=== PATIENT | male | born 1960 | race Caucasian/White ===

== ENCOUNTER 2021-10-14 09:49 | Outpatient (CLI) | payer OTHER, SELFPAY ==
[2021-10-14 09:55] LABS: Bacteria 0 SEEN /hpf (None Seen); Mucous, Urine 0 SEEN /hpf (<or=2+); Red Blood Cells-Urine 0 SEEN /hpf (0-5); Squamous Epithelial Cells - UA 0 SEEN /hpf (0-5); White Blood Cells 0 SEEN /hpf (0-5)
[2021-10-14 12:09] LABS: Color, Urine Yellow (Yellow); Glucose, Dipstick Normal (Normal); Ketone-Dipstick Negative (Negative); Leukocyte Esterase-Dipstick Negative /ul (Negative); Nitrite-Dipstick Negative (Negative); Occult Blood-Urine Negative /ul (Negative); Protein-Dipstick 15 mg/dl (Negative); Urine Bilirubin Dipstick Negative (Negative); Urine Clarity Clear (Clear); Urine Urobilinogen Normal (Normal)
[2021-10-14 12:17] LABS: Absolute Lymphocyte Count 1.81 X10^3/uL (0.83-4.51); Absolute Neutrophil Count 2.6 X10^3/uL (2.0-7.7); Basophil# 0.03 X10^3/uL; Basophil% 0.6 % (0-1); Eosinophil# 0.14 X10^3/uL; Eosinophils% 2.8 % (0-5); Hematocrit 42.3 % (40-54); Hemoglobin 14.6 g/dL (13.0-16.5); Lymphocyte # 1.81 X10^3/ul (0.83-4.51); Lymphocyte % 36.6 % (19-41); Mean Corp Hgb Conc 34.5 g/dL (32-36); Mean Corpuscular Hgb 30.7 pg (27.0-32.0); Mean Corpuscular Volume 89.1 fL (80-94); Mean Platelet Vol. 9.9 fl (6.2-12.0); Monocyte% 8.1 % (0-10); NRBC Flagged by Analyzer 0 % (0-5); Neutrophil # 2.55 X10^3/uL (2.7-7.7); Neutrophil % 51.7 % (47-70); Platelet Count 233 K/mm3 (150-450); RBC Distribution Width CV 12.5 % (11.6-14.6); Red Blood Count 4.75 M/mm3 (4.6-6.2); White Blood Count 4.9 K/mm3 (4.4-11.0)
[2021-10-14 13:02] LABS: ALB/GLOB Ratio 1.3 RATIO (0.9-2.4); AST(SGOT) 13 U/L (15-37); Alanine Aminotransfer ALT/SGPT 27 U/L (16-61); Albumin, Serum 3.9 g/dL (3.2-5.0); Alkaline Phosphatase 64 U/L (45-117); Anion Gap 6 (5-15); BUN 21 mg/dL (7-18); BUN/Creat Ratio 22.5 RATIO (10-20); Calcium,Total 8.5 mg/dL (8.5-10.1); Chloride 108 mmol/L (98-107); Cholesterol 199 mg/dL (200); Creatinine, Serum 0.94 mg/dL (0.70-1.30); EST Glomerular Filtration Rate 88 mL/min (>60); Est Glom Filt Rate - Afr Amer 106 mL/min (>60); Glucose 161 mg/dL (74-106); High Density Lipoprotein 44 mg/dL; Potassium 4.4 mmol/L (3.5-5.1); Protein, Total 6.9 g/dL (6.4-8.2); Sodium Level 139 mmol/L (136-145); Thyroid Stim Hormone (TSH) 1.68 uIU/mL (0.358-3.74); Triglycerides 141 mg/dL; Very Low Density Lipoprotein 28 mg/dL (5-40)
[2021-10-14 16:21] LABS: Hemoglobin A1c 7.1 % (3.8-5.6)
== END 2021-10-14 23:59 | disposition home or self-care (01) ==
LOC: MFPLAB 09:52
PROVIDERS: PCP Family Medicine; Referring Provider Family Medicine; Visit Provider Family Medicine
DX: R73.09 Other abnormal glucose (principal); I10 Essential (primary) hypertension
CPT/HCPCS: 36415; 80053; 80061; 81001; 83036; 84443; 85025

== ENCOUNTER 2022-02-01 09:32 | Outpatient (CLI) | payer OTHER, SELFPAY ==
[2022-02-01 12:05] LABS: Absolute Lymphocyte Count 1.55 X10^3/uL (0.83-4.51); Absolute Neutrophil Count 3.3 X10^3/uL (2.0-7.7); Basophil# 0.03 X10^3/uL; Basophil% 0.6 % (0-1); Eosinophil# 0.17 X10^3/uL; Eosinophils% 3.1 % (0-5); Hematocrit 40.1 % (40-54); Hemoglobin 13.4 g/dL (13.0-16.5); Lymphocyte # 1.55 X10^3/ul (0.83-4.51); Lymphocyte % 28.7 % (19-41); Mean Corp Hgb Conc 33.4 g/dL (32-36); Mean Corpuscular Hgb 30.9 pg (27.0-32.0); Mean Corpuscular Volume 92.4 fL (80-94); Monocyte# 0.37 X10^3/uL; Monocyte% 6.9 % (0-10); NRBC Flagged by Analyzer 0 % (0-5); Neutrophil # 3.28 X10^3/uL (2.7-7.7); Neutrophil % 60.7 % (47-70); Platelet Count 219 K/mm3 (150-450); RBC Distribution Width CV 13.4 % (11.6-14.6); RBC Distribution Width SD 45.9 fl (35.1-43.9); Red Blood Count 4.34 M/mm3 (4.6-6.2); White Blood Count 5.4 K/mm3 (4.4-11.0)
[2022-02-01 12:30] LABS: ALB/GLOB Ratio 1.2 RATIO (0.9-2.4); AST(SGOT) 14 U/L (15-37); Alanine Aminotransfer ALT/SGPT 22 U/L (16-61); Albumin, Serum 3.7 g/dL (3.2-5.0); Alkaline Phosphatase 53 U/L (45-117); Anion Gap 8 (5-15); BUN 20 mg/dL (7-18); BUN/Creat Ratio 23.2 RATIO (10-20); Chloride 107 mmol/L (98-107); Cholesterol 105 mg/dL (200); Creatinine, Serum 0.86 mg/dL (0.70-1.30); EST Glomerular Filtration Rate 96 mL/min (>60); Est Glom Filt Rate - Afr Amer 117 mL/min (>60); Globulin 3.1 g/dL (2.2-4.2); Glucose 101 mg/dL (74-106); High Density Lipoprotein 53 mg/dL; Microalbumin,Random Urine 26.6 mg/L (NO RANGE EST.); Microalbumin:Creatinine Ratio 14.1 mg/g CRE (<30 mg/g CRE); Potassium 4.5 mmol/L (3.5-5.1); Protein, Total 6.8 g/dL (6.4-8.2); Sodium Level 140 mmol/L (136-145); Triglycerides 55 mg/dL; Very Low Density Lipoprotein 11 mg/dL (5-40)
[2022-02-01 12:38] LABS: Hemoglobin A1c 5.9 % (3.8-5.6)
== END 2022-02-01 23:59 | disposition home or self-care (01) ==
LOC: MFPLAB 09:33
PROVIDERS: PCP Family Medicine; Referring Provider Family Medicine; Visit Provider Family Medicine
DX: Z00.00 Encounter for general adult medical examination without abnormal findings (principal)
CPT/HCPCS: 36415; 80053; 80061; 82043; 82570; 83036; 85025

== ENCOUNTER → 2022-05-31 | Outpatient (CLI) | payer OTHER, SELFPAY ==
[2022-05-31 12:33] LABS: Absolute Lymphocyte Count 1.55 X10^3/uL (0.83-4.51); Absolute Neutrophil Count 2.5 X10^3/uL (2.0-7.7); Basophil# 0.03 X10^3/uL; Basophil% 0.6 % (0-1); Eosinophil# 0.18 X10^3/uL; Eosinophils% 3.9 % (0-5); Hematocrit 40.2 % (40-54); Hemoglobin 13.8 g/dL (13.0-16.5); Lymphocyte # 1.55 X10^3/ul (0.83-4.51); Lymphocyte % 33.5 % (19-41); Mean Corp Hgb Conc 34.3 g/dL (32-36); Mean Corpuscular Hgb 31.3 pg (27.0-32.0); Mean Corpuscular Volume 91.2 fL (80-94); Mean Platelet Vol. 10.3 fl (6.2-12.0); Monocyte# 0.33 X10^3/uL; Monocyte% 7.1 % (0-10); NRBC Flagged by Analyzer 0 % (0-5); Neutrophil # 2.54 X10^3/uL (2.7-7.7); Neutrophil % 54.9 % (47-70); Platelet Count 204 K/mm3 (150-450); RBC Distribution Width CV 13.7 % (11.6-14.6); RBC Distribution Width SD 46.6 fl (35.1-43.9); Red Blood Count 4.41 M/mm3 (4.6-6.2); White Blood Count 4.6 K/mm3 (4.4-11.0)
[2022-05-31 13:14] LABS: ALB/GLOB Ratio 1.4 RATIO (0.9-2.4); AST(SGOT) 19 U/L (15-37); Alanine Aminotransfer ALT/SGPT 25 U/L (16-61); Albumin, Serum 4.2 g/dL (3.2-5.0); Alkaline Phosphatase 60 U/L (45-117); Anion Gap 5 (5-15); BUN 23 mg/dL (7-18); BUN/Creat Ratio 32.2 RATIO (10-20); Calcium,Total 9.6 mg/dL (8.5-10.1); Chloride 106 mmol/L (98-107); Cholesterol 133 mg/dL (200); Creatinine, Serum 0.71 mg/dL (0.70-1.30); EST Glomerular Filtration Rate 120 mL/min (>60); Est Glom Filt Rate - Afr Amer 145 mL/min (>60); Globulin 2.9 g/dL (2.2-4.2); Glucose 92 mg/dL (74-106); High Density Lipoprotein 73 mg/dL; Potassium 4.4 mmol/L (3.5-5.1); Protein, Total 7.1 g/dL (6.4-8.2); Sodium Level 141 mmol/L (136-145); Triglycerides 49 mg/dL; Very Low Density Lipoprotein 10 mg/dL (5-40)
[2022-05-31 13:34] LABS: Hemoglobin A1c 5.4 % (3.8-5.6)
== END | disposition home or self-care (01) ==
LOC: MFPLAB 10:13
PROVIDERS: PCP Family Medicine; Visit Provider Family Medicine
DX: E11.9 Type 2 diabetes mellitus without complications (principal)
CPT/HCPCS: 36415; 80053; 80061; 83036; 85025

== ENCOUNTER → 2022-09-08 | Outpatient (CLI) | payer OTHER, SELFPAY ==
[2022-09-08 10:43] LABS: Microalbumin,Random Urine 53.1 mg/L (NO RANGE EST.); Microalbumin:Creatinine Ratio 18.7 mg/g CRE (<30 mg/g CRE)
[2022-09-08 10:52] LABS: ALB/GLOB Ratio 0.8 RATIO (0.9-2.4); AST(SGOT) 17 U/L (15-37); Alanine Aminotransfer ALT/SGPT 25 U/L (16-61); Albumin, Serum 3.1 g/dL (3.2-5.0); Alkaline Phosphatase 54 U/L (45-117); Anion Gap 7 (5-15); BUN 28 mg/dL (7-18); BUN/Creat Ratio 42.1 RATIO (10-20); Calcium,Total 9.2 mg/dL (8.5-10.1); Chloride 103 mmol/L (98-107); Cholesterol 113 mg/dL (200); Creatinine, Serum 0.66 mg/dL (0.70-1.30); EST Glomerular Filtration Rate 130 mL/min (>60); Est Glom Filt Rate - Afr Amer 157 mL/min (>60); Globulin 3.8 g/dL (2.2-4.2); Glucose 87 mg/dL (74-106); High Density Lipoprotein 51 mg/dL; Potassium 4.2 mmol/L (3.5-5.1); Protein, Total 6.9 g/dL (6.4-8.2); Sodium Level 140 mmol/L (136-145); Triglycerides 41 mg/dL; Very Low Density Lipoprotein 8 mg/dL (5-40)
[2022-09-08 11:00] LABS: Hemoglobin A1c 5.4 % (3.8-5.6)
== END | disposition home or self-care (01) ==
LOC: MFPLAB 08:25
PROVIDERS: PCP Family Medicine; Visit Provider Family Medicine
DX: E11.9 Type 2 diabetes mellitus without complications (principal)
CPT/HCPCS: 36415; 80053; 80061; 82043; 82570; 83036

== ENCOUNTER → 2022-12-13 | Outpatient (CLI) | payer OTHER, SELFPAY ==
[2022-12-13 10:14] LABS: Absolute Lymphocyte Count 1.47 X10^3/uL (0.83-4.51); Absolute Neutrophil Count 4.2 X10^3/uL (2.0-7.7); Basophil# 0.02 X10^3/uL; Basophil% 0.3 % (0-1); Eosinophil# 0.11 X10^3/uL; Eosinophils% 1.8 % (0-5); Hematocrit 39.3 % (40-54); Hemoglobin 13.7 g/dL (13.0-16.5); Lymphocyte # 1.47 X10^3/ul (0.83-4.51); Lymphocyte % 24.1 % (19-41); Mean Corp Hgb Conc 34.9 g/dL (32-36); Mean Corpuscular Hgb 32.6 pg (27.0-32.0); Mean Corpuscular Volume 93.6 fL (80-94); Mean Platelet Vol. 9.7 fl (6.2-12.0); Monocyte% 4.9 % (0-10); NRBC Flagged by Analyzer 0 % (0-5); Neutrophil % 68.7 % (47-70); Platelet Count 229 K/mm3 (150-450); RBC Distribution Width CV 14.2 % (11.6-14.6); RBC Distribution Width SD 48.7 fl (35.1-43.9); White Blood Count 6.1 K/mm3 (4.4-11.0)
[2022-12-13 10:38] LABS: ALB/GLOB Ratio 1.2 RATIO (0.9-2.4); AST(SGOT) 14 U/L (15-37); Alanine Aminotransfer ALT/SGPT 27 U/L (16-61); Albumin, Serum 3.6 g/dL (3.2-5.0); Alkaline Phosphatase 60 U/L (45-117); Anion Gap 5 (5-15); BUN 24 mg/dL (7-18); BUN/Creat Ratio 33.7 RATIO (10-20); Chloride 107 mmol/L (98-107); Cholesterol 121 mg/dL (200); Creatinine, Serum 0.71 mg/dL (0.70-1.30); EST Glomerular Filtration Rate 120 mL/min (>60); Est Glom Filt Rate - Afr Amer 145 mL/min (>60); Globulin 3.1 g/dL (2.2-4.2); Glucose 99 mg/dL (74-106); High Density Lipoprotein 78 mg/dL; Potassium 4.5 mmol/L (3.5-5.1); Protein, Total 6.7 g/dL (6.4-8.2); Sodium Level 140 mmol/L (136-145); Triglycerides 25 mg/dL; Very Low Density Lipoprotein 5 mg/dL (5-40)
[2022-12-13 11:31] LABS: Hemoglobin A1c 5.7 % (3.8-5.6)
== END | disposition home or self-care (01) ==
LOC: MFPLAB 08:25
PROVIDERS: PCP Family Medicine; Visit Provider Family Medicine
DX: E11.9 Type 2 diabetes mellitus without complications (principal)
CPT/HCPCS: 36415; 80053; 80061; 83036; 85025

== ENCOUNTER → 2023-04-17 | Outpatient (CLI) | payer OTHER, SELFPAY ==
[2023-04-17 17:26] LABS: Absolute Lymphocyte Count 1.88 X10^3/uL (0.83-4.51); Absolute Neutrophil Count 2.9 X10^3/uL (2.0-7.7); Basophil# 0.03 X10^3/uL; Basophil% 0.6 % (0-1); Eosinophils% 1.9 % (0-5); Hematocrit 39.3 % (40-54); Hemoglobin 12.4 g/dL (13.0-16.5); Lymphocyte # 1.88 X10^3/ul (0.83-4.51); Lymphocyte % 35.6 % (19-41); Mean Corp Hgb Conc 31.6 g/dL (32-36); Mean Corpuscular Hgb 29.8 pg (27.0-32.0); Mean Corpuscular Volume 94.5 fL (80-94); Mean Platelet Vol. 9.7 fl (6.2-12.0); Monocyte# 0.34 X10^3/uL; Monocyte% 6.4 % (0-10); NRBC Flagged by Analyzer 0 % (0-5); Neutrophil # 2.92 X10^3/uL (2.7-7.7); Neutrophil % 55.3 % (47-70); Platelet Count 200 K/mm3 (150-450); RBC Distribution Width CV 13.2 % (11.6-14.6); Red Blood Count 4.16 M/mm3 (4.6-6.2); White Blood Count 5.3 K/mm3 (4.4-11.0)
[2023-04-17 17:50] LABS: ALB/GLOB Ratio 1.2 RATIO (0.9-2.4); AST(SGOT) 17 U/L (15-37); Alanine Aminotransfer ALT/SGPT 30 U/L (16-61); Albumin, Serum 3.7 g/dL (3.2-5.0); Alkaline Phosphatase 57 U/L (45-117); Anion Gap 3 (5-15); BUN 18 mg/dL (7-18); BUN/Creat Ratio 24.8 RATIO (10-20); Calcium,Total 8.9 mg/dL (8.5-10.1); Chloride 107 mmol/L (98-107); Cholesterol 134 mg/dL (200); Creatinine, Serum 0.73 mg/dL (0.70-1.30); EST Glomerular Filtration Rate 117 mL/min (>60); Est Glom Filt Rate - Afr Amer 141 mL/min (>60); Glucose 91 mg/dL (74-106); High Density Lipoprotein 81 mg/dL; Protein, Total 6.7 g/dL (6.4-8.2); Sodium Level 138 mmol/L (136-145); Triglycerides 42 mg/dL; Very Low Density Lipoprotein 8 mg/dL (5-40)
[2023-04-17 17:57] LABS: Hemoglobin A1c 5.5 % (3.8-5.6)
[2023-04-18 15:47] LABS: Ferritin 138 ng/mL (26-388); Iron 81 ug/dL (65-175); Iron Binding Capacity,Total 339 ug/dL (250-450); PERCENT IRON SATURATION 23.9 % (15.0-55.0)
[2023-04-18 16:40] LABS: Vitamin B12 502 pg/mL (211-911)
== END | disposition home or self-care (01) ==
LOC: MFPLAB 16:11
PROVIDERS: PCP Family Medicine; Visit Provider Family Medicine
DX: D64.9 Anemia, unspecified (principal); E11.9 Type 2 diabetes mellitus without complications
CPT/HCPCS: 36415; 80053; 80061; 82607; 82728; 83036; 83540; 83550; 85025

== ENCOUNTER → 2023-05-09 | Outpatient (CLI) | payer OTHER, SELFPAY | END | disposition home or self-care (01) | LOC: MFPLAB 16:36 | PROVIDERS: PCP Family Medicine; Visit Provider Family Medicine | DX: Z12.5 Encounter for screening for malignant neoplasm of prostate (principal) | CPT/HCPCS: 36415; 84153; G0103 ==

== ENCOUNTER → 2023-05-22 | Outpatient (CLI) | payer OTHER, SELFPAY | END | disposition home or self-care (01) | PROVIDERS: PCP Family Medicine; Visit Provider Urology | DX: R97.20 Elevated prostate specific antigen [PSA] (principal) | CPT/HCPCS: 36415; 84153 ==

== ENCOUNTER → 2023-06-28 | Outpatient (CLI) | payer OTHER, SELFPAY ==
--- NOTE | 2023-06-28 | IMM_PTH ---
PATIENT: RAYMOND VELAZQUEZ LOC: [facility] U#:[id number] AGE/SX: 62/M ROOM: RE06/28/[address]: Dr. Colt Almonte MD : 1960 BED: DIS: 06/28/2023 SPEC #: [id number] RECD: 07/03/23 10:57 STATUS: NATE REQ #: [id number] MARIELOS: 06/28/23 00:[address]: Colt Almonte DEPT: IMMUNOHISTOCHEMISTRY RECD BY: [place] ENTERED: 07/03/23 10:59 SP TYPE: IMMUNO OTHR DR: Dr. Kenroy Eid MD Tissues: C - PROSTATE RIGHT D - PROSTATE LEFT E - PROSTATE LEFT F - PROSTATE LEFT Procedures: 34BE12 (add) P40 (add) 34BE12 (initial) PHYSICIAN & INSTITUTION [place] [id number] SPECIMEN INFORMATION: Tissue Source: C - Right base, D - Left apex, E - Left mid, F - Left base Clinical Info: Elevated PSA Specimen Number: [id number] C-F CPT code: 62534, 49358 x7 METHODOLOGY: Deparaffinized sections of prefer/formalin-fixed tissue or PAP/DQ stained slides are incubated with monoclonal/polyclonal antibodies/oligonucleotide probes. Localization is made via biotin free immunoperoxidase method. Appropriate controls are performed and reacted as expected. Results on target cell population are indicated in the following table: RESULTS: ANTIBODY / CLONE RESULT Block C P40 (BC28) negative 34BE12 (34BE12) negative Block D P40 (BC28) negative 34BE12 (34BE12) negative Block E P40 (BC28) negative 34BE12 (34BE12) negative Block F P40 (BC28) positive 34BE12 (34BE12) positive These tests were developed and their performance characteristics determined by [facility]. They may not have been cleared or approved by the U.S. Food and Drug Administration. The FDA has determined that such clearance or approval is not necessary. The above immunohistochemical/dualISH markers are ordered and reviewed by the Pathologist. INTERPRETATION: C. Right prostate, base, core biopsy: Focal atypical small acinar proliferation (LENNY). D. Left prostate, apex, core biopsy: Adenocarcinoma. E. Left prostate, mid, core biopsy: Adenocarcinoma. F. Left prostate, base, core biopsy: Negative for malignancy. SJ:barbara 07/04/2023
--- NOTE | 2023-06-28 08:00 | PROSBIL_PTH ---
PATIENT: RAYMOND VELAZQUEZ [facility] U#:[id number] AGE/SX: 62/M ROOM: RE06/28/[address]: Dr. Colt Almonte MD : 1960 BED: DIS: 06/28/2023 SPEC #: [id number] RECD: 06/29/23 09:37 STATUS: NATE REBartolome #: [id number] MARIELOS: 06/28/23 08:[address]: Colt Almonte DEPT: SURGICAL PATHOLOGY RECD BY: Doreen Pittman ENTERED: 06/29/23 09:37 SP TYPE: PROST BX SOTO DR: Dr. Kenroy Edi MD Tissues: A - PROSTATE RIGHT B - PROSTATE RIGHT C - PROSTATE RIGHT D - PROSTATE LEFT E - PROSTATE LEFT F - PROSTATE LEFT Procedures: PROSTATE BX HEADER OPERATION: Prostate biopsy PRE-OP DIAGNOSIS: Elevated PSA TISSUE SUBMITTED: A - Right apex, B - Right mid, C - Right base, D - Left apex, E - Left mid, F - Left base MICROSCOPIC DIAGNOSIS A. Right prostate, apex, core biopsy: Prostatic adenocarcinoma. Jeremy grade: 3+3=6 Number of cores involved: 1/1 Proportion of tissue involved: >95% Perineural invasion: present, focal Greatest tumor length: 1.4 cm B. Right prostate, mid, core biopsy: Prostatic adenocarcinoma. Mont[place] grade: 3+4=7 Number of cores involved: 2/2 Proportion of tissue involved: ~60% Perineural invasion: Not identified. Greatest tumor length: 0.6 cm C. Right prostate, base, core biopsy: Focal atypical small acinar proliferation (LENNY). See comment. D. Left prostate, apex, core biopsy: Prostatic adenocarcinoma. Jeremy grade: 3+3=6 Number of cores involved: 1/2 Proportion of tissue involved: <5% Perineural invasion: Not identified. Greatest tumor length: <0.1 cm See comment. E. Left prostate, mid, core biopsy: Prostatic adenocarcinoma. [place] grade: 3+3=6 Number of cores involved: 1/2 Proportion of tissue involved: <5% Perineural invasion: Not identified. Greatest tumor length: <0.1 cm See comment. F. Left prostate, base, core biopsy: Prostatic tissue, negative for malignancy. See comment. SJ:rg 07/03/2023 COMMENT C-F. Immunohistochemistry ([id number]) supports the above diagnosis. This case has been reviewed in consultation with Dr. Álvarez who concurs with the above diagnosis. MICROSCOPIC DESCRIPTION Slides are reviewed. GROSS DESCRIPTION A - Received is one container designated prostate, right apex. The specimen consists of one elongated fragments of light delgado-white soft tissue measuring 2.5 cm in length and 0.1 cm in diameter. The specimen is totally submitted in one cassette. B - Received is one container designated prostate, right mid. The specimen consists of two elongated fragments of light delgado-white soft tissue each measuring 1.0 cm in length and 0.1 cm in diameter. The specimen is totally submitted in one cassette. C - Received is one container designated prostate, right base. The specimen consists of two elongated fragments of light delgado-white soft tissue measuring 0.7 and 1.6 cm in length and 0.1 cm in diameter. The specimen is totally submitted in one cassette. D - Received is one container designated prostate, left apex. The specimen consists of one elongated fragments of light delgado-white soft tissue measuring 1.0 in length and 0.1 cm in diameter. The specimen is totally submitted in one cassette. E - Received is one container designated prostate, left mid. The specimen consists of two elongated fragments of light delgado-white soft tissue each measuring 1.3 cm in length and 0.1 cm in diameter. The specimen is totally submitted in one cassette. F - Received is one container designated prostate, left base. The specimen consists of two elongated fragments of light delgado-white soft tissue each measuring 1.0 and 1.7 cm in length and 0.1 cm in diameter. The specimen is totally submitted in one cassette. / LEXI:barbara 06/29/2023 TC:0 CPT: 92171 x6
== END | disposition home or self-care (01) ==
PROVIDERS: PCP Family Medicine; Visit Provider Urology
DX: R97.20 Elevated prostate specific antigen [PSA] (principal)
CPT/HCPCS: 88305; 88341; 88342; G0416

== ENCOUNTER → 2023-07-23 | Outpatient (CLI) | payer OTHER, SELFPAY ==
--- NOTE | 2023-07-23 09:12 | NM_ITS ---
CLINICAL: 62-year-old male with history of primary prostate carcinoma. WHOLE BODY 99m Tc MDP RADIONUCLIDE BONE SCINTIGRAPHY COMPARISON: None available FINDINGS: Following the intravenous administration of 25.0 mCi of 99m Tc MDP via the apparent left wrist, whole body bone images reveal: 1. Enhanced uptake is identified in the third lumbar vertebra anteriorly on the left and right, the acromioclavicular and sternoclavicular compartments of both shoulders, the left posterior sacrum, the posterior compartment of the left ankle. 2. The remaining skeletal structures are scintigraphically unremarkable with normal-appearing renal images and urinary bladder activity identified. NM/Bone Scan Whole Body IMPRESSION: 1. The increase in tracer uptake defined in the lumbar spine, bilateral shoulders, the sacrum and posterior compartment of the left ankle is commensurate with degenerative arthritis. 2. There is no definitive scintigraphic evidence of diffuse axial skeletal metastatic disease on the current evaluation. Electronically Signed: Mainor Woods DO at 10:56 EST ,
--- OUTSIDE RECORDS SUMMARY | 2023-07-23 09:38 | XMS RPT_ITS | CCD ---
Author Name Unknown Address [address] [place] [address] Organization [facility] Care Team Providers Care Layup Worker Name Role Phone AUSTYN, EVA Admitting Unavailable AUSTYN, EVA Attending Unavailable AUSTYN, EVA Primary Care Unavailable CHARO RUIZ Consulting Unavailable PROVIDER, UNKNOWN Consulting Unavailable PROVIDER, UNKNOWN Consulting Unavailable PROVIDER, UNKNOWN Consulting Unavailable Results Test Name Value Interpretation Reference Range Facil ity Encounters Encounter Date Encounter Type Care Provider Facility Start: 12-24-2019 End: 12-24-2019 Patient encounter procedure EVASOURAV ZAMAN [facility] Payers Date Payer Category Payer Unknown [id number] Unknown [id number] Summary Purpose Family History No Family History Records FoundNo Family History Records Found Advance Directives No Advanced Directives Records FoundNo Advanced Directives Records Found Additional Source Comments (unrecognized sect ion and content) No Status Records FoundNo Status Records Found INFORMATION SOURCE (unrecogn ized section and content) DATE CREATED AUTHOR AUTHOR'S ORGANIZ ATION 06/24/2021 [facility] ([place]) FOR RECORDS PERTAINING TO PATIENTS WHO ARE OR HAVE BEEN ENROLLED IN A CHEMICAL DEPENDENCY/SUBSTANCEABUSE PROGRAM, SOME INFORMATION MAY BE OMITTED. This clinical summary was aggregated from multiple sources. Caution should be exercised in using it in the provision of clinical care. This summary normalizes information from multiple sources, and as a consequence, information in this document may materially change the coding, format and clinical context of patient data. In addition, data may be omitted in some cases. CLINICAL DECISIONS SHOULD BE BASED ON THE PRIMARY CLINICAL RECORDS. [facility] [employer] [facility]. provides no warranty or guarantee of the accuracy or completeness of information in this document.
== END | disposition home or self-care (01) ==
LOC: NM 09:08
PROVIDERS: PCP Family Medicine; Referring Provider Urology; Visit Provider Urology
DX: C61 Malignant neoplasm of prostate (principal)
CPT/HCPCS: 78306; A9503

== ENCOUNTER → 2023-07-27 | Outpatient (CLI) | payer OTHER, SELFPAY ==
--- OUTSIDE RECORDS SUMMARY | 2023-07-27 13:09 | XMS RPT_ITS | CCD ---
Author Name Unknown Address [address] [place] [address] Organization [facility] Care Team Providers Care Pipe Stem Sawyer Name Role Phone AUSTYN, EVA Admitting Unavailable AUSTYN, EVA Attending Unavailable AUSTYN, EVA Primary Care Unavailable CHARO RUIZ Consulting Unavailable PROVIDER, UNKNOWN Consulting Unavailable PROVIDER, UNKNOWN Consulting Unavailable PROVIDER, UNKNOWN Consulting Unavailable Results Test Name Value Interpretation Reference Range Facil ity Encounters Encounter Date Encounter Type Care Provider Facility Start: 12-24-2019 End: 12-24-2019 Patient encounter procedure EVASOURAV ZAMAN [facility] Payers Date Payer Category Payer Unknown [id number] Unknown [id number] Summary Purpose Family History No Family History Records FoundNo Family History Records Found Advance Directives No Advanced Directives Records FoundNo Advanced Directives Records Found Additional Source Comments (unrecognized sect ion and content) No Status Records FoundNo Status Records Found INFORMATION SOURCE (unrecogn ized section and content) DATE CREATED AUTHOR AUTHOR'S ORGANIZ ATION 06/24/2021 [facility] ([place]) FOR RECORDS PERTAINING TO PATIENTS WHO ARE [...] BE BASED ON THE PRIMARY CLINICAL RECORDS. [facility]. provides no warranty or guarantee of the accuracy or completeness of information in this document.
--- NOTE | 2023-07-27 13:19 | MRI_ITS ---
EXAMINATION: MR Prostate WO/W Contrast COMPARISON: None CLINICAL HISTORY: 62 yo M with prostate cancer TECHNIQUE: Standard prostate MR protocol was used before and after administration of 17 cc of IV Clariscan. FINDINGS: Length of membranous urethra: 17 mm Post-biopsy hemorrhage: None Multiparametric MR evaluation: Heterogeneous appearance of the central gland is consistent with benign prostatic hyperplasia. Lesion 1: LOCATION - there is a moderately T2 hypointense mass in the bilateral anterior transitional zone from base to mid gland measuring approximately 1.8 x 1.5 x 1.2 cm. T2 - 5 DWI - 4 DCE - inconclusive Overall PI-RADS v2 score = 5 Capsular margin and neurovascular bundle: Microcapsular extension along the anterior border. Seminal vesicles: Not involved. Lymph nodes: 6 mm right and 5 mm left pelvic sidewall lymphadenopathy. Bones: No suspicious lesions in the field of view. MRI/Pelvis W/WO Contrast IMPRESSION: 1.8 cm PI-RADS 5 lesion in the bilateral anterior TZ from base to mid gland. - Microcapsular extension along the anterior border. - No evidence of seminal vesicle invasion. - 6 mm right and 5 mm left pelvic sidewall lymphadenopathy. - No suspicious bone lesions. Electronically Signed: Bala Ramírez MD at 23:46 EST ,
[2023-07-27 14:15] LABS: CREATININE FINGERSTICK < 1.0 mg/dL (0.70-1.30); EGFR FINGERSTICK > 60.0000 mL/min (>60)
== END | disposition home or self-care (01) ==
PROVIDERS: PCP Family Medicine; Referring Provider Urology; Visit Provider Urology
DX: C61 Malignant neoplasm of prostate (principal)
CPT/HCPCS: 72197; A9575

== ENCOUNTER → 2023-08-21 | Outpatient (CLI) | payer OTHER, SELFPAY | END | disposition home or self-care (01) | LOC: LAB 13:29 | PROVIDERS: PCP Family Medicine; Referring Provider Family Medicine; Visit Provider Family Medicine | DX: Z00.00 Encounter for general adult medical examination without abnormal findings (principal) ==

== ENCOUNTER 2023-08-29 06:11 | Day surgery (SDC) | payer OTHER, SELFPAY ==
--- NOTE | 2023-08-21 13:48 | EKG12_ITS ---
Test Reason : PRE OP Blood Pressure : / mmHG Vent. Rate : 061 BPM Atrial Rate : 061 BPM P-R Int : 140 ms QRS Dur : 060 ms QT Int : 406 ms P-R-T Axes : 023 062 071 degrees QTc Int : 408 ms Normal sinus rhythm Low voltage QRS Otherwise Normal Confirmed by Vick Gutierrez ([id number]), news videotape editor CLAUDIA BERKOWITZ ([id number]) on 08/22/2023 8:08:49 AM Referred By: Colt Almonte Confirmed By:Vick Gutierrez
[2023-08-21 14:28] LABS: Absolute Lymphocyte Count 1.72 X10^3/uL (0.83-4.51); Absolute Neutrophil Count 3.3 X10^3/uL (2.0-7.7); Basophil# 0.02 X10^3/uL; Basophil% 0.4 % (0-1); Eosinophil# 0.12 X10^3/uL; Eosinophils% 2.2 % (0-5); Hematocrit 41.9 % (40-54); Hemoglobin 13.8 g/dL (13.0-16.5); Lymphocyte # 1.72 X10^3/ul (0.83-4.51); Mean Corp Hgb Conc 32.9 g/dL (32-36); Mean Corpuscular Hgb 30.5 pg (27.0-32.0); Mean Corpuscular Volume 92.5 fL (80-94); Mean Platelet Vol. 9.9 fl (6.2-12.0); Monocyte# 0.33 X10^3/uL; NRBC Flagged by Analyzer 0 % (0-5); Neutrophil # 3.34 X10^3/uL (2.7-7.7); Neutrophil % 60.2 % (47-70); Platelet Count 223 K/mm3 (150-450); RBC Distribution Width CV 12.9 % (11.6-14.6); RBC Distribution Width SD 43.8 fl (35.1-43.9); Red Blood Count 4.53 M/mm3 (4.6-6.2); White Blood Count 5.5 K/mm3 (4.4-11.0)
[2023-08-21 14:45] LABS: Vitamin B12 718 pg/mL (211-911)
[2023-08-21 14:46] LABS: Hemoglobin A1c 5.6 % (3.8-5.6)
[2023-08-21 14:55] LABS: ALB/GLOB Ratio 1.2 RATIO (0.9-2.4); AST(SGOT) 18 U/L (15-37); Alanine Aminotransfer ALT/SGPT 29 U/L (16-61); Albumin, Serum 4.2 g/dL (3.2-5.0); Alkaline Phosphatase 67 U/L (45-117); Anion Gap 5 (5-15); BUN 18 mg/dL (7-18); BUN/Creat Ratio 25.2 RATIO (10-20); Calcium,Total 9.4 mg/dL (8.5-10.1); Chloride 104 mmol/L (98-107); Cholesterol 148 mg/dL (200); Creatinine, Serum 0.71 mg/dL (0.70-1.30); EST Glomerular Filtration Rate 119 mL/min (>60); Est Glom Filt Rate - Afr Amer 145 mL/min (>60); Ferritin 172 ng/mL (26-388); Globulin 3.4 g/dL (2.2-4.2); Glucose 97 mg/dL (74-106); High Density Lipoprotein 85 mg/dL; Iron 99 ug/dL (65-175); Iron Binding Capacity,Total 358 ug/dL (250-450); Potassium 4.1 mmol/L (3.5-5.1); Protein, Total 7.6 g/dL (6.4-8.2); Sodium Level 138 mmol/L (136-145); Thyroid Stim Hormone (TSH) 1.29 uIU/mL (0.358-3.74); Triglycerides 49 mg/dL; Very Low Density Lipoprotein 10 mg/dL (5-40)
[2023-08-21 14:57] LABS: Microalbumin,Random Urine < 5.0 mg/L (NO RANGE EST.)
[2023-08-29] VITALS (12 sets, daily range): BP systolic 85–126; BP diastolic 44–63; PULSE 66–94; RESP 16–18; TEMP 36.6–37.8; O2SAT 96–100; BMI 26.6
--- OUTSIDE RECORDS SUMMARY | 2023-08-29 06:13 | XMS RPT_ITS | CCD ---
Author Name Unknown Address [address] [place] [address] Organization [facility] Care Team Providers Care Lens Grinding Machine Operator Name Role Phone AUSTYN, EVA Admitting Unavailable AUSTYN, EVA Attending Unavailable AUSTYN, EVA Primary Care Unavailable CHARO RUIZ Consulting Unavailable PROVIDER, UNKNOWN Consulting Unavailable PROVIDER, UNKNOWN Consulting Unavailable PROVIDER, UNKNOWN Consulting Unavailable Results Test Name Value Interpretation Reference Range Facil ity Encounters Encounter Date Encounter Type Care Provider Facility Start: 12-24-2019 End: 12-24-2019 Patient encounter procedure EVASOURAV ZAMAN [facility] Payers Date Payer Category Payer Unknown [id number] Unknown [id number] Summary Purpose Family History No Family History Records FoundNo Family History Records Found Advance Directives No Advanced Directives Records FoundNo Advanced Directives Records Found Additional Source Comments (unrecognized sect ion and content) No Status Records FoundNo Status Records Found INFORMATION SOURCE (unrecogn ized section and content) DATE CREATED AUTHOR AUTHOR'S ORGANIZ ATION 06/24/2021 [facility] ([place]) FOR RECORDS PERTAINING TO PATIENTS WHO ARE [...] BE BASED ON THE PRIMARY CLINICAL RECORDS. [facility] [employer] [facility]. provides no warranty or guarantee of the accuracy or completeness of information in this document.
[2023-08-29] MEDS: Lactated Ringers 1,000 ML 15 ML IV (06:50)
--- NOTE | 2023-08-29 07:18 | PCM.HP.STD ---
HPI - General General Chief Complaint: prostate cancer HPI Narrative RAYMOND VELAZQUEZ, is a 62 M who presents for a robotic radical prostatectomy with nerve sparing. PFS Medical History (Updated 08/15/23 @ 10:24 by Freda Chris) Alcohol use BiPAP (biphasic positive airway pressure) dependence Cancer Cardiology follow-up encounter High cholesterol History of edema History of kidney stones Non-smoker Prostate disease Restless legs Sleep apnea Wears contact lenses Home Medications lisinopril 10 mg tablet 10 mg PO DAILY 08/15/23 [History Last Taken 08/29/23 05:15] multivitamin (Daily Multi-Vitamin tablet) 1 tab PO DAILY 08/15/23 [History Last Taken 08/27/23] rosuvastatin 10 mg tablet 10 mg PO DAILY 08/15/23 [History Last Taken 08/27/23] Allergy/AdvReac Type Severity Reaction Status Date / Time No Known Allergies Allergy Verified 08/29/23 07:01 Surgical History (Updated 08/15/23 @ 10:24 by Freda Chris) History of colonoscopy History of wisdom tooth extraction Social History Smoking Status: Never smoker Vital Signs Vital Signs Vital Signs: 08/29/23 07:04 08/29/23 07:04 Temperature 98.4 F Temperature Source Temporal Pulse Rate 66 Respiratory Rate 16 Respiratory Pattern Normal Blood Pressure 126/63 H Blood Pressure Mean 84 Blood Pressure Source Monitor Blood Pressure Position Sitting Blood Pressure Location Left Arm Pulse Ox 100 Oxygen Delivery Method Room Air Weight Weight: 82 kg Body Mass Index (BMI) 26.6 Results Lab / Micro Data 08/21/23 13:32 08/21/23 13:32
[2023-08-29] MEDS: Cefazolin 2 GM in 0.9% Normal Saline (100mL Bag) 100 ML IV (07:27)
--- NOTE | 2023-08-29 07:30 | PROST_PTH ---
PATHOLOGY RESULTS PATIENT: RAYMOND VELAZQUEZ LOC: [facility] U#:[id number] AGE/SX: 62/M ROOM: RE08/29/[address]: Dr. Colt Almonte MD : 1960 BED: DIS: 08/30/2023 SPEC #: [id number] RECD: 08/29/23 11:09 STATUS: NATE FUENTES #: [id number] MARIELOS: 08/29/23 07:[address]: Colt Almonte DEPT: SURGICAL PATHOLOGY RECD BY: Doreen Pittman ENTERED: 08/29/23 11:12 SP TYPE: PROSTATE OTHR DR: MD Dr. Kenroy Young MD Tissues: Prostate, NOS Lymph node of pelvis, NOS Lymph node of pelvis, NOS Prostate, NOS Procedures: Surgery Specimen Level IV Surgery Specimen Level V Surgery Specimen Level HEADER OPERATION: Laparoscopic robotic radical prostatectomy PRE-OP DIAGNOSIS: Prostate cancer TISSUE SUBMITTED: A - Fat over prostate, B - Left pelvic lymph node, C - Right pelvic lymph node, D - Prostate MICROSCOPIC DIAGNOSIS A. Fat over prostate, biopsy: Negative for carcinoma. B. Left pelvic lymph node, regional dissection: One lymph node, negative for metastatic carcinoma. C. Right pelvic lymph node, regional dissection: One lymph node, negative for metastatic carcinoma. D. Prostate, radical prostatectomy: Prostatic adenocarcinoma. See cancer summary in the comment section. SJ:barbara 09/03/2023 COMMENT D. PROSTATE CANCER (RADICAL) SUMMARY: Procedure: Radical Prostatectomy Prostate Size: Weight: 50.5 gm Size: 4.0 cm transversely, 3.5 cm anterior-posteriorly and 3.5 cm craniocaudally Histologic Type: Acinar adenocarcinoma Histologic Grade: Grade group 2 ([place] score 3+4=7) Tumor Quantitation: Estimated percentage of prostate involved by tumor: ~30% Tumor size: Tumor involves both right and left lobes apical, mid and basal portion of the prostate. Tumor predominantly involves right lobe and measures 3.0 x 2.0 x 1.5 cm approximately (measured microscopically) and tumor in the left lobe measures 3.0 x 0.7 x 0.8 cm approximately (measured microscopically). tumor in the left lobe involve central portion of the lobe and appears to extend from the right lobe. Extraprostatic Extension: Not identified Urinary Bladder Neck Invasion: Seminal Vesicle Invasion: Not identified Lymphvascular Invasion: Not identified Perineural Invasion: Present, focal Margins: Margins involved by invasive carcinoma. Linear length of positive margin: 1.5 x 1.0 cm Focality: Multifocal Location of positive margin: Right and left apical and right anterior and right lateral. Jeremy pattern at positive margin: Pattern 3 Treatment Effect: No known presurgical therapy. Regional Lymph Nodes: Number of lymph nodes involved by carcinoma: 0 Total number of lymph nodes examined: 2 Additional Pathologic Findings: - Acute and chronic inflammation. - Focal high-grade prostatic intraepithelial neoplasia (HGPIN). Ancillary Studies: No performed Clinical History: Please make reference to previous specimen ([id number]) right prostate, apex and mid and left prostate, apex and mid, with diagnosis of prostatic adenocarcinoma and right prostate, base with diagnosis of focal atypical small acinar proliferation (LENNY). PATHOLOGIC STAGE: pT2 pN0 pMx The above summary is in compliance with [employer] [place] Path[employer] (CAP) Cancer Protocols Checklist and [place] Joint Committee on Cancer (AJCC), Staging Manual, 8th Ed. Case has been reviewed in consultation with Dr. Álvarez who concurs with the above diagnosis. IDC:AM MICROSCOPIC DESCRIPTION Slides are reviewed. GROSS DESCRIPTION A - Received in fixative is one container labeled with the patient's name and designated fat over prostate. The specimen consists of a piece of adipose tissue measuring 3.0 x 3.0 x 0.5 cm. No mass lesion is identified. The entire specimen is submitted in two cassettes. Sections are submitted after additional fixation. / SJ:barbara 08/29/2023 B - Received in fixative is one container labeled with the patient's name and designated left pelvic lymph node. The specimen consists of a piece of adipose tissue measuring 4.5 x 2.5 x 0.5 cm. One possible fatty lymph node is identified measuring 2.5 cm in greatest dimension. The entire specimen is submitted in three cassettes as follows: 1 & 2 - one bisected lymph node, 3 - rest of the specimen. Sections are submitted after additional fixation. / SJ:barbara 08/29/2023 C - Received in fixative is one container labeled with the patient's name and designated right pelvic lymph node. The specimen consists of a piece of adipose tissue measuring 2.5 x 2.0 x 0.5 cm. No obvious lymph node is identified. The specimen bisected and submitted entirely in one cassette. Sections are submitted after additional fixation. / SJ:barbara 08/29/2023 D - Received in fixative is one container labeled with the patient's name and designated prostate. The specimen consists of a radical prostatectomy specimen consisting of prostate and bilateral seminal vesicles and vas deferens. The specimen weighs 50.5 gm. The prostate measures 4.0 cm transversely, 3.5 cm anterior-posteriorly and 3.5 cm craniocaudally. The right seminal vesicle measures 2.5 x 0.7 x 0.9 cm and right vas deferens measures 2.5 cm in length and 0.5 cm in diameter. The left seminal vesicle measures 2.0 x 1.0 x 0.7 cm and the left vas deferens measures 2.5 cm in length and 0.5 cm in diameter. The prostate is inked as follows: anterior surface - yellow, posterior surface - black, right lateral surface - blue, left lateral surface - green. The bilateral seminal vesicles and vas deferens are inked as follows: Posterior surface bilateral seminal vesicle and vas deferens - black, anterior surface right seminal vesicle and vas deferens - blue and anterior left seminal vesicle and vas deferens - green. Sections do not reveal any mass lesions. Senior Engineering Manager sections are submitted in 20 cassettes as follows: 1 - right seminal vesicle and vas deferens, 2 - left seminal vesicle and vas deferens, 3 - apical (urethral) margin, enface, 4 - bladder neck and basal portion of prostate margin, enface, 5-8 - apical portion prostate, 9-13 - middle portion prostate, 14-19 - basal portion prostate. Sections are submitted after additional fixation. / LEXI:barbara 08/30/2023 TC:0 CPT: 75689 x2, 01944, 71029
[2023-08-29] MEDS: Bupivacaine Mpf 0.5% 30 ML VIAL (10:08)
--- NOTE | 2023-08-29 10:21 | DCINST_ITS ---
Discharge Instructions Diet Discharge Diet: No restrictions Activity Discharge Activity: Return to Normal Activity and May Not Drive (while taking narcotic pain medications.) Dressing / Incision Call your doctor if you observe: Fever of 101 or Higher Follow Up Care Please Follow Up With: Colt Almonte MD When: Call [phone] for an appointment Test Results: Test results from this visit will be discussed in further detail at your follow- up appointment, if applicable. Discharge Plan Admission Primary Reason for Your Visit: Radical prostatectomy Attending Provider: Colt Almonte Primary Care Provider: Kenroy Eid Consulting Providers: Amarjit Abel Discharge Orders/Prescriptions Prescriptions: New docusate sodium [Colace] 100 mg capsule 100 mg PO BID Qty: 20 0RF oxycodone 5 mg tablet 5 mg PO Q6H PRN (Reason: pain) 7 Days Qty: 14 0RF ciprofloxacin HCl [Cipro] 500 mg tablet 500 mg PO BID Qty: 20 0RF Continued lisinopril 10 mg tablet 10 mg PO DAILY Patient Comments: TAKE 1 TABLET BY MOUTH ONCE DAILY rosuvastatin 10 mg tablet 10 mg PO DAILY Patient Comments: TAKE 1 TABLET BY MOUTH ONCE DAILY multivitamin [Daily Multi-Vitamin] Tablet 1 tab PO DAILY Other Ambulatory Orders: 12 Lead EKG (Routine) Timeframe: [id number] Location: None Selected Ordered By: Dr. Amarjit Abel Referrals / Follow Up: Colt Almonte MD [Med Staff - Active Staff] - Kenroy Eid MD [Primary Care Provider] - Disposition Disposition (needs filled in before D/C Order can be placed): Home, Self Care
--- NOTE | 2023-08-29 10:21 | OP.PCM_ITS ---
Report of Operation Date of Procedure: 08/29/23 Pre-Operative Diagnosis: Prostate cancer Post-Operative Diagnosis: The same Surgery/Procedure Performed:: Laparoscopic robotic assisted radical prostatectomy bilateral pelvic lymph node dissection and suspension of the urethra suture. Description of Surgical Findings:: Patient presented to the hospital for treatment of his prostate cancer with radical prostatectomy. In the preoperative setting we discussed the options of management for his prostate cancer including active surveillance, radiation treatments, radioactive seeds, and radical robotic prostatectomy. We discussed the side effects of surgery including the potential to lose erections. We discussed the potential to have bladder control problems with stress incontinence which can be temporary or permanent. We discussed the risk of the surgery including the risk of general anesthetic, risk of bleeding, risk of infection, and risk of formation of hernia either incisional hernia or inguinal hernia. After long discussion with the patient the preoperative setting and also reviewed this in the preop area patient signed the consent form and we proceeded with a radical prostatectomy. Patient was taken back to the operating room he was identified, time out procedure was performed and he was placed supine on the table he underwent general anesthesia with intubation. The abdomen was shaved prepped and draped in usual sterile fashion as well as the penis and testicles. A 16 Liberian catheter was placed into the bladder with clear return of urine. I then made an incision in the umbilicus and dissected down to the fascia advance a Veress needle into the peritoneal cavity and insufflated the peritoneal cavity with CO2 gas. I then placed a 12 mm trocar above the umbilicus. I then visualized the placement of the rest of the trochars, I placed a right arm robotic trocar, and air seal trocar, a suction port 5 mm trocar. And on the left side I placed 2 robotic arms. Once all the trochars were in placed the patient was put in steep Trendelenburg. And the robot was docked the arms were docked and then I placed the 0 degree camera through the robotic arm and also used a 30 degree camera during certain parts of the case. I used scissors in the right arm, prograsp in the third arm, and a bipolar in the second arm. Initial dissection was to free the sigmoid colon off the lateral wall this was done by meticulously dissecting off the peritoneum and the sigmoid colon off the left lateral wall. This then allowed the prograsp to retract the sigmoid colon out of the pelvis. I then went below the bladder and identified the vas deferens incised the peritoneum over the vas deferens and traced the vas deferens below the bladder to the prostate and identified the right and left vasa deferens. Below behind the vas deferens then the seminal vesicles were identified. I then dissected the seminal vesicle free using pinpoint electrocautery and then we identified the other seminal vesicle and then dissected this using pinpoint electrocautery I then elevated the vas deferens and several vesicles off the prostate and was able to sweep the Denonvilliers' fascia off the prostate posteriorly all the way up to the apex of the prostate. Working laterally I made sure I went as lateral as possible to sweep the Denonilliers' fascia off the posterior aspect of the prostate and worked my way back, I then transected the vas deferens and the left and right side the seminal vesicles were then dissected free. And then I pulled out of the pelvis. At this point the bladder was dropped creating the space of Retzius with the bladder on traction with the fourth arm. Using electrocautery I dissected in the anterior peritoneal fascia and then created the space of Retzius dissecting towards the prostate. The pelvic lymph node dissection was then performed both side. Rhe right pelvic lymph nodes the nodes that were taken on the right side extended from the right iliac artery lateral pelvic sidewall up to the junction of the artery and the lymph nodes and down to the obturator nerve and then also below the piercing machine operator nerve all the lymph nodes were removed during to remove those lymph nodes we used clips and electrocautery to control small blood vessels and also the control lymphatic. I then went to the left side and again did an extensive lymph node dissection starting of the left iliac artery extending the left iliac vein on the lateral sidewall down to the obturator nerve and the left side beyond the piercing machine operator nerve down further behind it cleaning out all the lymphatic tissue all this tissue was sent off as a specimen we use clips and electrocautery during the dissection. At the end we cleaned out all the lymphatic tissue on the right pelvic wall and all the lymphatic tissue in the left pelvic wall. The prostate was then cleaned of the fat over the prostate and the fourth arm was used to retract the bladder and place traction. I then identified the endopelvic fascia that was overlying the prostate on the right side I incised endopelvic fascia and wwept the levator muscles off the prostate all the way to the apex on the right side, I then worked my way anterior to the prostate then transected to the puboprostatic ligament and the underlying dorsal vein complex was not injured. I then went to the other side and identified the endopelvic fascia in the left side incised in a fashion the left side and swept the levator muscles off the prostate on the left side all the way up to the apex the puboprostatic ligament on the left side was then dissected and transected I then freed up the fascia overlying the dorsal vein complex. I then used the prograsp to encircled the dorsal vein complex with the prograsp and then switched over to the right and left needle local bulk driver and suture ligated the dorsal vein complex above the prograsp. The prograsp was then placed back in the bladder and put back on traction I then identified the junction between the bladder and the prostate and dissected down between the bladder and the prostate untilI came across the catheter we then dissected posteriorly to the bladder and prostate to free the prostate and the bladder off each other and the muscles between the bladder and the prostate was then cauterized to free up the bladder. I then went on top of the prostate and identified the endopelvic fascia on top of the prostate this was incised all the way to the apex and then we swept the endopelvic fascia off the prostate laterally and then identified the plane between endopelvic fascia and the prosthetic pseudocapsule and swept the fascia laterally until reaching the course of the neurovascular bundles and then released the neurovascular bundles off the prostate laterally all the way back in a retrograde fashion back to the junction of the pedicles then the prostate was placed on traction with the fourth arm pulling the prostate laterally identified the pedicle to the prostate between the seminal vesicles and the and the neurovascular bundle and this was taken using sequential small hemolocks. After the pedicle was taken the I then dissected underneath the prostate sweeping the neurovascular bundle off the prostate we able to follow the nice smooth plane between the neurovascular bundle and the pseudocapsule all the way to the apex once this was identified we swept this up all the way up to the apex and there was perfect nerve sparing on the right side. Then went to the left side the prostate identified the endopelvic fascia over the left side of the prostate I incised the endopelvic fascia all the way to the apex and then swept this off laterally I then released the neurovascular bundles on the left side of the prostate sweeping him off the prostate laterally I then elevated the prostate up up with the prostate and traction identified the pedicle to the prostate on the left side and then the pedicles taken with sequential Hem-o-say clips I then was able to dissected the neurovascular bundle off the left post erior aspect the prostate this was a perfect dissection all the way up on the left side following the pseudocapsule all the way up the left side until we reached the apex of the prostate. After the both the neurovascular bundles has been swept off the posterior to the prostate I then went above and transected the dorsal vein complex there was minimal to no bleeding but then dissected down to the urethra and circumfencial dissected around the urethra I then switched the right and left arm with the needle drivers and I suture-ligated the dorsal vein complex again just to ensure that there was no bleeding from the dorsal vein complex. I then transected through the urethra with scissors and the prostate was then freed and released off the prostate bed and put an Endo Catch bag. At this point the bladder neck was reconstructed and then an anastomosis was performed between the prostate and the bladder with a 3 oh V-Loc stitch in a running fashion starting from the bladder neck at the 6 o'clock position working to the 12 o'clock position with continuous stitches to complete a perfect anastomosis between the bladder and the prostate. I then placed a new catheter into the bladder, an 18 Liberian pyramid lake tip catheter flushed the bladder and there was no leakage from the anastomosis I put 10 cc in the balloon and pulled it up pulled back gently. I then ensured that there was no bleeding from the dorsal vein complex no bleeding from the neurovascular bundles FloSeal was placed as necessary once hemostasis was ensured and adequate then I placed the bladder back in position in the pelvis the prostate was exchanged to the camera port I closed the air seal port with a 10 12 Steven Deleon stitch. And the extracted the prostate through the umbilicus. The robot was undocked all the ports were removed under direct visualization then closed the extraction site with 0 Vicryl with a CT1 needle once the extraction site was closed. I then closed all the incision with subcuticular stitches with 4-0 Monocryl and then bandages were placed on the incisions catheter was flushed to make sure it was draining well there was no clots and it was crystal clear patient's anesthetic was reversed he was extubated and taken back to the PACU in stable condition all the needles and sponges and instruments were accounted for. Blood loss was minimal and the drain was a 18 Liberian Emmanuel catheter. No other surgical drain was left. I was present during the entire case. Surgeon: Colt Almonte Type of Anesthesia: General Drains: emmanuel Estimated Blood Loss (mL): 50 Admit VTE Documentation VTE Present on Admission: No VTE Mechan Device Prophylaxis: SCD's VTE Pharm Prophylaxis ordered?: No
[2023-08-29] MEDS: Ketorolac 15 MG/ML Vial IV ×2 (10:49→17:50)
[2023-08-29] MEDS: Ciprofloxacin 400 MG/200 ML BAG 200 MG IV (14:47)
[2023-08-29] MEDS: 0.9% Saline Lock 10 ML Syringe IV (17:53)
[2023-08-29] MEDS: Lactated Ringers 1,000 ML 125 ML IV (20:18)
[2023-08-29] MEDS: Acetaminophen 500 MG Tablet PO (20:24)
[2023-08-29] MEDS: Docusate Sodium 100 MG Capsule 200 MG PO (20:24)
[2023-08-29] MEDS: Atorvastatin Calcium 20 MG Tablet PO (20:24)
[2023-08-30] MEDS: Ketorolac 15 MG/ML Vial IV ×2 (00:29→06:29)
[2023-08-30] MEDS: 0.9% Saline Lock 10 ML Syringe IV ×2 (00:29→06:29)
[2023-08-30] MEDS: Ciprofloxacin 400 MG/200 ML BAG 200 MG IV (03:57)
[2023-08-30 04:00] VITALS: BP 98/52; PULSE 77; RESP 16; TEMP 36.7; O2SAT 97
[2023-08-30] MEDS: Lactated Ringers 1,000 ML 125 ML IV (04:10)
--- NOTE | 2023-08-30 07:22 | PCM.PN.GU ---
Subjective Subjective s/p radical prostatectomy doing well follow up in 2 weeks home with emmanuel o eg bag Objective Data Objective Data Vital Signs: Vital Signs Temp Pulse Resp BP Pulse Ox O2 Del Method 98.1 F 77 16 98/52 L 97 Room Air 08/30/23 04:00 08/30/23 04:00 08/30/23 04:00 08/30/23 04:00 08/30/23 04:00 08/30/23 04:00 Oxygen Delivery Method Room Air Weight: 82 kg Body Mass Index (BMI) 26.6 Intake & Output: Intake and Output for Last 24 Hours 08/28/23 08/29/23 08/30/23 23:59 23:59 23:59 Intake Total 2512 / 2512 1183.33 / 1183.33 Output Total 640 / 640 550 / 550 Balance 1872 / 1872 633.33 / 633.33 Lab / Micro Data 08/21/23 13:32 08/21/23 13:32
[2023-08-30 08:14] VITALS: BP 108/64; PULSE 87; RESP 16; TEMP 37.2; O2SAT 96
[2023-08-30] MEDS: Lisinopril 10 MG Tablet PO (08:22)
[2023-08-30] MEDS: Multivitamins,Therapeutic Tablet 1 TABLET PO (08:22)
[2023-08-30] MEDS: Docusate Sodium 100 MG Capsule 200 MG PO (08:22)
--- NOTE | 2023-08-30 09:13 | CASEMGMT ---
RN CM met with pt at bedside to discuss discharge. Pt to DC to his home which is 3 stories. Pt reports he plans to stay on the main level which does have a full bathroom and has an area where he can sleep. Pt feels comfortable managing his emmanuel at discharge and reports his spouse is a retired RN. Pt has no trouble obtaining his medications. Pt has no concerns with discharge home and has transportation. Sol Zarate MSN, RN, CCM
--- NOTE | 2023-08-30 10:49 | PHA.DC_ITS ---
Pharmacy [facility] has performed discharge medication reconciliation and counseling for this patient. The patient's discharge medication list was reviewed for discrepancies and discrepancies were resolved. The patient was counseled on the following discharge medications and changes in medications for homegoing were reviewed. 1. CIPRO 2. OXYCODONE 3. DOCUSATE The Reason for Use, instructions for use, and potential side effects were reviewed for all new medications. The patient's questions regarding all of their medications were answered. The patient was able to verbally demonstrate an understanding of their discharge medications. The patient was counselled by Artis Pearce PharmD Candidate Medications at Discharge Home Medications lisinopril 10 mg tablet 10 mg PO DAILY 08/15/23 multivitamin (Daily Multi-Vitamin tablet) 1 tab PO DAILY 08/15/23 rosuvastatin 10 mg tablet 10 mg PO DAILY 08/15/23 ciprofloxacin HCl 500 mg tablet (Cipro) 500 mg PO BID #20 tabs 08/29/23 docusate sodium 100 mg capsule (Colace) 100 mg PO BID #20 caps 08/29/23 oxycodone 5 mg tablet 5 mg PO Q6H PRN pain 7 days #14 tabs 08/29/23
== END 2023-08-30 13:16 | disposition home or self-care (01) ==
LOC: SDC 06:11 → AC 06:12 → MS3 10:58
PROVIDERS: PCP Family Medicine; Referring Provider Urology; Visit Provider Urology
PROC: 0VT04ZZ Resection of Prostate, Percutaneous Endoscopic Approach (ICD-10-PCS; CPT 55866; principal; 2023-08-29 07:10)
DX: C61 Malignant neoplasm of prostate (principal); E78.00 Pure hypercholesterolemia, unspecified; G47.30 Sleep apnea, unspecified; Z79.899 Other long term (current) drug therapy
CPT/HCPCS: 55866; S2900; 00865; 36415; 80053; 80061; 82043; 82570; 82607; 82728; 83036; 83540; 83550; 84443; 85025; 86850; 86900; 86901; 88305; 88307; 88309; 93005; J7120; A4216; J0744; J2405

== ENCOUNTER → 2023-10-18 | Outpatient (CLI) | payer OTHER, SELFPAY ==
[2023-10-18 17:18] LABS: PSA,Total- Diagnostic < 0.01 ng/mL (0.0-4.0)
== END | disposition home or self-care (01) ==
LOC: LAB 16:15
PROVIDERS: PCP Family Medicine; Referring Provider Urology; Visit Provider Urology
DX: R97.20 Elevated prostate specific antigen [PSA] (principal)
CPT/HCPCS: 36415; 84153

== ENCOUNTER → 2024-01-11 | Outpatient (CLI) | payer OTHER, SELFPAY ==
[2024-01-11 12:13] LABS: Absolute Lymphocyte Count 1.22 X10^3/uL (0.83-4.51); Absolute Neutrophil Count 3.1 X10^3/uL (2.0-7.7); Basophil# 0.01 X10^3/uL; Basophil% 0.2 % (0-1); Eosinophils% 2.1 % (0-5); Hematocrit 39.3 % (40-54); Hemoglobin 13.3 g/dL (13.0-16.5); Lymphocyte # 1.22 X10^3/ul (0.83-4.51); Lymphocyte % 25.4 % (19-41); Mean Corp Hgb Conc 33.8 g/dL (32-36); Mean Corpuscular Hgb 31.1 pg (27.0-32.0); Mean Corpuscular Volume 91.8 fL (80-94); Mean Platelet Vol. 10.1 fl (6.2-12.0); Monocyte# 0.35 X10^3/uL; Monocyte% 7.3 % (0-10); NRBC Flagged by Analyzer 0 % (0-5); Neutrophil # 3.11 X10^3/uL (2.7-7.7); Neutrophil % 64.8 % (47-70); Platelet Count 212 K/mm3 (150-450); RBC Distribution Width SD 43.4 fl (35.1-43.9); Red Blood Count 4.28 M/mm3 (4.6-6.2); White Blood Count 4.8 K/mm3 (4.4-11.0)
[2024-01-11 13:05] LABS: ALB/GLOB Ratio 1.2 RATIO (0.9-2.4); AST(SGOT) 14 U/L (15-37); Alanine Aminotransfer ALT/SGPT 21 U/L (16-61); Albumin, Serum 3.6 g/dL (3.2-5.0); Alkaline Phosphatase 60 U/L (45-117); Anion Gap 7 (5-15); BUN 25 mg/dL (7-18); Chloride 108 mmol/L (98-107); Cholesterol 116 mg/dL (200); Creatinine, Serum 0.81 mg/dL (0.70-1.30); EST Glomerular Filtration Rate 104 mL/min (>60); Est Glom Filt Rate - Afr Amer 125 mL/min (>60); Glucose 90 mg/dL (74-106); High Density Lipoprotein 72 mg/dL; Potassium 4.2 mmol/L (3.5-5.1); Protein, Total 6.6 g/dL (6.4-8.2); Sodium Level 141 mmol/L (136-145); Thyroid Stim Hormone (TSH) 0.94 uIU/mL (0.358-3.74); Triglycerides 24 mg/dL; Very Low Density Lipoprotein 5 mg/dL (5-40)
[2024-01-11 13:11] LABS: Microalbumin,Random Urine 8.1 mg/L (NO RANGE EST.)
[2024-01-11 13:44] LABS: Hemoglobin A1c 5.4 % (3.8-5.6)
== END | disposition home or self-care (01) ==
PROVIDERS: PCP Family Medicine; Referring Provider Family Medicine; Visit Provider Family Medicine
DX: E11.9 Type 2 diabetes mellitus without complications (principal)
CPT/HCPCS: 36415; 80053; 80061; 82043; 82570; 83036; 84443; 85025

== ENCOUNTER → 2024-01-28 | Outpatient (CLI) | payer OTHER, SELFPAY ==
[2024-01-28 17:40] LABS: PSA,Total- Diagnostic 0.04 ng/mL (0.0-4.0)
== END | disposition home or self-care (01) ==
LOC: LAB 16:11
PROVIDERS: PCP Family Medicine; Referring Provider Urology; Visit Provider Urology
DX: C61 Malignant neoplasm of prostate (principal)
CPT/HCPCS: 36415; 84153

== ENCOUNTER → 2024-05-03 | Outpatient (CLI) | payer OTHER, SELFPAY ==
--- OUTSIDE RECORDS SUMMARY | 2024-05-03 08:56 | XMS RPT_ITS | CCD ---
Author Organization [facility] Care Team Providers Care Rush Seater Name Role Phone EVA ZAMAN Admitting Unavailable AUSTYN, EVA Attending Unavailable AUSTYN, EVA Primary Care Unavailable CHARO RUIZ Consulting Unavailable PROVIDER, UNKNOWN Consulting Unavailable PROVIDER, UNKNOWN Consulting Unavailable PROVIDER, UNKNOWN Consulting Unavailable Results Test Name Value Interpretation Reference Range Facil celeste CochranGFRon 05-14-2021 GFR >60 Normal [facility] ([place]) Comment on above: Result Comment: GFR Population mean for , Non- Americans Ages 20-29 = 116 mL/min/1.73 sq.m. Ages 30-39 = 107 mL/min/1.73 sq.m. Ages 40-49 = 99 mL/min/1.73 sq.m. Ages 50-59 = 93 mL/min/1.73 sq.m. Ages 60-69 = 85 mL/min/1.73 sq.m. Ages 70+ = 75 mL/min/1.73 sq.m. Chronic Kidney Disease: Less than 60 mL/min/1.73 square meters End Stage Renal Disease: Less than 15 mL/min/1.73 square meters Performed By: #### B MP, GFR #### [address] [address] GFR Non- >60 Normal [facility] ([place]) Comment on above: Result Comment: GFR Population mean for , Non- Americans Ages 20-29 = 116 mL/min/1.73 sq.m. Ages 30-39 = 107 mL/min/1.73 sq.m. Ages 40-49 = 99 mL/min/1.73 sq.m. Ages 50-59 = 93 mL/min/1.73 sq.m. Ages 60-69 = 85 mL/min/1.73 sq.m. Ages 70+ = 75 mL/min/1.73 sq.m. Chronic Kidney Disease: Less than 60 mL/min/1.73 square meters End Stage Renal Disease: Less than 15 mL/min/1.73 square meters Performed By: #### B MP, GFR #### [address] [address] BMPon 05-14-2021 BUN/Creatinine Ratio 22.8 ratio High 10.0-22.0 [facility] ([place]) Comment on above: Performed By: #### B MP, GFR #### [address] [address] Calcium [Mass/Vol] 9.1 mg/dL Normal 8.7-10.4 [facility] ([place]) Comment on above: Result Comment: No te - New Reference Range in effect 20 Performed By: #### B MP, GFR #### [address] [address] Chloride [Moles/Vol] 105 mmol/L Normal 98-110 [facility] ([place]) Comment on above: Performed By: #### B MP, GFR #### [address] [address] CO2 [Moles/Vol] 29 mmol/L Normal 22-32 [facility] ([place]) Comment on above: Performed By: #### B MP, GFR #### [address] [address] Creatinine [Mass/Vol] 1.01 mg/dL Normal 0.60-1.40 [facility] ([place]) Comment on above: Performed By: #### B MP, GFR #### [address] [address] Electrolyte Balance 5.0 mEq/L Normal 4.0-15.0 [facility] ([place]) Comment on above: Performed By: #### B MP, GFR #### [address] [address] Glucose [Mass/Vol] 164 mg/dL High 70-110 [facility] ([place]) Comment on above: Performed By: #### B MP, GFR #### [facility] [address] [place] [address] Potassium [Moles/Vol] 3.9 mmol/L Normal 3.5-5.0 [facility] ([place]) Comment on above: Performed By: #### B MP, GFR #### [facility] [address] [place] [address] Sodium [Moles/Vol] 139 mmol/L Normal 136-145 [facility] ([place]) Comment on above: Performed By: #### B MP, GFR #### [facility] [address] [place] [address] Urea nitrogen [Mass/Vol] 23.0 mg/dL High 8.0-22.0 [facility] ([place]) Comment on above: Performed By: #### B MP, GFR #### [facility] [address] [place] [address] BMP with eGFRon 12-24-2019 Age - Reported 59 years Normal [facility] Comment on above: Performed By: #### 2 [id number] #### [facility],[address] [place] [address] Anion gap [Moles/Vol] 11 mmol/L Normal 10 - 20 [facility] Comment on above: Performed By: #### 2 90930 #### [facility],[address] [place] [address] Calcium [Mass/Vol] 9.3 mg/dL Normal 8.6 - 10.2 [facility] Comment on above: Performed By: #### 2 [id number] #### [facility],[address] [place] [address] Chloride [Moles/Vol] 105 mmol/L Normal 98 - 107 [facility] Comment on above: Performed By: #### 2 90748 #### [facility],[address] [place] [address] CO2 [Moles/Vol] 29.3 mmol/L Normal 21.0 - 31.0 [facility] Comment on above: Performed By: #### 2 69736 #### [facility],[address] [place] [address] Creatinine [Mass/Vol] 0.9 mg/dL Normal 0.7 - 1.3 [facility] Comment on above: Performed By: #### 2 96808 #### [facility],[address] [place] [address] GFR/1.73 sq M predicted among non-blacks MDRD (S/P/Bld) [Vol rate/Area] mL/min/{1.73_m2} Normal 60 - 999 [facility] Comment on above: Result Comment: ACCO RDING TO THE NATIONAL KIDNEY DISEASE EDUCATION PROGRAM(NKDE), A NORMAL eGFR IS A VALUE GREATER THAN OR EQUAL TO 60 ML/MIN/1.73 SQ METERS. CHRONIC KIDNEY DISEASE: <60mL/MIN/1.73 SQ METERS KIDNEY FAILURE: <15mL/MIN/1.73 SQ METERS THIS TEST SHOULD ONLY BE USED FOR PATIENTS 18 YEARS OF AGE AND OLDER. Performed By: #### 2 [id number] #### [facility],[address] [place] [address] GFR/1.73 sq M predicted among non-blacks MDRD (S/P/Bld) [Vol rate/Area] Normal [facility] Comment on above: Result Comment: BASI C METABOLIC PANEL Performed By: #### 2 [id number] #### [facility],[address] [place] [address] Glucose [Mass/Vol] 138 mg/dL High 74 - 106 [facility] Comment on above: Performed By: #### 2 86662 #### [facility],[address] [place] [address] Potassium [Moles/Vol] 4.2 mmol/L Normal 3.5 - 5.1 [facility] Comment on above: Performed By: #### 2 15260 #### [facility],[address] [place] [address] Sodium [Moles/Vol] 141 mmol/L Normal 136 - 145 [facility] Comment on above: Performed By: #### 2 [id number] #### [facility],[address] [place] [address] Urea nitrogen [Mass/Vol] 22 mg/dL High 6 - 20 [facility] Comment on above: Performed By: #### 2 [id number] #### [facility],[address] [place] [address] LIPID PROFILEon 12-24-2019 Cholesterol [Mass/Vol] 207 mg/dL High 0 - 200 [facility] Comment on above: Performed By: #### 2 [id number] #### [facility],[address] [place] [address] Cholesterol in HDL [Mass/Vol] 41 mg/dL Normal 40 - 60 [facility] Comment on above: Performed By: #### 2 16325 #### [facility],[address] [place] [address] Cholesterol in LDL [Mass/Vol] 132 mg/dL High 0 - 129 [facility] Comment on above: Performed By: #### 2 61426 #### [facility],[address] [place] [address] Cholesterol.total/Ch olesterol in HDL [Mass ratio] 5.0 {ratio} Normal 0.0 - 5.0 [facility] Comment on above: Performed By: #### 2 99837 #### [facility],[address] [place] [address] Lipid 1996 panel Normal [facility] Comment on above: Result Comment: LIPI D PROFILE Performed By: #### 2 83449 #### [facility],[address] [place] [address] Triglyceride [Mass/Vol] 169 mg/dL High 0 - 150 [facility] Comment on above: Performed By: #### 2 54410 #### [facility],[address] [place] [address] Encounters Encounter Date Encounter Type Care Provider Facility Start: 12-24-2019 End: 12-24-2019 Patient encounter procedure EVA ZAMAN [facility] Payers Date Payer Category Payer Unknown [id number] Unknown [id number] Summary Purpose Family History No Family History Records FoundNo Family History Records Found Advance Directives No Advanced Directives Records FoundNo Advanced Directives Records Found Additional Source Comments (unrecognized sect ion and content) No Status Records FoundNo Status Records Found INFORMATION SOURCE (unrecogn ized section and content) DATE CREATED AUTHOR 12/24/2019 [facility] DATE CREATED AUTHOR AUTHOR'S ORGANIZ ATION 06/24/2021 [facility] ([place]) FOR RECORDS PERTAINING TO PATIENTS WHO ARE [...] BE BASED ON THE PRIMARY CLINICAL RECORDS. [facility] [employer] [facility]. provides no warranty or guarantee of the accuracy or completeness of information in this document.
[2024-05-03 09:46] LABS: Absolute Lymphocyte Count 1.51 X10^3/uL (0.83-4.51); Absolute Neutrophil Count 1.8 X10^3/uL (2.0-7.7); Basophil# 0.03 X10^3/uL; Basophil% 0.8 % (0-1); Eosinophil# 0.16 X10^3/uL; Eosinophils% 4.1 % (0-5); Hematocrit 38.9 % (40-54); Hemoglobin 12.8 g/dL (13.0-16.5); Lymphocyte # 1.51 X10^3/ul (0.83-4.51); Lymphocyte % 39.1 % (19-41); Mean Corp Hgb Conc 32.9 g/dL (32-36); Mean Corpuscular Hgb 30.6 pg (27.0-32.0); Mean Corpuscular Volume 93.1 fL (80-94); Mean Platelet Vol. 9.3 fl (6.2-12.0); Monocyte# 0.32 X10^3/uL; Monocyte% 8.3 % (0-10); NRBC Flagged by Analyzer 0 % (0-5); Neutrophil # 1.82 X10^3/uL (2.7-7.7); Neutrophil % 47.2 % (47-70); Platelet Count 200 K/mm3 (150-450); RBC Distribution Width CV 12.9 % (11.6-14.6); RBC Distribution Width SD 44.5 fl (35.1-43.9); Red Blood Count 4.18 M/mm3 (4.6-6.2); White Blood Count 3.9 K/mm3 (4.4-11.0)
[2024-05-03 10:38] LABS: ALB/GLOB Ratio 1.2 RATIO (0.9-2.4); AST(SGOT) 21 U/L (15-37); Alanine Aminotransfer ALT/SGPT 28 U/L (16-61); Albumin, Serum 3.8 g/dL (3.2-5.0); Alkaline Phosphatase 59 U/L (45-117); Anion Gap 0 (5-15); BUN 26 mg/dL (7-18); BUN/Creat Ratio 36.7 RATIO (10-20); Calcium,Total 9.3 mg/dL (8.5-10.1); Chloride 110 mmol/L (98-107); Cholesterol 138 mg/dL (200); Creatinine, Serum 0.71 mg/dL (0.70-1.30); EST Glomerular Filtration Rate 120 mL/min (>60); Est Glom Filt Rate - Afr Amer 145 mL/min (>60); Globulin 3.3 g/dL (2.2-4.2); Glucose 101 mg/dL (74-106); High Density Lipoprotein 80 mg/dL; Potassium 4.6 mmol/L (3.5-5.1); Protein, Total 7.1 g/dL (6.4-8.2); Sodium Level 140 mmol/L (136-145); Triglycerides 54 mg/dL; Very Low Density Lipoprotein 11 mg/dL (5-40)
[2024-05-03 15:35] LABS: Hemoglobin A1c 5.5 % (3.8-5.6)
[2024-05-05 14:34] LABS: Ferritin 124 ng/mL (26-388); Iron 92 ug/dL (65-175); Iron Binding Capacity,Total 333 ug/dL (250-450); PERCENT IRON SATURATION 27.6 % (15.0-55.0)
== END | disposition home or self-care (01) ==
PROVIDERS: PCP Family Medicine; Referring Provider Family Medicine; Visit Provider Family Medicine
DX: D64.9 Anemia, unspecified (principal); E11.9 Type 2 diabetes mellitus without complications
CPT/HCPCS: 36415; 80053; 80061; 82728; 83036; 83540; 83550; 85025

== ENCOUNTER → 2024-05-09 | Outpatient (CLI) | payer OTHER, SELFPAY ==
[2024-05-09 17:53] LABS: Ferritin 115 ng/mL (26-388); Iron 65 ug/dL (65-175); Iron Binding Capacity,Total 327 ug/dL (250-450); PERCENT IRON SATURATION 19.9 % (15.0-55.0)
[2024-05-09 17:55] LABS: Vitamin B12 747 pg/mL (211-911)
== END | disposition home or self-care (01) ==
LOC: MTLAB 16:17
PROVIDERS: PCP Family Medicine; Referring Provider Family Medicine; Visit Provider Family Medicine
DX: D64.9 Anemia, unspecified (principal)
CPT/HCPCS: 36415; 82607; 82728; 83540; 83550

== ENCOUNTER → 2024-07-25 | Outpatient (CLI) | payer OTHER, SELFPAY ==
[2024-07-25 16:01] LABS: PSA,Total- Diagnostic 0.13 ng/mL (0.0-4.0)
== END | disposition home or self-care (01) ==
LOC: LAB 13:27
PROVIDERS: PCP Family Medicine; Referring Provider Urology; Visit Provider Urology
DX: R97.20 Elevated prostate specific antigen [PSA] (principal)
CPT/HCPCS: 36415; 84153

== ENCOUNTER → 2024-09-06 | Outpatient (CLI) | payer OTHER, SELFPAY ==
[2024-09-06 10:51] LABS: Absolute Lymphocyte Count 1.53 X10^3/uL (0.83-4.51); Absolute Neutrophil Count 4.2 X10^3/uL (2.0-7.7); Basophil# 0.03 X10^3/uL; Basophil% 0.5 % (0-1); Eosinophil# 0.15 X10^3/uL; Eosinophils% 2.4 % (0-5); Hematocrit 38.3 % (40-54); Hemoglobin 12.6 g/dL (13.0-16.5); Lymphocyte # 1.53 X10^3/ul (0.83-4.51); Lymphocyte % 24.4 % (19-41); Mean Corp Hgb Conc 32.9 g/dL (32-36); Mean Corpuscular Hgb 30.2 pg (27.0-32.0); Mean Corpuscular Volume 91.8 fL (80-94); Mean Platelet Vol. 9.2 fl (6.2-12.0); Monocyte# 0.37 X10^3/uL; Monocyte% 5.9 % (0-10); NRBC Flagged by Analyzer 0 % (0-5); Neutrophil # 4.18 X10^3/uL (2.7-7.7); Neutrophil % 66.5 % (47-70); Platelet Count 215 K/mm3 (150-450); RBC Distribution Width CV 12.8 % (11.6-14.6); RBC Distribution Width SD 42.9 fl (35.1-43.9); Red Blood Count 4.17 M/mm3 (4.6-6.2); White Blood Count 6.3 K/mm3 (4.4-11.0)
[2024-09-06 11:31] LABS: Hemoglobin A1c 5.7 % (<=5.6)
[2024-09-06 11:32] LABS: Cholesterol 122 mg/dL (<=200); High Density Lipoprotein 72 mg/dL; Low Density Lipoprotein Calc. 40 mg/dL; Triglycerides 51 mg/dL; Very Low Density Lipoprotein 10 mg/dL (5-40)
[2024-09-06 11:34] LABS: ALB/GLOB Ratio 1.6 RATIO (0.9-2.4); AST(SGOT) 24 U/L (<=37); Alanine Aminotransfer ALT/SGPT 16 U/L (<=46); Albumin, Serum 4.2 g/dL (3.4-4.8); Alkaline Phosphatase 66 U/L (40-129); Anion Gap 9 (5-15); BUN 23 mg/dL (4-19); BUN/Creat Ratio 30.6 RATIO (10-20); Calcium 9.3 mg/dL (7.6-11.0); Carbon Dioxide 27.5 mmol/L (22.0-29.0); Chloride 106 mmol/L (96-108); Creatinine, Serum 0.75 mg/dL (0.70-1.20); EST Glomerular Filtration Rate 103 (>60); Globulin 2.7 g/dL (2.2-4.2); Glucose 104 mg/dL (70-99); Potassium 4.7 mmol/L (3.3-5.1); Protein, Total 6.9 g/dL (5.9-8.4); Sodium Level 142 mmol/L (133-145); Total Bilirubin 0.38 mg/dL (0.00-1.30)
== END | disposition home or self-care (01) ==
LOC: LAB 10:29
PROVIDERS: PCP Family Medicine; Referring Provider Family Medicine; Visit Provider Family Medicine
DX: E11.9 Type 2 diabetes mellitus without complications (principal)
CPT/HCPCS: 36415; 80053; 80061; 83036; 85025

== ENCOUNTER → 2024-10-29 | Outpatient (CLI) | payer OTHER, SELFPAY ==
[2024-10-29 20:09] LABS: PSA,Total - Annual Screen 0.16 ng/mL (0.02-4.00)
== END | disposition home or self-care (01) ==
LOC: LAB 17:15
PROVIDERS: PCP Family Medicine; Referring Provider Urology; Visit Provider Urology
DX: R97.20 Elevated prostate specific antigen [PSA] (principal)
CPT/HCPCS: 36415; 84153; G0103

== ENCOUNTER → 2024-12-29 | Outpatient (CLI) | payer OTHER, SELFPAY ==
--- NOTE | 2024-12-29 11:13 | MRI_ITS ---
PROCEDURE: PELVIS W/WO CONTRAST, 12/29/2024 REASON FOR EXAM: BIOCHEMICAL RECURRENCE OF PROSTATE CANCER TECHNIQUE: Multisequence multiplanar MRI pelvis was performed with and without IV contrast. IV Contrast: 20 mL Clariscan COMPARISON: 07/27/2023; note that images only are available for review, the report is not available at the time of the dictation. FINDINGS: Interval radical prostatectomy. No definite nodular enhancement or abnormal restricted diffusion within the prostatectomy bed to suggest local recurrence. Bladder: Underdistended and suboptimally evaluated, grossly unremarkable. Lymph nodes: No overt pelvic lymphadenopathy. Similar prominent but not pathologically enlarged LEFT inguinal node, 11 mm short axis. Bones: No frankly destructive bony lesions identified. 7 mm nonspecific focus of enhancement within the LEFT L5 transverse process, nonspecific. Other: Trace nonspecific pelvic free fluid. Suspect a tiny 5 mm focus of fluid signal along the LEFT anterolateral perianal region, partially imaged on region several sequences. This is associated with surrounding T2 hypointensity and enhancement on some sequences, suspicious for at least a perianal sinus tract if not fistula with tiny abscess. Ill-defined T2 hypointensity extends from this region into the intersphincteric plane at the level of the distal and most anal canal. The mid and upper thirds of the anal canal appear within normal limits allowing for nondedicated dedicated technique. MRI/Pelvis W/WO Contrast IMPRESSION: 1. Interval radical prostatectomy without definite evidence of local recurrence or overt pelvic lymphadenopathy. 2. 7 mm nonspecific focus of enhancement in the LEFT L5 transverse process. No clear uptake on recent PSMA PET/CT. Although this may be degenerative, given the context, follow-up is probably warranted. This may be too small for resolution on bone scan. 3. Findings in the LEFT anterior perianal region are partially imaged on some s equences, suspicious for at least a sinus tract if not perianal fistula with tiny abscess. Correlate with patient's symptoms and exam. 4. Trace nonspecific pelvic free fluid. 5. Additional description as above. Reading Location: [id number]
== END | disposition home or self-care (01) ==
PROVIDERS: PCP Family Medicine; Referring Provider Student in an Organized Health Care Education/Training Program; Visit Provider Student in an Organized Health Care Education/Training Program
DX: R97.21 Rising PSA following treatment for malignant neoplasm of prostate (principal)
CPT/HCPCS: 72197; A9575; A4216

== ENCOUNTER → 2025-03-05 | Outpatient (CLI) | payer OTHER, SELFPAY ==
[2025-03-05 09:46] LABS: Hematocrit 33.3 % (40-54); Hemoglobin 11.3 g/dL (13.0-16.5); Immature Granulocytes Count 0.010 X10^3/uL (0.0-0.0); Mean Corp Hgb Conc 33.9 g/dL (32-36); Mean Corpuscular Volume 91.7 fL (80-94); Mean Platelet Vol. 8.9 fl (6.2-12.0); NRBC Flagged by Analyzer 0 % (0-5); POSITIVE DIFFERENTIAL YES; Platelet Count 227 K/mm3 (150-450); RBC Distribution Width CV 13.5 % (11.6-14.6); RBC Distribution Width SD 45.5 fl (35.1-43.9); Red Blood Count 3.63 M/mm3 (4.6-6.2); White Blood Count 3.2 K/mm3 (4.4-11.0)
[2025-03-05 10:00] LABS: Creatinine, Urine (random) 39.20 mg/dL (39.00-259.00); Microalbumin,Random Urine < 12.0 mg/L (<20 mg/L)
[2025-03-05 10:59] LABS: Cholesterol 148 mg/dL (<=200); Low Density Lipoprotein Calc. 58 mg/dL; Triglycerides 60 mg/dL; Very Low Density Lipoprotein 12 mg/dL (5-40); cholesterol:hdl ratio screen 1.90
[2025-03-05 11:04] LABS: AST(SGOT) 22 U/L (<=37); Alanine Aminotransfer ALT/SGPT 27 U/L (<=46); Albumin, Serum 4.0 g/dL (3.4-4.8); Alkaline Phosphatase 65 U/L (40-129); Anion Gap 11 (5-15); BUN 23 mg/dL (4-19); BUN/Creat Ratio 32.1 RATIO (10-20); Calcium,Total 9.3 mg/dL (7.6-11.0); Carbon Dioxide 24.6 mmol/L (21.0-32.0); Chloride 103 mmol/L (98-108); Globulin 2.9 g/dL (2.2-4.2); Glucose 108 mg/dL (70-99); Potassium 4.5 mmol/L (3.3-5.1)
== END | disposition home or self-care (01) ==
LOC: LAB 08:44
PROVIDERS: PCP Family Medicine; Referring Provider Family Medicine; Visit Provider Family Medicine
DX: E11.9 Type 2 diabetes mellitus without complications (principal)
CPT/HCPCS: 36415; 80053; 80061; 82043; 82570; 83036; 85025

== ENCOUNTER → 2025-03-17 | Outpatient (CLI) | payer OTHER, SELFPAY ==
[2025-03-17 17:58] LABS: Hematocrit 34.9 % (40-54); Hemoglobin 11.9 g/dL (13.0-16.5); Immature Granulocytes Count 0.020 X10^3/uL (0.0-0.0); Mean Corp Hgb Conc 34.1 g/dL (32-36); Mean Corpuscular Volume 91.8 fL (80-94); Mean Platelet Vol. 9.5 fl (6.2-12.0); NRBC Flagged by Analyzer 0 % (0-5); POSITIVE DIFFERENTIAL YES; Platelet Count 214 K/mm3 (150-450); RBC Distribution Width CV 13.7 % (11.6-14.6); RBC Distribution Width SD 45.8 fl (35.1-43.9); Red Blood Count 3.80 M/mm3 (4.6-6.2); White Blood Count 4.3 K/mm3 (4.4-11.0)
[2025-03-17 18:56] LABS: Ferritin 240 ng/mL (37-417); Iron 60 ug/dL (65-175); Iron Binding Capacity,Total 316 ug/dL (250-450); Iron Binding Capacity,Unsat 256 ug/dL (228-428); Vitamin B12 722 pg/mL (180-914)
[2025-03-17 19:21] LABS: FOLATES,SERUM (FOLIC ACID) 19.50 ng/mL (4.60-34.80)
== END | disposition home or self-care (01) ==
LOC: MFPLAB 16:26
PROVIDERS: PCP Family Medicine; Referring Provider Family Medicine; Visit Provider Family Medicine
DX: D64.9 Anemia, unspecified (principal)
CPT/HCPCS: 36415; 82607; 82728; 82746; 83540; 83550; 85025

== ENCOUNTER → 2025-06-05 | Outpatient (CLI) | payer OTHER, SELFPAY ==
--- OUTSIDE RECORDS SUMMARY | 2025-06-05 15:19 | XMS RPT_ITS | CCD ---
Author Organization [facility] Team Providers Care [employer] Fire Control Man Name Role Phone Dr. Jeffery López Primary Care Provider [phone] Dr. Vick Gutierrez Attending Provider [phone] Dr. Colt Almonte Referring Provider VENICE HURT Attending Unavailable VENICE HURT Primary Care Unavailable VENICE HURT Admitting Unavailable JEFFERY LÓPEZ Consulting Unavailable PROVIDER, UNKNOWN Consulting Unavailable Stanton WANG, Dr. Jeffery Davila Primary Care Provider Gage WANG, Dr. Colt Lofton Attending Provider Gage WANG, Dr. Colt Lofton Referring Provider Stanton WANG, Dr. Jeffery Davila Attending Provider Stanton WANG, Dr. Jeffery Davila Referring Provider [phone] Stanton WANG, Dr. Jeffery Davila Primary Care Provider [phone] Gage WANG, Dr. Colt Lofton Attending Provider Gage WANG, Dr. Colt Lofton Referring Provider [phone] Dr. Indra Larson DO Attending Provider Dr. Indra Larson DO Referring Provider [phone] Stanton WANG, Dr. Jeffery Davila Primary Care Provider [phone] Dr. Indra Larson DO Referring Provider Stanton WANG, Dr. Jeffery Davila Referring Provider [phone] Stanton WANG, Dr. Jeffery Davila Primary Care Provider Gage WANG, Dr. Colt Lofton Referring Provider Stanton WANG, Dr. Jeffery Davila Referring Provider Stanton WANG, Dr. Jeffery Davila Referring Provider Stanton WANG, Dr. Jeffery Davila Attending Provider Stanton WANG, Dr. Jeffery Davila Primary Care Physician Dr. Indra Larson DO Attending Physician Stanton WANG, Dr. Jeffery Davila Attending Physician [phone] Stanton WANG, Dr. Jeffery Davila Referring Provider Indra Larson Attending Unavailable Neo, Indra Referring Unavailable Schinner, Jeffery E Primary Care Unavailable Indra Larson Attending Unavailable Neo, Indra Referring Unavailable Schinner, Jeffery E Primary Care Unavailable Neo, Indra Referring Unavailable Indra Larson Attending Unavailable Schinner, Jeffery E Primary Care Unavailable Neo, Indra Referring Unavailable Schinner, Jeffery E Primary Care Unavailable Indra Larson Attending Unavailable Indra Larson Attending Unavailable Indra Larson Referring Unavailable Schinner, Jeffery E Primary Care Unavailable Schinner, Jeffery E Primary Care Unavailable Schinner, Jeffery E Referring Unavailable Schinner, Jeffery E Attending Unavailable Schinner, Jeffery E Referring Unavailable Schinner, Jeffery E Attending Unavailable Schinner, Jeffery E Primary Care Unavailable Schinner, Jeffery E Primary Care Unavailable GageColt Referring Unavailable GageColt Attending Unavailable Schinner, Jeffery E Primary Care Unavailable Schinner, Jeffery E Referring Unavailable Schinner, Jeffery E Attending Unavailable Indra Larson Attending Unavailable Neo, Indra Referring Unavailable Schinner, Jeffery E Primary Care Unavailable Schinner, Jeffery E Primary Care Unavailable GageColt Referring Unavailable GageColt Attending Unavailable Indra Larson Referring Unavailable NeoIndra wilkerson Attending Unavailable Schinner, Jeffery E Primary Care Unavailable Schinner, Jeffery E Referring Unavailable Schinner, Jeffery E Primary Care Unavailable Indra Larson Attending Unavailable Indra Larson Attending Unavailable Neo, Indra Referring Unavailable Schinner, Jeffery E Primary Care Unavailable Schinner, Jeffery E Primary Care Unavailable Gage, Colt Lofton Referring Unavailable Indra Larson Attending Unavailable Indra Larson Attending Unavailable Schinner, Jeffery E Primary Care Unavailable Indra Larson Attending Unavailable Indra Larson Referring Unavailable Jeffery López Primary Care Unavailable Indra Larson Attending Unavailable Indra Larson Referring Unavailable Jeffery López Primary Care Unavailable Indra Larson Attending Unavailable Indra Larson Referring Unavailable Jeffery López Primary Care Unavailable Jeffery López Referring Unavailable Jeffery López Attending Unavailable Jeffery López Primary Care Unavailable Jeffery López Primary Care Unavailable Jeffery López Referring Unavailable Jeffery López Attending Unavailable Indra Larson Attending Unavailable Indra Larson Referring Unavailable Jeffery López Primary Care Unavailable Medications Current Medications Medication Drug Class(es) Dates Sig (Normalized) Sig (Original) lisinopril 10 mg oral tablet (16 sources) Angiotensin Converting Enzyme Inhibitor Start: 08-15-2023 take 1 tablet by mouth once daily Lisinopril 10 mg tablet Active 10 mg PO DAILY August 15, 2023 1:00am Complies with drug therapy Multivitamin (Daily Multi-Vitamin) tablet (16 sources) Start: 08-15-2023 Multivitamin (Daily Multi-Vitamin) tablet Active 1 {tbl} PO DAILY August 15, 2023 1:00am Complies with drug therapy Start: 08-15-2023 Multivitamin ( Daily Multi-Vitamin) tablet Active 1 {tbl} PO DAILY August 15, 2023 1:00am Start: 08-15-2023 take 1 tablet by ismael th once daily Multivitamin (Daily Multi-Vitamin) tablet Active 1 TABLET PO DAILY August 15, 2023 1:00am Start: 08-15-2023 take 1 tablet by ismael th once daily Multivitamin (Daily Multi-Vitamin) tablet Active 1 TABLET PO DAILY August 15, 2023 12:00am rosuvastatin calcium 10 mg oral tablet (16 sources) HMG-CoA Reductase Inhibitor Start: 08-15-2023 take 1 tablet by mouth once daily Rosuvastatin 10 mg tablet Active 10 mg PO DAILY August 15, 2023 1:00am Complies with drug therapy Completed/Discontinued Medications Medication Drug Class(es) Dates Sig (Normalized) Sig (Original) ciprofloxacin 500 mg oral tablet (15 sources) Quinolone Antimicrobial Start: 08-29-2023 End: 11-11-2024 take 1 tablet by mouth twice daily Ciprofloxacin Hcl (Cipro) 500 mg tablet Discontinued 500 mg PO TWICE A DAY August 29, 2023 1:00am November 11, 2024 8:11am docusate sodium 100 mg oral capsule (15 sources) Start: 08-29-2023 End: 11-11-2024 take 1 capsule by mouth twice daily Docusate Sodium (Colace) 100 mg capsule Discontinued 100 mg PO TWICE A DAY August 29, 2023 1:00am November 11, 2024 8:12am oxyCODONE hydrochloride 5 mg oral tablet (15 sources) Opioid Agonist Start: 08-29-2023 End: 11-11-2024 take 1 tablet by mouth every six hours as needed for pain Oxycodone 5 mg tablet Discontinued 5 mg PO EVERY 6 HOURS as needed for pain 14 7 August 29, 2023 November 11, 2024 8:12am Malignant neoplasm of prostate Malignant neoplasm of prostate Problems Problem Classification Problem Date Documented Da te Episodic/Chronic Cancer of prostate (20 sources) Malignant tumor of prostate; Translations: [Malignant neoplasm of prostate] Onset: 02-19-2025 08-29-2023 Chronic Deficiency and other anemia (1 source) Anemia, unspecified; Translations: [Anemia, unspecified] Onset: 03-28-2025 Episodic Diabetes mellitus without complication (1 source) Type 2 diabetes mellitus without complications; Translations: [Type 2 diabetes mellitus without complications] Onset: 03-11-2025 Chronic Other screening for suspected conditions (not mental disorders or infectious disease) (20 sources) Raised prostate specific antigen; Translations: [Elevated prostate specific antigen [PSA]] Onset: 11-02-2024 11-11-2024 Episodic Residual codes; unclassified (1 source) Hormone sensitive malignancy status; Translations: [Hormone sensitive malignancy status] Onset: 04-09-2025 Episodic Results Test Name Value Interpretation Reference Range Facility Radiation Oncology Visiton 0 04-06-2025 Radiation Oncology Visit [facility] [address] [place], [place] [address] OFFICE VISIT Date of Service: 04/06/25 1034 MR#: [id number] Acct: [id number] Name: RAYMOND WEINBERG Rep #: [id number] : 1960 From: Indra Larson DO Age/Sex: 64/M Location: [facility] Status: Signed Intake Vital Signs 03/04/25 08:24 04/06/25 10:37 Height 5 ft 9 in 5 ft 9 in Weight: 222 lb 228 lb BMI 32.8 33.6 BP 122/73 H 103/65 Blood Pressure Location Rt brachial Lt brachial Position Sitting Sitting Respiration 18 18 Pulse 56 L 64 Pulse Source Monitor Monitor Temp 97.2 F L 97.5 F L Temperature Source Temporal Artery Temporal Artery Pulse Oximetry (%) 100 100 Oxygen Delivery Method room air room air Intake Is patient in pain?: No Allergies No Known Allergies Allergy (Verified 04/06/25 10:37) Medications ???Medication ???Instructions ???Recorded ???Confirmed ???Type lisinopril 10 mg tablet 10 mg PO DAILY 08/15/23 04/06/25 H istory multivitamin (Daily Multi-Vitamin 1 tab PO DAILY 08/15/23 04/06/25 History tablet) rosuvastatin 10 mg tablet 10 mg PO DAILY 08/15/23 04/06/25 H istory PFSH PFSH Medical History Cellulitis Rising PSA following treatment for malignant neoplasm of prostate Elevated prostate specific antigen [PSA] Secondary hypertension Urinary calculi Wears contact lenses Cancer Alcohol use History of kidney stones Prostate disease High cholesterol Restless legs BiPAP (biphasic positive airway pressure) dependence Sleep apnea Non-smoker History of edema Cardiology follow-up encounter Home Medications ???Medication ???Instructions ???Recorded ???Last Taken ???Type lisinopril 10 mg tablet 10 mg PO DAILY 08/15/23 08/29/23 0 5:15 History multivitamin (Daily Multi-Vitamin 1 tab PO DAILY 08/15/23 08/27/23 History tablet) rosuvastatin 10 mg tablet 10 mg PO DAILY 08/15/23 08/27/23 H istory Allergy/AdvReac Type Severity Reaction Status Date / Time No Known Allergies Allergy Verified 04/06/25 10:37 Family History Brother Prostate cancer Other Cancer Diabetes Hypertension Surgical History H/O prostate biopsy History of bladder suspension procedure H/O radical prostatectomy History of wisdom tooth extraction History of colonoscopy Social History Smoking Status: Never smoker alcohol intake: current alcohol intake frequency: holidays/special occasions only substance use type: does not use caffeine: Yes (4+ servings per day) Diagnosis: Raymond Weinberg is a 64-year-old male diagnosed with intermediate risk prostate cancer status post TRUS guided prostate biopsy (06/28/2023), bone scan (07/23/2023), MRI prostate with and without contrast (07/27/2023), and radical prostatectomy (08/29/2023), now with evidence of biochemical recurrence with a PSA of 0.16 (10/29/2024).??? PSMA PET and MRI pelvis showed no evidence of gross disease. From 01/19/2025 ??? 03/05/2025 he completed salvage radiation with short term ADT. History of Present Illness: 06/28/2023: Patient completed TRUS guided prostate biopsy.??? This demonstrated [place] 3+4 adenocarcinoma involving about 60% of 2/2 cores in the right prostate mid, Jeremy 3+3 adenocarcinoma involving greater than 95% of 1/1 core in the right prostate less than 5% of 1/2 cores in the left prostate apex, less than 5% of 1/2 cores in the left prostate mid, and all remaining biopsies were negative. 07/23/2023: Bone scan was performed.??? This demonstrated no evidence of metastatic disease. 07/27/2023: Patient completed MRI prostate with and without contrast.??? This demonstrated a 1.8 cm PI- RADS 5 lesion in the bilateral anterior transition zone from base to mid gland with micro capsular extension along the anterior border, no evidence of seminal vesicle invasion.??? No bone lesions.??? There is a 6 x 5 mm left pelvic sidewall lymph node. 08/29/2023: Patient completed radical prostatectomy.??? Pathology demonstrated tumor involving both lobes, Jeremy 3+4.??? Measures 3 x 2 x 1.5 cm in the right lobe and 3 x 0.7 x 0.8 cm in the left lobe, no seminal vesicle invasion, no extraprostatic extension, no lymph-vascular invasion.??? Perineural invasion is present and focal.??? Margins are positive with a positive margin measuring 1.5 x 1 cm multifocally in the right and left apical and right anterior and right lateral.??? 2 lymph nodes were removed and did not contain metastatic disease. 12/23/2024: Patient completed PSMA PET scan.??? This demonstrated no evidence of disease. 12/29/2024: Patient completed MRI pelvis.??? This demonstrated interval (more content not included)... Normal [facility] Absolute lymphocyte countOrd ered By: Jeffery López on 03-17-2025 Lymphocytes Auto (Unsp spec) [#/Vol] 0.54 10*3/uL Low 0.83-4.51 [facility] Absolute neutrophil countOrd ered By: Jeffery López on 03-17-2025 Neutrophils (Bld) [#/Vol] 3.2 10*3/uL 2.0-7.7 [facility] Automated lymphocyte count a s percentage of total leukocytesOrdered By: Jeffery López on 03-17-2025 Lymphocytes/100 WBC Auto (Unsp spec) 12.5 % Low 19-41 [facility] Basophil percentageOrdered B y: Jeffery López on 03-17-2025 Basophils/100 WBC (Bld) 0.7 % 0-1 [facility] CBC W/Diff, Automatedon Absolute Lymph 0.54 X10 3/uL Low 0.83-4.51 [facility] Comment on above: Performed By: #### L 503.0106, L503.6030, L100.0100, L506.0200, L503.6550 ####[facility] [address] [place], [address] Absolute Neut 3.2 X10 3/uL Normal 2.0-7.7 [facility] Comment on above: Performed By: #### L 503.0106, L503.6030, L100.0100, L506.0200, L503.6550 ####[facility] [address] [place], [address] Basophils/100 WBC (Bld) 0.7 % Normal 0-1 [facility] Comment on above: Performed By: #### L 503.0106, L503.6030, L100.0100, L506.0200, L503.6550 ####[facility] [address] [place], [address] Eosinophils/100 WBC (Bld) 3.7 % Normal 0-5 [facility] Comment on above: Performed By: #### L 503.0106, L503.6030, L100.0100, L506.0200, L503.6550 ####[facility] [address] [place], [address] Erythrocyte distribution width (RBC) [Ratio] 13.7 % Normal 11.6-14.6 [facility] Comment on above: Performed By: #### L 503.0106, L503.6030, L100.0100, L506.0200, L503.6550 ####[facility] [address] [place], [address] Hematocrit (Bld) [Volume fraction] 34.9 % Low 40-54 [facility] Comment on above: Performed By: #### L 503.0106, L503.6030, L100.0100, L506.0200, L503.6550 ####[facility] [address] [place], [address] Hemoglobin (Bld) [Mass/Vol] 11.9 g/dL Low 13.0-16.5 [facility] Comment on above: Performed By: #### L 503.0106, L503.6030, L100.0100, L506.0200, L503.6550 ####[facility] [address] [place], [address] IG% 0.500 Normal 0.0-0.9 [facility] Comment on above: Result Comment: IG% - Immature Granulocytes (promyelocytes, myelocytes and metamyelocytes) > 1% indicates that a LEFT SHIFT is Present. Performed By: #### L 503.0106, L503.6030, L100.0100, L506.0200, L503.6550 ####[facility] [address] [place], [address] Lymphocytes/100 WBC (Bld) 12.5 % Low 19-41 [facility] Comment on above: Performed By: #### L 503.0106, L503.6030, L100.0100, L506.0200, L503.6550 ####[facility] [address] [place], [address] MCH (RBC) [Entitic mass] 31.3 pg Normal 27.0-32.0 [facility] Comment on above: Performed By: #### L 503.0106, L503.6030, L100.0100, L506.0200, L503.6550 ####[facility] [address] [place], [address] MCHC (RBC) [Mass/Vol] 34.1 g/dL Normal 32-36 [facility] Comment on above: Performed By: #### L 503.0106, L503.6030, L100.0100, L506.0200, L503.6550 ####[facility] [address] [place], [address] MCV (RBC) [Entitic vol] 91.8 fL Normal 80-94 [facility] Comment on above: Performed By: #### L 503.0106, L503.6030, L100.0100, L506.0200, L503.6550 ####[facility] [address] [place], [address] Monocytes/100 WBC (Bld) 8.6 % Normal 0-10 [facility] Comment on above: Performed By: #### L 503.0106, L503.6030, L100.0100, L506.0200, L503.6550 ####[facility] [address] [place], [address] Neutrophils/100 WBC (Bld) 74.0 % High 47-70 [facility] Comment on above: Performed By: #### L 503.0106, L503.6030, L100.0100, L506.0200, L503.6550 ####[facility] [address] [place], [address] Nucleated RBC (Bld) [#/Vol] 0 10*3/uL Normal 0-5 [facility] Comment on above: Performed By: #### L 503.0106, L503.6030, L100.0100, L506.0200, L503.6550 ####[facility] [address] [place], [address] Platelet mean volume (Bld) [Entitic vol] 9.5 fL Normal 6.2-12.0 [facility] Comment on above: Performed By: #### L 503.0106, L503.6030, L100.0100, L506.0200, L503.6550 ####[facility] [address] [place], [address] Platelets (Bld) [#/Vol] 214 10*3/uL Normal 150-450 [facility] Comment on above: Performed By: #### L 503.0106, L503.6030, L100.0100, L506.0200, L503.6550 ####[facility] [address] [place], [address] RBC (Bld) [#/Vol] 3.80 10*6/uL Low 4.6-6.2 [facility] Comment on above: Performed By: #### L 503.0106, L503.6030, L100.0100, L506.0200, L503.6550 ####[facility] [address] [place], [address] RDW SD 45.8 fl High 35.1-43.9 [facility] Comment on above: Performed By: #### L 503.0106, L503.6030, L100.0100, L506.0200, L503.6550 ####[facility] [address] [place], [address] WBC (Bld) [#/Vol] 4.3 10*3/uL Low 4.4-11.0 [facility] Comment on above: Performed By: #### L 503.0106, L503.6030, L100.0100, L506.0200, L503.6550 ####[facility] [address] [place], [address]( Eosinophil percentageOrdered By: Jeffery López on 03-17-2025 Eosinophils/100 WBC (Bld) 3.7 % 0-5 [facility] Erythrocyte distribution wid th ratioOrdered By: Jeffery López on 03-17-2025 Erythrocyte distribution width (RBC) [Ratio] 13.7 % 11.6-14.6 [facility] Erythrocyte distribution wid th standard deviationOrdered By: Jeffery López on 03-17-2025 Erythrocyte distribution width (RBC) [Ratio] 45.8 fl High 35.1-43.9 [facility] Ferritinon 03-17-2025 Ferritin [Mass/Vol] 240 ng/mL Normal 37-417 [facility] Comment on above: Performed By: #### L 503.0106, L503.6030, L100.0100, L506.0200, L503.6550 ####[facility] [address] [place], [address] Folate [Mass/volume] in Seru m or PlasmaOrdered By: Jeffery López on 03-17-2025 Folate [Mass/Vol] 19.50 ng/mL 4.60-34.80 [facility] Comment on above: Hemolysis, Results w ill be affected, Requires Recollection. Folates,Serum (Folic Acid)on 03-17-2025 FOLATES,SERUM 19.50 ng/mL Normal 4.60-34.80 [facility] Comment on above: Order Comment: N Result Comment: Hemo lysis, Results will be affected, Requires Recollection. Performed By: #### L 503.0106, L503.6030, L100.0100, L506.0200, L503.6550 ####[facility] [address] [place], [place], [id number] Hematocrit Auto (Bld) [Volum e fraction]Ordered By: Jeffery López on 03-17-2025 Hematocrit (Bld) [Volume fraction] 34.9 % Low 40-54 [facility] Hemoglobin measurementOrdere d By: Jeffery López on 03-17-2025 Hemoglobin (Bld) [Mass/Vol] 11.9 g/dL Low 13.0-16.5 [facility] Immature granulocytes/100 WB C Auto (Bld)Ordered By: Jeffery López on 03-17-2025 Immature granulocytes/100 WBC (Bld) 0.500 % 0.0-0.9 [facility] Comment on above: IG% - Immature Granu locytes (promyelocytes, myelocytes and metamyelocytes) > 1% indicates that a LEFT SHIFT is Present. Iron measurement (mass/mass) Ordered By: Jeffery López on 03-17-2025 Iron (Unsp spec) [Mass/Mass] 60 ug/dL Low 65-175 [facility] Iron+Iron Binding Capacityon 03-17-2025 Iron [Mass/Vol] 60 ug/dL Low 65-175 [facility] Comment on above: Performed By: #### L 503.0106, L503.6030, L100.0100, L506.0200, L503.6550 ####[facility] [address] [place], [place], [id number] IRON SATURATION 19.0 Normal 9-55 [facility] Comment on above: Performed By: #### L 503.0106, L503.6030, L100.0100, L506.0200, L503.6550 ####[facility] [address] [place], [address] TIBC 316 ug/dL Normal 250-450 [facility] Comment on above: Performed By: #### L 503.0106, L503.6030, L100.0100, L506.0200, L503.6550 ####[facility] [address] [place], [address] UIBC 256 ug/dL Normal 228-428 [facility] Comment on above: Performed By: #### L 503.0106, L503.6030, L100.0100, L506.0200, L503.6550 ####[facility] [address] [place], [address] MCV (mean corpuscular volume ) determinationOrdered By: Jeffery López on 03-17-2025 MCV (RBC) [Entitic vol] 91.8 fL 80-94 [facility] Mean corpuscular hemoglobin (MCH) determinationOrdered By: Jeffery López on 03-17-2025 MCH (RBC) [Entitic mass] 31.3 pg 27.0-32.0 [facility] Mean corpuscular hemoglobin concentration (MCHC) determinationOrdered By: Jeffery López on 03-17-2025 MCHC (RBC) [Mass/Vol] 34.1 g/dL 32-36 [facility] Mean platelet volume determi nationOrdered By: Jeffery López on 03-17-2025 Platelet mean volume (Bld) [Entitic vol] 9.5 fL 6.2-12.0 [facility] Monocyte percentageOrdered B y: Jeffery López on 03-17-2025 Monocytes/100 WBC (Bld) 8.6 % 0-10 [facility] Neutrophil percentageOrdered By: Jeffery López on 03-17-2025 Neutrophils/100 WBC (Bld) 74.0 % High 47-70 [facility] No Panel InformationOrdered By: Jeffery López on 03-17-2025 Unsaturated Iron Binding Capacity 256 ug/dL 228-428 [facility] Nucleated red blood cell per centageOrdered By: Jeffery López on 03-17-2025 Nucleated RBC/100 WBC (Bld) [Ratio] 0 % 0-5 [facility] Platelet countOrdered By: Hortencia López on 03-17-2025 Platelets (Bld) [#/Vol] 214 10*3/uL 150-450 [facility] RBC Auto (Bld) [#/Vol]Ordere d By: Jeffery López on 03-17-2025 RBC (Bld) [#/Vol] 3.80 10*6/uL Low 4.6-6.2 [facility] Serum or plasma ferritin monse surement (mass/volume)Ordered By: Jeffery López on 03-17-2025 Ferritin [Mass/Vol] 240 ng/mL 37-417 [facility] Serum or plasma iron saturat ion measurement (mass fraction)Ordered By: Jeffery López on 03-17-2025 Iron saturation [Mass fraction] 19.0 % 9-55 [facility] Vitamin B12on 03-17-2025 Cobalamin (Vitamin B12) [Mass/Vol] 722 pg/mL Normal 180-914 [facility] Comment on above: Performed By: #### L 503.0106, L503.6030, L100.0100, L506.0200, L503.6550 ####[facility] [address] [place], [address] Vitamin B12 ser/plasOrdered By: Jeffery López on 03-17-2025 Cobalamin (Vitamin B12) [Mass/Vol] 722 pg/mL 180-914 [facility] White blood cell (WBC) count Ordered By: Jeffery López on 03-17-2025 WBC (Bld) [#/Vol] 4.3 10*3/uL Low 4.4-11.0 [facility] Absolute lymphocyte countOrd ered By: Jeffery López on 03-05-2025 Lymphocytes Auto (Unsp spec) [#/Vol] 0.52 10*3/uL Low 0.83-4.51 [facility] Absolute neutrophil countOrd ered By: Jeffery López on 03-05-2025 Neutrophils (Bld) [#/Vol] 2.2 10*3/uL 2.0-7.7 [facility] Anion gap in Serum or Plasma Ordered By: Jeffery López on 03-05-2025 Anion gap [Moles/Vol] 11 mmol/L 5-15 [facility] Automated lymphocyte count a s percentage of total leukocytesOrdered By: Jeffery López on 03-05-2025 Lymphocytes/100 WBC Auto (Unsp spec) 16.3 % Low 19-41 [facility] BUN/creatinine ratioOrdered By: Jeffery López on 03-05-2025 Urea nitrogen/Creatinine [Mass ratio] 32.1 mg/mg High 10-20 [facility] Basophil percentageOrdered B y: Jeffery López on 03-05-2025 Basophils/100 WBC (Bld) 0.6 % 0-1 [facility] Bilirubin, totalOrdered By: Jeffery López on 03-05-2025 Bilirubin [Mass/Vol] 0.31 mg/dL 0.00-1.30 [facility] CBC W/Diff, Automatedon 02-07 Absolute Lymph 0.52 X10 3/uL Low 0.83-4.51 [facility] Comment on above: Order Comment: Order Date: 09/12/24Order Info: [id number] - CBCD Performed By: #### L 502.0250, L501.9985, L500.4100, L100.0100, L500.4050 ####[facility] [address] [place], [address] Absolute Neut 2.2 X10 3/uL Normal 2.0-7.7 [facility] Comment on above: Order Comment: Order Date: 09/12/24Order Info: 0184-1 - CBCD Performed By: #### L 502.0250, L501.9985, L500.4100, L100.0100, L500.4050 ####[facility] [address] [place], [address] Basophils/100 WBC (Bld) 0.6 % Normal 0-1 [facility] Comment on above: Order Comment: Order Date: 09/12/24Order Info: 0184-1 - CBCD Performed By: #### L 502.0250, L501.9985, L500.4100, L100.0100, L500.4050 ####[facility] [address] [place], [address] Eosinophils/100 WBC (Bld) 2.8 % Normal 0-5 [facility] Comment on above: Order Comment: Order Date: 09/12/24Order Info: 0184-1 - CBCD Performed By: #### L 502.0250, L501.9985, L500.4100, L100.0100, L500.4050 ####[facility] [address] [place], [address] Erythrocyte distribution width (RBC) [Ratio] 13.5 % Normal 11.6-14.6 [facility] Comment on above: Order Comment: Order Date: 09/12/24Order Info: 0184-1 - CBCD Performed By: #### L 502.0250, L501.9985, L500.4100, L100.0100, L500.4050 ####[facility] [address] [place], [address] Hematocrit (Bld) [Volume fraction] 33.3 % Low 40-54 [facility] Comment on above: Order Comment: Order Date: 09/12/24Order Info: 0184-1 - CBCD Performed By: #### L 502.0250, L501.9985, L500.4100, L100.0100, L500.4050 ####[facility] [address] [place], [address] Hemoglobin (Bld) [Mass/Vol] 11.3 g/dL Low 13.0-16.5 [facility] Comment on above: Order Comment: Order Date: 09/12/24Order Info: 0184-1 - CBCD Performed By: #### L 502.0250, L501.9985, L500.4100, L100.0100, L500.4050 ####[facility] [address] [place], [address] IG% 0.300 Normal 0.0-0.9 [facility] Comment on above: Order Comment: Order Date: 09/12/24Order Info: 0184-1 - CBCD Result Comment: IG% - Immature Granulocytes (promyelocytes, myelocytes and metamyelocytes) > 1% indicates that a LEFT SHIFT is Present. Performed By: #### L 502.0250, L501.9985, L500.4100, L100.0100, L500.4050 ####[facility] [address] [place], [address] Lymphocytes/100 WBC (Bld) 16.3 % Low 19-41 [facility] Comment on above: Order Comment: Order Date: 09/12/24Order Info: 0184-1 - CBCD Performed By: #### L 502.0250, L501.9985, L500.4100, L100.0100, L500.4050 ####[facility] [address] [place], [address] MCH (RBC) [Entitic mass] 31.1 pg Normal 27.0-32.0 [facility] Comment on above: Order Comment: Order Date: 09/12/24Order Info: 0184-1 - CBCD Performed By: #### L 502.0250, L501.9985, L500.4100, L100.0100, L500.4050 ####[facility] [address] [place], [address] MCHC (RBC) [Mass/Vol] 33.9 g/dL Normal 32-36 [facility] Comment on above: Order Comment: Order Date: 09/12/24Order Info: 0184-1 - CBCD Performed By: #### L 502.0250, L501.9985, L500.4100, L100.0100, L500.4050 ####[facility] [address] [place], [address] MCV (RBC) [Entitic vol] 91.7 fL Normal 80-94 [facility] Comment on above: Order Comment: Order Date: 09/12/24Order Info: 0184-1 - CBCD Performed By: #### L 502.0250, L501.9985, L500.4100, L100.0100, L500.4050 ####[facility] [address] [place], [address] Monocytes/100 WBC (Bld) 11.3 % High 0-10 [facility] Comment on above: Order Comment: Order Date: 09/12/24Order Info: 0184-1 - CBCD Performed By: #### L 502.0250, L501.9985, L500.4100, L100.0100, L500.4050 ####[facility] [address] [place], [address] Neutrophils/100 WBC (Bld) 68.7 % Normal 47-70 [facility] Comment on above: Order Comment: Order Date: 09/12/24Order Info: 0184- - CBCD Performed By: #### L 502.0250, L501.9985, L500.4100, L100.0100, L500.4050 ####[facility] [address] [place], [address] Nucleated RBC (Bld) [#/Vol] 0 10*3/uL Normal 0-5 [facility] Comment on above: Order Comment: Order Date: 09/12/24Order Info: 0184-1 - CBCD Performed By: #### L 502.0250, L501.9985, L500.4100, L100.0100, L500.4050 ####[facility] [address] [place], [address] Platelet mean volume (Bld) [Entitic vol] 8.9 fL Normal 6.2-12.0 [facility] Comment on above: Order Comment: Order Date: 09/12/24Order Info: 0184-1 - CBCD Performed By: #### L 502.0250, L501.9985, L500.4100, L100.0100, L500.4050 ####[facility] [address] [place], [address] Platelets (Bld) [#/Vol] 227 10*3/uL Normal 150-450 [facility] Comment on above: Order Comment: Order Date: 09/12/24Order Info: 0184-1 - CBCD Performed By: #### L 502.0250, L501.9985, L500.4100, L100.0100, L500.4050 ####[facility] [address] [place], [address] RBC (Bld) [#/Vol] 3.63 10*6/uL Low 4.6-6.2 [facility] Comment on above: Order Comment: Order Date: 09/12/24Order Info: 0184-1 - CBCD Performed By: #### L 502.0250, L501.9985, L500.4100, L100.0100, L500.4050 ####[facility] [address] [place], [address] RDW SD 45.5 fl High 35.1-43.9 [facility] Comment on above: Order Comment: Order Date: 09/12/24Order Info: 0184-1 - CBCD Performed By: #### L 502.0250, L501.9985, L500.4100, L100.0100, L500.4050 ####[facility] [address] [place], [address] WBC (Bld) [#/Vol] 3.2 10*3/uL Low 4.4-11.0 [facility] Comment on above: Order Comment: Order Date: 09/12/24Order Info: 0184-1 - CBCD Performed By: #### L 502.0250, L501.9985, L500.4100, L100.0100, L500.4050 ####[facility] [address] [place], [place], [id number] Calculated very low density lipoprotein (VLDL) cholesterol measurementOrdered By: Jeffery López on 03-05-2025 Calculated very low density lipoprotein (VLDL) cholesterol measurement 12 mg/dL 5-40 [facility] Carbon dioxide, total [Moles /volume] in Central venous bloodOrdered By: Jeffery López on 03-05-2025 CO2 [Moles/Vol] 24.6 mmol/L 21.0-32.0 [facility] Chloride assayOrdered By: Hortencia López on 03-05-2025 Chloride [Moles/Vol] 103 mmol/L 98-108 [facility] Comprehensive Metabolic Prof ilon 03-05-2025 Albumin [Mass/Vol] 4.0 g/dL Normal 3.4-4.8 [facility] Comment on above: Order Comment: Order Date: 09/12/24Order Info: 0786-1 - CMPOrder Info: [id number] - LIPID Performed By: #### L 502.0250, L501.9985, L500.4100, L100.0100, L500.4050 ####[facility] [address] [place], [place], [id number] Albumin/Globulin [Mass ratio] 1.4 {ratio} Normal 0.9-2.4 [facility] Comment on above: Order Comment: Order Date: 09/12/24Order Info: 0786-1 - CMPOrder Info: [id number] - LIPID Performed By: #### L 502.0250, L501.9985, L500.4100, L100.0100, L500.4050 ####[facility] [address] [place], [place], [id number] ALK PHOS 65 U/L Normal 40-129 [facility] Comment on above: Order Comment: Order Date: 09/12/24Order Info: [id number] - CMPOrder Info: [id number] - LIPID Performed By: #### L 502.0250, L501.9985, L500.4100, L100.0100, L500.4050 ####[facility] [address] [place], [address] ALT [Catalytic activity/Vol] 27 U/L Normal <=46 [facility] Comment on above: Order Comment: Order Date: 09/12/24Order Info: [id number] - CMPOrder Info: [id number] - LIPID Performed By: #### L 502.0250, L501.9985, L500.4100, L100.0100, L500.4050 ####[facility] [address] [place], [address] AST [Catalytic activity/Vol] 22 U/L Normal <=37 [facility] Comment on above: Order Comment: Order Date: 09/12/24Order Info: [id number] - CMPOrder Info: [id number] - LIPID Performed By: #### L 502.0250, L501.9985, L500.4100, L100.0100, L500.4050 ####[facility] [address] [place], [address] Bilirubin [Mass/Vol] 0.31 mg/dL Normal 0.00-1.30 [facility] Comment on above: Order Comment: Order Date: 09/12/24Order Info: [id number] - CMPOrder Info: [id number] - LIPID Performed By: #### L 502.0250, L501.9985, L500.4100, L100.0100, L500.4050 ####[facility] [address] [place], [address] BUN/CRE 32.1 RATIO High 10-20 [facility] Comment on above: Order Comment: Order Date: 09/12/24Order Info: [id number] - CMPOrder Info: [id number] - LIPID Performed By: #### L 502.0250, L501.9985, L500.4100, L100.0100, L500.4050 ####[facility] [address] [place], [address] Calcium [Mass/Vol] 9.3 mg/dL Normal 7.6-11.0 [facility] Comment on above: Order Comment: Order Date: 09/12/24Order Info: [id number] - CMPOrder Info: [id number] - LIPID Performed By: #### L 502.0250, L501.9985, L500.4100, L100.0100, L500.4050 ####[facility] [address] [place], [address] Chloride [Moles/Vol] 103 mmol/L Normal 98-108 [facility] Comment on above: Order Comment: Order Date: 09/12/24Order Info: [id number] - CMPOrder Info: [id number] - LIPID Performed By: #### L 502.0250, L501.9985, L500.4100, L100.0100, L500.4050 ####[facility] [address] [place], [address] CO2 [Moles/Vol] 24.6 mmol/L Normal 21.0-32.0 [facility] Comment on above: Order Comment: Order Date: 09/12/24Order Info: [id number] - CMPOrder Info: [id number] - LIPID Performed By: #### L 502.0250, L501.9985, L500.4100, L100.0100, L500.4050 ####[facility] [address] [place], [address] Creatinine [Mass/Vol] 0.70 mg/dL Normal 0.70-1.20 [facility] Comment on above: Order Comment: Order Date: 09/12/24Order Info: [id number] - CMPOrder Info: [id number] - LIPID Performed By: #### L 502.0250, L501.9985, L500.4100, L100.0100, L500.4050 ####[facility] [address] [place], [address] GAP 11 Normal 5-15 [facility] Comment on above: Order Comment: Order Date: 09/12/24Order Info: 07- - CMPOrder Info: [id number] - LIPID Performed By: #### L 502.0250, L501.9985, L500.4100, L100.0100, L500.4050 ####[facility] [address] [place], [address] GFR/1.73 sq M.predicted among non-blacks MDRD (S/P/Bld) [Vol rate/Area] 104 mL/min/{1.73_m2} Normal >60 [facility] Comment on above: Order Comment: Order Date: 09/12/24Order Info: 0786 - CMPOrder Info: [id number] - LIPID Result Comment: mL/m in/1.73m2 CKD-EPI Creatinine Equation (2020) Performed By: #### L 502.0250, L501.9985, L500.4100, L100.0100, L500.4050 ####[facility] [address] [place], [place], [id number] Globulin (S) [Mass/Vol] 2.9 g/dL Normal 2.2-4.2 [facility] Comment on above: Order Comment: Order Date: 09/12/24Order Info: 0786 - CMPOrder Info: [id number] - LIPID Performed By: #### L 502.0250, L501.9985, L500.4100, L100.0100, L500.4050 ####[facility] [address] [place], [place], [address] Glucose [Mass/Vol] 108 mg/dL High 70-99 [facility] Comment on above: Order Comment: Order Date: 09/12/24Order Info: [id number] - CMPOrder Info: [id number] - LIPID Performed By: #### L 502.0250, L501.9985, L500.4100, L100.0100, L500.4050 ####[facility] [address] [place], [address] Potassium [Moles/Vol] 4.5 mmol/L Normal 3.3-5.1 [facility] Comment on above: Order Comment: Order Date: 09/12/24Order Info: [id number] - CMPOrder Info: [id number] - LIPID Result Comment: Hemo lysis present, Results??could be affected. ?? Performed By: #### L 502.0250, L501.9985, L500.4100, L100.0100, L500.4050 ####[facility] [address] [place], [address] Sodium [Moles/Vol] 139 mmol/L Normal 133-145 [facility] Comment on above: Order Comment: Order Date: 09/12/24Order Info: [id number] - CMPOrder Info: [id number] - LIPID Performed By: #### L 502.0250, L501.9985, L500.4100, L100.0100, L500.4050 ####[facility] [address] [place], [address] T PROT 6.9 g/dL Normal 5.9-8.4 [facility] Comment on above: Order Comment: Order Date: 09/12/24Order Info: [id number] - CMPOrder Info: [id number] - LIPID Performed By: #### L 502.0250, L501.9985, L500.4100, L100.0100, L500.4050 ####[facility] [address] [place], [address] Urea nitrogen [Mass/Vol] 23 mg/dL High 4-19 [facility] Comment on above: Order Comment: Order Date: 09/12/24Order Info: [id number] - CMPOrder Info: [id number] - LIPID Performed By: #### L 502.0250, L501.9985, L500.4100, L100.0100, L500.4050 ####[facility] [address] [place], [address] Eosinophil percentageOrdered By: Jeffery López on 03-05-2025 Eosinophils/100 WBC (Bld) 2.8 % 0-5 [facility] Erythrocyte distribution wid th ratioOrdered By: Jeffery López on 03-05-2025 Erythrocyte distribution width (RBC) [Ratio] 13.5 % 11.6-14.6 [facility] Erythrocyte distribution wid th standard deviationOrdered By: Jeffery López on 03-05-2025 Erythrocyte distribution width (RBC) [Ratio] 45.5 fl High 35.1-43.9 [facility] Glomerular filtration rate ( GFR) estimation/1.73 sq m using serum, plasma, or whole bOrdered By: Jeffery López on 03-05-2025 GFR/1.73 sq M.predicted among non-blacks MDRD (S/P/Bld) [Vol rate/Area] 104 mL/min/{1.73_m2} >60 [facility] Comment on above: mL/min/1.73m2 CKD-EP I Creatinine Equation (2020) Hematocrit Auto (Bld) [Volum e fraction]Ordered By: Jeffery López on 03-05-2025 Hematocrit (Bld) [Volume fraction] 33.3 % Low 40-54 [facility] Hemoglobin A1con 03-05-2025 HbA1c (Bld) [Mass fraction] 5.9 % High <=5.6 [facility] Comment on above: Order Comment: Order Date: 09/12/24Order Info: [id number] - A1C Result Comment: Norm al < 5.7 % Prediabetic 5.7 - 6.4 % Diabetic >or= 6.5 % Please note range changes. Performed By: #### L 502.0250, L501.9985, L500.4100, L100.0100, L500.4050 ####[facility] [address] [place], [place], [id number] Hemoglobin A1c percentageOrd ered By: Jeffery López on 03-05-2025 HbA1c (Bld) [Mass fraction] 5.9 % High <5.7 [facility] Comment on above: Normal < 5.7 % Predi abetic 5.7 - 6.4 % Diabetic >or= 6.5 % Please note range changes. Hemoglobin measurementOrdere d By: Jeffery López on 03-05-2025 Hemoglobin (Bld) [Mass/Vol] 11.3 g/dL Low 13.0-16.5 [facility] Immature granulocytes/100 WB C Auto (Bld)Ordered By: Jeffery López on 03-05-2025 Immature granulocytes/100 WBC (Bld) 0.300 % 0.0-0.9 [facility] Comment on above: IG% - Immature Granu locytes (promyelocytes, myelocytes and metamyelocytes) > 1% indicates that a LEFT SHIFT is Present. LDL calc ser/plasOrdered By: Jeffeyr López on 03-05-2025 Cholesterol in LDL [Mass/Vol] 58 mg/dL [facility] Comment on above: Nydpbkmxiv=515-746 m g/dL & Higher Zqhi=072 mg/dL or greaterFriedwald Equation for LDL-C Laboratory - Chemistry and C hemistry - challengeOrdered By: Jeffery López on 03-05-2025 AST [Catalytic activity/Vol] 22 U/L <38 [facility] Lipid Profileon 03-05-2025 CHOL:HDL 1.90 Normal [facility] Comment on above: Order Comment: Order Date: 09/12/24Order Info: [id number] - CMPOrder Info: [id number] - LIPID Performed By: #### L 502.0250, L501.9985, L500.4100, L100.0100, L500.4050 ####[facility] [address] [place], [address] Cholesterol [Mass/Vol] 148 mg/dL Normal <=200 [facility] Comment on above: Order Comment: Order Date: 09/12/24Order Info: [id number] - CMPOrder Info: [id number] - LIPID Result Comment: Chol esterol level, Desirable <200 mg/dL Borderline high cholesterol 200-239 mg/dL High cholesterol >=240 mg/dL Recommendations of the NCEP Adult Treatment Panel for the following risk-cutoff thresholds for the [place] population. Performed By: #### L 502.0250, L501.9985, L500.4100, L100.0100, L500.4050 ####[facility] [address] [place], [address] Cholesterol in HDL [Mass/Vol] 78 mg/dL Normal [facility] Comment on above: Order Comment: Order Date: 09/12/24Order Info: [id number] - CMPOrder Info: [id number] - LIPID Result Comment: Kesha onal Cholesterol Education Program (NCEP) guidelines: <40 mg/dL: Low HDL-cholesterol (major risk factor for CHD) >= 60 mg/dL: High HDL-cholesterol (negative risk factor for CHD) HDL-cholesterol is affected by a number of factors, e.g. smoking, exercise, hormones, sex and age. Performed By: #### L 502.0250, L501.9985, L500.4100, L100.0100, L500.4050 ####[facility] [address] [place], [address] Cholesterol in LDL [Mass/Vol] 58 mg/dL Normal [facility] Comment on above: Order Comment: Order Date: 09/12/24Order Info: [id number] - CMPOrder Info: [id number] - LIPID Result Comment: Bord ihopza=227-926 mg/dL Higher Iykb=440 mg/dL or greater Friedwald Equation for LDL-C Performed By: #### L 502.0250, L501.9985, L500.4100, L100.0100, L500.4050 ####[facility] [address] [place], [address] Cholesterol in VLDL [Mass/Vol] 12 mg/dL Normal 5-40 [facility] Comment on above: Order Comment: Order Date: 09/12/24Order Info: [id number] - CMPOrder Info: [id number] - LIPID Performed By: #### L 502.0250, L501.9985, L500.4100, L100.0100, L500.4050 ####[facility] [address] [place], [place], [id number] Triglyceride [Mass/Vol] 60 mg/dL Normal [facility] Comment on above: Order Comment: Order Date: 09/12/24Order Info: [id number] - CMPOrder Info: [id number] - LIPID Result Comment: The drugs N-Acetylcysteine and Metamizole may falsely depress this assay. Normal range: <150 mg/dL Borderline High: 150-199 mg/dL High: 200-499 mg/dL Very High: >500 mg/dL Performed By: #### L 502.0250, L501.9985, L500.4100, L100.0100, L500.4050 ####[facility] [address] [place], [place], [phone] MCV (mean corpuscular volume ) determinationOrdered By: Jeffery López on 03-05-2025 MCV (RBC) [Entitic vol] 91.7 fL 80-94 [facility] Mean corpuscular hemoglobin (MCH) determinationOrdered By: Jeffery López on 03-05-2025 MCH (RBC) [Entitic mass] 31.1 pg 27.0-32.0 [facility] Mean corpuscular hemoglobin concentration (MCHC) determinationOrdered By: Jeffery López on 03-05-2025 MCHC (RBC) [Mass/Vol] 33.9 g/dL 32-36 [facility] Mean platelet volume determi nationOrdered By: Jeffery López on 03-05-2025 Platelet mean volume (Bld) [Entitic vol] 8.9 fL 6.2-12.0 [facility] Microalb:Creat Ratio,Random URon 03-05-2025 Creatinine [Mass/Vol] 39.20 mg/dL Normal 39.00-259.00 [facility] Comment on above: Order Comment: Order Date: 09/12/24Order Info: [id number] - MIACRE Performed By: #### L 502.0250, L501.9985, L500.4100, L100.0100, L500.4050 ####[facility] [address] [place], [place], [phone] MALB:CREAT UNABLE TO CALCULATE Normal <30 mg/g CRE [facility] Comment on above: Order Comment: Order Date: 09/12/24Order Info: [id number] - MIACRE Performed By: #### L 502.0250, L501.9985, L500.4100, L100.0100, L500.4050 ####[facility] [address] [place], [address] MICROALBUMIN,UR < 12.0 Normal <20 mg/L [facility] Comment on above: Order Comment: Order Date: 09/12/24Order Info: [id number] - MIACRE Performed By: #### L 502.0250, L501.9985, L500.4100, L100.0100, L500.4050 ####[facility] [address] [place], [place], [id number] Microalbumin/creat ratio urO rdered By: Jeffery López on 03-05-2025 Urine microalbumin/creatinine ratio measurement UNABLE TO CALCULATE mg/g CRE <30 [facility] Monocyte percentageOrdered B y: Jeffery López on 03-05-2025 Monocytes/100 WBC (Bld) 11.3 % High 0-10 [facility] Neutrophil percentageOrdered By: Jeffery López on 03-05-2025 Neutrophils/100 WBC (Bld) 68.7 % 47-70 [facility] Nucleated red blood cell per centageOrdered By: Jeffery López on 03-05-2025 Nucleated RBC/100 WBC (Bld) [Ratio] 0 % 0-5 [facility] Platelet countOrdered By: Hortencia López on 03-05-2025 Platelets (Bld) [#/Vol] 227 10*3/uL 150-450 [facility] Potassium measurement (mass/ volume)Ordered By: Jeffery Stanton on 03-05-2025 Potassium (Unsp spec) [Mass/Vol] 4.5 mmol/L 3.3-5.1 [facility] Comment on above: Hemolysis present, R esults could be affected. RBC Auto (Bld) [#/Vol]Ordere d By: Jeffery López on 03-05-2025 RBC (Bld) [#/Vol] 3.63 10*6/uL Low 4.6-6.2 [facility] Radiation Oncology Visiton 0 03-05-2025 Radiation Oncology Visit [facility] [address] [place] [address] OFFICE VISIT Date of Service: 03/05/25 1308 MR#: [id number] Acct: [id number] Name: RAYMOND WEINBERG Rep #: [id number] : 1960 From: Indra Larson DO Age/Sex: 64/M Location: [facility] [place] Status: Signed End of Treatment Summary: Diagnosis: Raymond Weinberg is a 64-year-old male diagnosed with intermediate risk prostate cancer status post TRUS guided prostate biopsy (06/28/2023), bone scan (07/23/2023), MRI prostate with and without contrast (07/27/2023), and radical prostatectomy (08/29/2023), now with evidence of biochemical recurrence with a PSA of 0.16 (10/29/2024).??? PSMA PET and MRI pelvis showed no evidence of gross disease. Oncologic History: 06/28/2023: Patient completed TRUS guided prostate biopsy.??? This demonstrated Jeremy 3+4 adenocarcinoma involving about 60% of 2/2 cores in the right prostate mid, Jeremy 3+3 adenocarcinoma involving greater than 95% of 1/1 core in the right prostate less than 5% of 1/2 cores in the left prostate apex, less than 5% of 1/2 cores in the left prostate mid, and all remaining biopsies were negative. 07/23/2023: Bone scan was performed.??? This demonstrated no evidence of metastatic disease. 07/27/2023: Patient completed MRI prostate with and without contrast.??? This demonstrated a 1.8 cm PI- RADS 5 lesion in the bilateral anterior transition zone from base to mid gland with micro capsular extension along the anterior border, no evidence of seminal vesicle invasion.??? No bone lesions.??? There is a 6 x 5 mm left pelvic sidewall lymph node. 08/29/2023: Patient completed radical prostatectomy.??? Pathology demonstrated tumor involving both lobes, Jeremy 3+4.??? Measures 3 x 2 x 1.5 cm in the right lobe and 3 x 0.7 x 0.8 cm in the left lobe, no seminal vesicle invasion, no extraprostatic extension, no lymph-vascular invasion.??? Perineural invasion is present and focal.??? Margins are positive with a positive margin measuring 1.5 x 1 cm multifocally in the right and left apical and right anterior and right lateral.??? 2 lymph nodes were removed and did not contain metastatic disease. 12/23/2024: Patient completed PSMA PET scan.??? This demonstrated no evidence of disease. 12/29/2024: Patient completed MRI pelvis.??? This demonstrated interval radical prostatectomy with no evidence of local recurrence or pelvic adenopathy.??? There is a 7 mm nonspecific focus of enhancement in the left L5 transverse process with no clear uptake on the recent PSMA PET scan, this may represent degenerative disease but follow-up is likely warranted, this may be too small for resolution on bone scan. Radiation Treatment History: None The patient completed a course of external beam radiotherapy in our department. This treatment was delivered for curative intent. Treatment was given according to the following parameters: RAYMOND WEINBERG received salvage radiation consisting of 4600 cGy in 23 fractions to the prostate fossa and pelvis followed by a boost to the prostate fossa of 2200 cGy in 11 fractions. This brought the final dose to the prostate fossa to 6800 cGy in 34 fractions. He was treated with a VMAT plan. The patient did not receive concurrent chemotherapy. Date of First Treatment: 01/19/2025 Date of Last Treatment: 03/05/2025 Total Elapsed Days (including weekend and holidays): 44 Missed Treatments: none Response and Tolerance: The patient tolerated this course of radiotherapy well overall. The following radiation related toxicities developed during the course of radiation therapy: * Grade 1 fatigue * Grade 1 diarrhea * Grade 1 dysuria Total weight change during therapy: N/A Disposition: The patient tolerated the planned course of radiation therapy well without unexpected toxicity in an appropriate time course. I reviewed management of potential toxicities and discussed expected timing for toxicity resolution. I will have RAYMOND follow-up in one month for a routine visit. RAYMOND will maintain follow up with all other providers. RAYMOND was instructed to call with any further questions or concerns in the interim. If we can provide any further information on this patient's course of care, please do not hesitate to ask. We would like to thank you very much for allowing us to participate in the care of this patient. Sincerely, Indra Larson DO, MS Structural Steel Worker Apprentice, Department of Radiation Oncology [facility] 03/05/25 1316 Date Indra Larson DO Cosigner Signature: Date (if applicable) CC: Dr. Jeffery López MD; Dr. Colt Almonte MD Normal [facility] Random urine creatinine sandeep urement (mass/volume)Ordered By: Jeffery López on 03-05-2025 Creatinine Unsp time (U) [Mass/Vol] 39.20 mg/dL 39.00-259.00 [facility] Screening total cholesterol/ high density lipoprotein (HDL) cholesterol ratioOrdered By: Jeffery López on 03-05-2025 Cholesterol.total/Choles terol in HDL [Mass ratio] 1.90 {ratio} [facility] Serum creatinine measurement (mass/volume)Ordered By: Jeffery López on 03-05-2025 Creatinine [Mass/Vol] 0.70 mg/dL 0.70-1.20 [facility] Serum globulin measurementOr dered By: Jeffery López on 03-05-2025 Globulin (S) [Mass/Vol] 2.9 g/dL 2.2-4.2 [facility] Serum glucose measurement (m ass/volume)Ordered By: Jeffery López on 03-05-2025 Glucose [Mass/Vol] 108 mg/dL High 70-99 [facility] Serum or plasma alanine west otransferase (ALT) measurementOrdered By: Jeffery López on 03-05-2025 ALT [Catalytic activity/Vol] 27 U/L <47 [facility] Serum or plasma albumin sandeep urement (mass/volume)Ordered By: Jeffery López on 03-05-2025 Albumin [Mass/Vol] 4.0 g/dL 3.4-4.8 [facility] Serum or plasma albumin/glob ulin mass ratioOrdered By: Jeffery López on 03-05-2025 Albumin/Globulin [Mass ratio] 1.4 {ratio} 0.9-2.4 [facility] Serum or plasma alkaline isabel sphatase measurementOrdered By: Jeffery López on 03-05-2025 ALP [Catalytic activity/Vol] 65 U/L 40-129 [facility] Serum or plasma calcium sandeep urement (mass/volume)Ordered By: Jeffery López on 03-05-2025 Calcium [Mass/Vol] 9.3 mg/dL 7.6-11.0 [facility] Serum or plasma cholesterol in HDL measurement (mass/volume)Ordered By: Jeffery López on 03-05-2025 Cholesterol in HDL [Mass/Vol] 78 mg/dL >40 [facility] Comment on above: National Cholesterol Education Program (NCEP) guidelines:<40 mg/dL: Low HDL-cholesterol (major risk factor for CHD)>= 60 mg/dL: High HDL-cholesterol (negative risk factor for CHD)HDL-cholesterol is affected by a number of factors, e.g. smoking, exercise, hormones, sex and age. Serum or plasma cholesterol measurement (mass/volume)Ordered By: Jeffery López on 03-05-2025 Cholesterol [Mass/Vol] 148 mg/dL <201 [facility] Comment on above: Cholesterol level, D esirable <200 mg/dLBorderline high cholesterol 200-239 mg/dLHigh cholesterol >=240 mg/dLRecommendations of the NCEP Adult Treatment Panel for the following risk-cutoff thresholds for the [place] population. Serum or plasma urea nitroge n measurement (mass/volume)Ordered By: Jeffery López on 03-05-2025 Urea nitrogen [Mass/Vol] 23 mg/dL High 4-19 [facility] Sodium levelOrdered By: Jeffery López on 03-05-2025 Sodium [Moles/Vol] 139 mmol/L 133-145 [facility] Total proteinOrdered By: Donald López on 03-05-2025 Protein [Mass/Vol] 6.9 g/dL 5.9-8.4 [facility] Triglycerides measurementOrd ered By: Jeffery López on 03-05-2025 Triglyceride [Mass/Vol] 60 mg/dL <199 [facility] Comment on above: The drugs N-Acetylcy steine and Metamizole may falsely depress this assay. Normal range: <150 mg/dLBorderline High: 150-199 mg/dLHigh: 200-499 mg/dLVery High: >500 mg/dL Urine albumin measurement [facility] detection limit of 20 mg/L or less (mass/volume)Ordered By: Jeffery López on 03-05-2025 Albumin DL <= 20 mg/L (U) [Mass/Vol] < 12.0 mg/L <20 mg/L [facility] White blood cell (WBC) count Ordered By: Jeffery López on 03-05-2025 WBC (Bld) [#/Vol] 3.2 10*3/uL Low 4.4-11.0 [facility] Radiation Oncology Visiton 0 03-04-2025 Radiation Oncology Visit [facility] [address] [place] [address] OFFICE VISIT Date of Service: 03/04/25819 MR#: [id number] Acct: [id number] Name: RAYMOND WEINBERG Rep #: [id number] : 1960 From: Indra Larson DO Age/Sex: 64/M Location: [facility] Status: Signed Intake Vital Signs 11/14/24 10:02 03/04/25 08:24 Height 5 ft 9 in 5 ft 9 in Weight: 222 lb BMI 32.8 BP 122/73 H Blood Pressure Location Rt brachial Position Sitting Respiration 18 Pulse 56 L Pulse Source Monitor Temp 97.2 F L Temperature Source Temporal Artery Pulse Oximetry (%) 100 Oxygen Delivery Method room air Intake Is patient in pain?: No Allergies No Known Allergies Allergy (Verified 03/04/25 08:23) Medications ???Medication ???Instructions ???Recorded ???Confirmed ???Type lisinopril 10 mg tablet 10 mg PO DAILY 08/15/23 03/04/25 H istory multivitamin (Daily Multi-Vitamin 1 tab PO DAILY 08/15/23 03/04/25 History tablet) rosuvastatin 10 mg tablet 10 mg PO DAILY 08/15/23 03/04/25 H istory Central Venous Access Central Venous Access: No Intake Visit Reasons: OTV Is patient in pain?: No Allergies No Known Allergies Allergy (Verified 03/04/25 08:23) Medications ???Medication ???Instructions ???Recorded ???Confirmed ???Type lisinopril 10 mg tablet 10 mg PO DAILY 08/15/23 03/04/25 H istory multivitamin (Daily Multi-Vitamin 1 tab PO DAILY 08/15/23 03/04/25 History tablet) rosuvastatin 10 mg tablet 10 mg PO DAILY 08/15/23 03/04/25 H istory PFSH PFSH Medical History Cellulitis Rising PSA following treatment for malignant neoplasm of prostate Elevated prostate specific antigen [PSA] Secondary hypertension Urinary calculi Wears contact lenses Cancer Alcohol use History of kidney stones Prostate disease High cholesterol Restless legs BiPAP (biphasic positive airway pressure) dependence Sleep apnea Non-smoker History of edema Cardiology follow-up encounter Home Medications ???Medication ???Instructions ???Recorded ???Last Taken ???Type lisinopril 10 mg tablet 10 mg PO DAILY 08/15/23 08/29/23 0 5:15 History multivitamin (Daily Multi-Vitamin 1 tab PO DAILY 08/15/23 08/27/23 History tablet) rosuvastatin 10 mg tablet 10 mg PO DAILY 08/15/23 08/27/23 H istory Allergy/AdvReac Type Severity Reaction Status Date / Time No Known Allergies Allergy Verified 03/04/25 08:23 Family History Brother Prostate cancer Other Cancer Diabetes Hypertension Surgical History H/O prostate biopsy History of bladder suspension procedure H/O radical prostatectomy History of wisdom tooth extraction History of colonoscopy Social History Smoking Status: Never smoker alcohol intake: current alcohol intake frequency: holidays/special occasions only substance use type: does not use caffeine: Yes (4+ servings per day) Diagnosis: Raymond Weinberg is a 64-year-old male diagnosed with intermediate risk prostate cancer status post TRUS guided prostate biopsy (06/28/2023), bone scan (07/23/2023), MRI prostate with and without contrast (07/27/2023), and radical prostatectomy (08/29/2023), now with evidence of biochemical recurrence with a PSA of 0.16 (10/29/2024). Plan: Plan was made to complete salvage radiation consisting of 4600 cGy in 23 fractions to the prostate fossa and pelvis followed by a boost to the prostate fossa of 2200 cGy in 11 fractions. This brought the final dose to the prostate fossa to 6800 cGy in 34 fractions. Treatment Data: Treatment Site: Prostate fossa and pelvis Current total dose/Total dose planned: 4600 cGy / 4600 cGy; 1800 cGy / 2200 cGy Fraction number: ; Chemotherapy: none Subjective: Pain: 0 / 10 Fatigue: none Skin: no erythema, rash, desquamation GI: no diarrhea/constipatio n. some mild loose stool. No rectal pain or bleeding. No bloating or increased gas : no increase urinary symptoms. mild frequency, mild occasional dysuria, no hematuria Cellulitis on knee, taking antibiotics and improving Objective: Weight: 222 lbs Physical Exam: Gen: NAD Skin: no erythema, rash, desquamation. Assessment Plan Assessment/Plan (1) Biochemically recurrent castration-sensitive adenocarcinoma of prostate: PLAN: Plan Assessment: Tolerating treatment well overall.??? I reviewed and approved all treatment associated imaging. mild loose stool occasional dysuria Plan: Continue treatment as planned.??? Will finish tomorrow I have reviewed potential treatment associated toxicities as well as t (more content not included)... Normal [facility] Radiation Oncology Visiton 0 02-25-2025 Radiation Oncology Visit [facility] [place] [address] OFFICE VISIT Date of Service: 02/25/25 0853 MR#: [id number] Acct: [id number] Name: RAYMOND WEINBERG Rep #: [id number] : 1960 From: Indra Larson DO Age/Sex: 64/M Location: [facility] Status: Signed Intake Vital Signs 11/14/24 10:02 02/25/25 08:55 Height 5 ft 9 in 5 ft 9 in Weight: 220 lb BMI 32.5 BP 124/69 H Blood Pressure Location Rt brachial Position Sitting Respiration 18 Pulse 62 Pulse Source Monitor Temp 97.4 F L Temperature Source Temporal Artery Pulse Oximetry (%) 100 Oxygen Delivery Method room air Intake Visit Reasons: OTV Is patient in pain?: No Allergies No Known Allergies Allergy (Verified 02/25/25 08:57) Medications ???Medication ???Instructions ???Recorded ???Confirmed ???Type lisinopril 10 mg tablet 10 mg PO DAILY 08/15/23 02/25/25 H istory multivitamin (Daily Multi-Vitamin 1 tab PO DAILY 08/15/23 02/25/25 History tablet) rosuvastatin 10 mg tablet 10 mg PO DAILY 08/15/23 02/25/25 H istory PFSH PFSH Medical History Cellulitis Rising PSA following treatment for malignant neoplasm of prostate Elevated prostate specific antigen [PSA] Secondary hypertension Urinary calculi Wears contact lenses Cancer Alcohol use History of kidney stones Prostate disease High cholesterol Restless legs BiPAP (biphasic positive airway pressure) dependence Sleep apnea Non-smoker History of edema Cardiology follow-up encounter Home Medications ???Medication ???Instructions ???Recorded ???Last Taken ???Type lisinopril 10 mg tablet 10 mg PO DAILY 08/15/23 08/29/23 0 5:15 History multivitamin (Daily Multi-Vitamin 1 tab PO DAILY 08/15/23 08/27/23 History tablet) rosuvastatin 10 mg tablet 10 mg PO DAILY 08/15/23 08/27/23 H istory Allergy/AdvReac Type Severity Reaction Status Date / Time No Known Allergies Allergy Verified 02/25/25 08:57 Family History Brother Prostate cancer Other Cancer Diabetes Hypertension Surgical History H/O prostate biopsy History of bladder suspension procedure H/O radical prostatectomy History of wisdom tooth extraction History of colonoscopy Social History Smoking Status: Never smoker alcohol intake: current alcohol intake frequency: holidays/special occasions only substance use type: does not use caffeine: Yes (4+ servings per day) Diagnosis: Raymond Weinberg is a 64-year-old male diagnosed with intermediate risk prostate cancer status post TRUS guided prostate biopsy (06/28/2023), bone scan (07/23/2023), MRI prostate with and without con trast (07/27/2023), and radical prostatectomy (08/29/2023), now with evidence of biochemical recurrence with a PSA of 0.16 (10/29/2024). Plan: Plan was made to complete salvage radiation consisting of 4600 cGy in 23 fractions to the prostate fossa and pelvis followed by a boost to the prostate fossa of 2200 cGy in 11 fractions. This brought the final dose to the prostate fossa to 6800 cGy in 34 fractions. Treatment Data: Treatment Site: Prostate fossa and pelvis Current total dose/Total dose planned: 4600 cGy / 4600 cGy; 1000 cGy / 2200 cGy Fraction number: ; Chemotherapy: none Subjective: Pain: 0 / 10 Fatigue: none Skin: no erythema, rash, desquamation GI: no diarrhea/constipatio n. some mild loose stool. No rectal pain or bleeding. No bloating or increased gas : no increase urinary symptoms. mild frequency, mild occasional dysuria, no hematuria Cellulitis on knee, taking antibiotics and improving Objective: Weight: 220 lbs Physical Exam: Gen: NAD Skin: no erythema, rash, desquamation. Assessment Plan Assessment/Plan (1) Biochemically recurrent castration-sensitive adenocarcinoma of prostate: PLAN: Plan Assessment: Tolerating treatment well overall.??? I reviewed and approved all treatment associated imaging. mild loose stool occasional dysuria Plan: Continue treatment as planned.??? I have reviewed potential treatment associated toxicities as well as timing for resolution and management. Skin: Skin care reviewed, continue lotion prn Follow up next week or sooner if needed. Thank you for allowing me to participate in the management and care of your patient. If I may answer any questions in the interim, please do not hesitate to contact me at any time. Indra Larson DO, MS Structural Steel Worker Apprentice, Department of Radiation Oncology [facility] Coding Level of Car (more content not included)... Normal [facility] Radiation Oncology Visiton 0 02-18-2025 Radiation Oncology Visit [facility] [address] [place] [address]. [place] [address] OFFICE VISIT Date of Service: 02/18/25817 MR#: [id number] Acct: [id number] Name: RAYMOND WEINBERG Rep #: [id number] : 1960 From: Indra Larson DO Age/Sex: 64/M Location: [facility] Status: Signed Intake Vital Signs 11/14/24 10:02 02/18/25 08:19 Height 5 ft 9 in 5 ft 9 in Weight: 220 lb 4 oz BMI 32.5 BP 113/75 Blood Pressure Location Rt brachial Position Sitting Respiration 18 Pulse 67 Pulse Source Monitor Temp 97.4 F L Temperature Source Temporal Artery Pulse Oximetry (%) 97 Oxygen Delivery Method room air Intake Visit Reasons: OTV Is patient in pain?: No Allergies No Known Allergies Allergy (Verified 02/18/25 08:22) Medications ???Medication ???Instructions ???Recorded ???Confirmed ???Type lisinopril 10 mg tablet 10 mg PO DAILY 08/15/23 02/18/25 H istory multivitamin (Daily Multi-Vitamin 1 tab PO DAILY 08/15/23 02/18/25 History tablet) rosuvastatin 10 mg tablet 10 mg PO DAILY 08/15/23 02/18/25 H istory PFSH PFSH Medical History (Updated 02/18/25 @ 08:23 by Vianey Abebe) Cellulitis Rising PSA following treatment for malignant neoplasm of prostate Elevated prostate specific antigen [PSA] Secondary hypertension Urinary calculi Wears contact lenses Cancer Alcohol use History of kidney stones Prostate disease High cholesterol Restless legs BiPAP (biphasic positive airway pressure) dependence Sleep apnea Non-smoker History of edema Cardiology follow-up encounter Home Medications ???Medication ???Instructions ???Recorded ???Last Taken ???Type lisinopril 10 mg tablet 10 mg PO DAILY 08/15/23 08/29/23 0 5:15 History multivitamin (Daily Multi-Vitamin 1 tab PO DAILY 08/15/23 08/27/23 History tablet) rosuvastatin 10 mg tablet 10 mg PO DAILY 08/15/23 08/27/23 H istory Allergy/AdvReac Type Severity Reaction Status Date / Time No Known Allergies Allergy Verified 02/18/25 08:22 Family History Brother Prostate cancer Other Cancer Diabetes Hypertension Surgical History H/O prostate biopsy History of bladder suspension procedure H/O radical prostatectomy History of wisdom tooth extraction History of colonoscopy Social History Smoking Status: Never smoker alcohol intake: current alcohol intake frequency: holidays/special occasions only substance use type: does not use caffeine: Yes (4+ servings per day) Diagnosis: Raymond Weinberg is a 64-year-old male diagnosed with intermediate risk prostate cancer status post TRUS guided prostate biopsy (06/28/2023), bone scan (07/23/2023), MRI prostate with and without co ntrast (07/27/2023), and radical prostatectomy (08/29/2023), now with evidence of biochemical recurrence with a PSA of 0.16 (10/29/2024). Plan: Plan was made to complete salvage radiation consisting of 4600 cGy in 23 fractions to the prostate fossa and pelvis followed by a boost to the prostate fossa of 2200 cGy in 11 fractions. This brought the final dose to the prostate fossa to 6800 cGy in 34 fractions. Treatment Data: Treatment Site: Prostate fossa and pelvis Current total dose/Total dose planned: 4400 cGy / 4600 cGy; 0 cGy / 2200 cGy Fraction number: ; 0 Chemotherapy: none Subjective: Pain: 0 / 10 Fatigue: none Skin: no erythema, rash, desquamation GI: no diarrhea/constipatio n. some mild loose stool. No rectal pain or bleeding. No bloating or increased gas : no increase urinary symptoms. mild occasional dysuria, no hematuria Cellulitis on knee, taking antibiotics and improving Objective: Weight: 220 lbs 4 oz Physical Exam: Gen: NAD Skin: no erythema, rash, desquamation. Assessment Plan Assessment/Plan (1) Biochemically recurrent castration-sensitive adenocarcinoma of prostate: PLAN: Plan Assessment: Tolerating treatment well overall.??? I reviewed and approved all treatment associated imaging. mild loose stool occasional dysuria Plan: Continue treatment as planned.??? I have reviewed potential treatment associated toxicities as well as timing for resolution and management. Skin: Skin care reviewed, continue lotion prn Follow up next week or sooner if needed. Thank you for allowing me to participate in the management and care of your patient. If I may answer any questions in the interim, please do not hesitate to contact me at any time. Indra Larson DO, MS Structural Steel Worker Apprentice, Department of Radiation Oncology [facility] Coding Level of Care Code Radi (more content not included)... Normal [facility] Radiation Oncology Visiton 0 02-11-2025 Radiation Oncology Visit [facility] [address] [place] [address] [place] [address] OFFICE VISIT Date of Service: 02/11/25 0836 MR#: [id number] Acct: [id number] Name: CAROLINERAYMOND L Rep #: [id number] : 1960 From: Indra Larson DO Age/Sex: 64/M Location: [facility] Status: Signed Intake Vital Signs 11/14/24 10:02 02/11/25 08:38 Height 5 ft 9 in 5 ft 9 in Weight: 223 lb 9 oz BMI 33.0 BP 133/81 H Blood Pressure Location Rt brachial Position Sitting Respiration 18 Pulse 63 Pulse Source Monitor Temp 97.2 F L Temperature Source Temporal Artery Pulse Oximetry (%) 100 Oxygen Delivery Method room air Intake Visit Reasons: OTV Is patient in pain?: No Allergies No Known Allergies Allergy (Verified 02/11/25 08:38) Medications ???Medication ???Instructions ???Recorded ???Confirmed ???Type lisinopril 10 mg tablet 10 mg PO DAILY 08/15/23 02/11/25 H istory multivitamin (Daily Multi-Vitamin 1 tab PO DAILY 08/15/23 02/11/25 History tablet) rosuvastatin 10 mg tablet 10 mg PO DAILY 08/15/23 02/11/25 H istory PFSH PFSH Medical History Rising PSA following treatment for malignant neoplasm of prostate Elevated prostate specific antigen [PSA] Secondary hypertension Urinary calculi Wears contact lenses Cancer Alcohol use History of kidney stones Prostate disease High cholesterol Restless legs BiPAP (biphasic positive airway pressure) dependence Sleep apnea Non-smoker History of edema Cardiology follow-up encounter Home Medications ???Medication ???Instructions ???Recorded ???Last Taken ???Type lisinopril 10 mg tablet 10 mg PO DAILY 08/15/23 08/29/23 0 5:15 History multivitamin (Daily Multi-Vitamin 1 tab PO DAILY 08/15/23 08/27/23 History tablet) rosuvastatin 10 mg tablet 10 mg PO DAILY 08/15/23 08/27/23 H istory Allergy/AdvReac Type Severity Reaction Status Date / Time No Known Allergies Allergy Verified 02/11/25 08:38 Family History Brother Prostate cancer Other Cancer Diabetes Hypertension Surgical History H/O prostate biopsy History of bladder suspension procedure H/O radical prostatectomy History of wisdom tooth extraction History of colonoscopy Social History Smoking Status: Never smoker alcohol intake: current alcohol intake frequency: holidays/special occasions only substance use type: does not use caffeine: Yes (4+ servings per day) Diagnosis: Raymond Weinberg is a 64-year-old male diagnosed with intermediate risk prostate cancer status post TRUS guided prostate biopsy (06/28/2023), bone scan (07/23/2023), MRI prostate with and without contrast (07/27/2023), and radical prostatectomy (08/29/2023), now with evidence of biochemical recurrence with a PSA of 0.16 (10/29/2024). Plan: Plan was made to complete salvage radiation consisting of 4600 cGy in 23 fractions to the prostate fossa and pelvis followed by a boost to the prostate fossa of 2200 cGy in 11 fractions. This brought the final dose to the prostate fossa to 6800 cGy in 34 fractions. Treatment Data: Treatment Site: Prostate fossa and pelvis Current total dose/Total dose planned: 3600 cGy / 4600 cGy; 0 cGy / 2200 cGy Fraction number: ; Chemotherapy: none Subjective: Pain: 0 / 10 Fatigue: none Skin: no erythema, rash, desquamation GI: no diarrhea/constipatio n. some mild loose stool. No rectal pain or bleeding. No bloating or increased gas : no increase urinary symptoms. mild occasional dysuria, no hematuria Objective: Weight: 223 lbs 9 oz Physical Exam: Gen: NAD Skin: no erythema, rash, desquamation. Assessment Plan Assessment/Plan (1) Biochemically recurrent castration-sensitive adenocarcinoma of prostate: PLAN: Plan Assessment: Tolerating treatment well overall.??? I reviewed and approved all treatment associated imaging. mild loose stool Plan: Continue treatment as planned.??? I have reviewed potential treatment associated toxicities as well as timing for resolution and management. Skin: Skin care reviewed, continue lotion prn Follow up next week or sooner if needed. Thank you for allowing me to participate in the management and care of your patient. If I may answer any questions in the interim, please do not hesitate to contact me at any time. Indra Larson DO, MS Structural Steel Worker Apprentice, Department of Radiation Oncology [facility] Coding Level of Care Code Radiation Tx Management x5 Diagnoses Biochemically recurrent castration-sensitive jay (more content not included)... Normal [facility] Radiation Oncology Visiton 0 02-04-2025 Radiation Oncology Visit [facility] [address] [place] [address] OFFICE VISIT Date of Service: 02/04/25 0841 MR#: [id number] Acct: [id number] Name: RAYMOND WEINBERG Rep #: [id number] : 1960 From: Indra Larson DO Age/Sex: 64/M Location: [facility] Status: Signed Intake Vital Signs 11/14/24 10:02 02/04/25 08:43 Height 5 ft 9 in 5 ft 9 in Weight: 220 lb 5 oz BMI 32.5 BP 130/79 H Blood Pressure Location Lt brachial Position Sitting Respiration 16 Pulse 57 L Pulse Source Monitor Temp 97.0 F L Temperature Source Temporal Artery Pulse Oximetry (%) 100 Oxygen Delivery Method room air Intake Visit Reasons: OTV Is patient in pain?: No Allergies No Known Allergies Allergy (Verified 02/04/25 08:49) Medications ???Medication ???Instructions ???Recorded ???Confirmed ???Type lisinopril 10 mg tablet 10 mg PO DAILY 08/15/23 02/04/25 H istory multivitamin (Daily Multi-Vitamin 1 tab PO DAILY 08/15/23 02/04/25 History tablet) rosuvastatin 10 mg tablet 10 mg PO DAILY 08/15/23 02/04/25 H istory PFSH PFSH Medical History Rising PSA following treatment for malignant neoplasm of prostate Elevated prostate specific antigen [PSA] Secondary hypertension Urinary calculi Wears contact lenses Cancer Alcohol use History of kidney stones Prostate disease High cholesterol Restless legs BiPAP (biphasic positive airway pressure) dependence Sleep apnea Non-smoker History of edema Cardiology follow-up encounter Home Medications ???Medication ???Instructions ???Recorded ???Last Taken ???Type lisinopril 10 mg tablet 10 mg PO DAILY 08/15/23 08/29/23 0 5:15 History multivitamin (Daily Multi-Vitamin 1 tab PO DAILY 08/15/23 08/27/23 History tablet) rosuvastatin 10 mg tablet 10 mg PO DAILY 08/15/23 08/27/23 H istory Allergy/AdvReac Type Severity Reaction Status Date / Time No Known Allergies Allergy Verified 02/04/25 08:49 Family History Brother Prostate cancer Other Cancer Diabetes Hypertension Surgical History H/O prostate biopsy History of bladder suspension procedure H/O radical prostatectomy History of wisdom tooth extraction History of colonoscopy Social History Smoking Status: Never smoker alcohol intake: current alcohol intake frequency: holidays/special occasions only substance use type: does not use caffeine: Yes (4+ servings per day) Diagnosis: Raymond Weinberg is a 64-year-old male diagnosed with intermediate risk prostate cancer status post TRUS guided prostate biopsy (06/28/2023), bone scan (07/23/2023), MRI prostate with and without contrast (07/27/2023), and radical prostatectomy (08/29/2023), now with evidence of biochemical recurrence with a PSA of 0.16 (10/29/2024). Plan: Plan was made to complete salvage radiation consisting of 4600 cGy in 23 fractions to the prostate fossa and pelvis followed by a boost to the prostate fossa of 2200 cGy in 11 fractions. This brought the final dose to the prostate fossa to 6800 cGy in 34 fractions. Treatment Data: Treatment Site: Prostate fossa and pelvis Current total dose/Total dose planned: 2600 cGy / 4600 cGy; 0 cGy / 2200 cGy Fraction number: ; 0 Chemotherapy: none Subjective: Pain: 0 / 10 Fatigue: none Skin: no erythema, rash, desquamation GI: no diarrhea/constipatio n. No rectal pain or bleeding. No bloating or increased gas : no increase urinary symptoms. mild occasional dysuria, no hematuria Objective: Weight: 220 lbs 5 oz Physical Exam: Gen: NAD Skin: no erythema, rash, desquamation. Assessment Plan Assessment/Plan (1) Biochemically recurrent castration-sensitive adenocarcinoma of prostate: PLAN: Plan Assessment: Tolerating treatment well overall.??? I reviewed and approved all treatment associated imaging. No treatment associated toxicities are noted at this time Plan: Continue treatment as planned.??? I have reviewed potential treatment associated toxicities as well as timing for resolution and management. Skin: Skin care reviewed, continue lotion prn Follow up next week or sooner if needed. Thank you for allowing me to participate in the management and care of your patient. If I may answer any questions in the interim, please do not hesitate to contact me at any time. Indra Larson DO, MS [employer] Worker Apprentice, Department of Radiation Oncology [facility] Coding Level of Care Code Radiation Tx Management x5 Diagnoses Biochemically recurrent castrat (more content not included)... Normal [facility] Radiation Oncology Visiton 0 01-28-2025 Radiation Oncology Visit [facility] [address] [place] [address] OFFICE VISIT Date of Service: 01/28/25916 MR#: [id number] Acct: [id number] Name: RAYMOND WEINBERG Rep #: [id number] : 1960 From: Indra Larson DO Age/Sex: 64/M Location: [facility] Status: Signed Intake Vital Signs 11/14/24 10:02 01/28/25 09:18 Height 5 ft 9 in 5 ft 9 in Weight: 221 lb 5 oz BMI 32.6 BP 131/78 H Blood Pressure Location Rt brachial Position Sitting Respiration 16 Pulse 55 L Pulse Source Monitor Temp 96.9 F L Temperature Source Temporal Artery Pulse Oximetry (%) 100 Oxygen Delivery Method room air Intake Visit Reasons: OTV Is patient in pain?: No Allergies No Known Allergies Allergy (Verified 01/28/25 09:20) Medications ???Medication ???Instructions ???Recorded ???Confirmed ???Type lisinopril 10 mg tablet 10 mg PO DAILY 08/15/23 01/28/25 H istory multivitamin (Daily Multi-Vitamin 1 tab PO DAILY 08/15/23 01/28/25 History tablet) rosuvastatin 10 mg tablet 10 mg PO DAILY 08/15/23 01/28/25 H istory PFSH PFSH Medical History Rising PSA following treatment for malignant neoplasm of prostate Elevated prostate specific antigen [PSA] Secondary hypertension Urinary calculi Wears contact lenses Cancer Alcohol use History of kidney stones Prostate disease High cholesterol Restless legs BiPAP (biphasic positive airway pressure) dependence Sleep apnea Non-smoker History of edema Cardiology follow-up encounter Home Medications ???Medication ???Instructions ???Recorded ???Last Taken ???Type lisinopril 10 mg tablet 10 mg PO DAILY 08/15/23 08/29/23 0 5:15 History multivitamin (Daily Multi-Vitamin 1 tab PO DAILY 08/15/23 08/27/23 History tablet) rosuvastatin 10 mg tablet 10 mg PO DAILY 08/15/23 08/27/23 H istory Allergy/AdvReac Type Severity Reaction Status Date / Time No Known Allergies Allergy Verified 01/28/25 09:20 Family History Brother Prostate cancer Other Cancer Diabetes Hypertension Surgical History H/O prostate biopsy History of bladder suspension procedure H/O radical prostatectomy History of wisdom tooth extraction History of colonoscopy Social History Smoking Status: Never smoker alcohol intake: current alcohol intake frequency: holidays/special occasions only substance use type: does not use caffeine: Yes (4+ servings per day) Diagnosis: Raymond Weinberg is a 64-year-old male diagnosed with intermediate risk prostate cancer status post TRUS guided prostate biopsy (06/28/2023), bone scan (07/23/2023), MRI prostate with and without contrast (07/27/2023), and radical prostatectomy (08/29/2023), now with evidence of biochemical recurrence with a PSA of 0.16 (10/29/2024). Plan: Plan was made to complete salvage radiation consisting of 4600 cGy in 23 fractions to the prostate fossa and pelvis followed by a boost to the prostate fossa of 2200 cGy in 11 fractions. This brought the final dose to the prostate fossa to 6800 cGy in 34 fractions. Treatment Data: Treatment Site: Prostate fossa and pelvis Current total dose/Total dose planned: 1600 cGy / 4600 cGy; 0 cGy / 2200 cGy Fraction number: ; Chemotherapy: none Subjective: Pain: 0 / 10 Fatigue: none Skin: no erythema, rash, desquamation GI: no diarrhea/constipatio n. No rectal pain or bleeding. No bloating or increased gas : no increase urinary symptoms. No dysuria or hematuria Objective: Weight: 221 lbs Physical Exam: Gen: NAD Skin: no erythema, rash, desquamation. Assessment Plan Assessment/Plan (1) Biochemically recurrent castration-sensitive adenocarcinoma of prostate: PLAN: Plan Assessment: Tolerating treatment well overall.??? I reviewed and approved all treatment associated imaging. No treatment associated toxicities are noted at this time Plan: Continue treatment as planned.??? I have reviewed potential treatment associated toxicities as well as timing for resolution and management. Skin: Skin care reviewed, continue lotion prn Follow up next week or sooner if needed. Thank you for allowing me to participate in the management and care of your patient. If I may answer any questions in the interim, please do not hesitate to contact me at any time. Indra Larson DO, MS Structural [employer] Worker Apprentice, Department of Radiation Oncology [facility] Coding Level of Care Code Radiation Tx Management x5 Diagnoses Biochemically recurrent castration-sensitive adenoc (more content not included)... Normal [facility] Radiation Oncology Visiton 0 01-21-2025 Radiation Oncology Visit [facility] [address] [place] [address]. [place] [address] OFFICE VISIT Date of Service: 01/21/25 0844 MR#: [id number] Acct: [id number] Name: LINORAYMOND GROVE Souleymane Rep #: [id number] : 1960 From: Indra Larson DO Age/Sex: 64/M Location: [facility] [place] Status: Signed Intake Vital Signs 11/14/24 10:02 01/21/25 08:46 Height 5 ft 9 in 5 ft 9 in Weight: 223 lb 2 oz BMI 32.9 BP 129/74 H Blood Pressure Location Rt brachial Position Sitting Respiration 18 Pulse 55 L Pulse Source Monitor Temp 96.8 F L Temperature Source Temporal Artery Pulse Oximetry (%) 100 Oxygen Delivery Method room air Intake Visit Reasons: OTV Is patient in pain?: No Allergies No Known Allergies Allergy (Verified 01/21/25 08:49) Medications ???Medication ???Instructions ???Recorded ???Confirmed ???Type lisinopril 10 mg tablet 10 mg PO DAILY 08/15/23 01/21/25 H istory multivitamin (Daily Multi-Vitamin 1 tab PO DAILY 08/15/23 01/21/25 History tablet) rosuvastatin 10 mg tablet 10 mg PO DAILY 08/15/23 01/21/25 H istory PFSH PFSH Medical History Rising PSA following treatment for malignant neoplasm of prostate Elevated prostate specific antigen [PSA] Secondary hypertension Urinary calculi Wears contact lenses Cancer Alcohol use History of kidney stones Prostate disease High cholesterol Restless legs BiPAP (biphasic positive airway pressure) dependence Sleep apnea Non-smoker History of edema Cardiology follow-up encounter Home Medications ???Medication ???Instructions ???Recorded ???Last Taken ???Type lisinopril 10 mg tablet 10 mg PO DAILY 08/15/23 08/29/23 0 5:15 History multivitamin (Daily Multi-Vitamin 1 tab PO DAILY 08/15/23 08/27/23 History tablet) rosuvastatin 10 mg tablet 10 mg PO DAILY 08/15/23 08/27/23 H istory Allergy/AdvReac Type Severity Reaction Status Date / Time No Known Allergies Allergy Verified 01/21/25 08:49 Family History Brother Prostate cancer Other Cancer Diabetes Hypertension Surgical History H/O prostate biopsy History of bladder suspension procedure H/O radical prostatectomy History of wisdom tooth extraction History of colonoscopy Social History Smoking Status: Never smoker alcohol intake: current alcohol intake frequency: holidays/special occasions only substance use type: does not use caffeine: Yes (4+ servings per day) Diagnosis: Raymond Weinberg is a 64-year-old male diagnosed with intermediate risk prostate cancer status post TRUS guided prostate biopsy (06/28/2023), bone scan (07/23/2023), MRI prostate with and without contrast (07/27/2023), and radical prostatectomy (08/29/2023), now with evidence of biochemical recurrence with a PSA of 0.16 (10/29/2024). Plan: Plan was made to complete salvage radiation consisting of 4600 cGy in 23 fractions to the prostate fossa and pelvis followed by a boost to the prostate fossa of 2200 cGy in 11 fractions. This brought the final dose to the prostate fossa to 6800 cGy in 34 fractions. Treatment Data: Treatment Site: Prostate fossa and pelvis Current total dose/Total dose planned: 600 cGy / 4600 cGy; 0 cGy / 2200 cGy Fraction number: ; Chemotherapy: none Subjective: Pain: 0 / 10 Fatigue: none Skin: no erythema, rash, desquamation GI: no diarrhea/constipatio n. No rectal pain or bleeding. No bloating or increased gas : no increase urinary symptoms. No dysuria or hematuria Objective: Weight: 223 lbs Physical Exam: Gen: NAD Skin: no erythema, rash, desquamation. Assessment Plan Assessment/Plan (1) Biochemically recurrent castration-sensitive adenocarcinoma of prostate: PLAN: Plan Assessment: Tolerating treatment well overall.??? I reviewed and approved all treatment associated imaging. No treatment associated toxicities are noted at this time Plan: Continue treatment as planned.??? I have reviewed potential treatment associated toxicities as well as timing for resolution and management. Skin: Skin care reviewed, continue lotion prn Follow up next week or sooner if needed. Thank you for allowing me to participate in the management and care of your patient. If I may answer any questions in the interim, please do not hesitate to contact me at any time. Indra Larson DO, MS Structural Steel Worker Apprentice, Department of Radiation Oncology [facility] Coding Level of Care Code Radiation Tx Management x5 Diagnoses Biochemically recurrent castration-sensitive adenoca (more content not included)... Normal [facility] Magnetic resonance imaging r eportOrdered By: Otoniel Santoyo on 12-30-2024 Study report [facility] Imaging Services [address] [place] [address] Pelvis W/WO Contrast MR#: [id number] Acct: [id number] Name: RAYMOND WEINBERG Rep #: [id number] : 1960 M 64 From: Helena Santoyo MD PCP: Dr. Jeffery López MD Status: RE G CLI Study:Pelvis W/WO Contrast Date of Exam: 12/29/24 Exam# [id number] Ordering Dr: Indra Larson DO PROCEDURE: PELVIS W/WO CONTRAST, 12/29/2024 REASON FOR EXAM: BIOCHEMICAL RECURRENCE OF PROSTATE CANCER TECHNIQUE: Multisequence multiplanar MRI pelvis was performed with and without IV contrast. IV Contrast: 20 mL Clariscan COMPARISON: 07/27/2023; note that images only are available for review, the report is not available at the time of the dictation. FINDINGS: Interval radical prostatectomy. No definite nodular enhancement or abnormal restricted diffusion within the prostatectomy bed to suggest local recurrence. Bladder: Underdistended and suboptimally evaluated, grossly unremarkable. Lymph nodes: No overt pelvic lymphadenopathy. Similar prominent but not pathologically enlarged LEFT inguinal node, 11 mm short axis. Bones: No frankly destructive bony lesions identified. 7 mm nonspecific focus of enhancement within the LEFT L5 transverse process, nonspecific. Other: Trace nonspecific pelvic free fluid. Suspect a tiny 5 mm focus of fluid signal along the LEFT anterolateral perianal region, partially imaged on region several sequences. This is associated with surrounding T2 hypointensity and enhancement on some sequences, suspicious for at least a perianal sinus tract if not fistula with tiny abscess. Ill-defined T2 hypointensity extends from this region into the intersphincteric plane at the level of the distal and most anal canal. The mid and upper thirds of the anal canal appear within normal limits allowing for nondedicated dedicated technique. MRI/Pelvis W/WO Contrast IMPRESSION: 1. Interval radical prostatectomy without definite evidence of local recurrence or overt pelvic lymphadenopathy. 2. 7 mm nonspecific focus of enhancement in the LEFT L5 transverse process. No clear uptake on recent PSMA PET/CT. Although this may be degenerative, given the context, follow-up is probably warranted. This may be too small for resolution on bone scan. 3. Findings in the LEFT anterior perianal region are partially imaged on some sequences, suspicious for at least a sinus tract if not perianal fistula with tiny abscess. Correlate with patient's symptoms and exam. 4. Trace nonspecific pelvic free fluid. 5. Additional description as above. Reading Location: [facility] CC: Dr. Jeffery López MD; Dr. Indra Larson DO ~ Superintendent Marine: Signed [facility] Pelvis W/WO Contraston 12-29 Pelvis W/WO Contrast [facility] Imaging Services [address] [place], [place] [id number] Pelvis W/WO Contrast MR#: [id number] Acct: [id number] Name: RAYMOND WEINBERG Rep #: [id number] : 1960 M 64 From: Otoniel Santoyo MD PCP: Dr. Jeffery López MD Status: REG CLI Study: Pelvis W/WO Contrast Date of Exam: 12/29/24 Exam# [id number] Ordering Dr: Indra Larson DO PROCEDURE: PELVIS W/WO CONTRAST, 12/29/2024 REASON FOR EXAM: BIOCHEMICAL RECURRENCE OF PROSTATE CANCER TECHNIQUE: Multisequence multiplanar MRI pelvis was performed with and without IV contrast. IV Contrast: 20 mL Clariscan COMPARISON: 07/27/2023; note that images only are available for review, the report is not available at the time of the dictation. FINDINGS: Interval radical prostatectomy. No definite nodular enhancement or abnormal restricted diffusion within the prostatectomy bed to suggest local recurrence. Bladder: Underdistended and suboptimally evaluated, grossly unremarkable. Lymph nodes: No overt pelvic lymphadenopathy. Similar prominent but not pathologically enlarged LEFT inguinal node, 11 mm short axis. Bones: No frankly destructive bony lesions identified. 7 mm nonspecific focus of enhancement within the LEFT L5 transverse process, nonspecific. Other: Trace nonspecific pelvic free fluid. Suspect a tiny 5 mm focus of fluid signal along the LEFT anterolateral perianal region, partially imaged on region several sequences. This is associated with surrounding T2 hypointensity and enhancement on some sequences, suspicious for at least a perianal sinus tract if not fistula with tiny abscess. Ill-defined T2 hypointensity extends from this region into the intersphincteric plane at the level of the distal and most anal canal. The mid and upper thirds of the anal canal appear within normal limits allowing for nondedicated dedicated technique. MRI/Pelvis W/WO Contrast IMPRESSION: 1. Interval radical prostatectomy without definite evidence of local recurrence or overt pelvic lymphadenopathy. 2. 7 mm nonspecific focus of enhancement in the LEFT L5 transverse process. No clear uptake on recent PSMA PET/CT. Although this may be degenerative, given the context, follow-up is probably warranted. This may be too small for resolution on bone scan. 3. Findings in the LEFT anterior perianal region are partially imaged on some sequences, suspicious for at least a sinus tract if not perianal fistula with tiny abscess. Correlate with patient's symptoms and exam. 4. Trace nonspecific pelvic free fluid. 5. Additional description as above. Reading Location: [facility] CC: Dr. Jeffery López MD; Dr. Indra Larson DO Superintendent Marine: Signed Normal [facility] PET/CT Tumor Base -Thigh Sub son 12-23-2024 PET/CT Tumor Base -Thigh Subs [facility] Imaging Services [address] [place] [address] PET/CT Tumor Base -Thigh Subs MR#: [id number] Acct: [id number] Name: RAYMOND WEINBERG Rep #: [id number] : 1960 M 64 From: Speedy Ortiz DO PCP: Dr. Jeffery López MD Status: REG RCR Study: PET/CT Tumor Base -Thigh Subs Date of Exam: Exam# [id number] Ordering Dr: Indra Larson DO PROCEDURE: PET/CT TUMOR BASE -THIGH SUBS 12/23/2024 REASON FOR EXAM: 64 y/o M with PYLARIFY TECHNIQUE: Following the intravenous administration of radionucleotide, image acquisition on a dedicated PET/CT unit was performed at one hour post injection. A preliminary CT study encompassing the Skull base, neck, chest, abdomen, pelvis, and proximal thighs was performed for purposes of attenuation correction and anatomic localization. The proximal thighs were also included. The patient's blood glucose level was mg/dL (allowable range: 50-180 mg/dL). RADIOPHARMACEUTICAL: mCi 18F-FDG (Fluorodeoxyglucose F18) IV was injected into he patient. RADIATION DOSE SUMMARY: Effective Dose: Approximately 7 mSv for a standard whole-body PET scan Organ Doses: Varies by organ, with higher doses typically to the bladder, liver, and brain COMPARISON: COMPARISON FROM CT, PET OR OTHER PERTINENT EXAMS: . FINDINGS: Physiologic uptake: There may be expected metabolic uptake within the brain, tongue and floor of the mouth and larynx/vocal cords, heart, theo (many normal individuals have hilar uptake in less than 3 nodes with mildly avid hilar nodes less than 2.7 SUV), liver and spleen, system, and GI tract and symmetric muscle uptake. FDG AVID AND NON-AVID LESIONS. Reported avid SUV values (g/mL*) are maximum SUV. NECK: There are no significant neck abnormalities. CHEST: Chest wall- There are no significant chest wall abnormalities. Axilla- There are no significant axillary abnormalities. Lung parenchyma- There are no significant lung parenchyma abnormalities. Mediastinum- There are no significant hilar or mediastinal adenopathy. Pleura- There are no significant pleural abnormalities. ABDOMEN: Stomach- No significant abnormalities. Liver- No significant abnormalities. Spleen- No significant abnormalities. Pancrease- No significant abnormalities. Kidneys- No significant abnormalities. Bowel- Normal bowel activity. Spine- No significant abnormalities. PELVIS: Bowel- Normal physiologic bowel activity is identified. Masses- There are no pelvic masses. LOWER EXTREMITIES: Bones- With the use of bone window settings, there are no osteolytic or osteoblastic lesions. There are no FDG avid lesions within the visualized portion of the axial skeleton. PET/PET/CT Tumor Base -Thigh Subs IMPRESSION: FDG avid- No significant avid lesions. Suspicious- No significant suspicious abnormalities. Non-FDG avid- No non-FDG avid cysts. Other: No additional comments. Please note the low-dose CT scan was performed to facilitate PET image reconstruction and anatomic localization and does not replace a diagnostic CT. Any diagnostic CT requested and performed at the time of the PET will be reported separately. Reading [facility] CC: Dr. Jeffery López MD; Dr. Indra Larson DO Superintendent Marine: Signed Normal [facility] Radiation Oncology Visiton 0 11-14-2024 Radiation Oncology Visit [facility] [address] [place] [address]. [place], [place] [id number] OFFICE VISIT Date of Service: 11/14/24 1001 MR#: [id number] Acct: [id number] Name: RAYMOND WEINBERG Rep #: [id number] : 1960 From: Indra Larson DO Age/Sex: 63/M Location: [facility] [place] Status: Signed Intake Vital Signs 08/29/23 12:57 11/14/24 10:02 Height 5 ft 9 in 5 ft 9 in Weight: 212 lb 8 oz BMI 31.4 BP 126/73 H Blood Pressure Location Rt brachial Position Sitting Respiration 16 Pulse 59 L Pulse Source Monitor Temp 97.4 F L Temperature Source Temporal Artery Pulse Oximetry (%) 100 Oxygen Delivery Method room air Intake Visit Reasons: PROSTATE CA Is patient in pain?: No Allergies No Known Allergies Allergy (Verified 11/14/24 10:04) Medications ???Medication ???Instructions ???Recorded ???Confirmed ???Type lisinopril 10 mg tablet 10 mg PO DAILY 08/15/23 11/14/24 H istory multivitamin (Daily Multi-Vitamin 1 tab PO DAILY 08/15/23 11/14/24 History tablet) rosuvastatin 10 mg tablet 10 mg PO DAILY 08/15/23 11/14/24 H istory PFSH PFSH Medical History Rising PSA following treatment for malignant neoplasm of prostate Elevated prostate specific antigen [PSA] Secondary hypertension Urinary calculi Wears contact lenses Cancer Alcohol use History of kidney stones Prostate disease High cholesterol Restless legs BiPAP (biphasic positive airway pressure) dependence Sleep apnea Non-smoker History of edema Cardiology follow-up encounter Home Medications ???Medication ???Instructions ???Recorded ???Last Taken ???Type lisinopril 10 mg tablet 10 mg PO DAILY 08/15/23 08/29/23 0 5:15 History multivitamin (Daily Multi-Vitamin 1 tab PO DAILY 08/15/23 08/27/23 History tablet) rosuvastatin 10 mg tablet 10 mg PO DAILY 08/15/23 08/27/23 H istory Allergy/AdvReac Type Severity Reaction Status Date / Time No Known Allergies Allergy Verified 11/14/24 10:04 Family History Brother Prostate cancer Other Cancer Diabetes Hypertension Surgical History H/O prostate biopsy History of bladder suspension procedure H/O radical prostatectomy History of wisdom tooth extraction History of colonoscopy Social History Smoking Status: Never smoker alcohol intake: current alcohol intake frequency: holidays/special occasions only substance use type: does not use caffeine: Yes (4+ servings per day) Referring Provider: Rolly Almonte MD Diagnosis: Raymond Weinberg is a 63-year-old male diagnosed with intermediate risk prostate cancer status post TRUS guided prostate biopsy (06/28/2023), bone scan (07/23/2023), MRI prostate with and without contrast (07/27/2023), and radical prostatectomy (08/29/2023), now with evidence of biochemical recurrence with a PSA of 0.16 (10/29/2024). History of Present Illness: 06/28/2023: Patient completed TRUS guided prostate biopsy.??? This demonstrated [place] 3+4 adenocarcinoma involving about 60% of 2/2 cores in the right prostate mid, [place] 3+3 piotr nocarcinoma involving greater than 95% of 1/1 core in the right prostate less than 5% of 1/2 cores in the left prostate apex, less than 5% of 1/2 cores in the left prostate mid, and all remaining biopsies were negative. 07/23/2023: Bone scan was performed.??? This demonstrated no evidence of metastatic disease. 07/27/2023: Patient completed MRI prostate with and without contrast.??? This demonstrated a 1.8 cm PI- RADS 5 lesion in the bilateral anterior transition zone from base to mid gland with micro capsular extension along the anterior border, no evidence of seminal vesicle invasion.??? No bone lesions.??? There is a 6 x 5 mm left pelvic sidewall lymph node. 08/29/2023: Patient completed radical prostatectomy.??? Pathology demonstrated tumor involving both lobes, Jeremy 3+4.??? Measures 3 x 2 x 1.5 cm in the right lobe and 3 x 0.7 x 0.8 cm in the left lobe, no seminal vesicle invasion, no extraprostatic extension, no lymph-vascular invasion.??? Perineural invasion is present and focal.??? Margins are positive with a positive margin measuring 1.5 x 1 cm multifocally in the right and left apical and right anterior and right lateral.??? 2 lymph nodes were removed and did not contain metastatic disease Radiation Treatment History: No prior history of radiation therapy. No pacemaker. No diagnosis of radiosensitizing comorbidity. Interval History: Patient presents for initial consultation. He was diagnosed with intermediate risk prostate cancer in 2022 and had surgery in 2023. Initial PSA was undetectable but then this increase (more content not included)... Normal [facility] PSA, total screeningOrdered By: Colt Almonte on 10-29-2024 Prostate Specific Antigen Screen 0.16 ng/mL 0.02-4.00 [facility] Comment on above: This test was perfor med using the [employer] tPSA method. Measured values of a patient sample can vary depending on the testing procedure used. PSA values determined on patient samples by different testing procedures cannot be used interchangeably. If there is a change in PSA assays while monitoring therapy, sequential testing should be performed to confirm baseline values. PSA,Total - Annual Screenon 10-29-2024 PSA,TOT SCREEN 0.16 ng/mL Normal 0.02-4.00 [facility] Comment on above: Result Comment: This test was performed using the [employer] tPSA method. Measured values of a patient??sample can vary depending on the testing procedure used. PSA values determined on patient samples by different testing procedures cannot be used interchangeably. If there is a change in PSA assays while monitoring therapy, sequential testing should be performed to confirm baseline values. Performed By: #### L 501.9910 ####[facility] [address] [place], [address] Absolute lymphocyte countOrd ered By: Jeffery López on 09-06-2024 Lymphocytes Auto (Unsp spec) [#/Vol] 1.53 10*3/uL 0.83-4.51 [facility] Absolute neutrophil countOrd ered By: Jeffery López on 09-06-2024 Neutrophils (Bld) [#/Vol] 4.2 10*3/uL 2.0-7.7 [facility] Automated lymphocyte count a s percentage of total leukocytesOrdered By: Jeffery López on 09-06-2024 Lymphocytes/100 WBC Auto (Unsp spec) 24.4 % 19-41 [facility] BUN/creatinine ratioOrdered By: Jeffery López on 09-06-2024 Urea nitrogen/Creatinine [Mass ratio] 30.6 mg/mg High 10-20 [facility] Basophil percentageOrdered B y: Jeffery López on 09-06-2024 Basophils/100 WBC (Bld) 0.5 % 0-1 [facility] Bilirubin, totalOrdered By: Jeffery López on 09-06-2024 Bilirubin [Mass/Vol] 0.38 mg/dL 0.00-1.30 [facility] CBC W/Diff, Automatedon Absolute Lymph 1.53 X10 3/uL Normal 0.83-4.51 [facility] Comment on above: Order Comment: Order Date: 05/15/24 Order Info: [id number] - CBCD Performed By: #### L 501.9985, L500.4100, L500.4050, L100.0100 #### [facility] [address] [place], [address] Absolute Neut 4.2 X10 3/uL Normal 2.0-7.7 [facility] Comment on above: Order Comment: Order Date: 05/15/24 Order Info: [id number] - CBCD Performed By: #### L 501.9985, L500.4100, L500.4050, L100.0100 #### [facility] [address] [place], [address] Basophils/100 WBC (Bld) 0.5 % Normal 0-1 [facility] Comment on above: Order Comment: Order Date: 05/15/24 Order Info: [id number] - CBCD Performed By: #### L 501.9985, L500.4100, L500.4050, L100.0100 #### [facility] [address] [place], [address] Eosinophils/100 WBC (Bld) 2.4 % Normal 0-5 [facility] Comment on above: Order Comment: Order Date: 05/15/24 Order Info: [id number] - CBCD Performed By: #### L 501.9985, L500.4100, L500.4050, L100.0100 #### [facility] [address] [place], [address] Erythrocyte distribution width (RBC) [Ratio] 12.8 % Normal 11.6-14.6 [facility] Comment on above: Order Comment: Order Date: 05/15/24 Order Info: [id number]- - CBCD Performed By: #### L 501.9985, L500.4100, L500.4050, L100.0100 #### [facility] [address] [place], [address] Hematocrit (Bld) [Volume fraction] 38.3 % Low 40-54 [facility] Comment on above: Order Comment: Order Date: 05/15/24 Order Info: [id number]- - CBCD Performed By: #### L 501.9985, L500.4100, L500.4050, L100.0100 #### [facility] [address] [place], [address] Hemoglobin (Bld) [Mass/Vol] 12.6 g/dL Low 13.0-16.5 [facility] Comment on above: Order Comment: Order Date: 05/15/24 Order Info: [id number]- - CBCD Performed By: #### L 501.9985, L500.4100, L500.4050, L100.0100 #### [facility] [address] [place], [address] IG% 0.300 Normal 0.0-0.9 [facility] Comment on above: Order Comment: Order Date: 05/15/24 Order Info: [id number] - CBCD Result Comment: IG% - Immature Granulocytes (promyelocytes, myelocytes and metamyelocytes) > 1% indicates that a LEFT SHIFT is Present. Performed By: #### L 501.9985, L500.4100, L500.4050, L100.0100 #### [facility] [address] [place], [address] Lymphocytes/100 WBC (Bld) 24.4 % Normal 19-41 [facility] Comment on above: Order Comment: Order Date: 05/15/24 Order Info: 0184-1 - CBCD Performed By: #### L 501.9985, L500.4100, L500.4050, L100.0100 #### [facility] [address] [place], [address] MCH (RBC) [Entitic mass] 30.2 pg Normal 27.0-32.0 [facility] Comment on above: Order Comment: Order Date: 05/15/24 Order Info: 0184-1 - CBCD Performed By: #### L 501.9985, L500.4100, L500.4050, L100.0100 #### [facility] [address] [place], [address] MCHC (RBC) [Mass/Vol] 32.9 g/dL Normal 32-36 [facility] Comment on above: Order Comment: Order Date: 05/15/24 Order Info: 0184-1 - CBCD Performed By: #### L 501.9985, L500.4100, L500.4050, L100.0100 #### [facility] [address] [place], [address] MCV (RBC) [Entitic vol] 91.8 fL Normal 80-94 [facility] Comment on above: Order Comment: Order Date: 05/15/24 Order Info: 0184-1 - CBCD Performed By: #### L 501.9985, L500.4100, L500.4050, L100.0100 #### [facility] [address] [place], [address] Monocytes/100 WBC (Bld) 5.9 % Normal 0-10 [facility] Comment on above: Order Comment: Order Date: 05/15/24 Order Info: [id number] - CBCD Performed By: #### L 501.9985, L500.4100, L500.4050, L100.0100 #### [facility] [address] [place], [address] Neutrophils/100 WBC (Bld) 66.5 % Normal 47-70 [facility] Comment on above: Order Comment: Order Date: 05/15/24 Order Info: 0184-1 - CBCD Performed By: #### L 501.9985, L500.4100, L500.4050, L100.0100 #### [facility] [address] [place], [address] Nucleated RBC (Bld) [#/Vol] 0 10*3/uL Normal 0-5 [facility] Comment on above: Order Comment: Order Date: 05/15/24 Order Info: [id number]- - CBCD Performed By: #### L 501.9985, L500.4100, L500.4050, L100.0100 #### [facility] [address] [place], [address] Platelet mean volume (Bld) [Entitic vol] 9.2 fL Normal 6.2-12.0 [facility] Comment on above: Order Comment: Order Date: 05/15/24 Order Info: 0184-1 - CBCD Performed By: #### L 501.9985, L500.4100, L500.4050, L100.0100 #### [facility] [address] [place], [address] Platelets (Bld) [#/Vol] 215 10*3/uL Normal 150-450 [facility] Comment on above: Order Comment: Order Date: 05/15/24 Order Info: 0184-1 - CBCD Performed By: #### L 501.9985, L500.4100, L500.4050, L100.0100 #### [facility] [address] [place], [address] RBC (Bld) [#/Vol] 4.17 10*6/uL Low 4.6-6.2 [facility] Comment on above: Order Comment: Order Date: 05/15/24 Order Info: [id number] - CBCD Performed By: #### L 501.9985, L500.4100, L500.4050, L100.0100 #### [facility] [address] [place], [address] RDW SD 42.9 fl Normal 35.1-43.9 [facility] Comment on above: Order Comment: Order Date: 05/15/24 Order Info: [id number] - CBCD Performed By: #### L 501.9985, L500.4100, L500.4050, L100.0100 #### [facility] [address] [place], [address] WBC (Bld) [#/Vol] 6.3 10*3/uL Normal 4.4-11.0 [facility] Comment on above: Order Comment: Order Date: 05/15/24 Order Info: [id number] - CBCD Performed By: #### L 501.9985, L500.4100, L500.4050, L100.0100 #### [facility] [address] [place], [address] Calculated very low density lipoprotein (VLDL) cholesterol measurementOrdered By: Jeffery López on 09-06-2024 Calculated very low density lipoprotein (VLDL) cholesterol measurement 10 mg/dL - [facility] VLDL Cholesterol 10 mg/dL - [facility] Carbon dioxide measurementOr dered By: Jeffery López on 09-06-2024 CO2 [Moles/Vol] 27.5 mmol/L 22.0-29.0 [facility] Chloride measurementOrdered By: Jeffery López on 09-06-2024 Chloride [Moles/Vol] 106 mmol/L 96-108 [facility] Comprehensive Metabolic Prof ilon 09-06-2024 Albumin [Mass/Vol] 4.2 g/dL Normal 3.4-4.8 [facility] Comment on above: Order Comment: Order Date: 05/15/24Order Info: [id number] - CMPOrder Info: [id number] - LIPID Performed By: #### L 501.9985, L500.4100, L500.4050, L100.0100 ####[facility] [address] [place], [address] Albumin/Globulin [Mass ratio] 1.6 {ratio} Normal 0.9-2.4 [facility] Comment on above: Order Comment: Order Date: 05/15/24Order Info: [id number] - CMPOrder Info: [id number] - LIPID Performed By: #### L 501.9985, L500.4100, L500.4050, L100.0100 ####[facility] [address] [place], [address] ALK PHOS 66 U/L Normal 40-129 [facility] Comment on above: Order Comment: Order Date: 05/15/24Order Info: [id number] - CMPOrder Info: [id number] - LIPID Performed By: #### L 501.9985, L500.4100, L500.4050, L100.0100 ####[facility] [address] [place], [address] ALT [Catalytic activity/Vol] 16 U/L Normal <=46 [facility] Comment on above: Order Comment: Order Date: 05/15/24Order Info: [id number] - CMPOrder Info: [id number] - LIPID Performed By: #### L 501.9985, L500.4100, L500.4050, L100.0100 ####[facility] [address] [place], [address] Anion gap [Moles/Vol] 9 mmol/L Normal 5-15 [facility] Comment on above: Order Comment: Order Date: 05/15/24Order Info: [id number]- - CMPOrder Info: [id number] - LIPID Performed By: #### L 501.9985, L500.4100, L500.4050, L100.0100 ####[facility] [address] [place], [address] AST [Catalytic activity/Vol] 24 U/L Normal <=37 [facility] Comment on above: Order Comment: Order Date: 05/15/24Order Info: [id number]- - CMPOrder Info: [id number] - LIPID Result Comment: Hemo lysis present, Results??could be affected. ?? Performed By: #### L 501.9985, L500.4100, L500.4050, L100.0100 ####[facility] [address] [place], [address] Bilirubin [Mass/Vol] 0.38 mg/dL Normal 0.00-1.30 [facility] Comment on above: Order Comment: Order Date: 05/15/24Order Info: [id number] - CMPOrder Info: [id number] - LIPID Performed By: #### L 501.9985, L500.4100, L500.4050, L100.0100 ####[facility] [address] [place], [address] BUN/CRE 30.6 RATIO High 10-20 [facility] Comment on above: Order Comment: Order Date: 05/15/24Order Info: [id number]- - CMPOrder Info: [id number] - LIPID Performed By: #### L 501.9985, L500.4100, L500.4050, L100.0100 ####[facility] [address] [place], [address] Calcium [Mass/Vol] 9.3 mg/dL Normal 7.6-11.0 [facility] Comment on above: Order Comment: Order Date: 05/15/24Order Info: [id number] - CMPOrder Info: [id number] - LIPID Performed By: #### L 501.9985, L500.4100, L500.4050, L100.0100 ####[facility] [address] [place], [address] Chloride [Moles/Vol] 106 mmol/L Normal 96-108 [facility] Comment on above: Order Comment: Order Date: 05/15/24Order Info: [id number] - CMPOrder Info: [id number] - LIPID Performed By: #### L 501.9985, L500.4100, L500.4050, L100.0100 ####[facility] [address] [place], [address] CO2 [Moles/Vol] 27.5 mmol/L Normal 22.0-29.0 [facility] Comment on above: Order Comment: Order Date: 05/15/24Order Info: [id number] - CMPOrder Info: [id number] - LIPID Performed By: #### L 501.9985, L500.4100, L500.4050, L100.0100 ####[facility] [address] [place], [address] Creatinine [Mass/Vol] 0.75 mg/dL Normal 0.70-1.20 [facility] Comment on above: Order Comment: Order Date: 05/15/24Order Info: [id number] - CMPOrder Info: [id number] - LIPID Performed By: #### L 501.9985, L500.4100, L500.4050, L100.0100 ####[facility] [address] [place], [address] GFR/1.73 sq M.predicted among non-blacks MDRD (S/P/Bld) [Vol rate/Area] 103 mL/min/{1.73_m2} Normal >60 [facility] Comment on above: Order Comment: Order Date: 05/15/24Order Info: [id number] - CMPOrder Info: [id number] - LIPID Result Comment: mL/m in/1.73m2 CKD-EPI Creatinine Equation (2020) Performed By: #### L 501.9985, L500.4100, L500.4050, L100.0100 ####[facility] [address] [place], [address] Globulin (S) [Mass/Vol] 2.7 g/dL Normal 2.2-4.2 [facility] Comment on above: Order Comment: Order Date: 05/15/24Order Info: [id number] - CMPOrder Info: [id number] - LIPID Performed By: #### L 501.9985, L500.4100, L500.4050, L100.0100 ####[facility] [address] [place], [address] Glucose [Mass/Vol] 104 mg/dL High 70-99 [facility] Comment on above: Order Comment: Order Date: 05/15/24Order Info: [id number] - CMPOrder Info: [id number] - LIPID Performed By: #### L 501.9985, L500.4100, L500.4050, L100.0100 ####[facility] [address] [place], [address] Potassium [Moles/Vol] 4.7 mmol/L Normal 3.3-5.1 [facility] Comment on above: Order Comment: Order Date: 05/15/24Order Info: [id number] - CMPOrder Info: [id number] - LIPID Result Comment: Hemo lysis present, Results??could be affected. ?? Performed By: #### L 501.9985, L500.4100, L500.4050, L100.0100 ####[facility] [address] [place], [address] Sodium [Moles/Vol] 142 mmol/L Normal 133-145 [facility] Comment on above: Order Comment: Order Date: 05/15/24Order Info: [id number] - CMPOrder Info: [id number] - LIPID Performed By: #### L 501.9985, L500.4100, L500.4050, L100.0100 ####[facility] [address] [place], [address] T PROT 6.9 g/dL Normal 5.9-8.4 [facility] Comment on above: Order Comment: Order Date: 05/15/24Order Info: [id number] - CMPOrder Info: [id number] - LIPID Performed By: #### L 501.9985, L500.4100, L500.4050, L100.0100 ####[facility] [address] [place], [address] Urea nitrogen [Mass/Vol] 23 mg/dL High 4-19 [facility] Comment on above: Order Comment: Order Date: 05/15/24Order Info: [id number] - CMPOrder Info: [id number] - LIPID Performed By: #### L 501.9985, L500.4100, L500.4050, L100.0100 ####[facility] [address] [place], [address] Eosinophil percentageOrdered By: Jeffery López on 09-06-2024 Eosinophils/100 WBC (Bld) 2.4 % 0-5 [facility] Erythrocyte distribution wid th ratioOrdered By: Jeffery López on 09-06-2024 Erythrocyte distribution width (RBC) [Ratio] 12.8 % 11.6-14.6 [facility] Erythrocyte distribution wid th standard deviationOrdered By: Jeffery López on 09-06-2024 Erythrocyte distribution width (RBC) [Entitic vol] 42.9 fL 35.1-43.9 [facility] Erythrocyte distribution width (RBC) [Ratio] 42.9 fl 35.1-43.9 [facility] GFR/1.73 sq M.predicted nakul g non-blacks MDRD (S/P/Bld) [Vol rate/Area]Ordered By: Jeffery López on 09-06-2024 Estimated GFR (MDRD) Non-Af Amer 103 >60 [facility] Comment on above: mL/min/1.73m2 CKD-EP I Creatinine Equation (2020) Glomerular filtration rate ( GFR) estimation/1.73 sq m using serum, plasma, or whole bOrdered By: Jeffery López on 09-06-2024 GFR/1.73 sq M.predicted among non-blacks MDRD (S/P/Bld) [Vol rate/Area] 103 mL/min/{1.73_m2} >60 [facility] Comment on above: mL/min/1.73m2 CKD-EP I Creatinine Equation (2020) Hematocrit Auto (Bld) [Volum e fraction]Ordered By: Jeffery López on 09-06-2024 Hematocrit (Bld) [Volume fraction] 38.3 % Low 40-54 [facility] Hemoglobin A1con 09-06-2024 HbA1c (Bld) [Mass fraction] 5.7 % Normal <=5.6 [facility] Comment on above: Order Comment: Order Date: 05/15/24Order Info: [id number] - A1C Performed By: #### L 501.9985, L500.4100, L500.4050, L100.0100 ####[facility] [address] [place], [address] Hemoglobin A1c percentageOrd ered By: Jeffery López on 09-06-2024 HbA1c (Bld) [Mass fraction] 5.7 % >5.7 [facility] Hemoglobin measurementOrdere d By: Jeffery López on 09-06-2024 Hemoglobin (Bld) [Mass/Vol] 12.6 g/dL Low 13.0-16.5 [facility] Immature granulocytes/100 WB C Auto (Bld)Ordered By: Jeffery López on 09-06-2024 Immature granulocytes/100 WBC (Bld) 0.300 % 0.0-0.9 [facility] Comment on above: IG% - Immature Granu locytes (promyelocytes, myelocytes and metamyelocytes) > 1% indicates that a LEFT SHIFT is Present. LDL calc ser/plasOrdered By: Jeffery López on 09-06-2024 Cholesterol in LDL [Mass/Vol] 40 mg/dL [facility] Comment on above: Ihpkwvuczp=234-553 m g/dL & Higher Nzyj=705 mg/dL or greater LDL Cholesterol, Calculated 40 mg/dL [facility] Comment on above: Qegrkrflzx=977-786 m g/dL & Higher Povl=456 mg/dL or greater Laboratory - Chemistry and C hemistry - challengeOrdered By: Jeffery López on 09-06-2024 AST [Catalytic activity/Vol] 24 U/L <38 [facility] Comment on above: Hemolysis present, R esults could be affected. Lipid Profileon 09-06-2024 CHOL:HDL 1.70 Normal [facility] Comment on above: Order Comment: Order Date: 05/15/24Order Info: [id number] - CMPOrder Info: [id number] - LIPID Performed By: #### L 501.9985, L500.4100, L500.4050, L100.0100 ####[facility] [address] [place], [address] Cholesterol [Mass/Vol] 122 mg/dL Normal <=200 [facility] Comment on above: Order Comment: Order Date: 05/15/24Order Info: [id number] - CMPOrder Info: [id number] - LIPID Result Comment: Chol esterol level, Desirable <200 mg/dL Borderline high cholesterol 200-239 mg/dL High cholesterol >=240 mg/dL Recommendations of the NCEP Adult Treatment Panel for the following risk-cutoff thresholds for the [place] population. Performed By: #### L 501.9985, L500.4100, L500.4050, L100.0100 ####[facility] [address] [place], [address] Cholesterol in HDL [Mass/Vol] 72 mg/dL Normal [facility] Comment on above: Order Comment: Order Date: 05/15/24Order Info: [id number] - CMPOrder Info: [id number] - LIPID Result Comment: Kesha onal Cholesterol Education Program (NCEP) guidelines: <40 mg/dL: Low HDL-cholesterol (major risk factor for CHD) >= 60 mg/dL: High HDL-cholesterol (negative risk factor for CHD) HDL-cholesterol is affected by a number of factors, e.g. smoking, exercise, hormones, sex and age. Performed By: #### L 501.9985, L500.4100, L500.4050, L100.0100 ####[facility] [address] [place], [address] Cholesterol in LDL [Mass/Vol] 40 mg/dL Normal [facility] Comment on above: Order Comment: Order Date: 05/15/24Order Info: [id number] - CMPOrder Info: [id number] - LIPID Result Comment: Bord wjzeqw=158-855 mg/dL Higher Kzml=295 mg/dL or greater Performed By: #### L 501.9985, L500.4100, L500.4050, L100.0100 ####[facility] [address] [place], [address] Cholesterol in VLDL [Mass/Vol] 10 mg/dL Normal 5-40 [facility] Comment on above: Order Comment: Order Date: 05/15/24Order Info: [id number] - CMPOrder Info: [id number] - LIPID Performed By: #### L 501.9985, L500.4100, L500.4050, L100.0100 ####[facility] [address] [place], [address] Triglyceride [Mass/Vol] 51 mg/dL Normal [facility] Comment on above: Order Comment: Order Date: 05/15/24Order Info: [id number] - CMPOrder Info: [id number] - LIPID Result Comment: The drugs N-Acetylcysteine and Metamizole may falsely depress this assay. Normal range: <150 mg/dL Borderline High: 150-199 mg/dL High: 200-499 mg/dL Very High: >500 mg/dL Performed By: #### L 501.9985, L500.4100, L500.4050, L100.0100 ####[facility] [address] [place], [address] Lymphocytes Auto (Unsp spec) [#/Vol]Ordered By: Jeffery López on 09-06-2024 Lymphocytes (Bld) [#/Vol] 1.53 10*3/uL 0.83-4.51 [facility] Lymphocytes/100 WBC Auto (Un sp spec)Ordered By: Jeffery López on 09-06-2024 Lymphocytes/100 WBC (Bld) 24.4 % 19-41 [facility] MCV (mean corpuscular volume ) determinationOrdered By: Jeffery López on 09-06-2024 MCV (RBC) [Entitic vol] 91.8 fL 80-94 [facility] Mean corpuscular hemoglobin (MCH) determinationOrdered By: Jeffery López on 09-06-2024 MCH (RBC) [Entitic mass] 30.2 pg 27.0-32.0 [facility] Mean corpuscular hemoglobin concentration (MCHC) determinationOrdered By: Jeffery López on 09-06-2024 MCHC (RBC) [Mass/Vol] 32.9 g/dL 32-36 [facility] Mean platelet volume determi nationOrdered By: Jeffery López on 09-06-2024 Platelet mean volume (Bld) [Entitic vol] 9.2 fL 6.2-12.0 [facility] Monocyte percentageOrdered B y: Jeffery López on 09-06-2024 Monocytes/100 WBC (Bld) 5.9 % 0-10 [facility] Neutrophil percentageOrdered By: Jeffery López on 09-06-2024 Neutrophils/100 WBC (Bld) 66.5 % 47-70 [facility] Nucleated red blood cell per centageOrdered By: Jeffery López on 09-06-2024 Nucleated RBC/100 WBC (Bld) [Ratio] 0 % 0-5 [facility] Platelet countOrdered By: Hortencia López on 09-06-2024 Platelets (Bld) [#/Vol] 215 10*3/uL 150-450 [facility] RBC Auto (Bld) [#/Vol]Ordere d By: Jeffery López on 09-06-2024 RBC (Bld) [#/Vol] 4.17 10*6/uL Low 4.6-6.2 [facility] Screening total cholesterol/ high density lipoprotein (HDL) cholesterol ratioOrdered By: Jeffery López on 09-06-2024 Cholesterol.total/Choles terol in HDL [Mass ratio] 1.70 {ratio} [facility] Serum creatinine measurement (mass/volume)Ordered By: Jeffery López on 09-06-2024 Creatinine [Mass/Vol] 0.75 mg/dL 0.70-1.20 [facility] Serum globulin measurementOr dered By: Jeffery López on 09-06-2024 Globulin (S) [Mass/Vol] 2.7 g/dL 2.2-4.2 [facility] Serum glucose measurement (m ass/volume)Ordered By: Jeffery López on 09-06-2024 Glucose [Mass/Vol] 104 mg/dL High 70-99 [facility] Serum or plasma alanine west otransferase (ALT) measurementOrdered By: Jeffery López on 09-06-2024 ALT [Catalytic activity/Vol] 16 U/L <47 [facility] Serum or plasma albumin sandeep urement (mass/volume)Ordered By: Jeffery López on 09-06-2024 Albumin [Mass/Vol] 4.2 g/dL 3.4-4.8 [facility] Serum or plasma albumin/glob ulin mass ratioOrdered By: Jeffery López on 09-06-2024 Albumin/Globulin [Mass ratio] 1.6 {ratio} 0.9-2.4 [facility] Serum or plasma alkaline isabel sphatase measurementOrdered By: Jeffery López on 09-06-2024 ALP [Catalytic activity/Vol] 66 U/L 40-129 [facility] Serum or plasma anion gap de termination (moles/volume)Ordered By: Jeffery López on 09-06-2024 Anion gap [Moles/Vol] 9 mmol/L 5-15 [facility] Serum or plasma calcium sandeep urement (mass/volume)Ordered By: Jeffery López on 09-06-2024 Calcium [Mass/Vol] 9.3 mg/dL 7.6-11.0 [facility] Serum or plasma cholesterol in HDL measurement (mass/volume)Ordered By: Jeffery López on 09-06-2024 Cholesterol in HDL [Mass/Vol] 72 mg/dL >40 [facility] Comment on above: National Cholesterol Education Program (NCEP) guidelines:<40 mg/dL: Low HDL-cholesterol (major risk factor for CHD)>= 60 mg/dL: High HDL-cholesterol (negative risk factor for CHD)HDL-cholesterol is affected by a number of factors, e.g. smoking, exercise, hormones, sex and age. Serum or plasma cholesterol measurement (mass/volume)Ordered By: Jeffery López on 09-06-2024 Cholesterol [Mass/Vol] 122 mg/dL <201 [facility] Comment on above: Cholesterol level, D esirable <200 mg/dLBorderline high cholesterol 200-239 mg/dLHigh cholesterol >=240 mg/dLRecommendations of the NCEP Adult Treatment Panel for the following risk-cutoff thresholds for the [place] population. Serum or plasma potassium me asurementOrdered By: Jeffery López on 09-06-2024 Potassium [Moles/Vol] 4.7 mmol/L 3.3-5.1 [facility] Comment on above: Hemolysis present, R esults could be affected. Serum or plasma sodium measu rement (moles/volume)Ordered By: Jeffery López on 09-06-2024 Sodium [Moles/Vol] 142 mmol/L 133-145 [facility] Serum or plasma urea nitroge n measurement (mass/volume)Ordered By: Jeffery López on 09-06-2024 Urea nitrogen [Mass/Vol] 23 mg/dL High 4-19 [facility] Total proteinOrdered By: Donald López on 09-06-2024 Protein [Mass/Vol] 6.9 g/dL 5.9-8.4 [facility] Triglycerides measurementOrd ered By: Jeffery López on 09-06-2024 Triglyceride [Mass/Vol] 51 mg/dL <199 [facility] Comment on above: The drugs N-Acetylcy steine and Metamizole may falsely depress this assay. Normal range: <150 mg/dLBorderline High: 150-199 mg/dLHigh: 200-499 mg/dLVery High: >500 mg/dL White blood cell (WBC) count Ordered By: Jeffery López on 09-06-2024 WBC (Bld) [#/Vol] 6.3 10*3/uL 4.4-11.0 [facility] OPERATIVE PROCEDURESon 08-01 OPERATIVE PROCEDURES [facility] OPERATIVE REPORT NAME ACCOUNT SEX AGE ADMIT DISCHARGE PT MED. RECORD# NUMBER DATE DATE TYPE CAROLINE [id number] Ten 63 07/30/24 2 RAYMOND Comer [id number] ROOM: [facility] DATE OF : 1960 DICTATING PHYSICIAN: Venice Hurt DATE OF SURGERY: July 30, 2024 SURGEON: Venice Hurt MD COMPTOMETER OPERATOR: ANESTHESIOLOGIST: Hugo Hopkins CRNA ANESTHETIC: PREOPERATIVE DIAGNOSIS: POSTOPERATIVE DIAGNOSIS: Screening colonoscopy and small hemorrhoids. OPERATION PERFORMED: Screening colonoscopy. COMPLICATIONS: ESTIMATED BLOOD LOSS: None. SPECIMEN: None. DISPOSITION: Stable, to recovery. INDICATIONS: Raymond Weinberg is a 63-year-old gentleman who presents for a screening endoscopy. DESCRIPTION OF OPERATION: After informed consent and intravenous fluids, he was brought to the endoscopy suite and placed on a padded gurney in the left lateral decubitus position with adequate padding at pressure points. Time-out verification was done. He was given sedation per Anesthesia with monitoring throughout. Digital examination showed external hemorrhoidal tags, normal tone, and no discrete mass. The Olympus [id number] flexible colonoscope was introduced through the anal verge and carefully advanced, protecting the surrounding mucosa. The scope was advanced through the rectal vault and then through the sigmoid colon, which was rather tortuous. The scope was advanced through the descending colon. He has a few Page 1 of 2 RAYMOND WEINBERG Operative Report RAYMOND WEINBERG : 1960 scattered diverticula especially in the sigmoid colon. The scope was advanced beyond the splenic flexure, transverse colon, hepatic flexure, and ascending colon toward the ileocecal junction. The landmarks were noted and documented. The prep was fair. With copious irrigation and suctioning the view improved. The cecum and ascending colon were carefully viewed as the scope was withdrawn with careful irrigation and suctioning in a [id number] movement and circular rotation. The transverse, descending and sigmoid colon were carefully viewed as the scope was withdrawn. The scope was withdrawn down through the sigmoid and into the rectal vault, retroflexed, rotated, straightened out, and withdrawn with decompression. There were small internal and external hemorrhoids, but there was no tear, no fissure, no fungating mass, and no angiodysplasia. No polyps were seen. The patient tolerated the procedure well and was stable at the close of the procedure. The case will be discussed with the patient when he is more awake and alert. He can have repeat endoscopy in 10 years unless he has other risk factors. Dictated By: Venice Hurt MD 07/30/24 14:41 JOB #: [id number] Transcribed By: ange 07/30/24 15:34 Electronically signed by: E-Sign Dr. Venice Hurt MD 08/01/24 08:47 Page 2 of 2 RAYMOND WEINBERG Operative Report Normal [facility] Diagnostic total prostate sp ecific antigen (PSA) measurementOrdered By: Colt Almonte on 07-25-2024 Prostate Specific Antigen Total 0.13 ng/mL 0.0-4.0 [facility] Comment on above: This test was perfor med using the TPSA assay method for the[employer] chemistry system. Values obtained with differentassay methods cannot be used interchangably.When changing PSA assays in the course of monitoring apatient, additional sequential testing should be carriedout to confirm baseline values. PSA,Total- Diagnosticon 07-09 PSA, DIAGNOSTIC 0.13 ng/mL Normal 0.0-4.0 [facility] Comment on above: Result Comment: This test was performed using the TPSA assay method for the [employer] chemistry system. Values obtained with different assay methods cannot be used interchangably. When changing PSA assays in the course of monitoring a patient, additional sequential testing should be carried out to confirm baseline values. Performed By: #### L 501.9940 #### [facility] [address] [place], [address] Ferritinon 05-09-2024 Ferritin [Mass/Vol] 115 ng/mL Normal 26-388 [facility] Comment on above: Performed By: #### L 503.6030, L503.6550, L503.0105 ####[facility] [address] [place], [address] Iron+Iron Binding Capacityon 05-09-2024 Iron [Mass/Vol] 65 ug/dL Normal 65-175 [facility] Comment on above: Performed By: #### L 503.6030, L503.6550, L503.0105 ####[facility] [address] [place], [address] IRON SATURATION 19.9 Normal 15.0-55.0 [facility] Comment on above: Performed By: #### L 503.6030, L503.6550, L503.0105 ####[facility] [address] [place], [address] TIBC 327 ug/dL Normal 250-450 [facility] Comment on above: Performed By: #### L 503.6030, L503.6550, L503.0105 ####[facility] [address] [place], [address] Vitamin B12on 05-09-2024 Cobalamin (Vitamin B12) [Mass/Vol] 747 pg/mL Normal 211-911 [facility] Comment on above: Performed By: #### L 503.6030, L503.6550, L503.0105 ####[facility] [address] [place], [address] Ferritinon 05-05-2024 Ferritin [Mass/Vol] 124 ng/mL Normal 26-388 [facility] Comment on above: Order Comment: JOSIAS Davila ADD ON JENI,IBC FE TO BLOOD WORJ THAT WAS DONE THANK YOUOrder Date: 01/16/24Order Info: [id number] - CMPOrder Info: [id number] - LIPID Performed By: #### L 503.6550, L503.6030 ####[facility] [address] [place], [address] Iron+Iron Binding Capacityon 05-05-2024 Iron [Mass/Vol] 92 ug/dL Normal 65-175 [facility] Comment on above: Order Comment: JOSIAS Davila ADD ON JENI,IBC FE TO BLOOD WORJ THAT WAS DONE THANK YOUOrder Date: 01/16/24Order Info: [id number] - CMPOrder Info: [id number] - LIPID Performed By: #### L 503.6550, L503.6030 ####[facility] [address] [place], [place], [id number] IRON SATURATION 27.6 Normal 15.0-55.0 [facility] Comment on above: Order Comment: JOSIAS Davila ADD ON JENI,IBC FE TO BLOOD WORJ THAT WAS DONE THANK YOUOrder Date: 01/16/24Order Info: 0786-1 - CMPOrder Info: [id number] - LIPID Performed By: #### L 503.6550, L503.6030 ####[facility] [address] [place], [place], [id number] TIBC 333 ug/dL Normal 250-450 [facility] Comment on above: Order Comment: JOSIAS Davila ADD ON JENI,IBC FE TO BLOOD WORJ THAT WAS DONE THANK YOUOrder Date: 01/16/24Order Info: 0786-1 - CMPOrder Info: [id number] - LIPID Performed By: #### L 503.6550, L503.6030 ####[facility] [address] [place], [place], [id number] CBC W/Diff, Automatedon - Absolute Lymph 1.51 X10 3/uL Normal 0.83-4.51 [facility] Comment on above: Order Comment: Order Date: 01/16/24 Order Info: [id number] - CBCD Performed By: #### L 100.0100, L500.4100, L500.4050, L501.9985 #### [facility] [address] [place], [address] Absolute Neut 1.8 X10 3/uL Low 2.0-7.7 [facility] Comment on above: Order Comment: Order Date: 01/16/24 Order Info: 0184-1 - CBCD Performed By: #### L 100.0100, L500.4100, L500.4050, L501.9985 #### [facility] [address] [place], [address] Basophils/100 WBC (Bld) 0.8 % Normal 0-1 [facility] Comment on above: Order Comment: Order Date: 01/16/24 Order Info: 0184-1 - CBCD Performed By: #### L 100.0100, L500.4100, L500.4050, L501.9985 #### [facility] [address] [place], [address] Eosinophils/100 WBC (Bld) 4.1 % Normal 0-5 [facility] Comment on above: Order Comment: Order Date: 01/16/24 Order Info: 0184-1 - CBCD Performed By: #### L 100.0100, L500.4100, L500.4050, L501.9985 #### [facility] [address] [place], [address] Erythrocyte distribution width (RBC) [Ratio] 12.9 % Normal 11.6-14.6 [facility] Comment on above: Order Comment: Order Date: 01/16/24 Order Info: 0184-1 - CBCD Performed By: #### L 100.0100, L500.4100, L500.4050, L501.9985 #### [facility] [address] [place], [address] Hematocrit (Bld) [Volume fraction] 38.9 % Low 40-54 [facility] Comment on above: Order Comment: Order Date: 01/16/24 Order Info: 0184-1 - CBCD Performed By: #### L 100.0100, L500.4100, L500.4050, L501.9985 #### [facility] [address] [place], [address] Hemoglobin (Bld) [Mass/Vol] 12.8 g/dL Low 13.0-16.5 [facility] Comment on above: Order Comment: Order Date: 01/16/24 Order Info: 01810-07 - CBCD Performed By: #### L 100.0100, L500.4100, L500.4050, L501.9985 #### [facility] [address] [place], [address] IG% 0.500 Normal 0.0-0.9 [facility] Comment on above: Order Comment: Order Date: 01/16/24 Order Info: 01810-07 - CBCD Result Comment: IG% - Immature Granulocytes (promyelocytes, myelocytes and metamyelocytes) > 1% indicates that a LEFT SHIFT is Present. Performed By: #### L 100.0100, L500.4100, L500.4050, L501.9985 #### [facility] [address] [place], [address] Lymphocytes/100 WBC (Bld) 39.1 % Normal 19-41 [facility] Comment on above: Order Comment: Order Date: 01/16/24 Order Info: 01810-07 - CBCD Performed By: #### L 100.0100, L500.4100, L500.4050, L501.9985 #### [facility] [address] [place], [address] MCH (RBC) [Entitic mass] 30.6 pg Normal 27.0-32.0 [facility] Comment on above: Order Comment: Order Date: 01/16/24 Order Info: 01810-07 - CBCD Performed By: #### L 100.0100, L500.4100, L500.4050, L501.9985 #### [facility] [address] [place], [address] MCHC (RBC) [Mass/Vol] 32.9 g/dL Normal 32-36 [facility] Comment on above: Order Comment: Order Date: 01/16/24 Order Info: 0184-1 - CBCD Performed By: #### L 100.0100, L500.4100, L500.4050, L501.9985 #### [facility] [address] [place], [address] MCV (RBC) [Entitic vol] 93.1 fL Normal 80-94 [facility] Comment on above: Order Comment: Order Date: 01/16/24 Order Info: 0184-1 - CBCD Performed By: #### L 100.0100, L500.4100, L500.4050, L501.9985 #### [facility] [address] [place], [address] Monocytes/100 WBC (Bld) 8.3 % Normal 0-10 [facility] Comment on above: Order Comment: Order Date: 01/16/24 Order Info: 018- - CBCD Performed By: #### L 100.0100, L500.4100, L500.4050, L501.9985 #### [facility] [address] [place], [address] Neutrophils/100 WBC (Bld) 47.2 % Normal 47-70 [facility] Comment on above: Order Comment: Order Date: 01/16/24 Order Info: 0184-1 - CBCD Performed By: #### L 100.0100, L500.4100, L500.4050, L501.9985 #### [facility] [address] [place], [address] Nucleated RBC (Bld) [#/Vol] 0 10*3/uL Normal 0-5 [facility] Comment on above: Order Comment: Order Date: 01/16/24 Order Info: 0184-1 - CBCD Performed By: #### L 100.0100, L500.4100, L500.4050, L501.9985 #### [facility] [address] [place], [address] Platelet mean volume (Bld) [Entitic vol] 9.3 fL Normal 6.2-12.0 [facility] Comment on above: Order Comment: Order Date: 01/16/24 Order Info: 0184-1 - CBCD Performed By: #### L 100.0100, L500.4100, L500.4050, L501.9985 #### [facility] [address] [place], [address] Platelets (Bld) [#/Vol] 200 10*3/uL Normal 150-450 [facility] Comment on above: Order Comment: Order Date: 01/16/24 Order Info: 0184- - CBCD Performed By: #### L 100.0100, L500.4100, L500.4050, L501.9985 #### [facility] [address] [place], [address] RBC (Bld) [#/Vol] 4.18 10*6/uL Low 4.6-6.2 [facility] Comment on above: Order Comment: Order Date: 01/16/24 Order Info: 0184- - CBCD Performed By: #### L 100.0100, L500.4100, L500.4050, L501.9985 #### [facility] [address] [place], [address] RDW SD 44.5 fl High 35.1-43.9 [facility] Comment on above: Order Comment: Order Date: 01/16/24 Order Info: 0184-1 - CBCD Performed By: #### L 100.0100, L500.4100, L500.4050, L501.9985 #### [facility] [address] [place], [address] WBC (Bld) [#/Vol] 3.9 10*3/uL Low 4.4-11.0 [facility] Comment on above: Order Comment: Order Date: 01/16/24 Order Info: 0184-1 - CBCD Performed By: #### L 100.0100, L500.4100, L500.4050, L501.9985 #### [facility] [address] [place], [address] Comprehensive Metabolic Prof ilon 05-03-2024 Albumin [Mass/Vol] 3.8 g/dL Normal 3.2-5.0 [facility] Comment on above: Order Comment: Order Date: 01/16/24 Order Info: 0786-1 - CMP Order Info: [id number] - LIPID Performed By: #### L 100.0100, L500.4100, L500.4050, L501.9985 #### [facility] [address] [place], [address] Albumin/Globulin [Mass ratio] 1.2 {ratio} Normal 0.9-2.4 [facility] Comment on above: Order Comment: Order Date: 01/16/24 Order Info: 0786-1 - CMP Order Info: [id number] - LIPID Performed By: #### L 100.0100, L500.4100, L500.4050, L501.9985 #### [facility] [address] [place], [address] ALK P 59 U/L Normal 45-117 [facility] Comment on above: Order Comment: Order Date: 01/16/24 Order Info: 0786-1 - CMP Order Info: [id number] - LIPID Performed By: #### L 100.0100, L500.4100, L500.4050, L501.9985 #### [facility] [address] [place], [address] ALT [Catalytic activity/Vol] 28 U/L Normal 16-61 [facility] Comment on above: Order Comment: Order Date: 01/16/24 Order Info: 0786-1 - CMP Order Info: [id number] - LIPID Performed By: #### L 100.0100, L500.4100, L500.4050, L501.9985 #### [facility] [address] [place], [address] AST [Catalytic activity/Vol] 21 U/L Normal 15-37 [facility] Comment on above: Order Comment: Order Date: 01/16/24 Order Info: 785-07 - CMP Order Info: [id number] - LIPID Performed By: #### L 100.0100, L500.4100, L500.4050, L501.9985 #### [facility] [address] [place], [address] Bilirubin [Mass/Vol] 0.60 mg/dL Normal 0.20-1.00 [facility] Comment on above: Order Comment: Order Date: 01/16/24 Order Info: 785-07 - CMP Order Info: [id number] - LIPID Result Comment: For patients on eltrombopag therapy, use of Dimension [place] TBIL is not recommended. Performed By: #### L 100.0100, L500.4100, L500.4050, L501.9985 #### [facility] [address] [place], [address] BUN/CRE 36.7 RATIO High 10-20 [facility] Comment on above: Order Comment: Order Date: 01/16/24 Order Info: 0786 - CMP Order Info: [id number] - LIPID Performed By: #### L 100.0100, L500.4100, L500.4050, L501.9985 #### [facility] [address] [place], [address] CA,Total 9.3 mg/dL Normal 8.5-10.1 [facility] Comment on above: Order Comment: Order Date: 01/16/24 Order Info: 0786- - CMP Order Info: [id number] - LIPID Performed By: #### L 100.0100, L500.4100, L500.4050, L501.9985 #### [facility] [address] [place], [address] Chloride [Moles/Vol] 110 mmol/L High 98-107 [facility] Comment on above: Order Comment: Order Date: 01/16/24 Order Info: 07 - CMP Order Info: [id number] - LIPID Performed By: #### L 100.0100, L500.4100, L500.4050, L501.9985 #### [facility] [address] [place], [address] CO2 [Moles/Vol] 30.0 mmol/L Normal 21.0-32.0 [facility] Comment on above: Order Comment: Order Date: 01/16/24 Order Info: 785-07 - CMP Order Info: [id number] - LIPID Performed By: #### L 100.0100, L500.4100, L500.4050, L501.9985 #### [facility] [address] [place], [address] Creatinine [Mass/Vol] 0.71 mg/dL Normal 0.70-1.30 [facility] Comment on above: Order Comment: Order Date: 01/16/24 Order Info: 07 - CMP Order Info: [id number] - LIPID Result Comment: The validity of the calculated GFR GFRAA in patients over 70 years has not been determined. Clinical correlation is essential. Performed By: #### L 100.0100, L500.4100, L500.4050, L501.9985 #### [facility] [address] [place], [address] EST GFR - AA 145 mL/min Normal >60 [facility] Comment on above: Order Comment: Order Date: 01/16/24 Order Info: 07 - CMP Order Info: [id number] - LIPID Result Comment: Afri can [place] GFR Calc Performed By: #### L 100.0100, L500.4100, L500.4050, L501.9985 #### [facility] [address] [place], [address] GAP 0 Low 5-15 [facility] Comment on above: Order Comment: Order Date: 01/16/24 Order Info: 785-07 - CMP Order Info: [id number] - LIPID Performed By: #### L 100.0100, L500.4100, L500.4050, L501.9985 #### [facility] [address] [place], [address] GFR/1.73 sq M.predicted among non-blacks MDRD (S/P/Bld) [Vol rate/Area] 120 mL/min/{1.73_m2} Normal >60 [facility] Comment on above: Order Comment: Order Date: 01/16/24 Order Info: 785-07 - CMP Order Info: [id number] - LIPID Result Comment: Non- GFR Calc Performed By: #### L 100.0100, L500.4100, L500.4050, L501.9985 #### [facility] [address] [place], [address] Globulin (S) [Mass/Vol] 3.3 g/dL Normal 2.2-4.2 [facility] Comment on above: Order Comment: Order Date: 01/16/24 Order Info: 07 - CMP Order Info: [id number] - LIPID Performed By: #### L 100.0100, L500.4100, L500.4050, L501.9985 #### [facility] [address] [place], [address] Glucose [Mass/Vol] 101 mg/dL Normal 74-106 [facility] Comment on above: Order Comment: Order Date: 01/16/24 Order Info: 07 - CMP Order Info: [id number] - LIPID Result Comment: Fast ing Glucose result from 100 to 125 mg/dL suggests IMPAIRED HOMEOSTASIS per A.D.A. criteria. Performed By: #### L 100.0100, L500.4100, L500.4050, L501.9985 #### [facility] [address] [place], [address] Potassium [Moles/Vol] 4.6 mmol/L Normal 3.5-5.1 [facility] Comment on above: Order Comment: Order Date: 01/16/24 Order Info: 785-07 - CMP Order Info: [id number] - LIPID Performed By: #### L 100.0100, L500.4100, L500.4050, L501.9985 #### [facility] [address] [place], [address] Sodium [Moles/Vol] 140 mmol/L Normal 136-145 [facility] Comment on above: Order Comment: Order Date: 01/16/24 Order Info: 785-07 - CMP Order Info: [id number] - LIPID Performed By: #### L 100.0100, L500.4100, L500.4050, L501.9985 #### [facility] [address] [place], [address] T PROT 7.1 g/dL Normal 6.4-8.2 [facility] Comment on above: Order Comment: Order Date: 01/16/24 Order Info: 07 - CMP Order Info: [id number] - LIPID Performed By: #### L 100.0100, L500.4100, L500.4050, L501.9985 #### [facility] [address] [place], [address] Urea nitrogen [Mass/Vol] 26 mg/dL High 7-18 [facility] Comment on above: Order Comment: Order Date: 01/16/24 Order Info: 785-07 - CMP Order Info: [id number] - LIPID Performed By: #### L 100.0100, L500.4100, L500.4050, L501.9985 #### [facility] [address] [place], [address] Hemoglobin A1con 05-03-2024 HbA1c (Bld) [Mass fraction] 5.5 % Normal 3.8-5.6 [facility] Comment on above: Order Comment: Order Date: 01/16/24 Order Info: [id number] - A1C Result Comment: Norm al < 5.7 % Prediabetic 5.7 - 6.4 % Diabetic >or= 6.5 % Please note range changes. Performed By: #### L 100.0100, L500.4100, L500.4050, L501.9985 #### [facility] [address] [place], [address] Lipid Profileon 05-03-2024 Cholesterol [Mass/Vol] 138 mg/dL Normal 200 [facility] Comment on above: Order Comment: Order Date: 01/16/24 Order Info: 0786-1 - CMP Order Info: [id number] - LIPID Result Comment: <200 mg/dL Desirable 200-240 mg/dL Borderline >240 mg/dL High Risk Performed By: #### L 100.0100, L500.4100, L500.4050, L501.9985 #### [facility] [address] [place], [address] Cholesterol in HDL [Mass/Vol] 80 mg/dL Normal [facility] Comment on above: Order Comment: Order Date: 01/16/24 Order Info: 0786-1 - CMP Order Info: [id number] - LIPID Result Comment: The drugs N-Acetylcysteine and Metamizole may falsely depress this assay. Reference Range HDL <40 mg/dL Low HDL Cholesterol HDL >or= 60 mg/dL High HDL Cholesterol Performed By: #### L 100.0100, L500.4100, L500.4050, L501.9985 #### [facility] [address] [place], [address] Cholesterol in LDL [Mass/Vol] 47 mg/dL Normal 0-130 [facility] Comment on above: Order Comment: Order Date: 01/16/24 Order Info: 0786-1 - CMP Order Info: [id number] - LIPID Performed By: #### L 100.0100, L500.4100, L500.4050, L501.9985 #### [facility] [address] [place], [address] Cholesterol in VLDL [Mass/Vol] 11 mg/dL Normal 5-40 [facility] Comment on above: Order Comment: Order Date: 01/16/24 Order Info: 0786-1 - CMP Order Info: [id number] - LIPID Performed By: #### L 100.0100, L500.4100, L500.4050, L501.9985 #### [facility] [address] [place], [address] Triglyceride [Mass/Vol] 54 mg/dL Normal [facility] Comment on above: Order Comment: Order Date: 01/16/24 Order Info: 0786-1 - CMP Order Info: [id number] - LIPID Result Comment: The drugs N-Acetylcysteine and Metamizole may falsely depress this assay. Serum Triglycerides Reference Interval Normal <150 mg/dL Borderline high 150 - 199 mg/dL High 200 - 499 mg/dL Very High > or = 500 mg/dL Performed By: #### L 100.0100, L500.4100, L500.4050, L501.9985 #### [facility] [address] [place], [address] Basophil percentageOrdered B y: Colt Almonte on 10-18-2023 Basophil percentage < 0.01 ng/mL 0.0-4.0 [facility] Comment on above: This test was perfor med using the TPSA assay method for theDimension chemistry system. Values obtained with differentassay methods cannot be used interchangably.When changing PSA assays in the course of monitoring apatient, additional sequential testing should be carriedout to confirm baseline values. Absolute lymphocyte countOrd ered By: Jeffery López on 08-21-2023 Lymphocytes Auto (Unsp spec) [#/Vol] 1.72 10*3/uL 0.83-4.51 [facility] Automated lymphocyte count a s percentage of total leukocytesOrdered By: Jeffery Salcidoholland on 08-21-2023 Lymphocytes/100 WBC Auto (Unsp spec) 31.0 % 19-41 [facility] Basophil percentageOrdered B y: Jeffery Salcidoholland on 08-21-2023 Basophils/100 WBC (Bld) 0.4 % 0-1 [facility] Bilirubin [Mass/Vol] 0.70 mg/dL 0.20-1.00 [facility] Comment on above: For patients on eltr ombopag therapy, use of Dimension [place] TBIL is not recommended. Chloride [Moles/Vol] 104 mmol/L 98-107 [facility] Cholesterol [Mass/Vol] 148 mg/dL <200 [facility] Comment on above: <200 mg/dL Desirable 200-240 mg/dL Borderline >240 mg/dL High Risk Eosinophils/100 WBC (Bld) 2.2 % 0-5 [facility] Glucose [Mass/Vol] 97 mg/dL 74-106 [facility] Hemoglobin (Bld) [Mass/Vol] 13.8 g/dL 13.0-16.5 [facility] Monocytes/100 WBC (Bld) 6.0 % 0-10 [facility] Neutrophils (Bld) [#/Vol] 3.3 10*3/uL 2.0-7.7 [facility] Neutrophils/100 WBC (Bld) 60.2 % 47-70 [facility] Potassium [Moles/Vol] 4.1 mmol/L 3.5-5.1 [facility] Protein [Mass/Vol] 7.6 g/dL 6.4-8.2 [facility] Sodium [Moles/Vol] 138 mmol/L 136-145 [facility] Triglyceride [Mass/Vol] 49 mg/dL <199 [facility] Comment on above: The drugs N-Acetylcy steine and Metamizole may falsely depress this assay.Serum Triglycerides Reference Interval Normal <150 mg/dL Borderline high 150 - 199 mg/dL High 200 - 499 mg/dL Very High > or = 500 mg/dL WBC (Bld) [#/Vol] 5.5 10*3/uL 4.4-11.0 [facility] Determination of erythrocyte mean corpuscular volume (MCV)Ordered By: Jeffery López on 08-21-2023 MCV (RBC) [Entitic vol] 92.5 fL 80-94 [facility] Erythrocyte distribution wid th ratioOrdered By: Jeffery López on 08-21-2023 Erythrocyte distribution width (RBC) [Ratio] 12.9 % 11.6-14.6 [facility] Erythrocyte distribution wid th standard deviationOrdered By: Jeffery López on 08-21-2023 Erythrocyte distribution width (RBC) [Entitic vol] 43.8 fL 35.1-43.9 [facility] Hematocrit Auto (Bld) [Volum e fraction]Ordered By: Jeffery López on 08-21-2023 Hematocrit (Bld) [Volume fraction] 41.9 % 40-54 [facility] Immature granulocytes/100 WB C Auto (Bld)Ordered By: Jeffery López on 08-21-2023 Immature granulocytes/100 WBC (Bld) 0.200 % 0.0-0.9 [facility] Comment on above: IG% - Immature Granu locytes (promyelocytes, myelocytes and metamyelocytes) > 1% indicates that a LEFT SHIFT is Present. Iron measurement (mass/mass) Ordered By: Jeffery López on 08-21-2023 Iron (Unsp spec) [Mass/Mass] 99 ug/dL 65-175 [facility] - Chemistry and C hemistry - challengeOrdered By: Jeffery López on 08-21-2023 Albumin/Globulin [Mass ratio] 1.2 {ratio} 0.9-2.4 [facility] ALP [Catalytic activity/Vol] 67 U/L 45-117 [facility] ALT [Catalytic activity/Vol] 29 U/L 16-61 [facility] Cholesterol in HDL [Mass/Vol] 85 mg/dL >40 [facility] Comment on above: The drugs N-Acetylcy steine and Metamizole may falsely depress this assay. Reference Range HDL <40 mg/dL Low HDL Cholesterol HDL >or= 60 mg/dL High HDL Cholesterol Cholesterol in LDL [Mass/Vol] 53 mg/dL 0-130 [facility] CO2 [Moles/Vol] 29.0 mmol/L 21.0-32.0 [facility] Cobalamin (Vitamin B12) [Mass/Vol] 718 pg/mL 211-911 [facility] Ferritin [Mass/Vol] 172 ng/mL 26-388 [facility] Globulin (S) [Mass/Vol] 3.4 g/dL 2.2-4.2 [facility] Urea nitrogen/Creatinine [Mass ratio] 25.2 mg/mg 10-20 [facility] - Hematology and Cell countsOrdered By: Jeffery López on 08-21-2023 MCH (RBC) [Entitic mass] 30.5 pg 27.0-32.0 [facility] MCHC (RBC) [Mass/Vol] 32.9 g/dL 32-36 [facility] Nucleated RBC/100 WBC (Bld) [Ratio] 0 % 0-5 [facility] Platelet mean volume (Bld) [Entitic vol] 9.9 fL 6.2-12.0 [facility] Platelets (Bld) [#/Vol] 223 10*3/uL 150-450 [facility] No Panel InformationOrdered By: Jeffery López on 08-21-2023 Estimated GFR (MDRD) Amer 145 mL/min >60 [facility] Comment on above: GFR Calc Estimated GFR (MDRD) Non-Af Amer 119 mL/min >60 [facility] Comment on above: Non- GFR Calc Total Iron Binding Capacity 358 ug/dL 250-450 [facility] Urine Microalbumin/Creatinine Ratio TNP [facility] Comment on above: Test not performed VLDL Cholesterol 10 mg/dL 5-40 [facility] RBC Auto (Bld) [#/Vol]Ordere d By: Jeffery López on 08-21-2023 RBC (Bld) [#/Vol] 4.53 10*6/uL 4.6-6.2 [facility] Serum or plasma calcium sandeep urement (mass/volume)Ordered By: Jeffery López on 08-21-2023 Calcium [Mass/Vol] 9.4 mg/dL 8.5-10.1 [facility] Serum or plasma creatinine m easurement (mass/volume)Ordered By: Jeffery López on 08-21-2023 Creatinine [Mass/Vol] 0.71 mg/dL 0.70-1.30 [facility] Comment on above: The validity of the calculated GFR & GFRAA in patients over 70 years has not been determined. Clinical correlation is essential. Serum or plasma thyroid stim ulating hormone (TSH) measurement (units/volume)Ordered By: Jeffery López on 08-21-2023 TSH Qn 1.29 uIU/mL 0.358-3.74 [facility] Serum or plasma urea nitroge n measurement (mass/volume)Ordered By: Jeffery López on 08-21-2023 Urea nitrogen [Mass/Vol] 18 mg/dL 7-18 [facility] Thin prep Papanicolaou smear with manual screeningOrdered By: Jeffery López on 08-21-2023 Thin prep Papanicolaou smear with manual screening 4.2 g/dL 3.2-5.0 [facility] Thin prep Papanicolaou smear with manual screening 18 U/L 15-37 [facility] Thin prep Papanicolaou smear with manual screening 5 5-15 [facility] Thin prep Papanicolaou smear with manual screening < 5.0 mg/L NO RANGE EST. [facility] Urine creatinine measurement (mass/volume)Ordered By: Jeffery López on 08-21-2023 Creatinine (U) [Mass/Vol] 25.30 mg/dL NO RANGE EST. [facility] Whole blood hemoglobin A1c/t otal hemoglobin ratio (mass fraction)Ordered By: Jeffery López on 08-21-2023 HbA1c (Bld) [Mass fraction] 5.6 % 3.8-5.6 [facility] Comment on above: Normal < 5.7 % Predi abetic 5.7 - 6.4 % Diabetic >or= 6.5 % Please note range changes. Basophil percentageOrdered B y: Colt Almonte on 07-27-2023 Basophil percentage < 1.0 mg/dL 0.70-1.30 [facility] No Panel InformationOrdered By: Colt Almonte on 07-27-2023 Bedside Estimated GFR (eGFR) > 60.0000 mL/min >60 [facility] No Panel InformationOrdered By: Colt Almonte on 05-22-2023 Prostate Specific Antigen Total 11.00 ng/mL 0.0-4.0 [facility] Comment on above: This test was perfor med using the TPSA assay method for the[employer] chemistry system. Values obtained with differentassay methods cannot be used interchangably.When changing PSA assays in the course of monitoring apatient, additional sequential testing should be carriedout to confirm baseline values. No Panel InformationOrdered By: Jeffery Rodriguezmojgan on 05-09-2023 Prostate Specific Antigen Screen 11.00 ng/mL 0.00-4.00 [facility] Comment on above: This test was perfor med using the TPSA assay method [facility]. Values obtained with differentassay methods cannot be used interchangably.When changing PSA assays in the course of monitoring apatient, additional sequential testing should be carriedout to confirm baseline values. Absolute lymphocyte countOrd ered By: Jeffery Stanton on 04-17-2023 Lymphocytes Auto (Unsp spec) [#/Vol] 1.88 10*3/uL 0.83-4.51 [facility] Basophil percentageOrdered B y: Jeffery López on 04-17-2023 Basophils/100 WBC (Bld) 0.6 % 0-1 [facility] Bilirubin [Mass/Vol] 0.50 mg/dL 0.20-1.00 [facility] Comment on above: For patients on eltr ombopag therapy, use of Dimension [place] TBIL is not recommended. Chloride [Moles/Vol] 107 mmol/L 98-107 [facility] Cholesterol [Mass/Vol] 134 mg/dL <200 [facility] Comment on above: <200 mg/dL Desirable 200-240 mg/dL Borderline >240 mg/dL High Risk Eosinophils/100 WBC (Bld) 1.9 % 0-5 [facility] Glucose [Mass/Vol] 91 mg/dL 74-106 [facility] Neutrophils (Bld) [#/Vol] 2.9 10*3/uL 2.0-7.7 [facility] Neutrophils/100 WBC (Bld) 55.3 % 47-70 [facility] Potassium [Moles/Vol] 4.0 mmol/L 3.5-5.1 [facility] Protein [Mass/Vol] 6.7 g/dL 6.4-8.2 [facility] Sodium [Moles/Vol] 138 mmol/L 136-145 [facility] Triglyceride [Mass/Vol] 42 mg/dL <199 [facility] Comment on above: The drugs N-Acetylcy steine and Metamizole may falsely depress this assay.Serum Triglycerides Reference Interval Normal <150 mg/dL Borderline high 150 - 199 mg/dL High 200 - 499 mg/dL Very High > or = 500 mg/dL WBC (Bld) [#/Vol] 5.3 10*3/uL 4.4-11.0 [facility] Blood erythrocytes count (nu mber/volume)Ordered By: Jeffery López on 04-17-2023 RBC (Bld) [#/Vol] 4.16 10*6/uL 4.6-6.2 [facility] Blood hemoglobin measurement (mass/volume)Ordered By: Jeffery López on 04-17-2023 Hemoglobin (Bld) [Mass/Vol] 12.4 g/dL 13.0-16.5 [facility] Blood lymphocytes/100 leukoc ytesOrdered By: Jeffery López on 04-17-2023 Lymphocytes/100 WBC (Bld) 35.6 % 19-41 [facility] Blood monocytes/100 leukocyt esOrdered By: Jeffery López on 04-17-2023 Monocytes/100 WBC (Bld) 6.4 % 0-10 [facility] Blood platelet mean volumeOr dered By: Jeffery López on 04-17-2023 Platelet mean volume (Bld) [Entitic vol] 9.7 fL 6.2-12.0 [facility] Determination of erythrocyte mean corpuscular volume (MCV)Ordered By: Jeffery López on 04-17-2023 MCV (RBC) [Entitic vol] 94.5 fL 80-94 [facility] Hematocrit Auto (Bld) [Volum e fraction]Ordered By: Jeffery López on 04-17-2023 Hematocrit (Bld) [Volume fraction] 39.3 % 40-54 [facility] Iron measurement (mass/mass) Ordered By: Jeffery López on 04-17-2023 Iron (Unsp spec) [Mass/Mass] 81 ug/dL 65-175 [facility] - Chemistry and C hemistry - challengeOrdered By: Jeffery López on 04-17-2023 ALP [Catalytic activity/Vol] 57 U/L 45-117 [facility] ALT [Catalytic activity/Vol] 30 U/L 16-61 [facility] CO2 [Moles/Vol] 28.0 mmol/L 21.0-32.0 [facility] Cobalamin (Vitamin B12) [Mass/Vol] 502 pg/mL 211-911 [facility] Globulin (S) [Mass/Vol] 3.0 g/dL 2.2-4.2 [facility] Urea nitrogen/Creatinine [Mass ratio] 24.8 mg/mg 10-20 [facility] - Hematology and Cell countsOrdered By: Jeffery López on 04-17-2023 Erythrocyte distribution width (RBC) [Entitic vol] 46.0 fL 35.1-43.9 [facility] Erythrocyte distribution width (RBC) [Ratio] 13.2 % 11.6-14.6 [facility] Immature granulocytes/100 WBC (Bld) 0.200 % 0.0-0.9 [facility] Comment on above: IG% - Immature Granu locytes (promyelocytes, myelocytes and metamyelocytes) > 1% indicates that a LEFT SHIFT is Present. MCH (RBC) [Entitic mass] 29.8 pg 27.0-32.0 [facility] Nucleated RBC/100 WBC (Bld) [Ratio] 0 % 0-5 [facility] MCHC Auto (RBC) [Mass/Vol]Or dered By: Jeffery López on 04-17-2023 MCHC (RBC) [Mass/Vol] 31.6 g/dL 32-36 [facility] No Panel InformationOrdered By: Jeffery López on 04-17-2023 Estimated GFR (MDRD) Amer 141 mL/min >60 [facility] Comment on above: GFR Calc Estimated GFR (MDRD) Non-Af Amer 117 mL/min >60 [facility] Comment on above: Non- GFR Calc Total Iron Binding Capacity 339 ug/dL 250-450 [facility] Platelets bldOrdered By: Donald López on 04-17-2023 Platelets (Bld) [#/Vol] 200 10*3/uL 150-450 [facility] Serum or plasma albumin sandeep urement (mass/volume)Ordered By: Jeffery López on 04-17-2023 Albumin [Mass/Vol] 3.7 g/dL 3.2-5.0 [facility] Serum or plasma albumin/glob ulin mass ratioOrdered By: Jeffery López on 04-17-2023 Albumin/Globulin [Mass ratio] 1.2 {ratio} 0.9-2.4 [facility] Serum or plasma calcium sandeep urement (mass/volume)Ordered By: Jeffery López on 04-17-2023 Calcium [Mass/Vol] 8.9 mg/dL 8.5-10.1 [facility] Serum or plasma cholesterol in HDL measurement (mass/volume)Ordered By: Jeffery López on 04-17-2023 Cholesterol in HDL [Mass/Vol] 81 mg/dL >40 [facility] Comment on above: The drugs N-Acetylcy steine and Metamizole may falsely depress this assay. Reference Range HDL <40 mg/dL Low HDL Cholesterol HDL >or= 60 mg/dL High HDL Cholesterol Serum or plasma cholesterol in VLDL measurement (mass/volume)Ordered By: Jeffery López on 04-17-2023 Cholesterol in VLDL [Mass/Vol] 8 mg/dL 5-40 [facility] Serum or plasma creatinine m easurement (mass/volume)Ordered By: Jeffery López on 04-17-2023 Creatinine [Mass/Vol] 0.73 mg/dL 0.70-1.30 [facility] Comment on above: The validity of the calculated GFR & GFRAA in patients over 70 years has not been determined. Clinical correlation is essential. Serum or plasma ferritin monse surement (mass/volume)Ordered By: Jeffery López on 04-17-2023 Ferritin [Mass/Vol] 138 ng/mL 26-388 [facility] Serum or plasma iron saturat ion measurement (mass fraction)Ordered By: Jeffery López on 04-17-2023 Iron saturation [Mass fraction] 23.9 % 15.0-55.0 [facility] Serum or plasma low density lipoprotein (LDL) cholesterol measurement (mass/volume)Ordered By: Jeffery López 04-17-2023 Cholesterol in LDL [Mass/Vol] 45 mg/dL 0-130 [facility] Serum or plasma urea nitroge n measurement (mass/volume)Ordered By: Jeffery óLpez on 04-17-2023 Urea nitrogen [Mass/Vol] 18 mg/dL 7-18 [facility] Thin prep Papanicolaou smear with manual screeningOrdered By: Jeffery López on 04-17-2023 Thin prep Papanicolaou smear with manual screening 17 U/L 15-37 [facility] Thin prep Papanicolaou smear with manual screening 3 5-15 [facility] Whole blood hemoglobin A1c/t otal hemoglobin ratio (mass fraction)Ordered By: Jeffery López on 04-17-2023 HbA1c (Bld) [Mass fraction] 5.5 % 3.8-5.6 [facility] Comment on above: Normal < 5.7 % Predi abetic 5.7 - 6.4 % Diabetic >or= 6.5 % Please note range changes. Basophil percentageOrdered B y: Dr. López on 09-08-2022 Bilirubin [Mass/Vol] 0.40 mg/dL 0.20-1.00 [facility] Comment on above: For patients on eltr ombopag therapy, use of Dimension [place] TBIL is not recommended. Chloride [Moles/Vol] 103 mmol/L 98-107 [facility] Cholesterol [Mass/Vol] 113 mg/dL <200 [facility] Comment on above: <200 mg/dL Desirable 200-240 mg/dL Borderline >240 mg/dL High Risk Glucose [Mass/Vol] 87 mg/dL 74-106 [facility] Potassium [Moles/Vol] 4.2 mmol/L 3.5-5.1 [facility] Protein [Mass/Vol] 6.9 g/dL 6.4-8.2 [facility] Sodium [Moles/Vol] 140 mmol/L 136-145 [facility] Triglyceride [Mass/Vol] 41 mg/dL <199 [facility] Comment on above: The drugs N-Acetylcy steine and Metamizole may falsely depress this assay.Serum Triglycerides Reference Interval Normal <150 mg/dL Borderline high 150 - 199 mg/dL High 200 - 499 mg/dL Very High > or = 500 mg/dL Laboratory - Chemistry and C hemistry - challengeOrdered By: Dr. López on 09-08-2022 ALP [Catalytic activity/Vol] 54 U/L 45-117 [facility] ALT [Catalytic activity/Vol] 25 U/L 16-61 [facility] CO2 [Moles/Vol] 30.0 mmol/L 21.0-32.0 [facility] Globulin (S) [Mass/Vol] 3.8 g/dL 2.2-4.2 [facility] Urea nitrogen/Creatinine [Mass ratio] 42.1 mg/mg 10-20 [facility] No Panel InformationOrdered By: Dr. López on 09-08-2022 Estimated GFR (MDRD) Amer 157 mL/min >60 [facility] Comment on above: GFR Calc Estimated GFR (MDRD) Non-Af Amer 130 mL/min >60 [facility] Comment on above: Non- GFR Calc Urine Microalbumin/Creatinine Ratio 18.7 mg/g CRE <30 [facility] Serum or plasma albumin sandeep urement (mass/volume)Ordered By: Dr. López on 09-08-2022 Albumin [Mass/Vol] 3.1 g/dL 3.2-5.0 [facility] Serum or plasma albumin/glob ulin mass ratioOrdered By: Dr. López on 09-08-2022 Albumin/Globulin [Mass ratio] 0.8 {ratio} 0.9-2.4 [facility] Serum or plasma calcium sandeep urement (mass/volume)Ordered By: Dr. López on 09-08-2022 Calcium [Mass/Vol] 9.2 mg/dL 8.5-10.1 [facility] Serum or plasma cholesterol in HDL measurement (mass/volume)Ordered By: Dr. López on 09-08-2022 Cholesterol in HDL [Mass/Vol] 51 mg/dL >40 [facility] Comment on above: The drugs N-Acetylcy steine and Metamizole may falsely depress this assay. Reference Range HDL <40 mg/dL Low HDL Cholesterol HDL >or= 60 mg/dL High HDL Cholesterol Serum or plasma cholesterol in VLDL measurement (mass/volume)Ordered By: Dr. López on 09-08-2022 Cholesterol in VLDL [Mass/Vol] 8 mg/dL 5-40 [facility] Serum or plasma creatinine m easurement (mass/volume)Ordered By: Dr. López on 09-08-2022 Creatinine [Mass/Vol] 0.66 mg/dL 0.70-1.30 [facility] Comment on above: The validity of the calculated GFR & GFRAA in patients over 70 years has not been determined. Clinical correlation is essential. Serum or plasma low density lipoprotein (LDL) cholesterol measurement (mass/volume)Ordered By: Dr. López on 09-08-2022 Cholesterol in LDL [Mass/Vol] 54 mg/dL 0-130 [facility] Serum or plasma urea nitroge n measurement (mass/volume)Ordered By: Dr. López on 09-08-2022 Urea nitrogen [Mass/Vol] 28 mg/dL 7-18 [facility] Thin prep Papanicolaou smear with manual screeningOrdered By: Dr. López on 09-08-2022 Thin prep Papanicolaou smear with manual screening 17 U/L 15-37 [facility] Thin prep Papanicolaou smear with manual screening 7 5-15 [facility] Thin prep Papanicolaou smear with manual screening 53.1 mg/L NO RANGE EST. [facility] Urine creatinine measurement (mass/volume)Ordered By: Dr. López on 09-08-2022 Creatinine (U) [Mass/Vol] 284.00 mg/dL NO RANGE EST. [facility] Whole blood hemoglobin A1c/t otal hemoglobin ratio (mass fraction)Ordered By: Dr. López on 09-08-2022 HbA1c (Bld) [Mass fraction] 5.4 % 3.8-5.6 [facility] Comment on above: Normal < 5.7 % Predi abetic 5.7 - 6.4 % Diabetic >or= 6.5 % Please note range changes. Absolute lymphocyte countOrd ered By: Dr. López on 05-31-2022 Lymphocytes Auto (Unsp spec) [#/Vol] 1.55 10*3/uL 0.83-4.51 [facility] Basophil percentageOrdered B y: Dr. López on 05-31-2022 Basophils/100 WBC (Bld) 0.6 % 0-1 [facility] Bilirubin [Mass/Vol] 0.70 mg/dL 0.20-1.00 [facility] Comment on above: For patients on eltr ombopag therapy, use of Dimension [place] TBIL is not recommended. Chloride [Moles/Vol] 106 mmol/L 98-107 [facility] Cholesterol [Mass/Vol] 133 mg/dL <200 [facility] Comment on above: <200 mg/dL Desirable 200-240 mg/dL Borderline >240 mg/dL High Risk Eosinophils/100 WBC (Bld) 3.9 % 0-5 [facility] Glucose [Mass/Vol] 92 mg/dL 74-106 [facility] Neutrophils (Bld) [#/Vol] 2.5 10*3/uL 2.0-7.7 [facility] Neutrophils/100 WBC (Bld) 54.9 % 47-70 [facility] Potassium [Moles/Vol] 4.4 mmol/L 3.5-5.1 [facility] Protein [Mass/Vol] 7.1 g/dL 6.4-8.2 [facility] Sodium [Moles/Vol] 141 mmol/L 136-145 [facility] Triglyceride [Mass/Vol] 49 mg/dL <199 [facility] Comment on above: The drugs N-Acetylcy steine and Metamizole may falsely depress this assay.Serum Triglycerides Reference Interval Normal <150 mg/dL Borderline high 150 - 199 mg/dL High 200 - 499 mg/dL Very High > or = 500 mg/dL WBC (Bld) [#/Vol] 4.6 10*3/uL 4.4-11.0 [facility] Blood erythrocytes count (nu mber/volume)Ordered By: Dr. López on 05-31-2022 RBC (Bld) [#/Vol] 4.41 10*6/uL 4.6-6.2 [facility] Blood hemoglobin measurement (mass/volume)Ordered By: Dr. López on 05-31-2022 Hemoglobin (Bld) [Mass/Vol] 13.8 g/dL 13.0-16.5 [facility] Blood lymphocytes/100 leukoc ytesOrdered By: Dr. López on 05-31-2022 Lymphocytes/100 WBC (Bld) 33.5 % 19-41 [facility] Blood monocytes/100 leukocyt esOrdered By: Dr. López on 05-31-2022 Monocytes/100 WBC (Bld) 7.1 % 0-10 [facility] Blood platelet mean volumeOr dered By: Dr. López on 05-31-2022 Platelet mean volume (Bld) [Entitic vol] 10.3 fL 6.2-12.0 [facility] Determination of erythrocyte mean corpuscular volume (MCV)Ordered By: Dr. López on 05-31-2022 MCV (RBC) [Entitic vol] 91.2 fL 80-94 [facility] Hematocrit Auto (Bld) [Volum e fraction]Ordered By: Dr. López on 05-31-2022 Hematocrit (Bld) [Volume fraction] 40.2 % 40-54 [facility] - Chemistry and C hemistry - challengeOrdered By: Dr. López on 05-31-2022 ALP [Catalytic activity/Vol] 60 U/L 45-117 [facility] ALT [Catalytic activity/Vol] 25 U/L 16-61 [facility] CO2 [Moles/Vol] 30.0 mmol/L 21.0-32.0 [facility] Globulin (S) [Mass/Vol] 2.9 g/dL 2.2-4.2 [facility] Urea nitrogen/Creatinine [Mass ratio] 32.2 mg/mg 10-20 [facility] - Hematology and Cell countsOrdered By: Dr. López on 05-31-2022 Erythrocyte distribution width (RBC) [Entitic vol] 46.6 fL 35.1-43.9 [facility] Erythrocyte distribution width (RBC) [Ratio] 13.7 % 11.6-14.6 [facility] Immature granulocytes/100 WBC (Bld) 0.000 % 0.0-0.9 [facility] Comment on above: IG% - Immature Granu locytes (promyelocytes, myelocytes and metamyelocytes) > 1% indicates that a LEFT SHIFT is Present. MCH (RBC) [Entitic mass] 31.3 pg 27.0-32.0 [facility] Nucleated RBC/100 WBC (Bld) [Ratio] 0 % 0-5 [facility] Auto (RBC) [Mass/Vol]Or dered By: Dr. López on 05-31-2022 MCHC (RBC) [Mass/Vol] 34.3 g/dL 32-36 [facility] No Panel InformationOrdered By: Dr. López on 05-31-2022 Estimated GFR (MDRD) Amer 145 mL/min >60 [facility] Comment on above: GFR Calc Estimated GFR (MDRD) Non-Af Amer 120 mL/min >60 [facility] Comment on above: Non- GFR Calc Platelets bldOrdered By: Dr. López on 05-31-2022 Platelets (Bld) [#/Vol] 204 10*3/uL 150-450 [facility] Serum or plasma albumin sandeep urement (mass/volume)Ordered By: Dr. López on 05-31-2022 Albumin [Mass/Vol] 4.2 g/dL 3.2-5.0 [facility] Serum or plasma albumin/glob ulin mass ratioOrdered By: Dr. López on 05-31-2022 Albumin/Globulin [Mass ratio] 1.4 {ratio} 0.9-2.4 [facility] Serum or plasma calcium sandeep urement (mass/volume)Ordered By: Dr. López on 05-31-2022 Calcium [Mass/Vol] 9.6 mg/dL 8.5-10.1 [facility] Serum or plasma cholesterol in HDL measurement (mass/volume)Ordered By: Dr. López on 05-31-2022 Cholesterol in HDL [Mass/Vol] 73 mg/dL >40 [facility] Comment on above: The drugs N-Acetylcy steine and Metamizole may falsely depress this assay. Reference Range HDL <40 mg/dL Low HDL Cholesterol HDL >or= 60 mg/dL High HDL Cholesterol Serum or plasma cholesterol in VLDL measurement (mass/volume)Ordered By: Dr. López on 05-31-2022 Cholesterol in VLDL [Mass/Vol] 10 mg/dL 5-40 [facility] Serum or plasma creatinine m easurement (mass/volume)Ordered By: Dr. López on 05-31-2022 Creatinine [Mass/Vol] 0.71 mg/dL 0.70-1.30 [facility] Comment on above: The validity of the calculated GFR & GFRAA in patients over 70 years has not been determined. Clinical correlation is essential. Serum or plasma low density lipoprotein (LDL) cholesterol measurement (mass/volume)Ordered By: Dr. López on 05-31-2022 Cholesterol in LDL [Mass/Vol] 50 mg/dL 0-130 [facility] Serum or plasma urea nitroge n measurement (mass/volume)Ordered By: Dr. López on 05-31-2022 Urea nitrogen [Mass/Vol] 23 mg/dL 7-18 [facility] Thin prep Papanicolaou smear with manual screeningOrdered By: Dr. López on 05-31-2022 Thin prep Papanicolaou smear with manual screening 19 U/L 15-37 [facility] Thin prep Papanicolaou smear with manual screening 5 5-15 [facility] Whole blood hemoglobin A1c/t otal hemoglobin ratio (mass fraction)Ordered By: Dr. López on 05-31-2022 HbA1c (Bld) [Mass fraction] 5.4 % 3.8-5.6 [facility] Comment on above: Normal < 5.7 % Predi abetic 5.7 - 6.4 % Diabetic >or= 6.5 % Please note range changes. Absolute lymphocyte counton 02-01-2022 Lymphocytes Auto (Unsp spec) [#/Vol] 1.55 10*3/uL 0.83-4.51 [facility] Work Phone: Basophil percentageon 2021 Basophils/100 WBC (Bld) 0.6 % 0-1 [facility] Work Phone: Bilirubin [Mass/Vol] 0.50 mg/dL 0.20-1.00 [facility] Work Phone: Comment on above: For patients on eltr ombopag therapy, use of Dimension [place] TBIL is not recommended. Chloride [Moles/Vol] 107 mmol/L 98-107 [facility] Work Phone: Cholesterol [Mass/Vol] 105 mg/dL <200 [facility] Work Phone: Comment on above: <200 mg/dL Desirable 200-240 mg/dL Borderline >240 mg/dL High Risk Eosinophils/100 WBC (Bld) 3.1 % 0-5 [facility] Work Phone: Glucose [Mass/Vol] 101 mg/dL 74-106 [facility] Work Phone: Comment on above: Fasting Glucose resu lt from 100 to 125 mg/dL suggests IMPAIRED HOMEOSTASIS per A.D.A. criteria. Neutrophils (Bld) [#/Vol] 3.3 10*3/uL 2.0-7.7 [facility] Work Phone: Neutrophils/100 WBC (Bld) 60.7 % 47-70 [facility] Work Phone: Potassium [Moles/Vol] 4.5 mmol/L 3.5-5.1 [facility] Work Phone: Protein [Mass/Vol] 6.8 g/dL 6.4-8.2 [facility] Work Phone: Sodium [Moles/Vol] 140 mmol/L 136-145 [facility] Work Phone: Triglyceride [Mass/Vol] 55 mg/dL <199 [facility] Work Phone: Comment on above: The drugs N-Acetylcy steine and Metamizole may falsely depress this assay.Serum Triglycerides Reference Interval Normal <150 mg/dL Borderline high 150 - 199 mg/dL High 200 - 499 mg/dL Very High > or = 500 mg/dL WBC (Bld) [#/Vol] 5.4 10*3/uL 4.4-11.0 [facility] Work Phone: Blood erythrocytes count (nu mber/volume)on 02-01-2022 RBC (Bld) [#/Vol] 4.34 10*6/uL 4.6-6.2 [facility] Work Phone: Blood hemoglobin measurement (mass/volume)on 02-01-2022 Hemoglobin (Bld) [Mass/Vol] 13.4 g/dL 13.0-16.5 [facility] Work Phone: Blood lymphocytes/100 leukoc yteson 02-01-2022 Lymphocytes/100 WBC (Bld) 28.7 % 19-41 [facility] Work Phone: Blood monocytes/100 leukocyt eson 02-01-2022 Monocytes/100 WBC (Bld) 6.9 % 0-10 [facility] Work Phone: Blood platelet mean volumeon 02-01-2022 Platelet mean volume (Bld) [Entitic vol] 11.0 fL 6.2-12.0 [facility] Work Phone: Determination of erythrocyte mean corpuscular volume (MCV)on 02-01-2022 MCV (RBC) [Entitic vol] 92.4 fL 80-94 [facility] Work Phone: Hematocrit Auto (Bld) [Volum e fraction]on 02-01-2022 Hematocrit (Bld) [Volume fraction] 40.1 % 40-54 [facility] Work Phone: Laboratory - Chemistry and C hemistry - challengeon 02-01-2022 ALP [Catalytic activity/Vol] 53 U/L 45-117 [facility] Work Phone: ALT [Catalytic activity/Vol] 22 U/L 16-61 [facility] Work Phone: CO2 [Moles/Vol] 25.0 mmol/L 21.0-32.0 [facility] Work Phone: Globulin (S) [Mass/Vol] 3.1 g/dL 2.2-4.2 [facility] Work Phone: Urea nitrogen/Creatinine [Mass ratio] 23.2 mg/mg 10-20 [facility] Work Phone: Laboratory - Hematology and Cell countson 02-01-2022 Erythrocyte distribution width (RBC) [Entitic vol] 45.9 fL 35.1-43.9 [facility] Work Phone: Erythrocyte distribution width (RBC) [Ratio] 13.4 % 11.6-14.6 [facility] Work Phone: Immature granulocytes/100 WBC (Bld) 0.000 % 0.0-0.9 [facility] Work Phone: Comment on above: IG% - Immature Granu locytes (promyelocytes, myelocytes and metamyelocytes) > 1% indicates that a LEFT SHIFT is Present. MCH (RBC) [Entitic mass] 30.9 pg 27.0-32.0 [facility] Work Phone: Nucleated RBC/100 WBC (Bld) [Ratio] 0 % 0-5 [facility] Work Phone: MCHC Auto (RBC) [Mass/Vol]on 02-01-2022 MCHC (RBC) [Mass/Vol] 33.4 g/dL 32-36 [facility] Work Phone: No Panel Informationon 02-01 Estimated GFR (MDRD) Amer 117 mL/min >60 [facility] Work Phone: Comment on above: GFR Calc Estimated GFR (MDRD) Non-Af Amer 96 mL/min >60 [facility] Work Phone: Comment on above: Non- GFR Calc Urine Microalbumin/Creatinine Ratio 14.1 mg/g CRE <30 [facility] Work Phone: Platelets bldon 02-01-2022 Platelets (Bld) [#/Vol] 219 10*3/uL 150-450 [facility] Work Phone: Serum or plasma albumin sandeep urement (mass/volume)on 02-01-2022 Albumin [Mass/Vol] 3.7 g/dL 3.2-5.0 [facility] Work Phone: Serum or plasma albumin/glob ulin mass ratioon 02-01-2022 Albumin/Globulin [Mass ratio] 1.2 {ratio} 0.9-2.4 [facility] Work Phone: Serum or plasma calcium sandeep urement (mass/volume)on 02-01-2022 Calcium [Mass/Vol] 9.0 mg/dL 8.5-10.1 [facility] Work Phone: Serum or plasma cholesterol in HDL measurement (mass/volume)on 02-01-2022 Cholesterol in HDL [Mass/Vol] 53 mg/dL >40 [facility] Work Phone: Comment on above: The drugs N-Acetylcy steine and Metamizole may falsely depress this assay. Reference Range HDL <40 mg/dL Low HDL Cholesterol HDL >or= 60 mg/dL High HDL Cholesterol Serum or plasma cholesterol in VLDL measurement (mass/volume)on 02-01-2022 Cholesterol in VLDL [Mass/Vol] 11 mg/dL 5-40 [facility] Work Phone: Serum or plasma creatinine m easurement (mass/volume)on 02-01-2022 Creatinine [Mass/Vol] 0.86 mg/dL 0.70-1.30 [facility] Work Phone: Comment on above: The validity of the calculated GFR & GFRAA in patients over 70 years has not been determined. Clinical correlation is essential. Serum or plasma low density lipoprotein (LDL) cholesterol measurement (mass/volume)on 02-01-2022 Cholesterol in LDL [Mass/Vol] 41 mg/dL 0-130 [facility] Work Phone: Serum or plasma urea nitroge n measurement (mass/volume)on 02-01-2022 Urea nitrogen [Mass/Vol] 20 mg/dL 7-18 [facility] Work Phone: Thin prep Papanicolaou smear with manual screeningon 02-01-2022 Thin prep Papanicolaou smear with manual screening 14 U/L 15-37 [facility] Work Phone: Thin prep Papanicolaou smear with manual screening 8 5-15 [facility] Work Phone: Thin prep Papanicolaou smear with manual screening 26.6 mg/L NO RANGE EST. [facility] Work Phone: Urine creatinine measurement (mass/volume)on 02-01-2022 Creatinine (U) [Mass/Vol] 188.00 mg/dL NO RANGE EST. [facility] Work Phone: Whole blood hemoglobin A1c/t otal hemoglobin ratio (mass fraction)on 02-01-2022 HbA1c (Bld) [Mass fraction] 5.9 % 3.8-5.6 [facility] Work Phone: Comment on above: Normal < 5.7 % Predi abetic 5.7 - 6.4 % Diabetic >or= 6.5 % Please note range changes. Absolute lymphocyte counton 10-14-2021 Lymphocytes Auto (Unsp spec) [#/Vol] 1.81 10*3/uL 0.83-4.51 [facility] Work Phone: Basophil percentageon 2021 Basophil percentage 0 SEEN /hpf 0-5 [facility] Work Phone: Basophils/100 WBC (Bld) 0.6 % 0-1 [facility] Work Phone: Bilirubin [Mass/Vol] 0.30 mg/dL 0.20-1.00 [facility] Work Phone: Comment on above: For patients on eltr ombopag therapy, use of Dimension [place] TBIL is not recommended. Chloride [Moles/Vol] 108 mmol/L 98-107 [facility] Work Phone: Cholesterol [Mass/Vol] 199 mg/dL <200 [facility] Work Phone: Comment on above: <200 mg/dL Desirable 200-240 mg/dL Borderline >240 mg/dL High Risk Eosinophils/100 WBC (Bld) 2.8 % 0-5 [facility] Work Phone: Glucose [Mass/Vol] 161 mg/dL 74-106 [facility] Work Phone: Comment on above: Fasting Glucose resu lt greater than or equal to 126 mg/dL suggests DIABETES MELLITUS per A.D.A. criteria. Neutrophils (Bld) [#/Vol] 2.6 10*3/uL 2.0-7.7 [facility] Work Phone: Neutrophils/100 WBC (Bld) 51.7 % 47-70 [facility] Work Phone: Potassium [Moles/Vol] 4.4 mmol/L 3.5-5.1 [facility] Work Phone: Protein [Mass/Vol] 6.9 g/dL 6.4-8.2 [facility] Work Phone: Sodium [Moles/Vol] 139 mmol/L 136-145 [facility] Work Phone: Triglyceride [Mass/Vol] 141 mg/dL <199 [facility] Work Phone: Comment on above: The drugs N-Acetylcy steine and Metamizole may falsely depress this assay.Serum Triglycerides Reference Interval Normal <150 mg/dL Borderline high 150 - 199 mg/dL High 200 - 499 mg/dL Very High > or = 500 mg/dL WBC (Bld) [#/Vol] 4.9 10*3/uL 4.4-11.0 [facility] Work Phone: Bilirubin Test strip Ql (U)o n 10-14-2021 Bilirubin Ql (U) Negative Negative [facility] Work Phone: Blood erythrocytes count (nu mber/volume)on 10-14-2021 RBC (Bld) [#/Vol] 4.75 10*6/uL 4.6-6.2 [facility] Work Phone: Blood hemoglobin measurement (mass/volume)on 10-14-2021 Hemoglobin (Bld) [Mass/Vol] 14.6 g/dL 13.0-16.5 [facility] Work Phone: Blood lymphocytes/100 leukoc yteson 10-14-2021 Lymphocytes/100 WBC (Bld) 36.6 % 19-41 [facility] Work Phone: Blood monocytes/100 leukocyt eson 10-14-2021 Monocytes/100 WBC (Bld) 8.1 % 0-10 [facility] Work Phone: Blood platelet mean volumeon 10-14-2021 Platelet mean volume (Bld) [Entitic vol] 9.9 fL 6.2-12.0 [facility] Work Phone: Determination of erythrocyte mean corpuscular volume (MCV)on 10-14-2021 MCV (RBC) [Entitic vol] 89.1 fL 80-94 [facility] Work Phone: Hematocrit Auto (Bld) [Volum e fraction]on 10-14-2021 Hematocrit (Bld) [Volume fraction] 42.3 % 40-54 [facility] Work Phone: Ketones Test strip Ql (U)on 10-14-2021 Ketones Ql (U) Negative Negative [facility] Work Phone: Laboratory - Chemistry and C hemistry - challengeon 10-14-2021 ALP [Catalytic activity/Vol] 64 U/L 45-117 [facility] Work Phone: ALT [Catalytic activity/Vol] 27 U/L 16-61 [facility] Work Phone: CO2 [Moles/Vol] 25.0 mmol/L 21.0-32.0 [facility] Work Phone: Globulin (S) [Mass/Vol] 3.0 g/dL 2.2-4.2 [facility] Work Phone: Urea nitrogen/Creatinine [Mass ratio] 22.5 mg/mg 10-20 [facility] Work Phone: Laboratory - Hematology and Cell countson 10-14-2021 Erythrocyte distribution width (RBC) [Entitic vol] 41.0 fL 35.1-43.9 [facility] Work Phone: Erythrocyte distribution width (RBC) [Ratio] 12.5 % 11.6-14.6 [facility] Work Phone: Immature granulocytes/100 WBC (Bld) 0.200 % 0.0-0.9 [facility] Work Phone: Comment on above: IG% - Immature Granu locytes (promyelocytes, myelocytes and metamyelocytes) > 1% indicates that a LEFT SHIFT is Present. MCH (RBC) [Entitic mass] 30.7 pg 27.0-32.0 [facility] Work Phone: Nucleated RBC/100 WBC (Bld) [Ratio] 0 % 0-5 [facility] Work Phone: MCHC Auto (RBC) [Mass/Vol]on 10-14-2021 MCHC (RBC) [Mass/Vol] 34.5 g/dL 32-36 [facility] Work Phone: Mucus LM Ql (Urine sed)on Mucus Ql (Urine sed) 0 SEEN /hpf [facility] Work Phone: Nitrite Test strip Ql (U)on 10-14-2021 Nitrite Ql (U) Negative Negative [facility] Work Phone: No Panel Informationon 10-14 Estimated GFR (MDRD) Amer 106 mL/min >60 [facility] Work Phone: Comment on above: GFR Calc Estimated GFR (MDRD) Non-Af Amer 88 mL/min >60 [facility] Work Phone: Comment on above: Non- GFR Calc Thyroid Stimulating Hormone (TSH) 1.68 uIU/mL 0.358-3.74 [facility] Work Phone: Platelets bldon 10-14-2021 Platelets (Bld) [#/Vol] 233 10*3/uL 150-450 [facility] Work Phone: Protein Test strip Ql (U)on 10-14-2021 Protein Ql (U) 15 mg/dl Negative [facility] Work Phone: Serum or plasma albumin sandeep urement (mass/volume)on 10-14-2021 Albumin [Mass/Vol] 3.9 g/dL 3.2-5.0 [facility] Work Phone: Serum or plasma albumin/glob ulin mass ratioon 10-14-2021 Albumin/Globulin [Mass ratio] 1.3 {ratio} 0.9-2.4 [facility] Work Phone: Serum or plasma calcium sandeep urement (mass/volume)on 10-14-2021 Calcium [Mass/Vol] 8.5 mg/dL 8.5-10.1 [facility] Work Phone: Serum or plasma cholesterol in HDL measurement (mass/volume)on 10-14-2021 Cholesterol in HDL [Mass/Vol] 44 mg/dL >40 [facility] Work Phone: Comment on above: The drugs N-Acetylcy steine and Metamizole may falsely depress this assay. Reference Range HDL <40 mg/dL Low HDL Cholesterol HDL >or= 60 mg/dL High HDL Cholesterol Serum or plasma cholesterol in VLDL measurement (mass/volume)on 10-14-2021 Cholesterol in VLDL [Mass/Vol] 28 mg/dL 5-40 [facility] Work Phone: Serum or plasma creatinine m easurement (mass/volume)on 10-14-2021 Creatinine [Mass/Vol] 0.94 mg/dL 0.70-1.30 [facility] Work Phone: Comment on above: The validity of the calculated GFR & GFRAA in patients over 70 years has not been determined. Clinical correlation is essential. Serum or plasma low density lipoprotein (LDL) cholesterol measurement (mass/volume)on 10-14-2021 Cholesterol in LDL [Mass/Vol] 127 mg/dL 0-130 [facility] Work Phone: Serum or plasma urea nitroge n measurement (mass/volume)on 10-14-2021 Urea nitrogen [Mass/Vol] 21 mg/dL 7-18 [facility] Work Phone: Squamous epithelial cells de tection in urine sediment by light microscopyon 10-14-2021 Epithelial cells.squamous LM Ql (Urine sed) 0 SEEN /hpf 0-5 [facility] Work Phone: Thin prep Papanicolaou smear with manual screeningon 10-14-2021 Thin prep Papanicolaou smear with manual screening 13 U/L 15-37 [facility] Work Phone: Thin prep Papanicolaou smear with manual screening 6 5-15 [facility] Work Phone: Urine blood detectionon RBC Ql (U) Negative Negative [facility] Work Phone: RBC Ql (U) 0 SEEN /hpf 0-5 [facility] Work Phone: Urine clarityon 10-14-2021 Clarity (U) Clear Clear [facility] Work Phone: Urine color determinationon 10-14-2021 Color (U) Yellow Yellow [facility] Work Phone: Urine glucose detectionon Glucose Ql (U) Normal mg/dl Normal [facility] Work Phone: Urine leukocyte esterase det ection by dipstickon 10-14-2021 Leukocyte esterase Test strip Ql (U) Negative Negative [facility] Work Phone: Urine pHon 10-14-2021 pH (U) 6.0 [pH] 5.0 - 8.0 [facility] Work Phone: Urine sediment bacteria coun t by microscopy (number/high power field)on 10-14-2021 Bacteria LM.HPF (Urine sed) [#/Area] 0 /[HPF] None Seen [facility] Work Phone: Urine specific gravity measu rementon 10-14-2021 Specific gravity (U) [Rel density] 1.020 1.002-1.030 [facility] Work Phone: Urobilinogen Auto test strip Ql (U)on 10-14-2021 Urobilinogen Ql (U) Normal mg/dl Normal [facility] Work Phone: Whole blood hemoglobin A1c/t otal hemoglobin ratio (mass fraction)on 10-14-2021 HbA1c (Bld) [Mass fraction] 7.1 % 3.8-5.6 [facility] Work Phone: Comment on above: Normal < 5.7 % Predi abetic 5.7 - 6.4 % Diabetic >or= 6.5 % Please note range changes. .GFRon 05-14-2021 GFR >60 Normal [facility] ([place] Comment on above: Result Comment: GFR Population [...] Performed By: #### B MP, GFR #### [place] [address] GFR Non- >60 Normal [facility] ([place] Comment on above: Result Comment: GFR Population [...] Performed By: #### B MP, GFR #### [address] [address] BMPon 05-14-2021 BUN/Creatinine Ratio 22.8 ratio High 10.0-22.0 [facility] ([place]) Comment on above: Performed By: #### B MP, GFR #### [address] [address] Calcium [Mass/Vol] 9.1 mg/dL Normal 8.7-10.4 [facility] ([place]) Comment on above: Result Comment: No te - New Reference Range in effect 20 Performed By: #### B MP, GFR #### [address] [address] Chloride [Moles/Vol] 105 mmol/L Normal 98-110 [facility] ([place] Comment on above: Performed By: #### B MP, GFR #### [address] [address] CO2 [Moles/Vol] 29 mmol/L Normal 22-32 [facility] ([place] Comment on above: Performed By: #### B MP, GFR #### [address] [address] Creatinine [Mass/Vol] 1.01 mg/dL Normal 0.60-1.40 [facility] ([place] Comment on above: Performed By: #### B MP, GFR #### [address] [address] Electrolyte Balance 5.0 mEq/L Normal 4.0-15.0 [facility] ([place]) Comment on above: Performed By: #### B MP, GFR #### [address] [address] Glucose [Mass/Vol] 164 mg/dL High 70-110 [facility] ([place] Comment on above: Performed By: #### B MP, GFR #### [address] [address] Potassium [Moles/Vol] 3.9 mmol/L Normal 3.5-5.0 [facility] ([place] Comment on above: Performed By: #### B MP, GFR #### [facility] [address] [place] [address] Sodium [Moles/Vol] 139 mmol/L Normal 136-145 [facility] ([place] Comment on above: Performed By: #### B MP, GFR #### [facility] [address] [place] [address] Urea nitrogen [Mass/Vol] 23.0 mg/dL High 8.0-22.0 [facility] ([place]) Comment on above: Performed By: #### B MP, GFR #### [facility] [address] [place] [address] Vital Signs Date Time Vital Sign Value Performing Clinician Faci lity 04-06-2025 10:37-0400 Body height 175.[address] Jeffery López MD Work Phone: [facility] 04-06-2025 10:37-0400 Body mass index (BMI) [Ratio] 33.6 kg/m2 Dr. Jeffery López MD Work Phone: [facility] 04-06-2025 10:37-0400 Body temperature 97.5 [degF] Dr. Jeffery López MD Work Phone: [facility] 04-06-2025 10:37-0400 Body weight 103.[address] Jeffery López MD Work Phone: [facility] 04-06-2025 10:37-0400 Diastolic blood pressure 65 mm[Hg] Dr. Jeffery López MD Work Phone: [facility] 04-06-2025 10:37-0400 Heart rate 64 /min Dr. Jeffery López MD Work Phone: [facility] 04-06-2025 10:37-0400 Respiratory rate 18 /min Dr. Jeffery López MD Work Phone: [facility] 04-06-2025 10:37-0400 SaO2% (BldA) [Mass fraction] 100 % Dr. Jeffery López MD Work Phone: 6(801)246-752978 [place] [address] 04-06-2025 10:37-0400 Systolic blood pressure 103 mm[Hg] Dr. Jeffery López MD Work Phone: 2(424)462-850724 [place] [address] 03-04-2025 08:24-0400 Body height 175.[address] Jeffery López MD Work Phone: 6(762)699-105424 [place] [address] 03-04-2025 08:24-0400 Body mass index (BMI) [Ratio] 32.8 kg/m2 Dr. Jeffery López MD Work Phone: 5(734)502-393024 [place] [address] 03-04-2025 08:24-0400 Body temperature 97.2 [degF] Dr. Jeffery López MD Work Phone: 0(986)548-027524 [place] [address] 03-04-2025 08:24-0400 Body weight 100.[address] Jeffery Lóepz MD Work Phone: 5(972)185-137024 [place] [address] 03-04-2025 08:24-0400 Diastolic blood pressure 73 mm[Hg] Dr. Jeffery López MD Work Phone: 9(920)243-289324 [place] [address] 03-04-2025 08:24-0400 Heart rate 56 /min Dr. Jeffery López MD Work Phone: 7(957)262-130624 [place] [address] 03-04-2025 08:24-0400 Respiratory rate 18 /min Dr. Jeffery López MD Work Phone: 6(452)052-685024 [place] [address] 03-04-2025 08:24-0400 SaO2% (BldA) [Mass fraction] 100 % Dr. Jeffery López MD Work Phone: 1(132)348-590324 [place] [address] 03-04-2025 08:24-0400 Systolic blood pressure 122 mm[Hg] Dr. Jeffery López MD Work Phone: 9(548)945-760624 [place] [address] 02-25-2025 08:55-0400 Body height 175.[address] eJffery López MD Work Phone: 3(935)528-599224 [place] [address] 02-25-2025 08:55-0400 Body mass index (BMI) [Ratio] 32.5 kg/m2 Dr. Jeffery López MD Work Phone: [facility] 02-25-2025 08:55-0400 Body temperature 97.4 [degF] Dr. Jeffery López MD Work Phone: [facility] 02-25-2025 08:55-0400 Body weight 99.[address] Jeffery López MD Work Phone: 9(298)611-195833 [address] 02-25-2025 08:55-0400 Diastolic blood pressure 69 mm[Hg] Dr. Jeffery López MD Work Phone: 8(316)109-748733 [address] 02-25-2025 08:55-0400 Heart rate 62 /min Dr. Jeffery López MD Work Phone: 0(593)303-420824 [place] [address] 02-25-2025 08:55-0400 Respiratory rate 18 /min Dr. Jeffery López MD Work Phone: 2(921)200-915333 [address] 02-25-2025 08:55-0400 SaO2% (BldA) [Mass fraction] 100 % Dr. Jeffery López MD Work Phone: 9(228)100-850333 [address] 02-25-2025 08:55-0400 Systolic blood pressure 124 mm[Hg] Dr. Jeffery López MD Work Phone: 9(735)860-920378 [place] [address] 02-18-2025 08:19-0400 Body height 175.[address] Jeffery López MD Work Phone: 3(839)161-317778 [place] [address] 02-18-2025 08:19-0400 Body mass index (BMI) [Ratio] 32.5 kg/m2 Dr. Jeffery López MD Work Phone: 0(915)266-915878 [place] [address] 02-18-2025 08:19-0400 Body temperature 97.4 [degF] Dr. Jeffery López MD Work Phone: [facility] 02-18-2025 08:19-0400 Body weight 99.[address] Jeffery López MD Work Phone: 8(089)576-221178 [place] [address] 02-18-2025 08:19-0400 Diastolic blood pressure 75 mm[Hg] Dr. Jeffery López MD Work Phone: [facility] 02-18-2025 08:19-0400 Heart rate 67 /min Dr. Jeffery López MD Work Phone: [facility] 02-18-2025 08:19-0400 Respiratory rate 18 /min Dr. Jeffery López MD Work Phone: 7(208)890-030878 [place] [address] 02-18-2025 08:19-0400 SaO2% (BldA) [Mass fraction] 97 % Dr. Jeffery López MD Work Phone: 7(913)464-040724 [place] [address] 02-18-2025 08:19-0400 Systolic blood pressure 113 mm[Hg] Dr. Jeffery López MD Work Phone: 4(093)430-542533 [address] 02-11-2025 08:38-0400 Body height 175.[address] Jeffery López MD Work Phone: 0(673)609-766433 [address] 02-11-2025 08:38-0400 Body mass index (BMI) [Ratio] 33 kg/m2 Dr. Jeffery López MD Work Phone: 2(917)514-257633 [address] 02-11-2025 08:38-0400 Body temperature 97.2 [degF] Dr. Jeffery López MD Work Phone: 2(797)976-274133 [address] 02-11-2025 08:38-0400 Body weight 101.[address] Jeffery López MD Work Phone: [facility] 02-11-2025 08:38-0400 Diastolic blood pressure 81 mm[Hg] Dr. Jeffery López MD Work Phone: 5(581)804-767833 [address] 02-11-2025 08:38-0400 Heart rate 63 /min Dr. Jeffery López MD Work Phone: 1(122)482-986078 [place] [address] 02-11-2025 08:38-0400 Respiratory rate 18 /min Dr. Jeffery López MD Work Phone: 4(884)002-143378 [place] [address] 02-11-2025 08:38-0400 SaO2% (BldA) [Mass fraction] 100 % Dr. Jeffery López MD Work Phone: 4(775)884-393478 [place] [address] 02-11-2025 08:38-0400 Systolic blood pressure 133 mm[Hg] Dr. Jeffery López MD Work Phone: 6(989)263-113178 [place] [address] 02-04-2025 08:43-0400 Body height 175.[address] Jeffery López MD Work Phone: 1(530)[phone] [place] [address] 02-04-2025 08:43-0400 Body mass index (BMI) [Ratio] 32.5 kg/m2 Dr. Jeffery López MD Work Phone: 8(232)937-969524 [place] [address] 02-04-2025 08:43-0400 Body temperature 97 [degF] Dr. Jeffery López MD Work Phone: 9(913)036-548824 [place] [address] 02-04-2025 08:43-0400 Body weight 99.[address] Jeffery López MD Work Phone: 2(888)874-513178 [place] [address] 02-04-2025 08:43-0400 Diastolic blood pressure 79 mm[Hg] Dr. Jeffery López MD Work Phone: 6(863)025-510924 [place] [address] 02-04-2025 08:43-0400 Heart rate 57 /min Dr. Jeffery López MD Work Phone: 1(354)806-328324 [place] [address] 02-04-2025 08:43-0400 Respiratory rate 16 /min Dr. Jeffery López MD Work Phone: 1(923)013-004524 [place] [address] 02-04-2025 08:43-0400 SaO2% (BldA) [Mass fraction] 100 % Dr. Jeffery López MD Work Phone: 2(237)512-796424 [place] [address] 02-04-2025 08:43-0400 Systolic blood pressure 130 mm[Hg] Dr. Jeffery López MD Work Phone: 4(013)037-382424 [place] [address] 01-28-2025 09:18-0400 Body height 175.[address] Jeffery López MD Work Phone: 3(960)189-829478 [place] [address] 01-28-2025 09:18-0400 Body mass index (BMI) [Ratio] 32.6 kg/m2 Dr. Jeffery López MD Work Phone: 2(814)380-003478 [place] [address] 01-28-2025 09:18-0400 Body temperature 96.9 [degF] Dr. Jeffery López MD Work Phone: 7(036)909-095078 [place] [address] 01-28-2025 09:18-0400 Body weight 100.[address] Jeffery López MD Work Phone: 9(131)087-750278 [place] [address] 01-28-2025 09:18-0400 Diastolic blood pressure 78 mm[Hg] Dr. Jeffery López MD Work Phone: 1(557)199-778224 [place] [address] 01-28-2025 09:18-0400 Heart rate 55 /min Dr. Jeffery López MD Work Phone: 4(439)547-730924 [place] [address] 01-28-2025 09:18-0400 Respiratory rate 16 /min Dr. Jeffery López MD Work Phone: 2(409)386-230278 [place] [address] 01-28-2025 09:18-0400 SaO2% (BldA) [Mass fraction] 100 % Dr. Jeffery López MD Work Phone: 3(235)452-331424 [place] [address] 01-28-2025 09:18-0400 Systolic blood pressure 131 mm[Hg] Dr. Jeffery López MD Work Phone: 7(172)053-379178 [place] [address] 01-21-2025 08:46-0400 Body height 175.[address] Jeffery López MD Work Phone: 8(981)716-067833 [address] 01-21-2025 08:46-0400 Body mass index (BMI) [Ratio] 32.9 kg/m2 Dr. Jeffery López MD Work Phone: 1(988)240-944878 [place] [address] 01-21-2025 08:46-0400 Body temperature 96.8 [degF] Dr. Jeffery López MD Work Phone: 9(304)815-529378 [place] [address] 01-21-2025 08:46-0400 Body weight 101.[address] Jeffery López MD Work Phone: [facility] 01-21-2025 08:46-0400 Diastolic blood pressure 74 mm[Hg] Dr. Jeffery López MD Work Phone: [facility] 01-21-2025 08:46-0400 Heart rate 55 /min Dr. Jeffery López MD Work Phone: 5(303)875-079678 [place] [address] 01-21-2025 08:46-0400 Respiratory rate 18 /min Dr. Jeffery López MD Work Phone: [facility] 01-21-2025 08:46-0400 SaO2% (BldA) [Mass fraction] 100 % Dr. Jeffery López MD Work Phone: 7(669)267-915578 [place] [address] 01-21-2025 08:46-0400 Systolic blood pressure 129 mm[Hg] Dr. Jeffery López MD Work Phone: 8(475)387-671033 [address] 11-14-2024 10:02-0400 Body height 175.[address] Jeffery López MD Work Phone: 4(390)862-120733 [address] 11-14-2024 10:02-0400 Body mass index (BMI) [Ratio] 31.4 kg/m2 Dr. Jeffeyr López MD Work Phone: 8(683)531-863478 [place] [address] 11-14-2024 10:02-0400 Body temperature 97.4 [degF] Dr. Jeffery López MD Work Phone: 1(494)563-158078 [place] [address] 11-14-2024 10:02-0400 Body weight 96.[address] Jeffery López MD Work Phone: [facility] 11-14-2024 10:02-0400 Diastolic blood pressure 73 mm[Hg] Dr. Jeffery López MD Work Phone: 1(953)185-147678 [place] [address] 11-14-2024 10:02-0400 Heart rate 59 /min Dr. Jeffery López MD Work Phone: 5(343)767-149178 [place] [address] 11-14-2024 10:02-0400 Respiratory rate 16 /min Dr. Jeffery López MD Work Phone: [facility] 11-14-2024 10:02-0400 SaO2% (BldA) [Mass fraction] 100 % Dr. Jeffery López MD Work Phone: [facility] 11-14-2024 10:02-0400 Systolic blood pressure 126 mm[Hg] Dr. Jeffery López MD Work Phone: 0(606)619-596078 [place] [address] 08-30-2023 08:14-0500 Body temperature 98.9 [degF] Dr. Jeffery López Work Phone: [facility] 08-30-2023 08:14-0500 Diastolic blood pressure 64 mm[Hg] Dr. Jeffery López Work Phone: 5(530)315-158833 [address] 08-30-2023 08:14-0500 Heart rate 87 /min Dr. Jeffery López Work Phone: 2(062)347-360078 [place] [address] 08-30-2023 08:14-0500 Respiratory rate 16 /min Dr. Jeffery López Work Phone: [facility] 08-30-2023 08:14-0500 SaO2% (BldA) [Mass fraction] 96 % Dr. Jeffery López Work Phone: [facility] 08-30-2023 08:14-0500 Systolic blood pressure 108 mm[Hg] Dr. Jeffery López Work Phone: [facility] 08-29-2023 12:57-0500 Body height 175.[address] Jeffery López Work Phone: [facility] 08-29-2023 12:57-0500 Body mass index (BMI) [Ratio] 26.6 kg/m2 Dr. Jeffery López Work Phone: [facility] 08-29-2023 12:57-0500 Body weight [address] Jeffery López Work Phone: [facility] Encounters Encounter Date Encounter Type Care Provider Facility Start: 04-06-2025 End: 04-06-[address] Jeffery López MD Work Phone: [facility] Start: 04-06-2025 End: 04-06-[address] Indra Larson [facility] Work Phone: Start: 03-17-2025 End: 03-17-[address] Jeffery López MD Work Phone: -Laboratory [facility] Start: 03-17-2025 End: 03-17-[address] Jeffery López MD -Laboratory [facility] Start: 03-17-2025 End: 03-17-2025 ambulatory Jeffery López Facility:[facility] Start: 03-05-2025 Non-patient / Non-visit Dr. Indra clifton [facility] Work Phone: Start: 03-05-2025 ambulatory Indra Larson Facility: [facility] Start: 03-05-2025 End: 03-05-[address] Jeffery López MD -Laboratory Work Phone: Start: 03-05-2025 End: 03-05-[address] Jeffery López MD Work Phone: -Laboratory Start: 03-05-[address] Indra Cardenas on DO -Radiation Oncology Start: 03-04-[address] Indra Cardenas on DO -Radiation Oncology Start: 03-04-2025 End: 03-04-[address] Indra Larson [facility] Work Phone: Start: 03-04-2025 End: 03-05-[address] Jeffery López MD Work Phone: [facility] Start: 02-25-[address] Indra Cardenas on DO -Radiation Oncology Start: 02-25-2025 End: 02-25-[address] Indra Larson [facility] Work Phone: Start: 02-25-2025 End: 02-25-[address] Jeffery López MD Work Phone: [facility] Start: 02-18-[address] Indra Cardenas on DO -Radiation Oncology Start: 02-18-2025 End: 02-18-[address] Indra Larson [facility] Work Phone: Start: 02-18-2025 End: 02-18-[address] Jeffery López MD Work Phone: [facility] Start: 02-11-[address] Indra Cardenas on DO -Radiation Oncology Start: 02-11-2025 End: 02-11-[address] Indra Larson [facility] Work Phone: Start: 02-11-2025 End: 02-11-[address] Jeffery López MD Work Phone: [facility] Start: 02-04-[address] Indra Cardenas on DO -Radiation Oncology Start: 02-04-2025 End: 02-04-[address] Indra Larson [facility] Work Phone: Start: 02-04-2025 End: 02-04-[address] Jeffery López MD Work Phone: [facility] Start: 01-28-[address] Indra Cardenas on DO -Radiation Oncology Start: 01-28-2025 End: 01-28-[address] Indra Larson [facility] Work Phone: Start: 01-28-2025 End: 01-28-[address] Jeffery López MD Work Phone: [facility] Start: 01-21-2025 End: 01-21-[address] Indra Larson [facility] Work Phone: Start: 01-21-2025 End: 01-21-[address] Jeffery López MD Work Phone: [facility] Start: 01-21-[address] Indra Cardenas on DO -Radiation Oncology Start: 01-13-2025 ambulatory [facility] Facility: [facility] Start: 01-13-2025 Non-patient / Non-visit Dr. Indra Martinez [facility] Start: 01-12-2025 ambulatory [facility] Facility: [facility] Start: 01-12-2025 Non-patient / Non-visit Dr. Indar Martinez [facility] Start: 01-05-2025 ambulatory [facility] Facility: [facility] Start: 01-05-2025 Non-patient / Non-visit Dr. Indra Martinez [facility] Start: 12-29-2024 End: 12-29-[address] Jeffery López MD Work Phone: [facility] Work Phone: Start: 12-29-2024 End: 12-29-[address] Indra Larson [facility] Work Phone: Start: 12-29-2024 End: 12-29-2024 ambulatory Indra Mindoro Facility:[facility] Start: 12-23-[address] Indra Cardenas on DO -Radiation Oncology Start: 11-14-2024 End: 11-14-[address] Indra Larson [facility] Work Phone: Start: 11-14-2024 End: 11-14-2024 ambulatory Jeffery López Facility:[facility] Start: 10-29-2024 End: 10-29-[address] Jeffery López MD Work Phone: [facility] Work Phone: Start: 10-29-2024 End: 10-29-[address] Colt Almonte MD -Laboratory Work Phone: Start: 10-29-2024 End: 10-29-2024 ambulatory Jeffery López Facility:[facility] Start: 09-06-2024 End: 09-06-[address] Jeffery López MD Work Phone: [facility] Work Phone: Start: 09-06-2024 End: 09-06-[address] Jeffery López MD -Laboratory Work Phone: Start: 09-06-2024 End: 09-06-2024 ambulatory Jeffery López Facility:[facility] Start: 07-30-2024 End: 07-30-2024 ambulatory [facility] Start: 07-25-2024 End: 07-25-[address] Colt Almonte MD -Laboratory Work Phone: Start: 07-25-2024 End: 07-25-2024 ambulatory Jeffery López Facility:[facility] Start: 05-09-2024 End: 05-09-2024 ambulatory Jeffery López Facility:[facility] Start: 05-03-2024 End: 05-03-[address] [facility] Facility:[facility] Start: 10-18-2023 End: 10-18-[address] Jeffery López Work Phone: [facility] Work Phone: Start: 10-18-2023 End: 10-18-[address] Jeffery López Work Phone: [facility] Work Phone: Start: 08-29-2023 End: 08-30-2023 Admission to same day surgery center Dr. Jeffery López Work Phone: [facility] Start: 08-29-2023 End: 08-30-[address] Jeffery López Work Phone: [facility] Work Phone: Start: 08-21-2023 End: 08-21-2023 Non-patient / Non-visit Dr. Jeffery López Work Phone: [facility] Work Phone: Start: 08-21-2023 End: 08-21-[address] Jeffery López Work Phone: [facility] Work Phone: Start: 08-21-2023 End: 08-21-[address] Jeffery López Work Phone: [facility] Work Phone: Start: 07-27-2023 End: 07-27-2023 ambulatory [facility] Work Phone: Start: 07-27-2023 End: 07-27-2023 Patient encounter procedure [facility]MRI - [facility] Work Phone: Start: 07-23-2023 End: 07-23-2023 Patient encounter procedure [facility]-Nuclear Medicine, [facility] Work Phone: Start: 06-28-2023 End: 06-28-2023 ambulatory [facility] Work Phone: Start: 06-28-2023 End: 06-28-2023 Patient encounter procedure [facility]Laboratory, Specimen Work Phone: Start: 05-22-2023 End: 05-22-2023 ambulatory [facility] Work Phone: Start: 05-22-2023 End: 05-22-2023 Patient encounter procedure [facility] Work Phone: Start: 05-09-2023 End: 05-09-2023 ambulatory [facility] Work Phone: Start: 05-09-2023 End: 05-09-2023 Patient encounter procedure [facility], [facility] Start: 04-17-2023 End: 04-17-2023 ambulatory [facility] Work Phone: Start: 04-17-2023 End: 04-17-2023 Patient encounter procedure [facility] Start: 09-08-2022 End: 09-08-2022 ambulatory [facility] Work Phone: Start: 09-08-2022 End: 09-08-2022 Patient encounter procedure [facility] Start: 05-31-2022 End: 05-31-2022 ambulatory [facility] Work Phone: Start: 05-31-2022 End: 05-31-2022 Patient encounter procedure [facility] Start: 02-01-2022 End: 02-01-2022 Patient encounter procedure [facility] Start: 10-14-2021 End: 10-14-2021 Patient encounter procedure [facility] Procedures Date Procedure Procedure Detail Performing Clinician Start: 03-17-2025 Total iron binding c apacity measurement Dr. Jeffery López MD Work Phone: Start: 12-29-2024 MRI of pelvis with contrast Dr. Jeffery López MD Work Phone: Start: 12-23-2024 PET study for locali zation of tumor Dr. Jeffery López MD Work Phone: Start: 10-29-2024 Prostate specific an tigen measurement Dr. Jeffery López MD Work Phone: Comment on above: This test was perfor med using the [facility] tPSA method. Measured values of a patient sample can vary depending on the testing procedure used. PSA values determined on patient samples by different testing procedures cannot be used interchangeably. If there is a change in PSA assays while monitoring therapy, sequential testing should be performed to confirm baseline values. Start: 08-29-2023 Lap Robotic Prostate ctomy (Not Applicable) Dr. Jeffery López Work Phone: Start: 07-27-2023 MRI of pelvis with contrast Start: 07-23-2023 Radionuclide whole b ramo bone study Plan of Treatment Date Care Activity Detail Author Start: 04-06-2025 End: 04-06-2025 Patient encounter procedure Biochemically recurrent castration-sensitive adenocarcinoma of prostate -[facility] Work Phone: Start: 08-30-2023 Patient discharge [facility] Start: 08-29-2023 Anes xtrprtl lwr abd w/urinary tract rad prstect ANESTH REMOVAL OF PROSTATE [facility] Start: 08-29-2023 Laps prostect retropubic rad w/nrv sparing robot LAPS SURG [id number] RPBIC RAD [facility] Start: 08-29-2023 Following clinical pathway protocol [facility] Start: 08-29-2023 Application of intermittent pneumatic compression device [facility] Start: 08-29-2023 Provision of activity privileges [facility] Start: 08-29-2023 Measuring intake and output [facility] Start: 08-29-2023 Patient education [facility] Start: 08-29-2023 Taking patient vital signs [facility] Start: 08-29-2023 Vital signs measurements [facility] Start: 08-29-2023 [facility] Start: 08-29-2023 Admission procedure [facility] Electrocardiographic procedure [facility] Patient referral [facility] Work Phone: Positron emission to mography with computed tomography [facility] Payers Date Payer Category Payer Self-pay [id number] 2024 Unknown [id number] 1960 Unknown [id number] 2.16.8 [id number] Unknown [id number] Unknown [id number] 2.16.8 [id number] Unknown [id number] 2.16.8 40.1.158594.3.579.2.462 Unknown [id number] 2.16.8 40.1.175940.3.579.2.462 Unknown [id number] 2.16.8 40.1.770364.3.579.2.462 Unknown [id number] 2.16.8 40.1.563004.3.579.2.462 Unknown [id number] 2.16.8 40.1.971364.3.579.2.462 Unknown [id number] 2.16.8 40.1.595014.3.579.2.462 Unknown [id number] 2.16.8 40.1.480191.3.579.2.462 Unknown [id number] 2.16.8 40.1.538757.3.579.2.462 Unknown [id number] 2.16.8 40.1.450889.3.579.2.462 Unknown [id number] 2.16.8 40.1.613224.3.579.2.462 Unknown [id number] 2.16.8 40.1.431237.3.579.2.462 Unknown [id number] 2.16.8 40.1.618285.3.579.2.462 Unknown [id number] 2.16.8 40.1.683792.3.579.2.462 Unknown [id number] 2.16.8 40.1.402715.3.579.2.462 Unknown [id number] 2.16.8 40.1.189577.3.579.2.462 Unknown [id number] 2.16.8 40.1.501734.3.579.2.462 Unknown [id number] 2.16.8 40.1.620294.3.579.2.462 Unknown [id number] 2.16.8 40.1.882291.3.579.2.462 Unknown [id number] 2.16.8 40.1.333210.3.579.2.462 Unknown [id number] 2.16.8 40.1.302367.3.579.2.462 Unknown [id number] 2.16.8 40.1.129731.3.579.2.462 Social History Date Type Detail Facility Tobacco smoking stat us VAIS Unknown if ever smoked [facility] Work Phone: Start: 1960 Sex Assigned At Male W [facility] Start: 08-15-2023 End: 08-15-2023 Tobacco smoking status NHIS Unknown if ever smoked [facility] Start: 08-15-2023 End: 11-11-2024 Tobacco smoking status NHIS Never smoked tobacco (finding) [facility] Start: 09-18-2024 End: 11-02-2024 Sex Male (finding) [facility] Sex Male [facility] Medical Equipment Procedure Code Equipment Code Equipment Origin al Text Equipment Identifier Dates Ligation clip, synthetic polymer, non-bioabsorbable [id number] 23 FDA Start: 08-29-2023 Goals Date Patient Goal Desired Activity /State Functional Status Date Assessment Result Facility 08-30-2023 Functional status Chair [facility] Work Phone: Mental Status Date Assessment Result Facility 08-30-2023 Cognitive function Level Of Cons ciousness Awake;Alert;Appropriate;Follow s Commands [facility] Work Phone: 08-29-2023 Cognitive function Voice/Name [facility] Work Phone: Clinical Notes 08-21-2023 to 04-06-2025 Note Date & Type Note Facility 04-06-2025 Progress note [facility] 03-04-2025 Progress note [facility] 03-04-2025 Progress note Note Date/Time March 04, 2025 8:41am [facility] [address] [place] [address] OFFICE VISIT Date of Service: 03/04/25 0820 MR#: [id number] Acct: [id number] Name: RAYMOND WEINBERG Rep #: [id number] : 1960 From: Indra gomez DO Age/Sex: 64/M Location: [facility] Status: Signed Intake Vital Signs 11/14/24 10:02 03/04/25 08:24 Height 5 ft 9 in 5 ft 9 in Weight: 222 lb BMI 32.8 BP 122/73 H Blood Pressure Location Rt brachial Position Sitting Respiration 18 Pulse 56 L Pulse Source Monitor Temp 97.2 F L Temperature Source Temporal Artery Pulse Oximetry (%) 100 Oxygen Delivery Method room air Intake Is patient in pain?: No Allergies No Known Allergies Allergy (Verified 03/04/25 08:23) Medications ?Medication ?Instructions ?Recorded ?Confirmed ?Type lisinopril 10 mg tablet 10 mg PO DAILY 08/15/2302/07 History multivitamin (Daily Multi-Vitamin 1 tab PO DAILY 08/1503/04/25 History tablet) rosuvastatin 10 mg tablet 10 mg PO DAILY 08/15/2302/07 History Central Venous Access Central Venous Access: No Intake Visit Reasons: OTV Is patient in pain?: No Allergies No Known Allergies Allergy (Verified 03/04/25 08:23) Medications ?Medication ?Instructions ?Recorded ?Confirmed ?Type lisinopril 10 mg tablet 10 mg PO DAILY 08/15/2302/07 History multivitamin (Daily Multi-Vitamin 1 tab PO DAILY 08/1503/04/25 History tablet) rosuvastatin 10 mg tablet 10 mg PO DAILY 08/15/2302/07 History PFSH PFSH Medical History Cellulitis Rising PSA following treatment for malignant neoplasm of prostate Elevated prostate specific antigen [PSA] Secondary hypertension Urinary calculi Wears contact lenses Cancer Alcohol use History of kidney stones Prostate disease High cholesterol Restless legs BiPAP (biphasic positive airway pressure) dependence Sleep apnea Non-smoker History of edema Cardiology follow-up encounter Home Medications ?Medication ?Instructions ?Recorded ?Last Taken ?Type lisinopril 10 mg tablet 10 mg PO DAILY 08/15/2308/10 05:15 History multivitamin (Daily Multi-Vitamin 1 tab PO DAILY 08/1508/27/23 History tablet) rosuvastatin 10 mg tablet 10 mg PO DAILY 08/15/2308/09 History Allergy/AdvReac Type Severity Reaction Status Date / Time No Known Allergies Allergy Verified 03/04/25 08:23 Family History Brother Prostate cancer Other Cancer Diabetes Hypertension Surgical History H/O prostate biopsy History of bladder suspension procedure H/O radical prostatectomy History of wisdom tooth extraction History of colonoscopy Social History Smoking Status: Never smoker alcohol intake: current alcohol intake frequency: holidays/special occasions only substance use type: does not use caffeine: Yes (4+ servings per day) Diagnosis: Raymond Weinberg is a 64-year-old male diagnosed with intermediate risk prostate cancer status post TRUS guided prostate biopsy (06/28/2023), bone scan (07/23/2023), MRI prostate with and without contrast (07/27/2023), and radical prostatectomy (08/29/2023), now with evidence of biochemical recurrence with a PSA of 0.16 (10/29/2024). Plan: Plan was made to complete salvage radiation consisting of 4600 cGy in 23 fractions to the prostate fossa and pelvis followed by a boost to the prostate fossa of 2200 cGy in 11 fractions. This brought the final dose to the prostate fossa to 6800 cGy in 34 fractions. Treatment Data: Treatment Site: Prostate fossa and pelvis Current total dose/Total dose planned: 4600 cGy / 4600 cGy; 1800 cGy / 2200 cGy Fraction number: ; Chemotherapy: none Subjective: Pain: 0 / 10 Fatigue: none Skin: no erythema, rash, desquamation GI: no diarrhea/constipation. some mild loose stool. No rectal pain or bleeding. No bloating or increased gas : no increase urinary symptoms. mild frequency, mild occasional dysuria, no hematuria Cellulitis on knee, taking antibiotics and improving Objective: Weight: 222 lbs Physical Exam: Gen: NAD Skin: no erythema, rash, desquamation. Assessment & Plan Assessment/Plan (1) Biochemically recurrent castration-sensitive adenocarcinoma of prostate: PLAN: Plan Assessment: Tolerating treatment well overall.? I reviewed and approved all treatment associated imaging. mild loose stool occasional dysuria Plan: Continue treatment as planned.? Will finish tomorrow I have reviewed potential treatment associated toxicities as well as timing for resolution and management. Skin: Skin care reviewed, continue lotion prn Follow up in one month or sooner if needed. Thank you for allowing me to participate in the management and care of your patient. If I may answer any questions in the interim, please do not hesitate to contact me at any time. Inrda Larson DO, MS [employer] Work[employer]ice, Department of Radiation Oncology [facility] Coding Level of Care Code Radiation Tx Management x5 Diagnoses Biochemically recurrent castration-sensitive adenocarcinoma of prostate C61; R97.21; Z19.1 03/04/25 0841 <Electronically signed by Indra Larson DO> Date _ Indra Larson DO [facility] Signature: Date (if applicable) CC: ~ [employer] Work Phone: 1(368) 797-915008-20-2025 Progress [facility] [address] [place] [address] [place] [address] OFFICE VISIT Date of Service: 02/25/25 0853 MR#: [id number] Acct: [id number] Name: CAROLINERAYMOND L Rep #: [id number] : 1960 From: Indra gomez DO Age/Sex: 64/M Location: [facility] Status: Signed Intake Vital Signs 11/14/24 10:02 02/25/25 08:55 Height 5 ft 9 in 5 ft 9 in Weight: 220 lb BMI 32.5 BP 124/69 H Blood Pressure Location Rt brachial Position Sitting Respiration 18 Pulse 62 Pulse Source Monitor Temp 97.4 F L Temperature Source Temporal Artery Pulse Oximetry (%) 100 Oxygen Delivery Method room air Intake Visit Reasons: OTV Is patient in pain?: No Allergies No Known Allergies Allergy (Verified 02/25/25 08:57) Medications ?Medication ?Instructions ?Recorded ?Confirmed ?Type lisinopril 10 mg tablet 10 mg PO DAILY 08/15/2302/07 History multivitamin (Daily Multi-Vitamin 1 tab PO DAILY 08/1502/25/25 History tablet) rosuvastatin 10 mg tablet 10 mg PO DAILY 08/15/2302/07 History PFSH PFSH Medical History Cellulitis Rising PSA following treatment for malignant neoplasm of prostate Elevated prostate specific antigen [PSA] Secondary hypertension Urinary calculi Wears contact lenses Cancer Alcohol use History of kidney stones Prostate disease High cholesterol Restless legs BiPAP (biphasic positive airway pressure) dependence Sleep apnea Non-smoker History of edema Cardiology follow-up encounter Home Medications ?Medication ?Instructions ?Recorded ?Last Taken ?Type lisinopril 10 mg tablet 10 mg PO DAILY 08/15/2308/10 05:15 History multivitamin (Daily Multi-Vitamin 1 tab PO DAILY 08/1508/27/23 History tablet) rosuvastatin 10 mg tablet 10 mg PO DAILY 08/15/2308/09 History Allergy/AdvReac Type Severity Reaction Status Date / Time No Known Allergies Allergy Verified 02/25/25 08:57 Family History Brother Prostate cancer Other Cancer Diabetes Hypertension Surgical History H/O prostate biopsy History of bladder suspension procedure H/O radical prostatectomy History of wisdom tooth extraction History of colonoscopy Social History Smoking Status: Never smoker alcohol intake: current alcohol intake frequency: holidays/special occasions only substance use type: does not use caffeine: Yes (4+ servings per day) Diagnosis: Raymond Weinberg is a 64-year-old male diagnosed with intermediate risk prostate cancer status post TRUS guided prostate biopsy (06/28/2023), bone scan (07/23/2023), MRI prostate with and without contrast (07/27/2023), and radical prostatectomy (08/29/2023), now with evidence of biochemical recurrence with a PSA of 0.16 (10/29/2024). Plan: Plan was made to complete salvage radiation consisting of 4600 cGy in 23 fractions to the prostate fossa and pelvis followed by a boost to the prostate fossa of 2200 cGy in 11 fractions. This broughtthe final dose to the prostate fossa to 6800 cGy in 34 fractions. Treatment Data: Treatment Site: Prostate fossa and pelvis Current total dose/Total dose planned: 4600 cGy / 4600 cGy; 1000 cGy / 2200 cGy Fraction number: ; Chemotherapy: none Subjective: Pain: 0 / 10 Fatigue: none Skin: no erythema, rash, desquamation GI: no diarrhea/constipation. some mild loose stool. No rectal pain or bleeding. No bloating or increased gas : no increase urinary symptoms. mild frequency, mild occasional dysuria, no hematuria Cellulitis on knee, taking antibiotics and improving Objective: Weight: 220 lbs Physical Exam: Gen: NAD Skin: no erythema, rash, desquamation. Assessment & Plan Assessment/Plan (1) Biochemically recurrent castration-sensitive adenocarcinoma of prostate: PLAN: Plan Assessment: Tolerating treatment well overall.? I reviewed and approved all treatment associated imaging. mild loose stool occasional dysuria Plan: Continue treatment as planned.? I have reviewed potential treatment associated toxicities as well as timing for resolution and management. Skin: Skin care reviewed, continue lotion prn Follow up next week or sooner if needed. Thank you for allowing me to participate in the management and care of your patient. If I may answer any questions in the interim, please do not hesitate to contact me at any time. Indra Larson DO, MS [employer] Worker Apprentice, Department of Radiation Oncology [facility] Coding Level of Care Code Radiation Tx Management x5 Diagnoses Biochemically recurrent castration-sensitive adenocarcinoma of prostate C61; R97.21; Z19.1 02/25/25 0910 DO> Date _ Indra Larson DO Cosigner Signature: Date (if applicable) CC: ~ [facility]08-20-2025 Progress note Author Indra Larson [facility] Note Date/Time February 25, 2025 9: 10am [facility] [place] [address] OFFICE VISIT Date of Service: 02/25/25 0853 MR#: [id number] Acct: [id number] Name: RAYMOND WEINBERG Rep #: [id number] : 1960 From: Indra gomez DO Age/Sex: 64/M Location: [facility] Status: Signed Intake Vital Signs 11/14/24 10:02 02/25/25 08:55 Height 5 ft 9 in 5 ft 9 in Weight: 220 lb BMI 32.5 BP 124/69 H Blood Pressure Location Rt brachial Position Sitting Respiration 18 Pulse 62 Pulse Source Monitor Temp 97.4 F L Temperature Source Temporal Artery Pulse Oximetry (%) 100 Oxygen Delivery Method room air Intake Visit Reasons: OTV Is patient in pain?: No Allergies No Known Allergies Allergy (Verified 02/25/25 08:57) Medications ?Medication ?Instructions ?Recorded ?Confirmed ?Type lisinopril 10 mg tablet 10 mg PO DAILY 08/15/2302/07 History multivitamin (Daily Multi-Vitamin 1 tab PO DAILY 08/1502/25/25 History tablet) rosuvastatin 10 mg tablet 10 mg PO DAILY 08/15/2302/07 History PFSH [facility] Medical History Cellulitis Rising PSA following treatment for malignant neoplasm of prostate Elevated prostate specific antigen [PSA] Secondary hypertension Urinary calculi Wears contact lenses Cancer Alcohol use History of kidney stones Prostate disease High cholesterol Restless legs BiPAP (biphasic positive airway pressure) dependence Sleep apnea Non-smoker History of edema Cardiology follow-up encounter Home Medications ?Medication ?Instructions ?Recorded ?Last Taken ?Type lisinopril 10 mg tablet 10 mg PO DAILY 08/15/2308/10 05:15 History multivitamin (Daily Multi-Vitamin 1 tab PO DAILY 08/1508/27/23 History tablet) rosuvastatin 10 mg tablet 10 mg PO DAILY 08/15/2308/09 History Allergy/AdvReac Type Severity Reaction Status Date / Time No Known Allergies Allergy Verified 02/25/25 08:57 Family History Brother Prostate cancer Other Cancer Diabetes Hypertension Surgical History H/O prostate biopsy History of bladder suspension procedure H/O radical prostatectomy History of wisdom tooth extraction History of colonoscopy Social History Smoking Status: Never smoker alcohol intake: current alcohol intake frequency: holidays/special occasions only substance use type: does not use caffeine: Yes (4+ servings per day) Diagnosis: Raymond Weinberg is a 64-year-old male diagnosed with intermediate risk prostate cancer status post TRUS guided prostate biopsy (06/28/2023), bone scan (07/23/2023), MRI prostate with and without contrast (07/27/2023), and radical prostatectomy (08/29/2023), now with evidence of biochemical recurrence with a PSA of 0.16 (10/29/2024). Plan: Plan was made to complete salvage radiation consisting of 4600 cGy in 23 fractions to the prostate fossa and pelvis followed by a boost to the prostate fossa of 2200 cGy in 11 fractions. This brought the final dose to the prostate fossa to 6800 cGy in 34 fractions. Treatment Data: Treatment Site: Prostate fossa and pelvis Current total dose/Total dose planned: 4600 cGy / 4600 cGy; 1000 cGy / 2200 cGy Fraction number: ; Chemotherapy: none Subjective: Pain: 0 / 10 Fatigue: none Skin: no erythema, rash, desquamation GI: no diarrhea/constipation. some mild loose stool. No rectal pain or bleeding. No bloating or increased gas : no increase urinary symptoms. mild frequency, mild occasional dysuria, no hematuria Cellulitis on knee, taking antibiotics and improving Objective: Weight: 220 lbs Physical Exam: Gen: NAD Skin: no erythema, rash, desquamation. Assessment & Plan Assessment/Plan (1) Biochemically recurrent castration-sensitive adenocarcinoma of prostate: PLAN: Plan Assessment: Tolerating treatment well overall.? I reviewed and approved all treatment associated imaging. mild loose stool occasional dysuria Plan: Continue treatment as planned.? I have reviewed potential treatment associated toxicities as well as timing for resolution and management. Skin: Skin care reviewed, continue lotion prn Follow up next week or sooner if needed. Thank you for allowing me to participate in the management and care of your patient. If I may answer any questions in the interim, please do not hesitate to contact me at any time. Indra Larson DO, MS Structural Steel Worker Apprentice, Department of Radiation Oncology [facility] Coding Level of Care Code Radiation Tx Management x5 Diagnoses Biochemically recurrent castration-sensitive adenocarcinoma of prostate C61; R97.21; Z19.1 02/25/25 0910 <Electronically signed by Indra Larson DO> Date _ Indra Larson DO [facility] Signature: Date (if applicable) CC: ~ [facility] [employer] Work Phone: 1(560) 421-615808-06-2025 [facility] [address] [place] [address] OFFICE VISIT Date of Service: 02/11/25 0836 MR#: [id number] Acct: [id number] Name: RAYMOND WEINBERG Rep #: [id number] : 1960 From: Indra gomez DO Age/Sex: 64/M Location: [facility] [place] [facility] Status: Signed Intake Vital Signs 11/14/24 10:02 02/11/25 08:38 Height 5 ft 9 in 5 ft 9 in Weight: 223 lb 9 oz BMI 33.0 BP 133/81 H Blood Pressure Location Rt brachial Position Sitting Respiration 18 Pulse 63 Pulse Source Monitor Temp 97.2 F L Temperature Source Temporal Artery Pulse Oximetry (%) 100 Oxygen Delivery Method room air Intake Visit Reasons: OTV Is patient in pain?: No Allergies No Known Allergies Allergy (Verified 02/11/25 08:38) Medications ?Medication ?Instructions ?Recorded ?Confirmed ?Type lisinopril 10 mg tablet 10 mg PO DAILY 08/15/2312/31 History multivitamin (Daily Multi-Vitamin 1 tab PO DAILY 08/1502/11/25 History tablet) rosuvastatin 10 mg tablet 10 mg PO DAILY 08/15/2312/31 History PFSH PFSH Medical History Rising PSA following treatment for malignant neoplasm of prostate Elevated prostate specific antigen [PSA] Secondary hypertension Urinary calculi Wears contact lenses Cancer Alcohol use History of kidney stones Prostate disease High cholesterol Restless legs BiPAP (biphasic positive airway pressure) dependence Sleep apnea Non-smoker History of edema Cardiology follow-up encounter Home Medications ?Medication ?Instructions ?Recorded ?Last Taken ?Type lisinopril 10 mg tablet 10 mg PO DAILY 08/15/2308/10 05:15 History multivitamin (Daily Multi-Vitamin 1 tab PO DAILY 08/1508/27/23 History tablet) rosuvastatin 10 mg tablet 10 mg PO DAILY 08/15/2308/09 History Allergy/AdvReac Type Severity Reaction Status Date / Time No Known Allergies Allergy Verified 02/11/25 08:38 Family History Brother Prostate cancer Other Cancer Diabetes Hypertension Surgical History H/O prostate biopsy History of bladder suspension procedure H/O radical prostatectomy History of wisdom tooth extraction History of colonoscopy Social History Smoking Status: Never smoker alcohol intake: current alcohol intake frequency: holidays/special occasions only substance use type: does not use caffeine: Yes (4+ servings per day) Diagnosis: Raymond Weinberg is a 64-year-old male diagnosed with intermediate risk prostate cancer status post TRUS guided prostate biopsy (06/28/2023), bone scan (07/23/2023), MRI prostate with and without contrast (07/27/2023), and radical prostatectomy (08/29/2023), now with evidence of biochemical recurrence with a PSA of 0.16 (10/29/2024). Plan: Plan was made to complete salvage radiation consisting of 4600 cGy in 23 fractions to the prostate fossa and pelvis followed by a boost to the prostate fossa of 2200 cGy in 11 fractions. This broughtthe final dose to the prostate fossa to 6800 cGy in 34 fractions. Treatment Data: Treatment Site: Prostate fossa and pelvis Current total dose/Total dose planned: 3600 cGy / 4600 cGy; 0 cGy / 2200 cGy Fraction number: ; Chemotherapy: none Subjective: Pain: 0 / 10 Fatigue: none Skin: no erythema, rash, desquamation GI: no diarrhea/constipation. some mild loose stool. No rectal pain or bleeding. No bloating or increased gas : no increase urinary symptoms. mild occasional dysuria, no hematuria Objective: Weight: 223 lbs 9 oz Physical Exam: Gen: NAD Skin: no erythema, rash, desquamation. Assessment & Plan Assessment/Plan (1) Biochemically recurrent castration-sensitive adenocarcinoma of prostate: PLAN: Plan Assessment: Tolerating treatment well overall.? I reviewed and approved all treatment associated imaging. mild loose stool Plan: Continue treatment as planned.? I have reviewed potential treatment associated toxicities as well as timing for resolution and management. Skin: Skin care reviewed, continue lotion prn Follow up next week or sooner if needed. Thank you for allowing me to participate in the management and care of your patient. If I may answer any questions in the interim, please do not hesitate to contact me at any time. Indra Larson DO, MS Structural Steel Worker Apprentice, Department of Radiation Oncology [facility] Coding Level of Care Code Radiation Tx Management x5 Diagnoses Biochemically recurrent castration-sensitive adenocarcinoma of prostate C61; R97.21; Z19.1 02/11/25 0851 DO> Date _ Indra Neo DO [place] Signature: Date (if applicable) CC: ~ [facility]08-06-2025 Progress note Author Indra Larson [facility] Note Date/Time February 11, 2025 8:5 1am [facility] [address] [place] [address] OFFICE VISIT Date of Service: 02/11/25 0836 MR#: [id number] Acct: [id number] Name: RAYMOND WEINBERG Rep #: [id number] : 1960 From: Indra gomez DO Age/Sex: 64/M Location: [facility] [facility] Status: Signed Intake Vital Signs 11/14/24 10:02 02/11/25 08:38 Height 5 ft 9 in 5 ft 9 in Weight: 223 lb 9 oz BMI 33.0 BP 133/81 H Blood Pressure Location Rt brachial Position Sitting Respiration 18 Pulse 63 Pulse Source Monitor Temp 97.2 F L Temperature Source Temporal Artery Pulse Oximetry (%) 100 Oxygen Delivery Method room air Intake Visit Reasons: OTV Is patient in pain?: No Allergies No Known Allergies Allergy (Verified 02/11/25 08:38) Medications ?Medication ?Instructions ?Recorded ?Confirmed ?Type lisinopril 10 mg tablet 10 mg PO DAILY 08/15/2312/31 History multivitamin (Daily Multi-Vitamin 1 tab PO DAILY 08/1502/11/25 History tablet) rosuvastatin 10 mg tablet 10 mg PO DAILY 08/15/2312/31 History PFSH PFSH Medical History Rising PSA following treatment for malignant neoplasm of prostate Elevated prostate specific antigen [PSA] Secondary hypertension Urinary calculi Wears contact lenses Cancer Alcohol use History of kidney stones Prostate disease High cholesterol Restless legs BiPAP (biphasic positive airway pressure) dependence Sleep apnea Non-smoker History of edema Cardiology follow-up encounter Home Medications ?Medication ?Instructions ?Recorded ?Last Taken ?Type lisinopril 10 mg tablet 10 mg PO DAILY 08/15/23/08/01 05:15 History multivitamin (Daily Multi-Vitamin 1 tab PO DAILY 08/1508/27/23 History tablet) rosuvastatin 10 mg tablet 10 mg PO DAILY 08/15/2308/09 History Allergy/AdvReac Type Severity Reaction Status Date / Time No Known Allergies Allergy Verified 02/11/25 08:38 Family History Brother Prostate cancer Other Cancer Diabetes Hypertension Surgical History H/O prostate biopsy History of bladder suspension procedure H/O radical prostatectomy History of wisdom tooth extraction History of colonoscopy Social History Smoking Status: Never smoker alcohol intake: current alcohol intake frequency: holidays/special occasions only substance use type: does not use caffeine: Yes (4+ servings per day) Diagnosis: Raymond Weinberg is a 64-year-old male diagnosed with intermediate risk prostate cancer status post TRUS guided prostate biopsy (06/28/2023), bone scan (07/23/2023), MRI prostate with and without contrast (07/27/2023), and radical prostatectomy (08/29/2023), now with evidence of biochemical recurrence with a PSA of 0.16 (10/29/2024). Plan: Plan was made to complete salvage radiation consisting of 4600 cGy in 23 fractions to the prostate fossa and pelvis followed by a boost to the prostate fossa of 2200 cGy in 11 fractions. This brought the final dose to the prostate fossa to 6800 cGy in 34 fractions. Treatment Data: Treatment Site: Prostate fossa and pelvis Current total dose/Total dose planned: 3600 cGy / 4600 cGy; 0 cGy / 2200 cGy Fraction number: ; 0 Chemotherapy: none Subjective: Pain: 0 / 10 Fatigue: none Skin: no erythema, rash, desquamation GI: no diarrhea/constipation. some mild loose stool. No rectal pain or bleeding. No bloating or increased gas : no increase urinary symptoms. mild occasional dysuria, no hematuria Objective: Weight: 223 lbs 9 oz Physical Exam: Gen: NAD Skin: no erythema, rash, desquamation. Assessment & Plan Assessment/Plan (1) Biochemically recurrent castration-sensitive adenocarcinoma of prostate: PLAN: Plan Assessment: Tolerating treatment well overall.? I reviewed and approved all treatment associated imaging. mild loose stool Plan: Continue treatment as planned.? I have reviewed potential treatment associated toxicities as well as timing for resolution and management. Skin: Skin care reviewed, continue lotion prn Follow up next week or sooner if needed. Thank you for allowing me to participate in the management and care of your patient. If I may answer any questions in the interim, please do not hesitate to contact me at any time. Indra Larson DO, MS Structural Steel Worker Apprentice, Department of Radiation Oncology [facility] Coding Level of Care Code Radiation Tx Management x5 Diagnoses Biochemically recurrent castration-sensitive adenocarcinoma of prostate C61; R97.21; Z19.1 02/11/25 0851 <Electronically signed by Indra Larson DO> Date _ Indra Larson DO [facility] Signature: Date (if applicable) CC: ~ [facility] [employer] Work Phone: 1(146) 950-817007-30-2025 [facility] [address] [place] [address] OFFICE VISIT Date of Service: 02/04/25 0841 MR#: [id number] Acct: [id number] Name: RAYMOND WEINBERG Rep #: [id number] : 1960 From: Indra gomez DO Age/Sex: 64/M Location: [facility] [place] [facility] Status: Signed Intake Vital Signs 11/14/24 10:02 02/04/25 08:43 Height 5 ft 9 in 5 ft 9 in Weight: 220 lb 5 oz BMI 32.5 BP 130/79 H Blood Pressure Location Lt brachial Position Sitting Respiration 16 Pulse 57 L Pulse Source Monitor Temp 97.0 F L Temperature Source Temporal Artery Pulse Oximetry (%) 100 Oxygen Delivery Method room air Intake Visit Reasons: OTV Is patient in pain?: No Allergies No Known Allergies Allergy (Verified 02/04/25 08:49) Medications ?Medication ?Instructions ?Recorded ?Confirmed ?Type lisinopril 10 mg tablet 10 mg PO DAILY 08/15/2301/08 History multivitamin (Daily Multi-Vitamin 1 tab PO DAILY 08/1502/04/25 History tablet) rosuvastatin 10 mg tablet 10 mg PO DAILY 08/15/2301/08 History PFSH PFSH Medical History Rising PSA following treatment for malignant neoplasm of prostate Elevated prostate specific antigen [PSA] Secondary hypertension Urinary calculi Wears contact lenses Cancer Alcohol use History of kidney stones Prostate disease High cholesterol Restless legs BiPAP (biphasic positive airway pressure) dependence Sleep apnea Non-smoker History of edema Cardiology follow-up encounter Home Medications ?Medication ?Instructions ?Recorded ?Last Taken ?Type lisinopril 10 mg tablet 10 mg PO DAILY 08/15/2308/10 05:15 History multivitamin (Daily Multi-Vitamin 1 tab PO DAILY 08/1508/27/23 History tablet) rosuvastatin 10 mg tablet 10 mg PO DAILY 08/15/2308/09 History Allergy/AdvReac Type Severity Reaction Status Date / Time No Known Allergies Allergy Verified 02/04/25 08:49 Family History Brother Prostate cancer Other Cancer Diabetes Hypertension Surgical History H/O prostate biopsy History of bladder suspension procedure H/O radical prostatectomy History of wisdom tooth extraction History of colonoscopy Social History Smoking Status: Never smoker alcohol intake: current alcohol intake frequency: holidays/special occasions only substance use type: does not use caffeine: Yes (4+ servings per day) Diagnosis: Raymond Weinberg is a 64-year-old male diagnosed with intermediate risk prostate cancer status post TRUS guided prostate biopsy (06/28/2023), bone scan (07/23/2023), MRI prostate with and without contrast (07/27/2023), and radical prostatectomy (08/29/2023), now with evidence of biochemical recurrence with a PSA of 0.16 (10/29/2024). Plan: Plan was made to complete salvage radiation consisting of 4600 cGy in 23 fractions to the prostate fossa and pelvis followed by a boost to the prostate fossa of 2200 cGy in 11 fractions. This broughtthe final dose to the prostate fossa to 6800 cGy in 34 fractions. Treatment Data: Treatment Site: Prostate fossa and pelvis Current total dose/Total dose planned: 2600 cGy / 4600 cGy; 0 cGy / 2200 cGy Fraction number: ; Chemotherapy: none Subjective: Pain: 0 / 10 Fatigue: none Skin: no erythema, rash, desquamation GI: no diarrhea/constipation. No rectal pain or bleeding. No bloating or increased gas : no increase urinary symptoms. mild occasional dysuria, no hematuria Objective: Weight: 220 lbs 5 oz Physical Exam: Gen: NAD Skin: no erythema, rash, desquamation. Assessment & Plan Assessment/Plan (1) Biochemically recurrent castration-sensitive adenocarcinoma of prostate: PLAN: Plan Assessment: Tolerating treatment well overall.? I reviewed and approved all treatment associated imaging. No treatment associated toxicities are noted at this time Plan: Continue treatment as planned.? I have reviewed potential treatment associated toxicities as well as timing for resolution and management. Skin: Skin care reviewed, continue lotion prn Follow up next week or sooner if needed. Thank you for allowing me to participate in the management and care of your patient. If I may answer any questions in the interim, please do not hesitate to contact me at any time. Indra Larson DO, MS Structural Steel Worker Apprentice, Department of Radiation Oncology [facility] Coding Level of Care Code Radiation Tx Management x5 Diagnoses Biochemically recurrent castration-sensitive adenocarcinoma of prostate C61; R97.21; Z19.1 02/04/25 0900 DO> Date _ Indra Larson DO [employer] Signature: Date (if applicable) CC: ~ [facility]07-30-2025 Progress note Author Indra Briggsston [facility] Note Date/Time February 04, 2025 9:00 am [facility] [address] [place] [address] OFFICE VISIT Date of Service: 02/04/25 08 MR#: [id number] Acct: [id number] Name: RAYMOND WEINBERG Rep #: [id number] : 1960 From: Indra gomez DO Age/Sex: 64/M Location: [facility] [place] Status: Signed Intake Vital Signs 11/14/24 10:02 02/04/25 08:43 Height 5 ft 9 in 5 ft 9 in Weight: 220 lb 5 oz BMI 32.5 BP 130/79 H Blood Pressure Location Lt brachial Position Sitting Respiration 16 Pulse 57 L Pulse Source Monitor Temp 97.0 F L Temperature Source Temporal Artery Pulse Oximetry (%) 100 Oxygen Delivery Method room air Intake Visit Reasons: OTV Is patient in pain?: No Allergies No Known Allergies Allergy (Verified 02/04/25 08:49) Medications ?Medication ?Instructions ?Recorded ?Confirmed ?Type lisinopril 10 mg tablet 10 mg PO DAILY 08/15/2301/08 History multivitamin (Daily Multi-Vitamin 1 tab PO DAILY 08/1502/04/25 History tablet) rosuvastatin 10 mg tablet 10 mg PO DAILY 08/15/2301/08 History PFSH PFSH Medical History Rising PSA following treatment for malignant neoplasm of prostate Elevated prostate specific antigen [PSA] Secondary hypertension Urinary calculi Wears contact lenses Cancer Alcohol use History of kidney stones Prostate disease High cholesterol Restless legs BiPAP (biphasic positive airway pressure) dependence Sleep apnea Non-smoker History of edema Cardiology follow-up encounter Home Medications ?Medication ?Instructions ?Recorded ?Last Taken ?Type lisinopril 10 mg tablet 10 mg PO DAILY 08/15/2308/10 05:15 History multivitamin (Daily Multi-Vitamin 1 tab PO DAILY 08/1508/27/23 History tablet) rosuvastatin 10 mg tablet 10 mg PO DAILY 08/15/2308/09 History Allergy/AdvReac Type Severity Reaction Status Date / Time No Known Allergies Allergy Verified 02/04/25 08:49 Family History Brother Prostate cancer Other Cancer Diabetes Hypertension Surgical History H/O prostate biopsy History of bladder suspension procedure H/O radical prostatectomy History of wisdom tooth extraction History of colonoscopy Social History Smoking Status: Never smoker alcohol intake: current alcohol intake frequency: holidays/special occasions only substance use type: does not use caffeine: Yes (4+ servings per day) Diagnosis: Raymond Weinberg is a 64-year-old male diagnosed with intermediate risk prostate cancer status post TRUS guided prostate biopsy (06/28/2023), bone scan (07/23/2023), MRI prostate with and without contrast (07/27/2023), and radical prostatectomy (08/29/2023), now with evidence of biochemical recurrence with a PSA of 0.16 (10/29/2024). Plan: Plan was made to complete salvage radiation consisting of 4600 cGy in 23 fractions to the prostate fossa and pelvis followed by a boost to the prostate fossa of 2200 cGy in 11 fractions. This brought the final dose to the prostate fossa to 6800 cGy in 34 fractions. Treatment Data: Treatment Site: Prostate fossa and pelvis Current total dose/Total dose planned: 2600 cGy / 4600 cGy; 0 cGy / 2200 cGy Fraction number: ; Chemotherapy: none Subjective: Pain: 0 / 10 Fatigue: none Skin: no erythema, rash, desquamation GI: no diarrhea/constipation. No rectal pain or bleeding. No bloating or increased gas : no increase urinary symptoms. mild occasional dysuria, no hematuria Objective: Weight: 220 lbs 5 oz Physical Exam: Gen: NAD Skin: no erythema, rash, desquamation. Assessment & Plan Assessment/Plan (1) Biochemically recurrent castration-sensitive adenocarcinoma of prostate: PLAN: Plan Assessment: Tolerating treatment well overall.? I reviewed and approved all treatment associated imaging. No treatment associated toxicities are noted at this time Plan: Continue treatment as planned.? I have reviewed potential treatment associated toxicities as well as timing for resolution and management. Skin: Skin care reviewed, continue lotion prn Follow up next week or sooner if needed. Thank you for allowing me to participate in the management and care of your patient. If I may answer any questions in the interim, please do not hesitate to contact me at any time. Indra Larson DO, MS [employer] Worker Apprentice, Department of Radiation Oncology [facility] Coding Level of Care Code Radiation Tx Management x5 Diagnoses Biochemically recurrent castration-sensitive adenocarcinoma of prostate C61; R97.21; Z19.1 02/04/25 0900 <Electronically signed by Indra Larson DO> Date _ Indra Larson DO Cosigner Signature: Date (if applicable) CC: ~ [facility] [employer] Work Phone: 1(928) 871-193507-16-2025 Evaluation note* Diagnosis Onset Date Resolution Status Admit Date Biochemically recurrent castration-sensitive adenocarcinoma of prostate acute January 21, 2025 8:26am Biochemically recurrent castration-sensitive adenocarcinoma of prostate acute January 28, 2025 8:15am Biochemically recurrent castration-sensitive adenocarcinoma of prostate acute February 04, 2025 8:13am Biochemically recurrent castration-sensitive adenocarcinoma of prostate acute Augus t 2024 8:09am Biochemically recurrent castration-sensitive adenocarcinoma of prostate acute Augus t 2024 7:34am Biochemically recurrent castration-sensitive adenocarcinoma of prostate acute Augus t 2024 8:01am Biochemically recurrent castration-sensitive adenocarcinoma of prostate acute Augus t 2024 8:04am Biochemically recurrent castration-sensitive adenocarcinoma of prostate acute Adela mber 2024 10:33am [facility] Work Phone: 1(144) 332-554507-16-[address] [facility] [address] [place] [address] OFFICE VISIT Date of Service: 01/21/25 0844 MR#: [id number] Acct: [id number] Name: RAYMOND WEINBERG Rep #: [id number] : 1960 From: Indra gomez DO Age/Sex: 64/M Location: [facility] [place] Status: Signed Intake Vital Signs 11/14/24 10:02 01/21/25 08:46 Height 5 ft 9 in 5 ft 9 in Weight: 223 lb 2 oz BMI 32.9 BP 129/74 H Blood Pressure Location Rt brachial Position Sitting Respiration 18 Pulse 55 L Pulse Source Monitor Temp 96.8 F L Temperature Source Temporal Artery Pulse Oximetry (%) 100 Oxygen Delivery Method room air Intake Visit Reasons: OTV Is patient in pain?: No Allergies No Known Allergies Allergy (Verified 01/21/25 08:49) Medications ?Medication ?Instructions ?Recorded ?Confirmed ?Type lisinopril 10 mg tablet 10 mg PO DAILY 08/15/2301/06 History multivitamin (Daily Multi-Vitamin 1 tab PO DAILY 08/1501/21/25 History tablet) rosuvastatin 10 mg tablet 10 mg PO DAILY 08/15/2301/06 History PFSH PFSH Medical History Rising PSA following treatment for malignant neoplasm of prostate Elevated prostate specific antigen [PSA] Secondary hypertension Urinary calculi Wears contact lenses Cancer Alcohol use History of kidney stones Prostate disease High cholesterol Restless legs BiPAP (biphasic positive airway pressure) dependence Sleep apnea Non-smoker History of edema Cardiology follow-up encounter Home Medications ?Medication ?Instructions ?Recorded ?Last Taken ?Type lisinopril 10 mg tablet 10 mg PO DAILY 08/15/2308/10 05:15 History multivitamin (Daily Multi-Vitamin 1 tab PO DAILY 08/1508/27/23 History tablet) rosuvastatin 10 mg tablet 10 mg PO DAILY 08/15/2308/09 History Allergy/AdvReac Type Severity Reaction Status Date / Time No Known Allergies Allergy Verified 01/21/25 08:49 Family History Brother Prostate cancer Other Cancer Diabetes Hypertension Surgical History H/O prostate biopsy History of bladder suspension procedure H/O radical prostatectomy History of wisdom tooth extraction History of colonoscopy Social History Smoking Status: Never smoker alcohol intake: current alcohol intake frequency: holidays/special occasions only substance use type: does not use caffeine: Yes (4+ servings per day) Diagnosis: Raymond Weinberg is a 64-year-old male diagnosed with intermediate risk prostate cancer status post TRUS guided prostate biopsy (06/28/2023), bone scan (07/23/2023), MRI prostate with and without contrast (07/27/2023), and radical prostatectomy (08/29/2023), now with evidence of biochemical recurrence with a PSA of 0.16 (10/29/2024). Plan: Plan was made to complete salvage radiation consisting of 4600 cGy in 23 fractions to the prostate fossa and pelvis followed by a boost to the prostate fossa of 2200 cGy in 11 fractions. This broughtthe final dose to the prostate fossa to 6800 cGy in 34 fractions. Treatment Data: Treatment Site: Prostate fossa and pelvis Current total dose/Total dose planned: 600 cGy / 4600 cGy; 0 cGy / 2200 cGy Fraction number: ; 0 Chemotherapy: none Subjective: Pain: 0 / 10 Fatigue: none Skin: no erythema, rash, desquamation GI: no diarrhea/constipation. No rectal pain or bleeding. No bloating or increased gas : no increase urinary symptoms. No dysuria or hematuria Objective: Weight: 223 lbs Physical Exam: Gen: NAD Skin: no erythema, rash, desquamation. Assessment & Plan Assessment/Plan (1) Biochemically recurrent castration-sensitive adenocarcinoma of prostate: PLAN: Plan Assessment: Tolerating treatment well overall.? I reviewed and approved all treatment associated imaging. No treatment associated toxicities are noted at this time Plan: Continue treatment as planned.? I have reviewed potential treatment associated toxicities as well as timing for resolution and management. Skin: Skin care reviewed, continue lotion prn Follow up next week or sooner if needed. Thank you for allowing me to participate in the management and care of your patient. If I may answer any questions in the interim, please do not hesitate to contact me at any time. Indra Larson DO, MS Structural [employer] Worker Apprentice, Department of Radiation Oncology [facility] Coding Level of Care Code Radiation Tx Management x5 Diagnoses Biochemically recurrent castration-sensitive adenocarcinoma of prostate C61; R97.21; Z19.1 01/21/25 0906 DO> Date _ Ind[facility]arson [facility] Signature: Date (if applicable) CC: ~ [facility]07-16-2025 Progress note Author Indra Larson [facility] Note Date/Time January 21, 2025 9:06 am [facility] [address] [address] OFFICE VISIT Date of Service: 01/21/25 0844 MR#: [id number] Acct: [id number] Name: RAYMOND WEINBERG Souleymane Rep #: [id number] : 1960 From: Indra gomez DO Age/Sex: 64/M Location: [facility] [place] Status: Signed Intake Vital Signs 11/14/24 10:02 01/21/25 08:46 Height 5 ft 9 in 5 ft 9 in Weight: 223 lb 2 oz BMI 32.9 BP 129/74 H Blood Pressure Location Rt brachial Position Sitting Respiration 18 Pulse 55 L Pulse Source Monitor Temp 96.8 F L Temperature Source Temporal Artery Pulse Oximetry (%) 100 Oxygen Delivery Method room air Intake Visit Reasons: OTV Is patient in pain?: No Allergies No Known Allergies Allergy (Verified 01/21/25 08:49) Medications ?Medication ?Instructions ?Recorded ?Confirmed ?Type lisinopril 10 mg tablet 10 mg PO DAILY 08/15/2301/06 History multivitamin (Daily Multi-Vitamin 1 tab PO DAILY 08/1501/21/25 History tablet) rosuvastatin 10 mg tablet 10 mg PO DAILY 08/15/2301/06 History PFSH PFSH Medical History Rising PSA following treatment for malignant neoplasm of prostate Elevated prostate specific antigen [PSA] Secondary hypertension Urinary calculi Wears contact lenses Cancer Alcohol use History of kidney stones Prostate disease High cholesterol Restless legs BiPAP (biphasic positive airway pressure) dependence Sleep apnea Non-smoker History of edema Cardiology follow-up encounter Home Medications ?Medication ?Instructions ?Recorded ?Last Taken ?Type lisinopril 10 mg tablet 10 mg PO DAILY 08/15/2308/10 05:15 History multivitamin (Daily Multi-Vitamin 1 tab PO DAILY 08/1508/27/23 History tablet) rosuvastatin 10 mg tablet 10 mg PO DAILY 08/15/2308/09 History Allergy/AdvReac Type Severity Reaction Status Date / Time No Known Allergies Allergy Verified 01/21/25 08:49 Family History Brother Prostate cancer Other Cancer Diabetes Hypertension Surgical History H/O prostate biopsy History of bladder suspension procedure H/O radical prostatectomy History of wisdom tooth extraction History of colonoscopy Social History Smoking Status: Never smoker alcohol intake: current alcohol intake frequency: holidays/special occasions only substance use type: does not use caffeine: Yes (4+ servings per day) Diagnosis: Raymond Weinberg is a 64-year-old male diagnosed with intermediate risk prostate cancer status post TRUS guided prostate biopsy (06/28/2023), bone scan (07/23/2023), MRI prostate with and without contrast (07/27/2023), and radical prostatectomy (08/29/2023), now with evidence of biochemical recurrence with a PSA of 0.16 (10/29/2024). Plan: Plan was made to complete salvage radiation consisting of 4600 cGy in 23 fractions to the prostate fossa and pelvis followed by a boost to the prostate fossa of 2200 cGy in 11 fractions. This brought the final dose to the prostate fossa to 6800 cGy in 34 fractions. Treatment Data: Treatment Site: Prostate fossa and pelvis Current total dose/Total dose planned: 600 cGy / 4600 cGy; 0 cGy / 2200 cGy Fraction number: ; Chemotherapy: none Subjective: Pain: 0 / 10 Fatigue: none Skin: no erythema, rash, desquamation GI: no diarrhea/constipation. No rectal pain or bleeding. No bloating or increased gas : no increase urinary symptoms. No dysuria or hematuria Objective: Weight: 223 lbs Physical Exam: Gen: NAD Skin: no erythema, rash, desquamation. Assessment & Plan Assessment/Plan (1) Biochemically recurrent castration-sensitive adenocarcinoma of prostate: PLAN: Plan Assessment: Tolerating treatment well overall.? I reviewed and approved all treatment associated imaging. No treatment associated toxicities are noted at this time Plan: Continue treatment as planned.? I have reviewed potential treatment associated toxicities as well as timing for resolution and management. Skin: Skin care reviewed, continue lotion prn Follow up next week or sooner if needed. Thank you for allowing me to participate in the management and care of your patient. If I may answer any questions in the interim, please do not hesitate to contact me at any time. Indra Larson DO, MS Structural Steel Worker Apprentice, Department of Radiation Oncology [facility] Coding Level of Care Code Radiation Tx Management x5 Diagnoses Biochemically recurrent castration-sensitive adenocarcinoma of prostate C61; R97.21; Z19.1 01/21/25 0906 <Electronically signed by Indra Larson DO> Date _ Indra Benson Signature: Date (if applicable) CC: ~ [facility] [facility] Work Phone: 1(425) 271-148205-09-2025 Evaluation note* Diagnosis Onset Date Resolution Status Admit Date Biochemically recurrent castration-sensitive adenocarcinoma of prostate acute November 142024 10:00am [facility] Work Phone: 1(294) 483-270405-09-2025 Evaluation note* Diagnosis Onset Date Resolution Status Admit Date Biochemically recurrent castration-sensitive adenocarcinoma of prostate acute November 142024 10:00am Biochemically recurrent castration-sensitive adenocarcinoma of prostate acute January 21, 2025 8:26am [facility] [employer] Work Phone: 1(186) 331-173905-09-2025 Evaluation note* Diagnosis Onset Date Resolution Status Admit Date Biochemically recurrent castration-sensitive adenocarcinoma of prostate acute November 142024 10:00am Biochemically recurrent castration-sensitive adenocarcinoma of prostate acute January 21, 2025 8:26am Biochemically recurrent castration-sensitive adenocarcinoma of prostate acute January 28, 2025 8:15am Biochemically recurrent castration-sensitive adenocarcinoma of prostate acute February 04, 2025 8:13am [facility] Work Phone: 1([phone]) 108-642305-09-2025 Evaluation note* Diagnosis Onset Date Resolution Status Admit Date Biochemically recurrent castration-sensitive adenocarcinoma of prostate acute November 142024 10:00am Biochemically recurrent castration-sensitive adenocarcinoma of prostate acute January 21, 2025 8:26am Biochemically recurrent castration-sensitive adenocarcinoma of prostate acute January 28, 2025 8:15am Biochemically recurrent castration-sensitive adenocarcinoma of prostate acute February 04, 2025 8:13am Biochemically recurrent castration-sensitive adenocarcinoma of prostate acute Augus 2024 8:09am [facility] Work Phone: 1([phone]) 839-581205-09-2025 Evaluation note* Diagnosis Onset Date Resolution Status Admit Date Biochemically recurrent castration-sensitive adenocarcinoma of prostate acute November 142024 10:00am Biochemically recurrent castration-sensitive adenocarcinoma of prostate acute January 21, 2025 8:26am Biochemically recurrent castration-sensitive adenocarcinoma of prostate acute January 28, 2025 8:15am Biochemically recurrent castration-sensitive adenocarcinoma of prostate acute February 04, 2025 8:13am Biochemically recurrent castration-sensitive adenocarcinoma of prostate acute Augus t 2024 8:09am Biochemically recurrent castration-sensitive adenocarcinoma of prostate acute Augus t 2024 7:34am Biochemically recurrent castration-sensitive adenocarcinoma of prostate acute Augus t 2024 8:01am [facility] Work Phone: [phone]) 202-257005-09-2025 Evaluation note* Diagnosis Onset Date Resolution Status Admit Date Biochemically recurrent castration-sensitive adenocarcinoma of prostate acute November 142024 10:00am Biochemically recurrent castration-sensitive adenocarcinoma of prostate acute January 21, 2025 8:26am Biochemically recurrent castration-sensitive adenocarcinoma of prostate acute January 28, 2025 8:15am Biochemically recurrent castration-sensitive adenocarcinoma of prostate acute February 04, 2025 8:13am Biochemically recurrent castration-sensitive adenocarcinoma of prostate acute Augus t 2024 8:09am Biochemically recurrent castration-sensitive adenocarcinoma of prostate acute Augus t 2024 7:34am Biochemically recurrent castration-sensitive adenocarcinoma of prostate acute Augus t 2024 8:01am Biochemically recurrent castration-sensitive adenocarcinoma of prostate acute Augus t 2024 8:04am [facility] Work Phone: 1([phone]) 270-624702-22-2024 Consult note Author Anabelle Diego [facility] August 30, 2023 10:49am Note Date/Time August 30, 2023 10:49am [facility] Medical Records Department [address] [place] [address] Counseling Note - Pharmacy 08/30/23 1049 MR#: [id number] Acct: [id number] Name: RAYMOND WEINBERG Rep #:[id number] : 1960 62 From: Anabelle Diego PCP: Dr. Jeffery López MD Status:SOFY G SD Y Location: [address] Pharmacy Service has performed discharge medication reconciliation and counseling for this patient. The patient's discharge medication list was reviewed for discrepancies and discrepancies were resolved. The patient was counseled on the following discharge medications and changes in medications for homegoing were reviewed. 1. CIPRO 2. OXYCODONE 3. DOCUSATE The Reason for Use, instructions for use, and potential side effects were reviewed for all new medications. The patient's questions regarding all of their medications were answered. The patient was able to verbally demonstrate an understanding of their dischargemedications. The patient was counselled by Artis Pearce PharmD Candidate Medications at Discharge Home Medications lisinopril 10 mg tablet 10 mg PO DAILY 08/15/23 multivitamin (Daily Multi-Vitamin tablet) 1 tab PO DAILY 08/15/23 rosuvastatin 10 mg tablet 10 mg PO DAILY 08/15/23 ciprofloxacin HCl 500 mg tablet (Cipro) 500 mg PO BID #20 tabs 08/29/23 docusate sodium 100 mg capsule (Colace) 100 mg PO BID #20 caps 08/29/23 oxycodone 5 mg tablet 5 mg PO Q6H PRN pain 7 days #14 tabs 08/29/23 08/30/23 1049 <Electronically signed by Anabelle Diego > Date _ Anabelle Diego Cosigner Signature (if applicable): Date CC: ~ Signed [facility] Work Phone: 1(874) 402-627802-22-2024 Progress note Author Colt Almonte [facility] August 30, 2023 7:23am Note Date/Time August 30, 2023 7:23am [facility] Medical Records Department [address] [facility] [address] Progress Note - Urology 08/30/23721 MR#: [id number] Acct: [id number] Name: RAYMOND WEINBERG Rep #:[id number] : 1960 62 From: Colt Almonte MD PCP: Dr. Jeffery López MD Status:[facility] Location: [facility] [id number] Subjective Subjective s/p radical prostatectomy doing well follow up in 2 weeks home with emmanuel o eg bag Objective Data Objective Data Vital Signs: Vital Signs Temp Pulse Resp BP Pulse Ox O2 Del Method 98.1 F 77 16 98/52 L 97 Room Air 08/30/23 04:00 08/30/23 04:00 08/30/23 04:00 08/30/23 04:00 08/30/23 04:00 08/30/23 04:00 Oxygen Delivery Method Room Air Weight: 82 kg Body Mass Index (BMI) 26.6 Intake & Output: Intake and Output for Last 24 Hours 08/28/23 08/29/23 08/30/23 23:59 23:59 23:59 Intake Total 2512 / 2512 1183.33 / 1183.33 Output Total 640 / 640 550 / 550 Balance 1872 / 1872 633.33 / 633.33 Lab / Micro Data 08/21/23 13:32 08/21/23 13:32 08/30/23 0723 <Electronically signed by Colt Almonte MD> Cosigner Signature (if applicable): CC: ~ Signed [facility] Work Phone: 1(258) 337-621202-21-2024 Discharge summary Author Colt Almonte [facility] August 29, 2023 10:21am Note Date/Time August 29, 2023 10:21am [facility] Medical Records Department [address] [place] [address] Instructions for Home/Discharge Instructions 08/29/23 1021 MR#: [id number] Acct: [id number] Name: RAYMOND WEINBERG Rep #:[id number] : 1960 62 From: Colt Almonte MD PCP: Dr. Jeffery López MD Status:[facility] Discharge Instructions Diet Discharge Diet: No restrictions Activity Discharge Activity: Return to Normal Activity and May Not Drive (while taking narcotic pain medications.) Dressing / Incision Call your doctor if you observe: Fever of 101 or Higher Follow Up Care Please Follow Up With: Colt Almonte MD When: Call [phone] for an appointment Test Results: Test results from this visit will be discussed in further detail at your follow- up appointment, if applicable. Discharge Plan Admission Primary Reason for Your Visit: Radical prostatectomy Attending Provider: Colt Almonte Primary Care Provider: Jeffery López Consulting Providers: Amarjit Abel Discharge Orders/Prescriptions Prescriptions: New docusate sodium [Colace] 100 mg capsule 100 mg PO BID Qty: 20 0RF oxycodone 5 mg tablet 5 mg PO Q6H PRN (Reason: pain) 7 Days Qty: 14 0RF ciprofloxacin HCl [Cipro] 500 mg tablet 500 mg PO BID Qty: 20 0RF Continued lisinopril 10 mg tablet 10 mg PO DAILY Patient Comments: TAKE 1 TABLET BY MOUTH ONCE DAILY rosuvastatin 10 mg tablet 10 mg PO DAILY Patient Comments: TAKE 1 TABLET BY MOUTH ONCE DAILY multivitamin [Daily Multi-Vitamin] Tablet 1 tab PO DAILY Other Ambulatory Orders: 12 Lead EKG (Routine) Timeframe: [id number] Location: None Selected Ordered By: Dr. Amarjit Abel Referrals / Follow Up: Colt Almonte MD [Med Staff - Active Staff] - Jeffery López MD [Primary Care Provider] - Disposition Disposition (needs filled in before D/C Order can be placed): Home, Self Care 08/29/23 1021<Electronically signed by Colt Almonte MD>Colt Almonte MD CC: Dr. Amarjit Abel MD; Dr. Jeffery López MD ~ Signed [facility] Work Phone: 1(390) 190-300502-21-2024 Procedure [facility] 08-29-2023 History and physical note Author Colt Almonte [facility] August 29, 2023 7:19am Note Date/Time August 29, 2023 7:19am [facility] Medical Records Department [address] [facility] [place] [address] History & Physical Exam 08/29/2318 MR#: [id number] Acct: [id number] Name: RAYMOND WEINBERG Rep #:[id number] : 1960 62 From: Colt Almonte MD PCP: Dr. Jeffery López MD Status:[facility] Location: [place] [address] HPI - General General Chief Complaint: prostate cancer HPI Narrative RAYMOND WEINBERG, is a 62 M who presents for a robotic radical prostatectomy with nerve sparing. [facility] Medical History (Updated 08/15/23 @ 10:24 by Freda Chris) Alcohol use BiPAP (biphasic positive airway pressure) dependence Cancer Cardiology follow-up encounter High cholesterol History of edema History of kidney stones Non-smoker Prostate disease Restless legs Sleep apnea Wears contact lenses Home Medications lisinopril 10 mg tablet 10 mg PO DAILY 08/15/23 [History Last Taken 08/29/23 05:15] multivitamin (Daily Multi-Vitamin tablet) 1 tab PO DAILY 08/15/23 [History Last Taken 08/27/23] rosuvastatin 10 mg tablet 10 mg PO DAILY 08/15/23 [History Last Taken 08/27/23] Allergy/AdvReac Type Severity Reaction Status Date / Time No Known Allergies Allergy Verified 08/29/23 07:01 Surgical History (Updated 08/15/23 @ 10:24 by Freda Chris) History of colonoscopy History of wisdom tooth extraction Social History Smoking Status: Never smoker Vital Signs Vital Signs Vital Signs: 08/29/23 07:04 08/29/23 07:04 Temperature 98.4 F Temperature Source Temporal Pulse Rate 66 Respiratory Rate 16 Respiratory Pattern Normal Blood Pressure 126/63 H Blood Pressure Mean 84 Blood Pressure Source Monitor Blood Pressure Position Sitting Blood Pressure Location Left Arm Pulse Ox 100 Oxygen Delivery Method Room Air Weight Weight: 82 kg Body Mass Index (BMI) 26.6 Results Lab / Micro Data 08/21/23 13:32 08/21/23 13:32 08/29/23 0719 <Electronically signed by Colt Almonte MD> Cosigner Signature (if applicable): CC: Dr. Jeffery López MD; Dr. Colt Almonte MD~ Signed [facility] Work Phone: [phone] 942-570002-13-2024 Hospital Discharge instructionsAmbulatory Orders* 12 Lead EKG [[facility]] Time Frame: 08/21/23, Location: None Selected Additional Instructions [facility] Phone: Evaluation noteNo assessment information available [facility] Work Phone: Progress note Author Indra Larson [facility] Note Date/Time April 06, 2025 11:08am [facility] [address] [place] [address] OFFICE VISIT Date of Service: 04/06/25 1034 MR#: [id number] Acct: [id number] Name: RAYMOND WEINBERG Rep #: [id number] : 1960 From: Indra gomez DO Age/Sex: 64/M Location: [facility] [place] Status: Signed Intake Vital Signs 03/04/25 08:24 04/06/25 10:37 Height 5 ft 9 in 5 ft 9 in Weight: 222 lb 228 lb BMI 32.8 33.6 BP 122/73 H 103/65 Blood Pressure Location Rt brachial Lt brachial Position Sitting Sitting Respiration 18 18 Pulse 56 L 64 Pulse Source Monitor Monitor Temp 97.2 F L 97.5 F L Temperature Source Temporal Artery Temporal Artery Pulse Oximetry (%) 100 100 Oxygen Delivery Method room air room air Intake Is patient in pain?: No Allergies No Known Allergies Allergy (Verified 04/06/25 10:37) Medications ?Medication ?Instructions ?Recorded ?Confirmed ?Type lisinopril 10 mg tablet 10 mg PO DAILY 08/15/2303/10 History multivitamin (Daily Multi-Vitamin 1 tab PO DAILY 08/1504/06/25 History tablet) rosuvastatin 10 mg tablet 10 mg PO DAILY 08/15/2303/10 History PFSH PFSH Medical History Cellulitis Rising PSA following treatment for malignant neoplasm of prostate Elevated prostate specific antigen [PSA] Secondary hypertension Urinary calculi Wears contact lenses Cancer Alcohol use History of kidney stones Prostate disease High cholesterol Restless legs BiPAP (biphasic positive airway pressure) dependence Sleep apnea Non-smoker History of edema Cardiology follow-up encounter Home Medications ?Medication ?Instructions ?Recorded ?Last Taken ?Type lisinopril 10 mg tablet 10 mg PO DAILY 08/15/2308/10 05:15 History multivitamin (Daily Multi-Vitamin 1 tab PO DAILY 08/1508/27/23 History tablet) rosuvastatin 10 mg tablet 10 mg PO DAILY 08/15/2308/09 History Allergy/AdvReac Type Severity Reaction Status Date / Time No Known Allergies Allergy Verified 04/06/25 10:37 Family History Brother Prostate cancer Other Cancer Diabetes Hypertension Surgical History H/O prostate biopsy History of bladder suspension procedure H/O radical prostatectomy History of wisdom tooth extraction History of colonoscopy Social History Smoking Status: Never smoker alcohol intake: current alcohol intake frequency: holidays/special occasions only substance use type: does not use caffeine: Yes (4+ servings per day) Diagnosis: Raymond Weinberg is a 64-year-old male diagnosed with intermediate risk prostate cancer status post TRUS guided prostate biopsy (06/28/2023), bone scan (07/23/2023), MRI prostate with and without contrast (07/27/2023), and radical prostatectomy (08/29/2023), now with evidence of biochemical recurrence with a PSA of 0.16 (10/29/2024).? PSMA PET and MRI pelvis showed no evidence of gross disease. From 01/19/2025 ? 03/05/2025 he completed salvage radiation with short term ADT. History of Present Illness: 06/28/2023: Patient completed TRUS guided prostate biopsy.? This demonstrated [place] 3+4 adenocarcinoma involving about 60% of 2/2 cores in the right prostate mid, [place] 3+3 adenocarcinoma involving greater than 95% of 1/1 core in the right prostate less than 5% of 1/2 cores in the left prostate apex, less than 5% of 1/2 cores in the left prostate mid, and all remaining biopsies were negative. 07/23/2023: Bone scan was performed.? This demonstrated no evidence of metastatic disease. 07/27/2023: Patient completed MRI prostate with and without contrast.? This demonstrated a 1.8 cm PI-RADS 5 lesion in the bilateral anterior transition zone from base to mid gland with micro capsular extension along the anterior border, no evidence of seminal vesicle invasion.? No bone lesions.? There is a 6 x 5 mm left pelvic sidewall lymph node. 08/29/2023: Patient completed radical prostatectomy.? Pathology demonstrated tumor involving both lobes, Jeremy 3+4.? Measures 3 x 2 x 1.5 cm in the right lobe and 3 x 0.7 x 0.8 cm in the left lobe, no seminal vesicle invasion, no extraprostatic extension, no lymph-vascular invasion.? Perineural invasion is present and focal.? Margins are positive with a positive margin measuring 1.5 x 1 cm multifocally in the right and left apical and right anterior and right lateral.? 2 lymph nodes were removed and did not contain metastatic disease. 12/23/2024: Patient completed PSMA PET scan.? This demonstrated no evidence of disease. 12/29/2024: Patient completed MRI pelvis.? This demonstrated interval radical prostatectomy with no evidence of local recurrence or pelvic adenopathy.? There is a 7 mm nonspecific focus of enhancement in the left L5 transverse process with no clear uptake on the recent PSMA PET scan, this may represent degenerative disease but follow-up is likely warranted, this may be too small for resolution on bone scan. From 01/19/2025 ? 03/05/2025: received salvage radiation with short term ADT consisting of 4600 cGy in 23 fractions to the prostate fossa and pelvis followed by a boost to the prostate fossa of 2200 cGy in 11 fractions. This brought the final dose to the prostate fossa to 6800 cGy in 34 fractions. He was treated with a VMAT plan.? Radiation Treatment History: From 01/19/2025 ? 03/05/2025: received salvage radiation with short term ADT consisting of 4600 cGy in 23 fractions to the prostate fossa and pelvis followed by a boost to the prostate fossa of 2200 cGy in 11 fractions. This brought the final dose to the prostate fossa to 6800 cGy in 34 fractions. He was treated with a VMAT plan.? Interval History: Patient presents for follow-up approximately 1 month after completing salvage radiation. He does report doing very well overall. He did have some increased urinary symptoms during treatment which have resolved. He currently reports frequency and urgency less than 1 time in 5 and denies having incomplete emptying, intermittency, weak stream, straining. He has nocturia about 5 times per night. He denies dysuria or hematuria. He denies leakage or incontinence. He reports regular bowel movements without diarrhea or constipation. He denies rectal pain or bleeding. He denies hemorrhoids. Energy level is normal. He did do 2 ADT injections completed the second 1 last month. Denies having any concerns with this. Denies cough, shortness of breath, chest pain, bone pain. He completes ADLs without any difficulty denies having other problems or concerns at this time. Review of Systems: A 12-point review of systems was completed and was negative except for what is noted in the HPI/Interval History and by the nurse. Physical Exam: Weight: 228 lbs ECO KARNOFSKY SCORE: 70% CONSTITUTIONAL: Well-developed, well-nourished, and in no apparent distress. CARDIAC: Regular rate and rhythm. Normal S1, S2. No murmurs, rubs, or gallops. PULMONARY/CHEST: Lungs are clear to auscultation and percussion bilaterally. No wheezes, rhonchi, or crackles noted. No increased work of breathing. EXTREMITIES: Full range of motion in all four extremities. No evidence of edema. MELISSA: Deferred PSYCHIATRIC: Appropriate mood and affect for the clinical situation. Imaging: As per HPI Laboratory Data: PSA: 05/09/2023: 11 05/22/2023: 11 10/18/2023: < 0.01 01/28/2024: 0.04 07/25/2024: 0.13 10/29/2024: 0.16 Assessment & Plan Assessment/Plan (1) Biochemically recurrent castration-sensitive adenocarcinoma of prostate: PLAN: Plan Assessment: Raymond Weinberg is a 64-year-old male diagnosed with intermediate risk prostate cancer status post TRUS guided prostate biopsy (06/28/2023), bone scan (07/23/2023), MRI prostate with and without contrast (07/27/2023), and radical prostatectomy (08/29/2023), now with evidence of biochemical recurrence with a PSA of 0.16 (10/29/2024).? PSMA PET and MRI pelvis showed no evidence of gross disease. From 01/19/2025 ? 03/05/2025 he completed salvage radiation with short term ADT. Plan: Patient returns for routine follow-up approximately 1 month after completing salvage radiation with short-term ADT. He does not have any signs or symptoms concerning for development of disease progression or metastatic disease. Clinically he is doing very well and does not have any apparent toxicities from treatment. We did review follow-up recommendations including PSA about every 3 months, we reviewed PSA dynamics. We will plan to have him return for routine follow-up in 2 months with a PSA prior and he will plan to see urology in September. He was instructed call with any further questions or concerns the interim. Thank you for allowing me to participate in the management and care of your patient. If I may answer any questions in the interim, please do not hesitate to contact me at any time. Indra Larson DO, MS [employer] Worker Apprentice, Department of Radiation Oncology [facility] Coding Level of Care Code Off vis,est,level 3 Diagnoses Biochemically recurrent castration-sensitive adenocarcinoma of prostate C61; R97.21; Z19.1 04/06/25 1108 <Electronically signed by Indra Larson DO> Date _ Indra Larson DO Cosigner Signature: Date (if applicable) CC: Dr. Jeffery López MD; Dr. Colt Almonte MD ~ [facility] Work Phone: Reason for referral (narrative)No reason for referral information availableWSelect Medical Special[facility] Work Phone: Summary Purpose Family History No Family History Records Found Relationship Condition Age at Onset Recorded Date/T valencia Not Specified Diabetes mellitus Unknown Malignant neoplasm Unknown Hypertension Unknown brother Malignant neoplasm of prostate Unknown Advance Directives No Advanced Directives Records Found Advance Directive Response Recorded Date/ Time Living Will Yes August 15 10:15am Power of Ticket Speculator Yes August 15, 2023 10:15am Advance Directive Response Recorded Date/ Time Name of Medical Power of Ticket Speculator August 15, 2023 10:15am Living Will No August 29, 2 024 12:57pm Power of Ticket Speculator No August 29, 2023 12:57pm Advance Directive Response Recorded Date/ Time Name of Medical Power of Ticket Speculator August 15, 2023 11:15am Living Will No August 29, 2 024 1:57pm Power of Ticket Speculator No August 29, 2023 1:57pm Chief Complaint and Reason for Visit Chief Complaint Malignant neoplasm o f prostate C61 Malignant neoplasm of prostate Chief Complaint Malignant neoplasm o f prostate C61 Malignant neoplasm of prostate E ORDERS PREOP Chief Complaint Malignant neoplasm o f prostate C61 Malignant neoplasm of prostate E ORDERS PREOP Laparoscopic Robotic Radical Prostatectomy Chief Complaint Malignant neoplasm o f prostate C61 Malignant neoplasm of prostate E ORDERS PREOP Laparoscopic Robotic Radical Prostatectomy PSA Chief Complaint Admit Date EOSeptember 06, 2024 10:2 7am Chief Complaint Admit Date EOERS September 06, 2024 10:2 7am PROSTATE CA November 14, 2024 10:00a m . December 23, 2024 9:44 am BIOCHEMICAL RECURRENCE OF PROSTATE CANCE R December 29, 2024 11:01am Reason for Visit Admit Date Biochemically recurrent cast ration-sensitive adenocarcinoma of prostate November 14, 2024 10:00am Chief Complaint Admit Date PROSTATE CA November 14, 2024 10:00a m BIOCHEMICAL RECURRENCE OF PROSTATE CANCE R December 29, 2024 11:01am . January 21, 2025 8:20 am OTV January 21, 2025 8:26 am Reason for Visit Admit Date Biochemically recurrent cast ration-sensitive adenocarcinoma of prostate November 14, 2024 10:00am Biochemically recurrent cast ration-sensitive adenocarcinoma of prostate January 21, 2025 8:26am Chief Complaint Admit Date PROSTATE CA November 14, 2024 10:00a m BIOCHEMICAL RECURRENCE OF PROSTATE CANCE R December 29, 2024 11:01am OTV January 21, 2025 8:26 am OTV January 28, 2025 8:15 am . January 28, 2025 8:20 am Chief Complaint Admit Date PROSTATE CA November 14, 2024 10:00a m BIOCHEMICAL RECURRENCE OF PROSTATE CANCE R December 29, 2024 11:01am OTV January 21, 2025 8:26 am OTV January 28, 2025 8:15 am OTV February 04, 2025 8:13 am . February 04, 2025 8:20 am Reason for Visit Admit Date Biochemically recurrent cast ration-sensitive adenocarcinoma of prostate November 14, 2024 10:00am Biochemically recurrent cast ration-sensitive adenocarcinoma of prostate January 21, 2025 8:26am Biochemically recurrent cast ration-sensitive adenocarcinoma of prostate January 28, 2025 8:15am Biochemically recurrent cast ration-sensitive adenocarcinoma of prostate February 04, 2025 8:13am Chief Complaint Admit Date PROSTATE CA November 14, 2024 10:00a m BIOCHEMICAL RECURRENCE OF PROSTATE CANCE R December 29, 2024 11:01am OTV January 21, 2025 8:26 am OTV January 28, 2025 8:15 am OTV February 04, 2025 8:13 am OTV February 11, 2025 8:0 9am . February 11, 2025 8:2 0am Reason for Visit Admit Date Biochemically recurrent cast ration-sensitive adenocarcinoma of prostate November 14, 2024 10:00am Biochemically recurrent cast ration-sensitive adenocarcinoma of prostate January 21, 2025 8:26am Biochemically recurrent cast ration-sensitive adenocarcinoma of prostate January 28, 2025 8:15am Biochemically recurrent cast ration-sensitive adenocarcinoma of prostate February 04, 2025 8:13am Biochemically recurrent cast ration-sensitive adenocarcinoma of prostate February 11, 2025 8:09am Chief Complaint Admit Date PROSTATE CA November 14, 2024 10:00a m BIOCHEMICAL RECURRENCE OF PROSTATE CANCE R December 29, 2024 11:01am OTV January 21, 2025 8:26 am OTV January 28, 2025 8:15 am OTV February 04, 2025 8:13 am OTV February 11, 2025 8:0 9am OTV February 18, 2025 7: 34am . February 18, 2025 8: 20am Chief Complaint Admit Date PROSTATE CA November 14, 2024 10:00a m BIOCHEMICAL RECURRENCE OF PROSTATE CANCE R December 29, 2024 11:01am OTV January 21, 2025 8:26 am OTV January 28, 2025 8:15 am OTV February 04, 2025 8:13 am OTV February 11, 2025 8:0 9am OTV February 18, 2025 7: 34am OTV February 25, 2025 8: 01am . February 25, 2025 8: 20am Reason for Visit Admit Date Biochemically recurrent cast ration-sensitive adenocarcinoma of prostate November 14, 2024 10:00am Biochemically recurrent cast ration-sensitive adenocarcinoma of prostate January 21, 2025 8:26am Biochemically recurrent cast ration-sensitive adenocarcinoma of prostate January 28, 2025 8:15am Biochemically recurrent cast ration-sensitive adenocarcinoma of prostate February 04, 2025 8:13am Biochemically recurrent cast ration-sensitive adenocarcinoma of prostate February 11, 2025 8:09am Biochemically recurrent cast ration-sensitive adenocarcinoma of prostate February 18, 2025 7:34am Biochemically recurrent cast ration-sensitive adenocarcinoma of prostate February 25, 2025 8:01am Chief Complaint Admit Date PROSTATE CA November 14, 2024 10:00a m BIOCHEMICAL RECURRENCE OF PROSTATE CANCE R December 29, 2024 11:01am OTV January 21, 2025 8:26 am OTV January 28, 2025 8:15 am OTV February 04, 2025 8:13 am OTV February 11, 2025 8:0 9am OTV February 18, 2025 7: 34am OTV February 25, 2025 8: 01am OTV March 04, 2025 8: 04am . March 04, 2025 8: 20am Reason for Visit Admit Date Biochemically recurrent cast ration-sensitive adenocarcinoma of prostate November 14, 2024 10:00am Biochemically recurrent cast ration-sensitive adenocarcinoma of prostate January 21, 2025 8:26am Biochemically recurrent cast ration-sensitive adenocarcinoma of prostate January 28, 2025 8:15am Biochemically recurrent cast ration-sensitive adenocarcinoma of prostate February 04, 2025 8:13am Biochemically recurrent cast ration-sensitive adenocarcinoma of prostate February 11, 2025 8:09am Biochemically recurrent cast ration-sensitive adenocarcinoma of prostate February 18, 2025 7:34am Biochemically recurrent cast ration-sensitive adenocarcinoma of prostate February 25, 2025 8:01am Biochemically recurrent cast ration-sensitive adenocarcinoma of prostate March 04, 2025 8:04am Chief Complaint Admit Date PROSTATE CA November 14, 2024 10:00a m BIOCHEMICAL RECURRENCE OF PROSTATE CANCE R December 29, 2024 11:01am OTV January 21, 2025 8:26 am OTV January 28, 2025 8:15 am OTV February 04, 2025 8:13 am OTV February 11, 2025 8:0 9am OTV February 18, 2025 7: 34am OTV February 25, 2025 8: 01am OTV March 04, 2025 8: 04am . March 05, 2025 8: 20am INT LABS March 05, 2025 8: 43am Amb Documentation March 05, 2025 1: 08pm Chief Complaint Admit Date BIOCHEMICAL RECURRENCE OF PROSTATE CANCE R December 29, 2024 11:01am OTV January 21, 2025 8:26 am OTV January 28, 2025 8:15 am OTV February 04, 2025 8:13 am OTV February 11, 2025 8:0 9am OTV February 18, 2025 7: 34am OTV February 25, 2025 8: 01am OTV March 04, 2025 8: 04am . March 05, 2025 8: 20am INT LABS March 05, 2025 8: 43am Amb Documentation March 05, 2025 1: 08pm 1 MONTH F/U POST RT April 06, 2025 10:33am Reason for Visit Admit Date Biochemically recurrent cast ration-sensitive adenocarcinoma of prostate January 21, 2025 8:26am Biochemically recurrent cast ration-sensitive adenocarcinoma of prostate January 28, 2025 8:15am Biochemically recurrent cast ration-sensitive adenocarcinoma of prostate February 04, 2025 8:13am Biochemically recurrent cast ration-sensitive adenocarcinoma of prostate February 11, 2025 8:09am Biochemically recurrent cast ration-sensitive adenocarcinoma of prostate February 18, 2025 7:34am Biochemically recurrent cast ration-sensitive adenocarcinoma of prostate February 25, 2025 8:01am Biochemically recurrent cast ration-sensitive adenocarcinoma of prostate March 04, 2025 8:04am Biochemically recurrent cast ration-sensitive adenocarcinoma of prostate April 06, 2025 10:33am Additional Source Comments (unrecognized sect ion and content) No Status Records FoundNo Status Records FoundNo Status Records Found INFORMATION SOURCE (unrecogn ized section and content) DATE CREATED AUTHOR 06/24/2021 [facility] ([place]) DATE CREATED AUTHOR AUTHOR'S ORGANIZ ATION 08/01/2024 [facility] DATE CREATED AUTHOR AUTHOR'S ORGANIZ ATION 04/12/2025 [facility] Goals (unrecognized section and content) Goals may be documented in a n alternate sectionGoals may be documented in an alternate sectionGoals may be documented in an alternate sectionGoals may be documented in an alternate sectionGoals may be documented in an alternate sectionGoals may be documented in an alternate sectionGoals may be documented in an alternate sectionGoals may be documented in an alternate sectionGoals may be documented in an alternate sectionGoals may be documented in an alternate sectionGoals may be documented in an alternate sectionGoals may be documented in an alternate sectionGoals may be documented in an alternate sectionGoals may be documented in an alternate sectionGoals may be documented in an alternate sectionGoals may be documented in an alternate sectionGoals may be documented in an alternate sectionGoals may be documented in an alternate sectionGoals may be documented in an alternate sectionGoals may be documented in an alternate sectionGoals may be documented in an alternate sectionGoals may be documented in an alternate section Care Teams (unrecognized sec tion and content) Team Status: Active Member Role Status Dates Dr. Jeffery Lóepz MD Primary Care Provider Active Team Status: Inactive Member Role Status Dates Dr. Jeffery López MD Primary Care Provider Active Start: July 25, 2024 End: July 25, 2024 Dr. Colt Almonte MD Attending Provider Active Start: July 25, 2024 End: July 25, 2024 Dr. Colt Almonte MD Referring Provider Active Start: July 25, 2024 End: July 25, 2024 Team Status: Inactive Member Role Status Dates Dr. Jeffery López MD Primary Care Provider Active Start: September 06, 2024 End: September 06, 2024 Dr. Jeffery López MD Attending Provider Active Start: September 06, 2024 End: September 06, 2024 Dr. Jeffery López MD Referring Provider Active Start: September 06, 2024 End: September 06, 2024 Team Status: Active Member Role Status Dates Dr. Jeffery López MD Primary Care Provider Active Dr. Vick Gutierrez MD Attending Provider Active Dr. Colt Almonte MD Referring Provider Active Team Status: Inactive Member Role Status Dates Dr. Jeffery López MD Primary Care Provider Active Dr. Colt Almonte MD Attending Provider, Referr ing Provider Active Team Status: Inactive Member Role Status Dates Dr. Jeffery López MD Primary Care Pr ovider, Attending Provider, Referring Provider Active Team Status: Inactive Member Role Status Dates Dr. Jeffery López MD Primary Care Provider, Attend ing Provider Active Team Status: Inactive Member Role Status Dates Dr. Jeffery López MD Primary Care Provider Active Dr. Colt Almonte MD Attending Provider Active Team Status: Inactive Member Role Status Dates Dr. Jeffery López MD Primary Care Provider Active Dr. Colt Almonte MD Attending Provider, Referr ing Provider Active Dr. Amarjit Abel MD Other Provider Active Team Status: Inactive Member Role Status Dates Dr. Jeffery López MD Primary Care Provider Active Start: October 29, 2024 End: October 29, 2024 Dr. Colt Almonte MD Attending Provider Active Start: October 29, 2024 End: October 29, 2024 Dr. Colt Almonte MD Referring Provider Active Start: October 29, 2024 End: October 29, 2024 Team Status: Inactive Member Role Status Dates Dr. Jeffery López MD Primary Care Provider Active Start: November 14, 2024 End: November 14, 2024 Dr. Indra Larson DO Attending Provider Active Start: November 14, 2024 End: November 14, 2024 Dr. Colt Almonte MD Referring Provider Active Start: November 14, 2024 End: November 14, 2024 Team Status: Active Member Role Status Dates Dr. Jeffery López MD Primary Care Provider Active Start: December 23, 2024 Dr. Indra Larson DO Attending Provider Active Start: December 23, 2024 Dr. Indra Larson DO Referring Provider Active Start: December 23, 2024 Team Status: Inactive Member Role Status Dates Dr. Jeffery López MD Primary Care Provider Active Start: December 29, 2024 End: December 29, 2024 Dr. Indra Larson DO Attending Provider Active Start: December 29, 2024 End: December 29, 2024 Dr. Indra Larson DO Referring Provider Active Start: December 29, 2024 End: December 29, 2024 Team Status: Active Member Role/Relationship Status Dates Dr. Jeffery López MD Primary Care Provider Active Team Status: Inactive Member Role/Relationship Status Dates Dr. Jeffery López MD Primary Care Provider Active Start: October 29, 2024 End: October 29, 2024 Dr. Colt Almonte MD Attending Provider Active Start: October 29, 2024 End: October 29, 2024 Dr. Colt Almonte MD Referring Provider Active Start: October 29, 2024 End: October 29, 2024 Team Status: Inactive Member Role/Relationship Status Dates Dr. Jeffery López MD Primary Care Provider Active Start: November 14, 2024 End: November 14, 2024 Dr. Indra Larson DO Attending Provider Active Start: November 14, 2024 End: November 14, 2024 Dr. Colt Almonte MD Referring Provider Active Start: November 14, 2024 End: November 14, 2024 Team Status: Inactive Member Role/Relationship Status Dates Dr. Jeffery López MD Primary Care Provider Active Start: December 29, 2024 End: December 29, 2024 Dr. Indra Larson DO Attending Provider Active Start: December 29, 2024 End: December 29, 2024 Dr. Indra Larson DO Referring Provider Active Start: December 29, 2024 End: December 29, 2024 Team Status: Active Member Role/Relationship Status Dates Dr. Jeffery López MD Primary Care Provider Active Start: January 05, 2025 Dr. Indra Larson DO Attending Provider Active Start: January 05, 2025 Team Status: Active Member Role/Relationship Status Dates Dr. Jeffery López MD Primary Care Provider Active Start: January 12, 2025 Dr. Indra Larson DO Attending Provider Active Start: January 12, 2025 Team Status: Active Member Role/Relationship Status Dates Dr. Jeffery López MD Primary Care Provider Active Start: January 13, 2025 Dr. Indra Larson DO Attending Provider Active Start: January 13, 2025 Team Status: Active Member Role/Relationship Status Dates Dr. Jeffery López MD Primary Care Provider Active Start: January 21, 2025 Dr. Indra Larson DO Attending Provider Active Start: January 21, 2025 Dr. Indra Larson DO Referring Provider Active Start: January 21, 2025 Team Status: Inactive Member Role/Relationship Status Dates Dr. Jeffery López MD Primary Care Provider Active Start: January 21, 2025 End: January 21, 2025 Dr. Jeffery López MD Referring Provider Active Start: January 21, 2025 End: January 21, 2025 Dr. Indra Larson DO Attending Provider Active Start: January 21, 2025 End: January 21, 2025 Team Status: Inactive Member Role/Relationship Status Dates Dr. Jeffery López MD Primary Care Provider Active Start: January 21, 2025 End: January 21, 2025 Dr. Jeffery López MD Referring Provider Active Start: January 21, 2025 End: January 21, 2025 Dr. Indra Larson DO Attending Provider Active Start: January 21, 2025 End: January 21, 2025 Team Status: Inactive Member Role/Relationship Status Dates Dr. Jeffery López MD Primary Care Provider Active Start: January 28, 2025 End: January 28, 2025 Dr. Jeffery López MD Referring Provider Active Start: January 28, 2025 End: January 28, 2025 Dr. Indra Larson DO Attending Provider Active Start: January 28, 2025 End: January 28, 2025 Team Status: Active Member Role/Relationship Status Dates Dr. Jeffery López MD Primary Care Provider Active Start: January 28, 2025 Dr. Indra Larson DO Attending Provider Active Start: January 28, 2025 Dr. Indra Larson DO Referring Provider Active Start: January 28, 2025 Team Status: Inactive Member Role/Relationship Status Dates Dr. Jeffery López MD Primary Care Provider Active Start: February 04, 2025 End: February 04, 2025 Dr. Indra Larson DO Attending Provider Active Start: February 04, 2025 End: February 04, 2025 Team Status: Active Member Role/Relationship Status Dates Dr. Jeffery López MD Primary Care Provider Active Start: February 04, 2025 Dr. Indra Larson DO Attending Provider Active Start: February 04, 2025 Dr. Indra Larson DO Referring Provider Active Start: February 04, 2025 Team Status: Inactive Member Role/Relationship Status Dates Dr. Jeffery López MD Primary Care Provider Active Start: February 11, 2025 End: February 11, 2025 Dr. Indra Larson DO Attending Provider Active Start: February 11, 2025 End: February 11, 2025 Team Status: Active Member Role/Relationship Status Dates Dr. Jeffery López MD Primary Care Provider Active Start: February 11, 2025 Dr. Indra Larson DO Attending Provider Active Start: February 11, 2025 Dr. Indra Larson DO Referring Provider Active Start: February 11, 2025 Team Status: Active Member Role/Relationship Status Dates Dr. eJffery López MD Primary Care Provider Active Start: January 05, 2025 Dr. Indra Larson DO Attending Provider Active Start: January 05, 2025 Dr. Indra Larson DO Referring Provider Active Start: January 05, 2025 Team Status: Inactive Member Role/Relationship Status Dates Dr. Jeffery López MD Primary Care Provider Active Start: February 18, 2025 End: February 18, 2025 Dr. Jeffery López MD Referring Provider Active Start: February 18, 2025 End: February 18, 2025 Dr. Indra Larson DO Attending Provider Active Start: February 18, 2025 End: February 18, 2025 Team Status: Active Member Role/Relationship Status Dates Dr. Jeffery López MD Primary Care Provider Active Start: February 18, 2025 Dr. Indra Larson DO Attending Provider Active Start: February 18, 2025 Dr. Indra Larson DO Referring Provider Active Start: February 18, 2025 Team Status: Active Member Role/Relationship Status Dates Dr. Jeffery López MD Primary Care Provider Active Start: January 12, 2025 Dr. Indra Larson DO Attending Provider Active Start: January 12, 2025 Dr. Indra Larson DO Referring Provider Active Start: January 12, 2025 Team Status: Active Member Role/Relationship Status Dates Dr. Jeffery López MD Primary Care Provider Active Start: January 13, 2025 Dr. Indra Larson DO Attending Provider Active Start: January 13, 2025 Dr. Indra Larson DO Referring Provider Active Start: January 13, 2025 Team Status: Inactive Member Role/Relationship Status Dates Dr. Jeffery López MD Primary Care Provider Active Start: February 25, 2025 End: February 25, 2025 Dr. Indra Larson DO Attending Provider Active Start: February 25, 2025 End: February 25, 2025 Team Status: Active Member Role/Relationship Status Dates Dr. Jeffery López MD Primary Care Provider Active Start: February 25, 2025 Dr. Indra Larson DO Attending Provider Active Start: February 25, 2025 Dr. Indra Larson DO Referring Provider Active Start: February 25, 2025 Team Status: Inactive Member Role/Relationship Status Dates Dr. Jeffery López MD Primary Care Provider Active Start: November 14, 2024 End: November 14, 2024 Dr. Indra Larson DO Attending Provider Active Start: November 14, 2024 End: November 14, 2024 Dr. Colt Almonte MD Referring Provider Active Start: November 14, 2024 End: November 14, 2024 Team Status: Inactive Member Role/Relationship Status Dates Dr. Jeffery López MD Primary Care Provider Active Start: December 29, 2024 End: December 29, 2024 Dr. Indra Larson DO Attending Provider Active Start: December 29, 2024 End: December 29, 2024 Dr. Indra Larson DO Referring Provider Active Start: December 29, 2024 End: December 29, 2024 Team Status: Active Member Role/Relationship Status Dates Dr. Jeffery López MD Primary Care Provider Active Start: January 05, 2025 Dr. Indra Larson DO Attending Provider Active Start: January 05, 2025 Dr. Indra Larson DO Referring Provider Active Start: January 05, 2025 Team Status: Active Member Role/Relationship Status Dates Dr. Jeffery López MD Primary Care Provider Active Start: January 12, 2025 Dr. Indra Larson DO Attending Provider Active Start: January 12, 2025 Dr. Indra Larson DO Referring Provider Active Start: January 12, 2025 Team Status: Active Member Role/Relationship Status Dates Dr. Jeffery López MD Primary Care Provider Active Start: January 13, 2025 Dr. Indra Larson DO Attending Provider Active Start: January 13, 2025 Dr. Indra Larson DO Referring Provider Active Start: January 13, 2025 Team Status: Inactive Member Role/Relationship Status Dates Dr. Jeffery López MD Primary Care Provider Active Start: January 21, 2025 End: January 21, 2025 Dr. Indra Larson DO Attending Provider Active Start: January 21, 2025 End: January 21, 2025 Dr. Indra Larson DO Referring Provider Active Start: January 21, 2025 End: January 21, 2025 Team Status: Inactive Member Role/Relationship Status Dates Dr. Jeffery López MD Primary Care Provider Active Start: January 28, 2025 End: January 28, 2025 Dr. Jeffery López MD Referring Provider Active Start: January 28, 2025 End: January 28, 2025 Dr. Indra Larson DO Attending Provider Active Start: January 28, 2025 End: January 28, 2025 Team Status: Inactive Member Role/Relationship Status Dates Dr. Jeffery López MD Primary Care Provider Active Start: February 04, 2025 End: February 04, 2025 Dr. Indra Larson DO Attending Provider Active Start: February 04, 2025 End: February 04, 2025 Team Status: Inactive Member Role/Relationship Status Dates Dr. Jeffery López MD Primary Care Provider Active Start: February 11, 2025 End: February 11, 2025 Dr. Indra Larson DO Attending Provider Active Start: February 11, 2025 End: February 11, 2025 Team Status: Inactive Member Role/Relationship Status Dates Dr. Jeffery López MD Primary Care Provider Active Start: February 18, 2025 End: February 18, 2025 Dr. Jeffery López MD Referring Provider Active Start: February 18, 2025 End: February 18, 2025 Dr. Indra Larson DO Attending Provider Active Start: February 18, 2025 End: February 18, 2025 Team Status: Inactive Member Role/Relationship Status Dates Dr. Jeffery López MD Primary Care Provider Active Start: February 25, 2025 End: February 25, 2025 Dr. Indra Larson DO Attending Provider Active Start: February 25, 2025 End: February 25, 2025 Team Status: Inactive Member Role/Relationship Status Dates Dr. Jeffery López MD Primary Care Provider Active Start: March 04, 2025 End: March 04, 2025 Dr. Indra Larson DO Attending Provider Active Start: March 04, 2025 End: March 04, 2025 Team Status: Active Member Role/Relationship Status Dates Dr. Jeffery López MD Primary Care Provider Active Start: March 04, 2025 Dr. Indra Larson DO Attending Provider Active Start: March 04, 2025 Dr. Indra Larson DO Referring Provider Active Start: March 04, 2025 Team Status: Inactive Member Role/Relationship Status Dates Dr. Jeffery López MD Primary Care Provider Active Start: January 28, 2025 End: January 28, 2025 Dr. Indra Larson DO Attending Provider Active Start: January 28, 2025 End: January 28, 2025 Dr. Indra Larson DO Referring Provider Active Start: January 28, 2025 End: January 28, 2025 Team Status: Active Member Role/Relationship Status Dates Dr. Jeffery López MD Primary Care Provider Active Start: March 05, 2025 Dr. Indra Larson DO Attending Provider Active Start: March 05, 2025 Dr. Indra Larson DO Referring Provider Active Start: March 05, 2025 Team Status: Inactive Member Role/Relationship Status Dates Dr. Jeffery López MD Primary Care Provider Active Start: March 05, 2025 End: March 05, 2025 Dr. Jeffery López MD Attending Provider Active Start: March 05, 2025 End: March 05, 2025 Dr. Jeffery López MD Referring Provider Active Start: March 05, 2025 End: March 05, 2025 Team Status: Active Member Role/Relationship Status Dates Dr. Jeffery López MD Primary Care Provider Active Start: March 05, 2025 Dr. Indra Larson DO Attending Provider Active Start: March 05, 2025 Team Status: Active Member Role/Relationship Status Dates Dr. Jeffery López MD Primary care physician Active Team Status: Inactive Member Role/Relationship Status Dates Dr. Jeffery López MD Primary care physician Active Start: December 29, 2024 End: December 29, 2024 Dr. Indra Larson DO Attending physician Active Start: December 29, 2024 End: December 29, 2024 Dr. Indra Larson DO Referring Provider Active Start: December 29, 2024 End: December 29, 2024 Team Status: Active Member Role/Relationship Status Dates Dr. Jeffery López MD Primary care physician Active Start: January 05, 2025 Dr. Indra Larson DO Attending physician Active Start: January 05, 2025 Dr. Indra Larson DO Referring Provider Active Start: January 05, 2025 Team Status: Active Member Role/Relationship Status Dates Dr. Jeffery López MD Primary care physician Active Start: January 12, 2025 Dr. Indra Larson DO Attending physician Active Start: January 12, 2025 Dr. Inrda Larson DO Referring Provider Active Start: January 12, 2025 Team Status: Active Member Role/Relationship Status Dates Dr. Jeffery López MD Primary care physician Active Start: January 13, 2025 Dr. Indra Larson DO Attending physician Active Start: January 13, 2025 Dr. Indra Larson DO Referring Provider Active Start: January 13, 2025 Team Status: Inactive Member Role/Relationship Status Dates Dr. Jeffery López MD Primary care physician Active Start: January 21, 2025 End: January 21, 2025 Dr. Indra Larson DO Attending physician Active Start: January 21, 2025 End: January 21, 2025 Dr. Indra Larson DO Referring Provider Active Start: January 21, 2025 End: January 21, 2025 Team Status: Inactive Member Role/Relationship Status Dates Dr. Jeffery López MD Primary care physician Active Start: January 28, 2025 End: January 28, 2025 Dr. Indra Larson DO Attending physician Active Start: January 28, 2025 End: January 28, 2025 Dr. Indra Larson DO Referring Provider Active Start: January 28, 2025 End: January 28, 2025 Team Status: Inactive Member Role/Relationship Status Dates Dr. Jeffery López MD Primary care physician Active Start: February 04, 2025 End: February 04, 2025 Dr. Indra Larson DO Attending physician Active Start: February 04, 2025 End: February 04, 2025 Dr. Indra Larson DO Referring Provider Active Start: February 04, 2025 End: February 04, 2025 Team Status: Inactive Member Role/Relationship Status Dates Dr. Jeffery López MD Primary care physician Active Start: February 11, 2025 End: February 11, 2025 Dr. Indra Larson DO Attending physician Active Start: February 11, 2025 End: February 11, 2025 Dr. Indra Larson DO Referring Provider Active Start: February 11, 2025 End: February 11, 2025 Team Status: Inactive Member Role/Relationship Status Dates Dr. Jeffery López MD Primary care physician Active Start: February 18, 2025 End: February 18, 2025 Dr. Indra Larson DO Attending physician Active Start: February 18, 2025 End: February 18, 2025 Dr. Indra Larson DO Referring Provider Active Start: February 18, 2025 End: February 18, 2025 Team Status: Inactive Member Role/Relationship Status Dates Dr. Jeffery López MD Primary care physician Active Start: February 25, 2025 End: February 25, 2025 Dr. Indra Larson DO Attending physician Active Start: February 25, 2025 End: February 25, 2025 Team Status: Inactive Member Role/Relationship Status Dates Dr. Jeffery López MD Primary care physician Active Start: March 04, 2025 End: March 04, 2025 Dr. Indra Larson DO Attending physician Active Start: March 04, 2025 End: March 04, 2025 Team Status: Active Member Role/Relationship Status Dates Dr. Jeffery López MD Primary care physician Active Start: March 05, 2025 Dr. Indra Larson DO Attending physician Active Start: March 05, 2025 Dr. Indra Larson DO Referring Provider Active Start: March 05, 2025 Team Status: Inactive Member Role/Relationship Status Dates Dr. Jeffery López MD Primary care physician Active Start: March 05, 2025 End: March 05, 2025 Dr. Jeffery López MD Attending physician Active Start: March 05, 2025 End: March 05, 2025 Dr. Jeffery López MD Referring Provider Active Start: March 05, 2025 End: March 05, 2025 Team Status: Active Member Role/Relationship Status Dates Dr. Jeffery López MD Primary care physician Active Start: March 05, 2025 Dr. Indra Larson DO Attending physician Active Start: March 05, 2025 Team Status: Inactive Member Role/Relationship Status Dates Dr. Jeffery López MD Primary care physician Active Start: March 17, 2025 End: March 17, 2025 Dr. Jeffery López MD Attending physician Active Start: March 17, 2025 End: March 17, 2025 Dr. Jeffery López MD Referring Provider Active Start: March 17, 2025 End: March 17, 2025 Team Status: Inactive Member Role/Relationship Status Dates Dr. Jeffery López MD Primary care physician Active Start: April 06, 2025 End: April 06, 2025 Dr. Jeffery López MD Referring Provider Active Start: April 06, 2025 End: April 06, 2025 Dr. Indra Larson DO Attending physician Active Start: April 06, 2025 End: April 06, 2025 Team Status: Inactive Member Role/Relationship Status Dates Dr. Jeffery López MD Primary care physician Active Start: February 25, 2025 End: February 25, 2025 Dr. Indra Larson DO Attending physician Active Start: February 25, 2025 End: February 25, 2025 Dr. Indra Larson DO Referring Provider Active Start: February 25, 2025 End: February 25, 2025 FOR RECORDS PERTAINING TO PATIENTS WHO ARE [...] BE BASED ON THE PRIMARY CLINICAL RECORDS. [facility] [employer] provides no warranty or guarantee of the accuracy or completeness of information in this document.
[2025-06-05 15:38] LABS: Hematocrit 36.8 % (40-54); Hemoglobin 12.6 g/dL (13.0-16.5); Immature Granulocytes Count 0.030 X10^3/uL (0.0-0.0); Mean Corp Hgb Conc 34.2 g/dL (32-36); Mean Corpuscular Volume 91.8 fL (80-94); Mean Platelet Vol. 9.4 fl (6.2-12.0); NRBC Flagged by Analyzer 0 % (0-5); POSITIVE DIFFERENTIAL YES; Platelet Count 228 K/mm3 (150-450); RBC Distribution Width CV 12.0 % (11.6-14.6); RBC Distribution Width SD 40.7 fl (35.1-43.9); Red Blood Count 4.01 M/mm3 (4.6-6.2); White Blood Count 13.9 K/mm3 (4.4-11.0)
[2025-06-05 15:58] LABS: AST(SGOT) 16 U/L (<=37); Alanine Aminotransfer ALT/SGPT 16 U/L (<=46); Albumin, Serum 4.3 g/dL (3.4-4.8); Alkaline Phosphatase 68 U/L (40-129); Anion Gap 12 (5-15); BUN 27 mg/dL (4-19); BUN/Creat Ratio 31.6 RATIO (10-20); Calcium,Total 9.6 mg/dL (7.6-11.0); Carbon Dioxide 25.4 mmol/L (21.0-32.0); Chloride 101 mmol/L (98-108); Cholesterol 118 mg/dL (<=200); Globulin 3.2 g/dL (2.2-4.2); Glucose 171 mg/dL (70-99); Low Density Lipoprotein Calc. 24 mg/dL; Potassium 4.2 mmol/L (3.3-5.1); Triglycerides 31 mg/dL; Very Low Density Lipoprotein 6 mg/dL (5-40); cholesterol:hdl ratio screen 1.39
[2025-06-05 16:31] LABS: PSA,Total- Diagnostic < 0.02 ng/mL (0.00-4.00)
[2025-06-05 16:41] LABS: Color, Urine Yellow (Yellow); Glucose, Dipstick Normal (Normal); Ketone-Dipstick Negative (Negative); Leukocyte Esterase-Dipstick Negative /ul (Negative); Nitrite-Dipstick Negative (Negative); Occult Blood-Urine 25 /ul (Negative); Protein-Dipstick 30 mg/dl (Negative); Specific Gravity, Urine 1.030 (1.002-1.030); Urine Bilirubin Dipstick Negative (Negative)
[2025-06-05 17:15] LABS: Mucous, Urine 2+ /hpf (<or=2+)
[2025-06-05 17:16] LABS: Red Blood Cells-Urine 0-5 SEEN /hpf (0-5); Squamous Epithelial Cells - UA 0-5 SEEN /hpf (0-5)
== END | disposition home or self-care (01) ==
LOC: LAB 15:01
PROVIDERS: Student in an Organized Health Care Education/Training Program; PCP Family Medicine; Referring Provider Family Medicine; Visit Provider Family Medicine
DX: R10.A0 Flank pain, unspecified side (principal); C61 Malignant neoplasm of prostate; E11.9 Type 2 diabetes mellitus without complications; R97.21 Rising PSA following treatment for malignant neoplasm of prostate; Z19.1 Hormone sensitive malignancy status
CPT/HCPCS: 36415; 80053; 80061; 81001; 83036; 84153; 85025

== ENCOUNTER → 2025-06-11 | Outpatient (CLI) | payer OTHER, SELFPAY ==
--- NOTE | 2025-06-11 11:15 | RAD_ITS ---
PROCEDURE: ABDOMEN SINGLE VIEW 06/11/2025 REASON FOR EXAM: FLANK PAIN, POSSIBLE NEPHROLITHIASIS , RIGHT TECHNIQUE: Procedure Code: RADABD Modality: DX Procedure: ABDOMEN SINGLE VIEW COMPARISON: None FINDINGS: KUB with three views. There is a nonobstructive bowel gas pattern. There are no definite calcifications overlying the renal shadow on the right or left. Phleboliths are noted in the pelvis. Degenerative changes are noted in the lumbar spine. There is no acute bony abnormality. There is no visible atherosclerosis. RAD/Abdomen Single View IMPRESSION: Nonobstructive bowel gas pattern. No definite renal stones are identified. Co nsider CT correlation if clinically indicated. Reading Location: [facility]
--- NOTE | 2025-06-11 11:33 | CT_ITS ---
PROCEDURE: ABDOMEN/PELVIS W IV CONT ONLY 06/11/2025 REASON FOR EXAM: FLANK PAIN TECHNIQUE: Procedure Code: CTABDPELIV Modality: CT Procedure: ABDOMEN/PELVIS W IV CONT ONLY Coronal and Sagittal reconstruction series were provided. CONTRAST: Isovue 370 VOLUME: 97 mL One or more dose reduction techniques were used (e.g., Automated exposure control, adjustment of the mA and/or kV according to patient size, use of iterative reconstruction technique. RADIATION DOSE SUMMARY: CTDlvol: 23.69 mGy DLP: 1378.45 mGycm COMPARISON: PET scan December 23, 2024. FINDINGS: Lung bases: Small right pleural effusion. Liver: A 4.4 x 4 x 3.8 cm peripherally enhancing collection near the tail of the liver consistent with an abscess. Gallbladder: Unremarkable. No biliary dilation. Spleen: Unremarkable. Pancreas: Unremarkable. Adrenals: Unremarkable. Kidneys: Perinephric fat stranding. No hydronephrosis. No nephrolithiasis. Bladder: Unremarkable. Reproductive Organs: Unremarkable. Bowel: No bowel wall thickening. No bowel obstruction. Appendix: A 3.8 x 2.9 x 3.5 cm mass at the level of the appendix with surrounding fat stranding containing air bubbles consistent with an abscess. No appendicolith. Lymph nodes: No lymphadenopathy. Vasculature: No aortic aneurysm. Peritoneum / Retroperitoneum: No remote free air or free fluid. Bones: No acute bony abnormalities. CT/Abdomen/Pelvis W IV Cont ONLY IMPRESSION: Findings are consistent with perforated acute appendicitis. A 3.8 x 2.9 x 3.5 cm mass at the level of the appendix with surrounding fat str anding containing air bubbles consistent with an abscess. No appendicolith. A 4.4 x 4 x 3.8 cm peripherally enhancing collection near the tail of the liver consistent with an abscess. Reading Location: [id number]
[2025-06-11 14:25] LABS: Hematocrit 34.0 % (40-54); Hemoglobin 11.2 g/dL (13.0-16.5); Immature Granulocytes Count 0.110 X10^3/uL (0.0-0.0); Mean Corp Hgb Conc 32.9 g/dL (32-36); Mean Corpuscular Volume 92.1 fL (80-94); Mean Platelet Vol. 8.9 fl (6.2-12.0); NRBC Flagged by Analyzer 0 % (0-5); POSITIVE DIFFERENTIAL YES; Platelet Count 283 K/mm3 (150-450); RBC Distribution Width CV 11.9 % (11.6-14.6); RBC Distribution Width SD 39.9 fl (35.1-43.9); Red Blood Count 3.69 M/mm3 (4.6-6.2); White Blood Count 9.0 K/mm3 (4.4-11.0)
[2025-06-11 15:15] LABS: AST(SGOT) 35 U/L (<=37); Alanine Aminotransfer ALT/SGPT 43 U/L (<=46); Albumin, Serum 3.6 g/dL (3.4-4.8); Alkaline Phosphatase 77 U/L (40-129); Anion Gap 13 (5-15); BUN 18 mg/dL (4-19); BUN/Creat Ratio 25.9 RATIO (10-20); Calcium,Total 8.9 mg/dL (7.6-11.0); Carbon Dioxide 27.8 mmol/L (21.0-32.0); Chloride 97 mmol/L (98-108); Globulin 3.1 g/dL (2.2-4.2); Glucose 131 mg/dL (70-99); Potassium 4.3 mmol/L (3.3-5.1)
== END | disposition home or self-care (01) ==
PROVIDERS: PCP Family Medicine; Referring Provider Family Medicine; Visit Provider Family Medicine
DX: R10.31 Right lower quadrant pain (principal); R10.A0 Flank pain, unspecified side
CPT/HCPCS: 36415; 74018; 74177; 80053; 85025; Q9967